=== PATIENT | female | born 1960 | race American Indian/Alaskan Native ===

== ENCOUNTER 2016-10-23 02:02 | Emergency (ER) | payer MEDICARE, OTHER ==
[2016-10-23 02:03] VITALS: PULSE 125
[2016-10-23 02:09] VITALS: BMI 37.1
[2016-10-23 04:36] VITALS: BP 171/91; PULSE 74; RESP 18; TEMP 98.2; O2SAT 96
--- NOTE | 2016-10-23 05:20 | ED PDOC ---
Arrival/HPI - General Chief Complaint: Lower Extremity Problem/Injury Time Seen by Provider: 10/23/16 04:48 Historian: Patient - History of Present Illness Narrative History of Present Illness (Text): 10/23/16 05:17 Carie Duncan is a 56 year old female, with a history of alcohol abuse and chronic leg pain, presents to the emergency department complaining of bilateral leg pain. Denies any recent history of trauma. She states that she is homeless and has nowhere else to go. Patient is well known to [facility] for numerous emergency department visits for similar complaints. Denies fever, chills, headache, dizziness, chest pain, shortness of breath, nausea, vomiting, diarrhea, or any other complaints at this time. Time/Duration: 4-6 hours Symptom Onset: Gradual Symptom Course: Unchanged Severity Level: Mild Activities at Onset: Light Past Medical History - Provider Review Nursing Documentation Reviewed: Yes - Infectious Disease Hx of Infectious Diseases: None - Tetanus Immunization Tetanus Immunization: Unknown - Cardiac Hx Congestive Heart Failure: Yes Hx Hypertension: Yes Hx Peripheral Edema: Yes - Pulmonary Hx Chronic Obstructive Pulmonary Disease (COPD): Yes - Neurological Hx Neurological Disorder: No HX Cerebrovascular Accident: No - HEENT Hx HEENT Disorder: No - Renal Hx Renal Disorder: Yes - Endocrine/Metabolic Hx Hypothyroidism: Yes - Hematological/Oncological Hx Anemia: Yes - Integumentary Hx Dermatological Disorder: No - Musculoskeletal/Rheumatological Hx Arthritis: Yes - Gastrointestinal Hx Gastrointestinal Disorders: No Hx Pancreatitis: Yes - Genitourinary/Gynecological Hx Genitourinary Disorders: No - Psychiatric Hx Anxiety: Yes Hx Depression: Yes Hx Substance Use: No (stopped) - Surgical History Other/Comment: IVC filter - Anesthesia Hx Anesthesia: Yes Hx Anesthesia Reactions: No Hx Malignant Hyperthermia: No - Suicidal Assessment Feels Threatened In Home Enviroment: No Family/Social History - Physician Review Nursing Documentation Reviewed: Yes Family/Social History: No Known Family HX Smoking Status: Heavy Smoker > 10 Cigarettes Daily Hx Alcohol Use: Yes (vodka) Frequency of alcohol use: Daily Hx Substance Use: No (stopped) Substance used: ''Heroin Hx Substance Use Treatment: No Allergies/Home Meds Allergies/Adverse Reactions: Allergies No Known Allergies Allergy (Verified 10/23/16 02:07) Review of Systems - Physician Review All systems were reviewed & negative as marked: Yes - Review of Systems Constitutional: Normal. absent: Fatigue, Fevers Respiratory: Normal. absent: SOB, Cough Cardiovascular: Normal. absent: Chest Pain Gastrointestinal: Normal. absent: Abdominal Pain, Diarrhea, Nausea, Vomiting Musculoskeletal: Other (b/l leg pain ) Neurological: Normal. absent: Headache, Dizziness Psychiatric: Normal Physical Exam Vital Signs Reviewed: Yes Vital Signs Temp Pulse Resp BP Pulse Ox 10/23/16 04:34 98.2 F 74 18 171/91 H 96 Temperature: Afebrile Blood Pressure: Hypertensive Pulse: Regular Respiratory Rate: Normal Appearance: Positive for: Well-Appearing, Non-Toxic, Comfortable Pain Distress: None Mental Status: Positive for: Alert and Oriented X 3 - Systems Exam Head: Present: Atraumatic, Normocephalic Pupils: Present: PERRL Extroacular Muscles: Present: EOMI Conjunctiva: Present: Normal Respiratory/Chest: Present: Clear to Auscultation, Good Air Exchange. No: Respiratory Distress, Accessory Muscle Use Cardiovascular: Present: Regular Rate and Rhythm, Normal S1, S2. No: Murmurs Abdomen: Present: Normal Bowel Sounds. No: Tenderness, Distention, Peritoneal Signs Lower Extremity: Present: Normal Inspection, NORMAL PULSES, Normal ROM, Neurovascularly Intact, Capillary Refill < 2 s. No: Edema, CALF TENDERNESS, Venkat's Sign, Tenderness, Swelling, Erythema, Deformity Neurological: Present: GCS=15, CN II-XII Intact, Speech Normal Skin: Present: Warm, Dry, Normal Color. No: Rashes Psychiatric: Present: Alert, Oriented x 3, Normal Insight, Normal Concentration Medical Decision Making ED Course and Treatment: 10/23/16 05:23 Impression: A 56 year old female presents to emergency department for bilateral leg pain. Progress Notes: - Scribe Statement The provider has reviewed the documentation as recorded by the Bradley Salguero Provider Attestation: All medical record entries made by the Bradley were at my direction and personally dictated by me. I have reviewed the chart and agree that the record accurately reflects my personal performance of the history, physical exam, medical decision making, and the department course for this patient. I have also personally directed, reviewed, and agree with the discharge instructions and disposition. Disposition/Present on Arrival - Present on Arrival Any Indicators Present on Arrival: No History of DVT/PE: No History of Uncontrolled Diabetes: No Urinary Catheter: No History of Decub. Ulcer: No History Surgical Site Infection Following: None - Disposition Have Diagnosis and Disposition been Completed?: Yes Diagnosis: Chronic leg pain Disposition: HOME/ ROUTINE Disposition Time: 05:40 Patient Plan: Discharge Condition: GOOD Discharge Instructions (ExitCare): Muscle Strain (ED) Additional Instructions: rest/advil as directed/follow up [facility] this week
--- NOTE | 2016-10-23 22:51 | ED PDOC ---
Arrival/HPI - General Chief Complaint: Lower Extremity Problem/Injury Time Seen by Provider: 10/23/16 04:48 Historian: Patient, EMS EM Caveat: Intoxicated, Uncooperative - History of Present Illness Narrative History of Present Illness (Text): 10/23/16 22:51 This is a 56 year old female, with a history of alcohol abuse and chronic leg pain, presenting to the emergency department complaining of right sided leg pain. The patient reports a fall. EMS found the patient sitting on the side of the road. The patient is unable to describe the fall or provide any more details other than the fact that she fell. The patient is currently intoxicated after an admitted ingestion of 3 pints of vodka. The patient is homeless. She was discharged from the [facility] ED this morning after observation for intoxication. Denies fever, chills, headache, dizziness, chest pain, shortness of breath, nausea, vomiting, diarrhea, or any other complaints at this time. Time/Duration: Prior to Arrival Severity Level: 8 Past Medical History - Provider Review Nursing Documentation Reviewed: Yes - Travel History Have you recently traveled outside [place] w/in the past 3 mons?: No - Past History Past History: No Previous - Infectious Disease Hx of Infectious Diseases: None - Tetanus Immunization Tetanus Immunization: Unknown - Cardiac Hx Congestive Heart Failure: Yes Hx Hypertension: Yes Hx Peripheral Edema: Yes - Pulmonary Hx Chronic Obstructive Pulmonary Disease (COPD): Yes - Neurological Hx Neurological Disorder: No HX Cerebrovascular Accident: No - HEENT Hx HEENT Disorder: No - Renal Hx Renal Disorder: Yes - Endocrine/Metabolic Hx Hypothyroidism: Yes - Hematological/Oncological Hx Anemia: Yes - Integumentary Hx Dermatological Disorder: No - Musculoskeletal/Rheumatological Hx Arthritis: Yes - Gastrointestinal Hx Gastrointestinal Disorders: No Hx Pancreatitis: Yes - Genitourinary/Gynecological Hx Genitourinary Disorders: No - Psychiatric Hx Anxiety: Yes Hx Depression: Yes Hx Substance Use: No (stopped) - Surgical History Other/Comment: IVC filter - Anesthesia Hx Anesthesia: Yes Hx Anesthesia Reactions: No Hx Malignant Hyperthermia: No - Suicidal Assessment Feels Threatened In Home Enviroment: No Family/Social History - Physician Review Nursing Documentation Reviewed: Yes Family/Social History: No Known Family HX Smoking Status: Heavy Smoker > 10 Cigarettes Daily Hx Alcohol Use: Yes (vodka 2-3 pints) Frequency of alcohol use: Daily Hx Substance Use: No (stopped) Substance used: Heroin Hx Substance Use Treatment: No Allergies/Home Meds Allergies/Adverse Reactions: Allergies No Known Allergies Allergy (Verified 10/23/16 22:38) Review of Systems - Physician Review All systems were reviewed & negative as marked: Yes - Review of Systems Systems not reviewed;Unavailable: Uncooperative Respiratory: absent: SOB, Cough Cardiovascular: absent: Chest Pain, Palpitations Musculoskeletal: Arthralgias, Myalgias Physical Exam - Physical Exam Physical Exam Limitations: Intoxication, Uncooperative Vital Signs Reviewed: Yes Vital Signs Temp Pulse Resp BP Pulse Ox 10/23/16 04:34 98.2 F 74 18 171/91 H 96 Temperature: Afebrile Blood Pressure: Hypertensive Pulse: Regular Respiratory Rate: Normal Appearance: Positive for: Well-Appearing, Non-Toxic Pain Distress: None Mental Status: Positive for: Alert and Oriented X 3 - Systems Exam Head: Present: Atraumatic, Normocephalic Respiratory/Chest: Present: Clear to Auscultation, Good Air Exchange. No: Respiratory Distress, Accessory Muscle Use Cardiovascular: Present: Regular Rate and Rhythm, Normal S1, S2. No: Murmurs Abdomen: Present: Normal Bowel Sounds. No: Tenderness, Distention, Peritoneal Signs Upper Extremity: Present: Normal Inspection. No: Cyanosis, Edema Lower Extremity: Present: Normal Inspection, CALF TENDERNESS (Right side), NORMAL PULSES, Tenderness, Neurovascularly Intact. No: Edema, Normal ROM ( decreased ROM 2/2 to pain R Knee), Swelling Neurological: Present: CN II-XII Intact Skin: Present: Warm, Dry, Normal Color. No: Rashes Psychiatric: Present: Alert Medical Decision Making ED Course and Treatment: 10/23/16 23:03 Impression: This is a 56 year old female, with a history of alcohol abuse and chronic leg pain, presenting to the emergency department complaining of right sided leg pain. The patient is well known to the [facility] ED staff. The patient is a chronic alcoholic who is homeless. The patient has a history of chronic leg pain as well. Differential: Social Situation EtOH Intoxication Arthritis Plan: Banana Bag 100mL/hr Weight bearing XR R knee Seizure Prophylaxis Tele Monitor Ativan 1mg IV Q6 PRN Seizure Prior Visits: 10/23/16 AM- EtOH intoxication Patient has multiple admission for leg pain and alcohol intoxication Progress Note: Patient seen and examined at the bedside. Patient reprots pain in her right knee. Patient says that the pain is consistent with her baseline. She is worried about the knee because she fell. The patient was left alone to change. When I returned to speak with the patient she was sleeping comfortably. Disposition/Present on Arrival - Present on Arrival Any Indicators Present on Arrival: Yes History of DVT/PE: Yes History of Uncontrolled Diabetes: No Urinary Catheter: No History of Decub. Ulcer: No History Surgical Site Infection Following: None - Disposition Have Diagnosis and Disposition been Completed?: Yes Diagnosis: Chronic leg pain Condition: GOOD Discharge Instructions (ExitCare): Muscle Strain (ED) Additional Instructions: rest/advil as directed/follow up [facility] this week
== END 2016-10-23 06:05 | disposition home or self-care (01) ==
LOC: ED 02:02
DX: M79.605 Pain in left leg (principal); M79.604 Pain in right leg; G89.29 Other chronic pain
CPT/HCPCS: 73560; 96374; 99283; G0480; J2060; J3411; J7040

== ENCOUNTER 2016-10-23 21:48 | Emergency (ER) | payer MEDICARE, OTHER ==
[2016-10-23 21:48] VITALS: PULSE 125; BMI 37.1
[2016-10-23] MEDS ORDERED: Multivitamin (MVI) 10 ML, Thiamine 100 MG, Folic Acid 1 MG in Sodium Chloride 0.9% 1,00... IV ONE ×2 (22:21→22:22)
[2016-10-23] MEDS ORDERED: Sodium Chloride 0.9% 1,000 ML IV STA (22:22)
--- NOTE | 2016-10-23 23:14 | ED PDOC ---
Arrival/HPI <Ken King - Last Filed: 10/24/16 00:25> - General Historian: Patient, EMS EM Caveat: Intoxicated, Uncooperative - History of Present Illness Time/Duration: Prior to Arrival Symptom Course: Unchanged Severity Level: 8 <Sylvia,Juice - Last Filed: 10/24/16 05:47> - General Chief Complaint: Lower Extremity Problem/Injury Time Seen by Provider: 10/23/16 21:56 - History of Present Illness Narrative History of Present Illness (Text): 10/23/16 23:11 This is a 56 year old female, with a history of alcohol abuse and chronic leg pain, presenting to the emergency department complaining of right sided leg pain. The patient reports a fall. EMS found the patient sitting on the side of the road. The patient is unable to describe the fall or provide any more details other than the fact that she fell. The patient is currently intoxicated after an admitted ingestion of 3 pints of vodka. The patient is homeless. She was discharged from the [facility] ED this morning after observation for intoxication. Denies fever, chills, headache, dizziness, chest pain, shortness of breath, nausea, vomiting, diarrhea, or any other complaints at this time. (Juice Ward) Past Medical History - Provider Review Nursing Documentation Reviewed: Yes - Travel History Have you recently traveled outside [place] w/in the past 3 mons?: No - Past History Past History: Non-Contributing - Infectious Disease Hx of Infectious Diseases: None - Tetanus Immunization Tetanus Immunization: Unknown - Reproductive Menopause: Yes - Past Medical History Past Medical History: Non-Contributing - Cardiac Hx Congestive Heart Failure: Yes Hx Hypertension: Yes Hx Peripheral Edema: Yes - Pulmonary Hx Chronic Obstructive Pulmonary Disease (COPD): Yes - Neurological Hx Neurological Disorder: No HX Cerebrovascular Accident: No - HEENT Hx HEENT Disorder: No - Renal Hx Renal Disorder: Yes - Endocrine/Metabolic Hx Hypothyroidism: Yes - Hematological/Oncological Hx Anemia: Yes - Integumentary Hx Dermatological Disorder: No - Musculoskeletal/Rheumatological Hx Arthritis: Yes - Gastrointestinal Hx Gastrointestinal Disorders: No Hx Pancreatitis: Yes - Genitourinary/Gynecological Hx Genitourinary Disorders: No - Psychiatric Hx Anxiety: Yes Hx Depression: Yes Hx Substance Use: No (stopped) - Surgical History Other/Comment: IVC filter - Anesthesia Hx Anesthesia: Yes Hx Anesthesia Reactions: No Hx Malignant Hyperthermia: No - Suicidal Assessment Feels Threatened In Home Enviroment: No <Juice Ward - Last Filed: 10/24/16 05:47> Family/Social History - Physician Review Nursing Documentation Reviewed: Yes Family/Social History: No Known Family HX Smoking Status: Heavy Smoker > 10 Cigarettes Daily Hx Alcohol Use: Yes (vodka) Hx Substance Use: No (stopped) Substance used: Heroin Hx Substance Use Treatment: No <Juice Ward - Last Filed: 10/24/16 05:47> Allergies/Home Meds <Ken King - Last Filed: 10/24/16 00:25> <Juice Ward - Last Filed: 10/24/16 05:47> Allergies/Adverse Reactions: Allergies No Known Allergies Allergy (Verified 10/23/16 22:38) Review of Systems - Review of Systems Systems not reviewed;Unavailable: Intoxicated Respiratory: absent: SOB, Cough Cardiovascular: absent: Chest Pain, Palpitations Musculoskeletal: Arthralgias, Myalgias <Juice Ward - Last Filed: 10/24/16 05:47> Physical Exam - Physical Exam Physical Exam Limitations: Intoxication, Uncooperative Temperature: Afebrile Blood Pressure: Hypertensive Pulse: Regular Respiratory Rate: Normal Appearance: Positive for: Well-Appearing, Non-Toxic Pain Distress: Mild Mental Status: Positive for: Alert and Oriented X 3 - Systems Exam Head: Present: Atraumatic, Normocephalic Conjunctiva: Present: Normal. No: Injected Mouth: Present: Moist Mucous Membranes Respiratory/Chest: Present: Clear to Auscultation, Good Air Exchange. No: Respiratory Distress, Accessory Muscle Use Cardiovascular: Present: Regular Rate and Rhythm, Normal S1, S2. No: Murmurs Abdomen: Present: Normal Bowel Sounds. No: Tenderness, Distention, Peritoneal Signs Upper Extremity: Present: Normal Inspection. No: Cyanosis, Edema Lower Extremity: Present: Normal Inspection, CALF TENDERNESS (right), NORMAL PULSES, Normal ROM (decreased ROM on right 2/2 to pain), Tenderness (right knee) . No: Edema Neurological: Present: CN II-XII Intact. No: Speech Normal Skin: Present: Warm, Dry, Normal Color. No: Rashes Psychiatric: Present: Alert <Juice Ward - Last Filed: 10/24/16 05:47> Vital Signs Temp Pulse Resp BP Pulse Ox 10/24/16 04:36 68 19 151/74 H 99 10/24/16 02:09 97.9 F 79 16 172/79 H 100 10/23/16 22:31 98 F 85 20 176/101 H 100 Medical Decision Making - Lab Interpretations I have reviewed the lab results: Yes <Ken King - Last Filed: 10/24/16 00:25> Re-evaluation Time: 00:40 Reassessment Condition: Re-examined (Sleeping) - Lab Interpretations Interpretation: Abnormal lab values (Alcohol Level Elevated at 64) <Juice Ward - Last Filed: 10/24/16 05:47> ED Course and Treatment: Impression: Pt seen and evaluated with medical biller coder. Pt, whose past medical history inclydes alcohol abuse and chronic lower extremity pain, presented for right left pain s/p mechanical fall and alcohol intoxication. Pt admits to drinking 3 pints of vodka tonight. Pt denies any head trauma, LOC, or any other complaints. Pt was seen earlier today for similar complaint. Aware and agree with HPI, clinical findings, plan, and management. Plan: -- Labs, alcohol level -- Urine drug screen -- Banana bag -- XR Right Knee -- US Duplex Lower Extremities -- Reassess and disposition Prior Visits: Notes and results from previous visits were reviewed. Pt is well known to Emergency room staff and has been seen on multiple occasions for similar complaint. Progress Notes: (Ken King) 10/23/16 23:14 Impression: This is a 56 year old female, with a history of alcohol abuse and chronic leg pain, presenting to the emergency department complaining of right sided leg pain. The patient is well known to the [facility] ED staff. The patient is a chronic alcoholic who is homeless. The patient has a history of chronic leg pain as well. Differential: Social Situation EtOH Intoxication Arthritis Plan: Banana Bag 100mL/hr Weight bearing XR R knee Seizure Prophylaxis Tele Monitor Ativan 1mg IV Q6 PRN Seizure Prior Visits: 10/23/16 AM- EtOH intoxication Patient has multiple admission for leg pain and alcohol intoxication Progress Note: Patient seen and examined at the bedside. Patient reprots pain in her right knee. Patient says that the pain is consistent with her baseline. She is worried about the knee because she fell. The patient was left alone to change. When I returned to speak with the patient she was sleeping comfortably. 10/24/16 00:43 Patient re-examined. Patient sleeping comfortably. No complaint of pain. IV Banana bag running. patient's alcohol level 64 on laboratory evaluation. 10/24/16 05:45 Patient slept comfortably through the night. XR of the right knee negative for fracture/dislocation. Patient agreeable for discharge. (Juice Ward) - Lab Interpretations Lab Results: Lab Results 10/23/16 23:14: Alcohol, Quantitative 64 H - RAD Interpretation Radiology Orders: 10/23/16 22:34 KNEE RIGHT 2 VIEWS (AP & LAT) [RAD] Stat - Medication Orders Current Medication Orders: Multivitamins/Vitamin C 10 ml/Thiamine HCl 100 mg/ Folic Acid 1 mg/ Sodium Chloride 1,011.2 mls @ 100 mls/hr IV .Q10H7M ONE Stop: 10/24/16 08:28 Last Admin: 10/23/16 23:24 Dose: 100 MLS/HR eMAR Start Stop Document 10/23/16 23:24 OCS (Rec: 10/23/16 23:24 OCS [facility]-[id number]) Intravenous Solution Start Date 10/23/16 Start Time 23:24 Lorazepam (Ativan) 1 mg IVP Q6H PRN; Protocol PRN Reason: Seizure activity Last Admin: 10/23/16 23:17 Dose: 1 MG Behavioural Document 10/23/16 23:17 OCS (Rec: 10/23/16 23:18 OCS [facility]-[id number]) Maintenance Maintenance Dose Yes Nonmedicinal Nonmedicinal Interventions Redirect Behavior Behavior for Medication: Anxiety IVP Administration Document 10/23/16 23:17 OCS (Rec: 10/23/16 23:18 OCS [id number]) Charges for Administration # of IVP Administrations 1 - PA / MAINTENANCE MECHANIC TECHNICIAN / Resident Statement ELVER has reviewed & agrees with the documentation as recorded. ELVER has examined the patient and agrees with the treatment plan. <Ken King - Last Filed: 10/24/16 00:25> Disposition/Present on Arrival <Ken King - Last Filed: 10/24/16 00:25> - Present on Arrival Any Indicators Present on Arrival: Yes History of DVT/PE: Yes History of Uncontrolled Diabetes: No Urinary Catheter: No History of Decub. Ulcer: No History Surgical Site Infection Following: None - Disposition Have Diagnosis and Disposition been Completed?: Yes Disposition Time: 00:15 Patient Plan: Discharge <Juice Ward - Last Filed: 10/24/16 05:47> - Disposition Diagnosis: Alcohol intoxication, Knee pain Disposition: HOME/ ROUTINE Patient Problems: Current Active Problems Problem Status Diagnosed Alcohol intoxication Acute Knee pain Acute Condition: FAIR Discharge Instructions (ExitCare): Osteoarthritis (ED), Abuse of Alcohol (ED), Alcohol Use Disorder (ED) Print Language: YORUBA Additional Instructions: 1.) Avoid Alcohol 2.) Weight bearing as tolerated 3.) Avoid use of tobacco/cigarettes 4.) Continue using cane for ambulation 5.) Follow up with PMD after discharge 6.) If symptoms return, please return to the ED for evaluation Referrals: Kendall Kenny MD [Primary Care Provider] - Follow up with primary
[2016-10-24 02:09] VITALS: TEMP 97.9
[2016-10-24 04:37] VITALS: BP 151/74; PULSE 68; RESP 19; O2SAT 99
--- NOTE | 2016-10-24 07:31 | RAD ---
PROCEDURE: Right knee dated 10/24/2016 HISTORY: knee pain COMPARISON: None. FINDINGS: BONES: No evidence of displaced fracture nor dislocation. . JOINTS: For tricompartmental degenerative joint changes most notably affecting the lateral compartment. There is marked lateral joint space narrowing with subchondral sclerosis and small ateral marginal osteophyte formation. The tiny posterior patellar osteophytes are also present JOINT EFFUSION: Evaluation for joint effusion is somewhat limited due to large body habitus. OTHER FINDINGS: Vascular calcifications are present IMPRESSION: No acute fractures. 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
== END 2016-10-24 06:52 | disposition home or self-care (01) ==
LOC: ED 21:48
DX: F10.129 Alcohol abuse with intoxication, unspecified (principal); M25.561 Pain in right knee
CPT/HCPCS: 73560; 96374; 99283; G0480; J2060; J3411; J7040

== ENCOUNTER 2016-10-25 23:56 | Emergency (ER) | payer MEDICARE, OTHER ==
[2016-10-25 23:56] VITALS: PULSE 125
[2016-10-26 00:12] VITALS: BMI 36.5
--- NOTE | 2016-10-26 00:32 | ED PDOC ---
Arrival/HPI - General Chief Complaint: Lower Extremity Problem/Injury Time Seen by Provider: 10/25/16 23:58 - History of Present Illness Narrative History of Present Illness (Text): 10/26/16 00:23 56-year-old female presents emergency Department with chronic bilateral lower extremity pain. Patient denies any, or injury. States that her pain has been present for over 6 months. Patient denies any chest pain, shortness of breath, dyspnea on exertion. Patient denies any lower extremity swelling. No other complaints. Patient states that her lower extremities are painful upon walking, and much better with rest. Past Medical History - Provider Review Nursing Documentation Reviewed: Yes - Past History Past History: Non-Contributing - Infectious Disease Hx of Infectious Diseases: None - Tetanus Immunization Tetanus Immunization: Unknown - Past Medical History Past Medical History: Non-Contributing - Cardiac Hx Congestive Heart Failure: Yes Hx Hypertension: Yes Hx Peripheral Edema: Yes - Pulmonary Hx Chronic Obstructive Pulmonary Disease (COPD): Yes - Neurological Hx Neurological Disorder: No HX Cerebrovascular Accident: No - HEENT Hx HEENT Disorder: No - Renal Hx Renal Disorder: Yes - Endocrine/Metabolic Hx Hypothyroidism: Yes - Hematological/Oncological Hx Anemia: Yes - Integumentary Hx Dermatological Disorder: No - Musculoskeletal/Rheumatological Hx Arthritis: Yes - Gastrointestinal Hx Pancreatitis: Yes - Genitourinary/Gynecological Hx Genitourinary Disorders: No - Psychiatric Hx Anxiety: Yes Hx Depression: Yes Hx Substance Use: No (stopped) Other/Comment: alcohol abuse - Surgical History Other/Comment: IVC filter - Anesthesia Hx Anesthesia: Yes Hx Anesthesia Reactions: No Hx Malignant Hyperthermia: No - Suicidal Assessment Feels Threatened In Home Enviroment: No Family/Social History Family/Social History: Unknown Family HX Smoking Status: Heavy Smoker > 10 Cigarettes Daily Hx Alcohol Use: Yes (vodka) Frequency of alcohol use: Daily Hx Substance Use: No (stopped) Substance used: Heroin Hx Substance Use Treatment: No Allergies/Home Meds Allergies/Adverse Reactions: Allergies No Known Allergies Allergy (Verified 10/26/16 00:01) Physical Exam - Physical Exam Narrative Physical Exam (Text): - Review of Systems Constitutional: Normal. absent: Fatigue, Weight Change, Fevers Eyes: Normal ENT: denies sore throat, denies tristhmus Respiratory: Normal. absent: SOB, Cough, Sputum Cardiovascular: absent: Chest Pain, Palpitations, Syncope Gastrointestinal: Normal. absent: Abdominal Pain, Diarrhea, Nausea, Vomiting Genitourinary: Normal. absent: Dysuria, Frequency, Hematuria, vaginal bleeding Musculoskeletal: LE pain. absent: Back Pain, Neck Pain Skin: no rashes, no erythema Neurological: absent: Focal Weakness Endocrine: Normal Hemo/Lymphatic: Normal Psychiatric: No suicidal or homicidal ideations Physical exam Patient appears age appropriate in no distress, speaking full sentences without difficulty - Systems Exam Head: Present: Atraumatic, Normocephalic Pupils: Present: PERRL Extroacular Muscles: Present: EOMI Conjunctiva: Present: Normal Mouth: Present: Moist Mucous Membranes Neck: Present: Normal Range of Motion. No: MIDLINE TENDERNESS, Paraspinal Tenderness Respiratory/Chest: Present: Clear to Auscultation, Good Air Exchange. No: Respiratory Distress, Accessory Muscle Use, Tachypneic Cardiovascular: Present: Regular Rate and Rhythm, Normal S1, S2, Peripheal Pulses Present. No: Murmurs Abdomen: Present: Normal Bowel Sounds. No: Tenderness, Distention, Peritoneal Signs, Rebound, Guarding Back: Present: Normal Inspection. No: Midline Tenderness, Paraspinal Tenderness Upper Extremity: Present: Normal Inspection. No: Cyanosis, Edema Lower Extremity: Present: Normal Inspection. Distal neurovasc. intact. Steady gait No: Edema, asymmetry Neurological: Present: GCS=15, Speech Normal, cranial nerves II through XII fully intact with no cerebellar abnormality, neurosensory fully intact. No focal neurological deficits. Skin: Present: Warm, Dry, Normal Color. No: Rashes Lymphatic: Present: OX3, NI, NC Psychiatric: Present: Alert, Oriented x 3, Normal Insight, Normal Concentration Vital Signs Reviewed: No (Patient refused vital signs) Medical Decision Making ED Course and Treatment: 10/26/16 00:32 56-year-old female with chronic bilateral lower extremity pain. No acute findings on physical examination. Patient had recent x-rays done with no acute findings. Diagnoses of acute CHF exacerbation considered, patient has no lower extremity swelling, no JVD, lungs clear to auscultation bilaterally, denies shortness of breath or dyspnea on exertion. Ultrasound ordered Motrin ordered for pain Patient admits to consuming alcohol in the past, however evening she has no signs or symptoms of alcohol withdrawal, and is clinically sober with steady gait. 10/26/16 02:06 Discussed with technical assistance consultant, states negative for DVT bilaterally Patient ambulance emergency department without difficulty. No complaints at this time. Patient is clinically sober with no signs or symptoms of alcohol withdrawal. Patient states that she has no suicidal ideations. Patient states that she feels comfortable being discharged at this time. Pt states she understands to return to the ER right away for new or worsening symptoms or for inability to f/u with PMD or specialist as instructed. Patient states that she fully agrees with and understands discharge instructions. States that she agrees with the plan and disposition. Verbalized and repeated discharge instructions and plan. I have given the patient opportunity to ask any additional questions. - RAD Interpretation Radiology Orders: 10/26/16 00:16 DUPLEX LOWER EXTRM VEIN BILAT [US] Stat - Medication Orders Current Medication Orders: Discontinued Medications Ibuprofen (Motrin Tab) 600 mg PO STAT STA Stop: 10/26/16 00:17 Last Admin: 10/26/16 00:26 Dose: 600 MG MAR Pain/Vitals Document 10/26/16 00:26 RON (Rec: 10/26/16 00:26 RON [id number]) Sleep Is patient sleeping during reassessment? No Presence of Pain Presence of Pain Yes Location Left, Right or Bilateral Bilateral Upper or Lower Lower Pain Location Body Site legs Disposition/Present on Arrival - Present on Arrival Any Indicators Present on Arrival: No History of DVT/PE: Yes History of Uncontrolled Diabetes: No Urinary Catheter: No History of Decub. Ulcer: No History Surgical Site Infection Following: None - Disposition Have Diagnosis and Disposition been Completed?: Yes Diagnosis: Chronic leg pain Disposition: HOME/ ROUTINE Disposition Time: 02:08 Patient Plan: Discharge Condition: GOOD Discharge Instructions (ExitCare): Arthralgia (ED) Additional Instructions: Please take [id number] Motrin or Tylenol for pain PLEASE RETURN TO THE EMERGENCY DEPARTMENT FOR NEW OR WORSENING SYMPTOMS. RETURN RIGHT AWAY IF YOU CANNOT FOLLOW UP WITH YOUR PRIMARY CARE DOCTOR, CLINIC, OR SPECIALIST IN 1-2 DAYS. Referrals: Baldemar Farmer MD [Staff Provider] - Follow up with primary [facility] [Outside] - Follow up with primary [facility] [Outside] - Follow up with primary
--- NOTE | 2016-10-26 09:04 | US ---
HISTORY: Leg pain and swelling. Evaluate for DVT PHYSICIAN(S): Jack Dillard MD. TECHNIQUE: Duplex sonography and color-flow Doppler with graded compression were used to evaluate the deep venous systems of both lower extremities. FINDINGS: The visualized deep venous systems of both lower extremities are sonographically normal and compressible. Normal wave forms and augmentation are seen. There is no sonographic evidence for deep venous thrombosis in the visualized segments of both lower extremities. IMPRESSION: No sonographic evidence for deep venous thrombosis in the visualized segments of both lower extremities.
== END 2016-10-26 05:14 | disposition home or self-care (01) ==
LOC: ED 23:56
DX: M79.605 Pain in left leg (principal); M79.604 Pain in right leg; I10 Essential (primary) hypertension; R60.9 Edema, unspecified; M19.90 Unspecified osteoarthritis, unspecified site; F17.210 Nicotine dependence, cigarettes, uncomplicated

== ENCOUNTER 2016-10-29 12:09 | Emergency (ER) | payer MEDICARE, OTHER ==
[2016-10-29 12:09] VITALS: PULSE 125; BMI 36.5
--- NOTE | 2016-10-29 12:52 | ED PDOC ---
Arrival/HPI <Alexander Kevin - Last Filed: 10/29/16 16:10> - General Historian: Patient <Terri Garzon - Last Filed: 10/29/16 16:30> - General Chief Complaint: Lower Extremity Problem/Injury Time Seen by Provider: 10/29/16 12:10 - History of Present Illness Narrative History of Present Illness (Text): 10/29/16 12:52 56 AA homeless F presented to [facility] via EMS after being found intoxicated in [facility] with complaints of b/l lower extremity pain. Pt reports that she was at a long term last night, took a shuttle to [facility] in [place] and began drinking vodka, approximately a pint, became intoxicated and fell onto her lower extremities. Pt admits b/l leg pain that is described as a muscle ache and b/l le swelling. Pt denied tremors, headaches, loc, fever, chills, chest pains, palpitations, SOB, abdominal pains, n/v/d/c or urinary symptoms. PMHx: DVT, HIV, Afib, CHF (EF 59%), HTN, COPD, Hypothyroidism, DM, HLD PSHx: IVC Filter SHx: Homeless, goes to [facility], ambulates with cane (+)tobacco 2ppd x 2yr , (+)3 pints vodka dailyx 30yrs, hx of sniffing heroin - currently denies FamHx: HTN, DM Meds: MAR reviewed Allergies: NKDA (Terri Garzon) Past Medical History - Past History Past History: Non-Contributing - Infectious Disease Hx of Infectious Diseases: None - Tetanus Immunization Tetanus Immunization: Unknown - Past Medical History Past Medical History: Non-Contributing - Cardiac Hx Congestive Heart Failure: Yes Hx Hypertension: Yes Hx Peripheral Edema: Yes - Pulmonary Hx Chronic Obstructive Pulmonary Disease (COPD): Yes - Neurological Hx Neurological Disorder: No HX Cerebrovascular Accident: No - HEENT Hx HEENT Disorder: No - Renal Hx Renal Disorder: Yes - Endocrine/Metabolic Hx Hypothyroidism: Yes - Hematological/Oncological Hx Anemia: Yes - Integumentary Hx Dermatological Disorder: No - Musculoskeletal/Rheumatological Hx Arthritis: Yes - Gastrointestinal Hx Pancreatitis: Yes - Genitourinary/Gynecological Hx Genitourinary Disorders: No - Psychiatric Hx Anxiety: Yes Hx Depression: Yes Hx Substance Use: No (stopped) Other/Comment: alcohol abuse - Surgical History Other/Comment: IVC filter - Anesthesia Hx Anesthesia: Yes Hx Anesthesia Reactions: No Hx Malignant Hyperthermia: No - Suicidal Assessment Feels Threatened In Home Enviroment: No <Terri Garzon - Last Filed: 10/29/16 16:30> Family/Social History Family/Social History: No Known Family HX Smoking Status: Heavy Smoker > 10 Cigarettes Daily Hx Alcohol Use: Yes (vodka) Hx Substance Use: No (stopped) Substance used: Heroin Hx Substance Use Treatment: No <Terri Garzon - Last Filed: 10/29/16 16:30> Allergies/Home Meds <Alexander Kevin - Last Filed: 10/29/16 16:10> <DuranTerri - Last Filed: 10/29/16 16:30> Allergies/Adverse Reactions: Allergies No Known Allergies Allergy (Verified 10/29/16 12:41) Review of Systems - Review of Systems Constitutional: Normal Eyes: Normal ENT: Normal Respiratory: Normal Cardiovascular: Edema (b/l le) Gastrointestinal: Normal Genitourinary Female: Normal Musculoskeletal: Arthralgias Skin: Normal Neurological: Normal Endocrine: Normal Hemo/Lymphatic: Normal Psychiatric: Normal <Terri Garzon - Last Filed: 10/29/16 16:30> Physical Exam Vital Signs Reviewed: Yes Temperature: Afebrile Blood Pressure: Normal Pulse: Regular Respiratory Rate: Normal Appearance: Positive for: Well-Appearing, Non-Toxic, Comfortable Pain Distress: None Mental Status: Positive for: Alert and Oriented X 3 - Systems Exam Head: Present: Atraumatic, Normocephalic Pupils: Present: PERRL Extroacular Muscles: Present: EOMI Conjunctiva: Present: Normal Mouth: Present: Moist Mucous Membranes Neck: Present: Normal Range of Motion Respiratory/Chest: Present: Clear to Auscultation Cardiovascular: Present: Regular Rate and Rhythm, Normal S1, S2. No: Murmurs Abdomen: Present: Normal Bowel Sounds. No: Tenderness, Distention, Peritoneal Signs Back: Present: Normal Inspection Upper Extremity: Present: Normal Inspection. No: Cyanosis, Edema Lower Extremity: Present: Edema, Tenderness, Swelling (b/l, no palpable cords). No: CALF TENDERNESS, Venkat's Sign Neurological: Present: GCS=15, CN II-XII Intact, Speech Normal Skin: Present: Warm, Dry, Normal Color. No: Rashes Psychiatric: Present: Alert, Oriented x 3, Normal Insight, Normal Concentration. No: Suicidal Ideation, Homicidal Ideation <Terri Garzon - Last Filed: 10/29/16 16:30> Vital Signs Temp Pulse Resp BP Pulse Ox 10/29/16 14:20 192/98 H 10/29/16 13:03 98.0 F 81 18 128/67 98 Medical Decision Making <Alexander Kevin - Last Filed: 10/29/16 16:10> Re-evaluation Time: 15:30 Reassessment Condition: Improved - Lab Interpretations I have reviewed the lab results: Yes - EKG Interpretation Comparison: Similar to previous EKG <Terri Garzon - Last Filed: 10/29/16 16:30> ED Course and Treatment: Patient Seen With Resident: In agreement with resident note. Patient was seen and evaluated with resident, came up with plan and treatment together.. 10/29/16 15:10 56-year-old female with a history of CHF, presents to the ER with bilateral lower extremity swelling. Patient does not appear to be in respiratory distress , no difficulty speaking and breathing, speaking full sentences without difficulty. Patient admits to consuming alcohol before coming to the emergency department, she is however clinically sober, appears to have good insight and judgment, ambulates with steady gait. Patient has no signs or symptoms of alcohol withdrawal. Patient's labs reviewed. Patient has elevated creatinine, which is not above her baseline. Patient's BNP is at baseline as well. Patient's chest x-ray has no infiltrates, no signs of vascular congestion. Patient does not appear to be in acute CHF exacerbation. (Alexander Kevin) 10/29/16 13:06 56 F with PMHx of HTN, CHF, COPD presents with b/l lower extremity pain and swelling. No asymmetrical swelling, palpable cords, calf tenderness noted on exam. Pt examined for etoh intoxication. - CBC - CMP - BNP - CXR - EKG - Lasix - Reassess and dispo 10/29/16 15:34 Pt was reassessed and pt is clinically improved, and has no acute complaints at this time. Pt is clinically sober with steady gait and no signs or symptoms of alcohol withdrawal. Pt expressed that she feels comfortable being discharged at this time. Pt understands to return to ED for any acute developments of symptoms. (Terri Garzon) - Lab Interpretations Lab Results: 10/29/16 14:15 10/29/16 14:15 Lab Results 10/29/16 14:15: WBC 5.8, RBC 3.34 L, Hgb 9.2 L, Hct 29.4 L, MCV 88.0, MCH 27.5, MCHC 31.3, RDW 17.9 H, Plt Count 191, MPV 10.5, Gran % 76.3 H, Lymph % (Auto) 13.3 L, Wilcox % (Auto) 8.5 H, Eos % (Auto) 1.4 L, Baso % (Auto) 0.5, Gran # 4.42 , Lymph # 0.8 L, Wilcox # 0.5, Eos # 0.1, Baso # 0.03, Sodium 142, Potassium 4.9, Chloride 111 H, Carbon Dioxide 21, Anion Gap 15, BUN 56 H, Creatinine 3.9 H, Est GFR ( Amer) 14, Est GFR (Non-Af Amer) 12, Random Glucose 84, Calcium 8.9, Total Bilirubin 0.3, AST 26, ALT 19, Alkaline Phosphatase 111, NT-Pro-B Natriuret Pep 4290 H, Total Protein 6.8, Albumin 3.2, Globulin 3.6, Albumin/ Globulin Ratio 0.9 L - RAD Interpretation Radiology Orders: 10/29/16 12:51 CHEST PORTABLE [RAD] Stat - Medication Orders Current Medication Orders: Discontinued Medications Furosemide (Lasix) 40 mg IVP STAT STA Stop: 10/29/16 12:52 Last Admin: 10/29/16 14:20 Dose: 40 MG MAR Blood Pressure Document 10/29/16 14:20 MI (Rec: 10/29/16 14[facility]25 [id number] Blood Pressure Blood Pressure (100/60-150/90) 192/98 IVP Administration Document 10/29/16 14:20 MI (Rec: 10/29/16 14:25 [id number] Charges for Administration # of IVP Administrations 1 Disposition/Present on Arrival - Present on Arrival Any Indicators Present on Arrival: No - Disposition Have Diagnosis and Disposition been Completed?: Yes Patient Plan: Discharge <Alexander Kevin - Last Filed: 10/29/16 16:10> - Present on Arrival Any Indicators Present on Arrival: Yes History of DVT/PE: Yes History of Uncontrolled Diabetes: No Urinary Catheter: No History of Decub. Ulcer: No History Surgical Site Infection Following: None - Disposition Have Diagnosis and Disposition been Completed?: Yes Disposition Time: 16:00 <Terri Garzon - Last Filed: 10/29/16 16:30> - Disposition Diagnosis: Alcohol intoxication, Pedal edema Disposition: HOME/ ROUTINE Patient Problems: Current Active Problems Problem Status Diagnosed Alcohol intoxication Acute Pedal edema Acute Condition: GOOD Discharge Instructions (ExitCare): Edema (ED) Additional Instructions: PLEASE RETURN TO THE EMERGENCY DEPARTMENT FOR NEW OR WORSENING SYMPTOMS. RETURN RIGHT AWAY IF YOU CANNOT FOLLOW UP WITH YOUR PRIMARY CARE DOCTOR, CLINIC, OR SPECIALIST IN 1-2 DAYS. Referrals: Kendall Kenny MD [Primary Care Provider] - Follow up with primary
[2016-10-29 13:04] VITALS: TEMP 98
--- NOTE | 2016-10-29 13:44 | RAD ---
HISTORY: sob COMPARISON: No prior. FINDINGS: LUNGS: Limited examination due to oblique positioning. No infiltrate. PLEURA: Elevated left hemidiaphragm. No pleural effusion. CARDIOVASCULAR: Normal. OSSEOUS STRUCTURES: No significant abnormalities. VISUALIZED UPPER ABDOMEN: Normal. OTHER FINDINGS: None. IMPRESSION: No active disease.
[2016-10-29 14:21] LABS: ADD MANUAL DIFF? NO
[2016-10-29 14:25] LABS: BASO # 0.03 K/mm3 (0.0-2.0); BASO % 0.5 % (0.0-3.0); EOS # 0.1 (0.0-0.7); EOS % 1.4 % (1.5-5.0); GRAN # 4.42 (1.4-6.5); GRAN % 76.3 % (50.0-68.0); HEMATOCRIT 29.4 % (36.0-48.0); LYMPH # 0.8 (1.2-3.4); LYMPH % 13.3 % (22.0-35.0); MEAN CORPUSCULAR HEMOGLOBIN 27.5 pg (25.0-35.0); MEAN CORPUSCULAR HGB CONC 31.3 g/dl (31.0-37.0); MEAN PLATELET VOLUME 10.5 fl (7.0-11.0); MONO # 0.5 (0.1-0.6); MONO % 8.5 % (1.0-6.0); PLATELET COUNT 191 10^3/uL (120.0-450.0); RED CELL DISTRIBUTION WIDTH 17.9 % (11.5-14.5); WHITE BLOOD COUNT 5.8 10^3/ul (4.5-11.0)
[2016-10-29 14:40] LABS: ALB/GLOB RATIO 0.9 (1.1-1.8); BILIRUBIN,TOTAL 0.3 mg/dL (0.2-1.3); CALCIUM 8.9 mg/dL (8.4-10.5); POTASSIUM 4.9 mmol/L (3.6-5.0); TOTAL PROTEIN 6.8 g/dL (5.8-8.3)
--- NOTE | 2016-10-29 15:05 | CARD ---
APPROVED REPORT EKG Measurement Heart [id number] <Conclusion> Sinus rhythm with marked sinus arrhythmia Otherwise normal ECG
[2016-10-29 16:31] VITALS: RESP 16; O2SAT 100
[2016-10-29 23:24] VITALS: BP 142/90; PULSE 80
== END 2016-10-29 17:00 | disposition home or self-care (01) ==
LOC: ED 12:09
DX: F10.129 Alcohol abuse with intoxication, unspecified (principal); Y90.9 Presence of alcohol in blood, level not specified; R60.9 Edema, unspecified; I10 Essential (primary) hypertension; F17.210 Nicotine dependence, cigarettes, uncomplicated
CPT/HCPCS: 71010; 80053; 83880; 85025; 93005; 96374; 99283; J1940

== ENCOUNTER 2016-11-04 04:39 | Emergency (ER) | payer MEDICARE, OTHER ==
[2016-11-04 04:40] VITALS: PULSE 125; BMI 36.5
[2016-11-04 04:46] VITALS: RESP 16; TEMP 97.6
--- NOTE | 2016-11-04 05:35 | ED PDOC ---
Arrival/HPI - General Chief Complaint: Medical Clearance Time Seen by Provider: 11/04/16 04:46 Historian: Patient - History of Present Illness Narrative History of Present Illness (Text): 11/04/16 05:24 Carie Duncan is a 56 year old female, with a history of alcohol abuse and chronic leg pain, presents to the emergency department complaining of chronic bilateral leg pain. Patient denies any recent history of trauma. She states that she is homeless and is requesting a place to stay. Patient denies any fever , chills, chest pain, shortness of breath, nausea, vomiting, diarrhea, urinary symptoms, back pain, neck pain, headache, dizziness, or any other complaints. Symptom Onset: Gradual Symptom Course: Unchanged Activities at Onset: Rest, Light Context: Street Past Medical History - Provider Review Nursing Documentation Reviewed: Yes - Past History Past History: Non-Contributing - Infectious Disease Hx of Infectious Diseases: None - Tetanus Immunization Tetanus Immunization: Unknown - Past Medical History Past Medical History: Non-Contributing - Cardiac Hx Congestive Heart Failure: Yes Hx Hypertension: Yes Hx Peripheral Edema: Yes - Pulmonary Hx Chronic Obstructive Pulmonary Disease (COPD): Yes - Neurological Hx Neurological Disorder: No HX Cerebrovascular Accident: No - HEENT Hx HEENT Disorder: No - Renal Hx Renal Disorder: Yes - Endocrine/Metabolic Hx Hypothyroidism: Yes - Hematological/Oncological Hx Anemia: Yes - Integumentary Hx Dermatological Disorder: No - Musculoskeletal/Rheumatological Hx Arthritis: Yes - Gastrointestinal Hx Pancreatitis: Yes - Genitourinary/Gynecological Hx Genitourinary Disorders: No - Psychiatric Hx Anxiety: Yes Hx Depression: Yes Hx Substance Use: No (stopped) Other/Comment: alcohol abuse - Surgical History Other/Comment: IVC filter - Anesthesia Hx Anesthesia: Yes Hx Anesthesia Reactions: No Hx Malignant Hyperthermia: No - Suicidal Assessment Feels Threatened In Home Enviroment: No Family/Social History - Physician Review Nursing Documentation Reviewed: Yes Family/Social History: No Known Family HX Smoking Status: Heavy Smoker > 10 Cigarettes Daily Hx Alcohol Use: Yes (vodka) Hx Substance Use: No (stopped) Substance used: Heroin Hx Substance Use Treatment: No Allergies/Home Meds Allergies/Adverse Reactions: Allergies No Known Allergies Allergy (Verified 11/04/16 04:42) Home Medications: Home Meds Medication Instructions Recorded Confirmed No Known Home Med 11/04/16 11/04/16 Review of Systems - Physician Review All systems were reviewed & negative as marked: Yes - Review of Systems Constitutional: Normal. absent: Fevers Eyes: Normal ENT: Normal Respiratory: Normal. absent: SOB, Cough Cardiovascular: Normal. absent: Chest Pain Gastrointestinal: Normal. absent: Abdominal Pain, Diarrhea, Nausea, Vomiting Genitourinary Female: Normal. absent: Dysuria, Frequency, Hematuria, Urine Output Changes Musculoskeletal: Normal. absent: Back Pain, Neck Pain Skin: Normal. absent: Rash Neurological: Normal. absent: Headache, Dizziness Endocrine: Normal Hemo/Lymphatic: Normal Psychiatric: Normal Physical Exam Vital Signs Reviewed: Yes Vital Signs Temp Pulse Resp BP Pulse Ox 11/04/16 06:23 82 16 135/70 98 11/04/16 04:43 97.6 F 88 16 146/72 96 Temperature: Afebrile Blood Pressure: Normal Pulse: Regular Respiratory Rate: Normal Appearance: Positive for: Well-Appearing, Non-Toxic, Comfortable Pain Distress: None Mental Status: Positive for: Alert and Oriented X 3 - Systems Exam Head: Present: Atraumatic, Normocephalic Pupils: Present: PERRL Extroacular Muscles: Present: EOMI Conjunctiva: Present: Normal Mouth: Present: Moist Mucous Membranes Neck: Present: Normal Range of Motion Respiratory/Chest: Present: Clear to Auscultation, Good Air Exchange. No: Respiratory Distress, Accessory Muscle Use Cardiovascular: Present: Regular Rate and Rhythm, Normal S1, S2. No: Murmurs Abdomen: Present: Normal Bowel Sounds. No: Tenderness, Distention, Peritoneal Signs Back: Present: Normal Inspection Upper Extremity: Present: Normal Inspection. No: Cyanosis, Edema Lower Extremity: Present: Edema, Swelling (Bilateral lower extremity swelling), Neurovascularly Intact. No: CALF TENDERNESS Neurological: Present: GCS=15, CN II-XII Intact, Speech Normal Skin: Present: Warm, Dry, Normal Color. No: Rashes Psychiatric: Present: Alert, Oriented x 3, Normal Insight, Normal Concentration Medical Decision Making ED Course and Treatment: 11/04/16 05:24 Impression: 56 year old female complaining of chronic bilateral leg pain. Differential Diagnosis include but are not limited to: chronic pain Plan: -- Tylenol -- Reassess and disposition Progress Notes: 11/04/16 06:15 On re-evaluation, the patient feels better and is in no acute distress. I have discussed the results and plan with the patient, who expresses understanding. Patient in agreement with plan to discharged home. Patient is stable for discharge. Patient was instructed to follow up with physician/clinic in 1-2 days or return if symptoms worsen or new concerning symptoms arise. Re-evaluation Time: 06:15 Reassessment Condition: Re-examined, Improved - Medication Orders Current Medication Orders: Discontinued Medications Acetaminophen (Tylenol 325mg Tab) 650 mg PO STAT STA Stop: 11/04/16 05:23 Last Admin: 11/04/16 05:49 Dose: 650 MG MAR Pain/Vitals Document 11/04/16 05:49 RJR (Rec: 11/04/16 05:50 RJR [id number]) Pain Reassessment Is This A Pain ReAssessment? Yes Sleep Is patient sleeping during reassessment? No Presence of Pain Presence of Pain Yes Pain Scale Used Pain Scale Used Numeric Location Pain Location Body Site Foot Intensity 2 Scale Used Numeric - Scribe Statement The provider has reviewed the documentation as recorded by the Bradley Valenzuela Provider Attestation: All medical record entries made by the Bradley were at my direction and personally dictated by me. I have reviewed the chart and agree that the record accurately reflects my personal performance of the history, physical exam, medical decision making, and the department course for this patient. I have also personally directed, reviewed, and agree with the discharge instructions and disposition. Disposition/Present on Arrival - Present on Arrival Any Indicators Present on Arrival: No History of DVT/PE: Yes History of Uncontrolled Diabetes: No Urinary Catheter: No History of Decub. Ulcer: No History Surgical Site Infection Following: None - Disposition Have Diagnosis and Disposition been Completed?: Yes Diagnosis: Chronic leg pain Disposition: HOME/ ROUTINE Disposition Time: 06:15 Condition: GOOD Discharge Instructions (ExitCare): Chronic Pain (ED) Referrals: Kendall Kenny MD [Primary Care Provider] - Follow up with primary
[2016-11-04 06:24] VITALS: BP 135/70; PULSE 82; O2SAT 98
== END 2016-11-04 06:24 | disposition home or self-care (01) ==
LOC: ED 04:39
DX: M79.605 Pain in left leg (principal); M79.604 Pain in right leg; G89.29 Other chronic pain; Z59.0 Homelessness; F17.210 Nicotine dependence, cigarettes, uncomplicated; I10 Essential (primary) hypertension

== ENCOUNTER 2016-11-05 03:34 | Emergency (ER) | payer MEDICARE, OTHER ==
[2016-11-05 03:35] VITALS: PULSE 125
[2016-11-05 04:47] VITALS: BMI 41.8
== END 2016-11-05 06:57 | disposition left against medical advice (07) ==
LOC: ED 03:34
DX: Z02.89 Encounter for other administrative examinations (principal); M79.606 Pain in leg, unspecified

== ENCOUNTER 2017-01-02 20:18 | Emergency (ER) | payer MEDICARE, OTHER ==
[2017-01-02 20:19] VITALS: PULSE 125
[2017-01-02 20:21] VITALS: BMI 41.1
[2017-01-02 20:29] VITALS: RESP 18; TEMP 98.2
--- NOTE | 2017-01-02 21:22 | ED PDOC ---
Arrival/HPI - General Chief Complaint: Lower Extremity Problem/Injury Time Seen by Provider: 01/02/17 20:27 Historian: Patient - History of Present Illness Narrative History of Present Illness (Text): 01/02/17 20:50 Carie Duncan is a 56 year old female, whose past medical history include hypertension, HIV, chronic leg pain, homeless, and alcohol abuse, presents to the emergency department complaining of chronic bilateral leg pain. Patient denies any recent history of trauma. Patient is able to ambulate without difficulty. Patient denies any fever, chills, chest pain, shortness of breath, nausea, vomiting, diarrhea, urinary symptoms, back pain, neck pain, headache, dizziness, or any other complaints. Time/Duration: Other (Chronic) Symptom Onset: Gradual Symptom Course: Unchanged Activities at Onset: Rest, Light Past Medical History - Provider Review Nursing Documentation Reviewed: Yes - Past History Past History: Non-Contributing - Infectious Disease Hx of Infectious Diseases: None - Tetanus Immunization Tetanus Immunization: Unknown - Past Medical History Past Medical History: Non-Contributing - Cardiac Hx Congestive Heart Failure: Yes Hx Hypertension: Yes Hx Peripheral Edema: Yes - Pulmonary Hx Chronic Obstructive Pulmonary Disease (COPD): Yes - Neurological Hx Neurological Disorder: No HX Cerebrovascular Accident: No - HEENT Hx HEENT Disorder: No - Renal Hx Renal Disorder: Yes - Endocrine/Metabolic Hx Hypothyroidism: Yes - Hematological/Oncological Hx Anemia: Yes - Integumentary Hx Dermatological Disorder: No - Musculoskeletal/Rheumatological Hx Arthritis: Yes - Gastrointestinal Hx Pancreatitis: Yes - Genitourinary/Gynecological Hx Genitourinary Disorders: No - Psychiatric Hx Anxiety: Yes Hx Depression: Yes Hx Substance Use: No (stopped) - Surgical History Other/Comment: IVC filter - Anesthesia Hx Anesthesia: Yes Hx Anesthesia Reactions: No Hx Malignant Hyperthermia: No - Suicidal Assessment Feels Threatened In Home Enviroment: No Family/Social History - Physician Review Nursing Documentation Reviewed: Yes Family/Social History: No Known Family HX Smoking Status: Heavy Smoker > 10 Cigarettes Daily Hx Alcohol Use: Yes (vodka) Hx Substance Use: No (stopped) Substance used: Heroin Hx Substance Use Treatment: No Allergies/Home Meds Allergies/Adverse Reactions: Allergies No Known Allergies Allergy (Verified 11/08/16 06:40) Home Medications: Home Meds Medication Instructions Recorded Confirmed Apixaban [Eliquis] 5 mg PO Q12 11/08/16 11/08/16 Isosorbide Mononitrate [Imdur] 30 mg PO QPM 11/08/16 11/08/16 Isosorbide Mononitrate [Imdur] 60 mg PO DAILY 11/08/16 11/08/16 Review of Systems - Physician Review All systems were reviewed & negative as marked: Yes - Review of Systems Constitutional: Normal. absent: Fevers Eyes: Normal ENT: Normal Respiratory: Normal. absent: SOB, Cough Cardiovascular: Normal. absent: Chest Pain Gastrointestinal: Normal. absent: Abdominal Pain, Diarrhea, Nausea, Vomiting Genitourinary Female: Normal. absent: Dysuria, Frequency, Hematuria, Urine Output Changes Musculoskeletal: Other (+chronic leg pain). absent: Back Pain, Neck Pain Skin: Normal. absent: Rash Neurological: Normal. absent: Headache, Dizziness Endocrine: Normal Hemo/Lymphatic: Normal Psychiatric: Normal Physical Exam Vital Signs Reviewed: Yes Vital Signs Temp Pulse Resp BP Pulse Ox 01/02/17 22:46 75 18 172/87 H 97 01/02/17 21:46 81 18 174/89 H 100 01/02/17 20:21 98.2 F 74 18 152/74 H 99 Temperature: Afebrile Blood Pressure: Normal Pulse: Regular Respiratory Rate: Normal Appearance: Positive for: Well-Appearing, Non-Toxic, Comfortable Pain Distress: None Mental Status: Positive for: Alert and Oriented X 3 - Systems Exam Head: Present: Atraumatic, Normocephalic Pupils: Present: PERRL Extroacular Muscles: Present: EOMI Conjunctiva: Present: Normal Mouth: Present: Moist Mucous Membranes Neck: Present: Normal Range of Motion Respiratory/Chest: Present: Clear to Auscultation, Good Air Exchange. No: Respiratory Distress, Accessory Muscle Use Cardiovascular: Present: Regular Rate and Rhythm, Normal S1, S2. No: Murmurs Abdomen: Present: Normal Bowel Sounds. No: Tenderness, Distention, Peritoneal Signs Back: Present: Normal Inspection Upper Extremity: Present: Normal Inspection. No: Cyanosis, Edema Lower Extremity: Present: NORMAL PULSES, Normal ROM, Neurovascularly Intact. No : Edema, CALF TENDERNESS, Cyanosis, Venkat's Sign, Tenderness, Swelling, Erythema , Deformity, Temperature Abnormalties Neurological: Present: GCS=15, CN II-XII Intact, Speech Normal, Motor Func Grossly Intact, Normal Sensory Function Skin: Present: Warm, Dry, Normal Color. No: Rashes Psychiatric: Present: Alert, Oriented x 3, Normal Insight, Normal Concentration Medical Decision Making ED Course and Treatment: 01/02/17 20:50 Impression: 56 year old female complaining of chronic leg pain. Differential Diagnosis include but are not limited to: chronic leg pain vs. DVT Plan: -- US Duplex Lower Extremities -- Reassess and disposition Progress Notes: 01/02/17 21:50 Reviewed sono, US Duplex Lower Extremities shows no evidence of DVT. On re-evaluation, the patient feels better and is in no acute distress. I have discussed the results and plan with the patient, who expresses understanding. Patient in agreement with plan to discharged home. Patient is stable for discharge. Patient was instructed to follow up with physician/clinic in 1-2 days or return if symptoms worsen or new concerning symptoms arise. - RAD Interpretation Radiology Orders: 01/02/17 20:50 DUPLEX LOWER EXTRM VEIN BILAT [US] Stat - Scribe Statement The provider has reviewed the documentation as recorded by the Scribreyes Valenzuela All medical record entries made by the Scribe were at my direction and personally dictated by me. I have reviewed the chart and agree that the record accurately reflects my personal performance of the history, physical exam, medical decision making, and the department course for this patient. I have also personally directed, reviewed, and agree with the discharge instructions and disposition. Disposition/Present on Arrival - Present on Arrival Any Indicators Present on Arrival: No History of DVT/PE: Yes History of Uncontrolled Diabetes: No Urinary Catheter: No History of Decub. Ulcer: No History Surgical Site Infection Following: None - Disposition Have Diagnosis and Disposition been Completed?: Yes Diagnosis: Chronic leg pain Disposition: HOME/ ROUTINE Disposition Time: 21:55 Patient Plan: Discharge Condition: GOOD Additional Instructions: Tylenol as directed/rest/no strenuous physical activity/follow up with your doctor this week
[2017-01-02 22:47] VITALS: BP 172/87; PULSE 75; O2SAT 97
--- NOTE | 2017-01-03 08:49 | US ---
HISTORY: Leg pain and swelling. Evaluate for DVT PHYSICIAN(S): Jack Dillard MD. TECHNIQUE: Duplex sonography and color-flow Doppler with graded compression were used to evaluate the deep venous systems of both lower extremities. The exam is limited by body habitus and edema. FINDINGS: The visualized deep venous systems of both lower extremities are sonographically normal and compressible. Normal wave forms and augmentation are seen. There is no sonographic evidence for deep venous thrombosis in the visualized segments of both lower extremities. IMPRESSION: No sonographic evidence for deep venous thrombosis in the visualized segments of both lower extremities.
== END 2017-01-02 22:51 | disposition home or self-care (01) ==
LOC: ED 20:18
DX: M79.605 Pain in left leg (principal); M79.604 Pain in right leg; G89.29 Other chronic pain; I10 Essential (primary) hypertension; Z59.0 Homelessness

== ENCOUNTER 2017-01-05 01:23 | Observation (INO) | payer MEDICARE, OTHER ==
[2017-01-05 01:23] VITALS: PULSE 125
[2017-01-05 01:41] VITALS: BMI 40.3
--- NOTE | 2017-01-05 02:22 | ED PDOC ---
Arrival/HPI - General Chief Complaint: Lower Extremity Problem/Injury Time Seen by Provider: 01/05/17 01:24 Historian: Patient - History of Present Illness Narrative History of Present Illness (Text): 01/05/17 02:37 A 56 year old female, whose past medical history includes hypertension and HIV, brought to the emergency department by EMS complaining of bilateral lower extremity swelling. Patient presents with alcohol on breath. Admits to drinking throughout the day. Patient's last 3 visits within month for bilateral lower extremity pain. Patient denies suicidal ideation, homicidal ideation, trauma or injury. Patient denies any other complaints at this time. Symptom Onset: Sudden Symptom Course: Unchanged Activities at Onset: Rest Context: Home Past Medical History - Provider Review Nursing Documentation Reviewed: Yes - Past History Past History: Non-Contributing - Infectious Disease Hx of Infectious Diseases: None - Tetanus Immunization Tetanus Immunization: Unknown - Past Medical History Past Medical History: Non-Contributing - Cardiac Hx Congestive Heart Failure: Yes Hx Hypertension: Yes Hx Peripheral Edema: Yes - Pulmonary Hx Chronic Obstructive Pulmonary Disease (COPD): Yes - Neurological Hx Neurological Disorder: No HX Cerebrovascular Accident: No - HEENT Hx HEENT Disorder: No - Renal Hx Renal Disorder: Yes - Endocrine/Metabolic Hx Hypothyroidism: Yes - Hematological/Oncological Hx Anemia: Yes Other/Comment: HIV + - Integumentary Hx Dermatological Disorder: No - Musculoskeletal/Rheumatological Hx Arthritis: Yes - Gastrointestinal Hx Pancreatitis: Yes - Genitourinary/Gynecological Hx Genitourinary Disorders: No - Psychiatric Hx Anxiety: Yes Hx Depression: Yes Hx Substance Use: No (stopped) - Surgical History Other/Comment: IVC filter - Anesthesia Hx Anesthesia: Yes Hx Anesthesia Reactions: No Hx Malignant Hyperthermia: No - Suicidal Assessment Feels Threatened In Home Enviroment: No Family/Social History - Physician Review Nursing Documentation Reviewed: Yes Family/Social History: No Known Family HX Smoking Status: Heavy Smoker > 10 Cigarettes Daily Hx Alcohol Use: Yes (vodka) Hx Substance Use: No (stopped) Substance used: Heroin Hx Substance Use Treatment: No Allergies/Home Meds Allergies/Adverse Reactions: Allergies No Known Allergies Allergy (Verified 01/05/17 01:41) Home Medications: Home Meds Medication Instructions Recorded Confirmed Apixaban [Eliquis] 5 mg PO Q12 11/08/16 11/08/16 Isosorbide Mononitrate [Imdur] 30 mg PO QPM 11/08/16 11/08/16 Isosorbide Mononitrate [Imdur] 60 mg PO DAILY 11/08/16 11/08/16 Review of Systems - Physician Review All systems were reviewed & negative as marked: Yes - Review of Systems Constitutional: absent: Fevers Musculoskeletal: Other (bilateral lower extremity swelling) Psychiatric: absent: Suicidal Ideation, Other (trauma; homicidal ideation) Physical Exam - Physical Exam Narrative Physical Exam (Text): 01/05/17 02:32 Patient with alcohol on breath. Constitutional: No acute distress. Head: Normocephalic. Atraumatic. Eyes: PERRL. ENT: Moist mucous membranes. Neck: Supple. Cardiovascular: Regular rate. Chest: No tenderness. Respiratory: Clear to auscultation bilaterally. GI: Soft. Nontender. Nondistended. Back: No CVA tenderness. Skin: No rash. Neurologic: Alert, no focal deficit. Vital Signs Reviewed: Yes Vital Signs Temp Pulse Resp BP Pulse Ox 01/05/17 05:13 97.4 F L 79 18 155/90 H 98 01/05/17 01:41 97.9 F 78 16 126/59 L 97 01/05/17 01:40 97.9 F 78 18 126/59 L 97 Temperature: Afebrile Blood Pressure: Hypotensive Pulse: Regular Respiratory Rate: Normal Appearance: Positive for: Well-Appearing, Non-Toxic, Comfortable Pain Distress: None Mental Status: Positive for: Alert and Oriented X 3 Medical Decision Making ED Course and Treatment: 01/05/17 02:29 Impression: A 56 year old female with bilateral lower extremity swelling. Plan: -- Reassess and disposition Prior Visits: Notes and results from previous visits were reviewed. Patient reported for bilateral lower extremity pain, last three visits within the month. Patient last reported to the emergency department on 01/02/17 for evaluation of chronic bilateral leg pain. Patient US duplex lower extremities showed no evidence of DVT. Patient was discharged. Progress Notes: - Medication Orders Current Medication Orders: Discontinued Medications Ibuprofen (Motrin Tab) 400 mg PO STAT STA Stop: 01/05/17 04:39 Last Admin: 01/05/17 04:52 Dose: 400 mg ED OBSERVATION Discharge: Yes Date of observation admission: 01/05/17 Time of observation admission: 01:49 - Observation admission statement Patient is being placed in observation because:: bilateral lower extremity swelling and intoxication - Goals of Observation Goals of observation are:: monitor patient symptoms - Progress Note Progress Note: 01/05/17 03:49 Patient is in no acute distress. 01/05/17 05:49 Patient is resting, no acute distress. 01/05/17 06:35 Patient awake, alert, steady gait. Will discharge. - Scribe Statement The provider has reviewed the documentation as recorded by the Bradley Su Provider Scribe Attestation: All medical record entries made by the Donnaibreyes were at my direction and personally dictated by me. I have reviewed the chart and agree that the record accurately reflects my personal performance of the history, physical exam, medical decision making, and the department course for this patient. I have also personally directed, reviewed, and agree with the discharge instructions and disposition. Disposition/Present on Arrival - Present on Arrival Any Indicators Present on Arrival: Yes History of DVT/PE: Yes History of Uncontrolled Diabetes: No Urinary Catheter: No History of Decub. Ulcer: No History Surgical Site Infection Following: None - Disposition Have Diagnosis and Disposition been Completed?: Yes Diagnosis: Chronic leg pain, Alcohol intoxication Disposition: HOME/ ROUTINE Disposition Time: 06:36 Patient Plan: Discharge Condition: STABLE
[2017-01-05 05:14] VITALS: BP 155/90; PULSE 79; RESP 18; TEMP 97.4; O2SAT 98
== END 2017-01-05 06:45 | disposition home or self-care (01) ==
LOC: ED 01:23 → EROBSV 01:49
PROVIDERS: ADMIT Student in an Organized Health Care Education/Training Program; ATTEND Student in an Organized Health Care Education/Training Program
DX: M79.606 Pain in leg, unspecified (principal); G89.29 Other chronic pain; F10.129 Alcohol abuse with intoxication, unspecified; F17.210 Nicotine dependence, cigarettes, uncomplicated; M19.90 Unspecified osteoarthritis, unspecified site; E03.9 Hypothyroidism, unspecified; I10 Essential (primary) hypertension
CPT/HCPCS: 99284; G0378

== ENCOUNTER 2017-01-12 17:00 | Emergency (ER) | payer MEDICARE, OTHER ==
[2017-01-12 17:00] VITALS: PULSE 125
[2017-01-12 17:07] VITALS: BMI 43.2
[2017-01-12 17:19] VITALS: BP 132/75; PULSE 86; RESP 18; TEMP 98.2; O2SAT 100
--- NOTE | 2017-01-12 17:34 | ED PDOC ---
Arrival/HPI - General Chief Complaint: Alcohol Ingestion Time Seen by Provider: 01/12/17 17:09 Historian: Patient - History of Present Illness Narrative History of Present Illness (Text): 01/12/17 17:31 57yo female biba for [facility]. Patient states she is homeless and drank earlier today, so she came to ED to rest. States she don't want to go to the m[facility], but prefers the ED. she denies any somatic complaint. Asking for food. Past Medical History - Provider Review Nursing Documentation Reviewed: Yes - Past History Past History: Non-Contributing - Infectious Disease Hx of Infectious Diseases: None - Tetanus Immunization Tetanus Immunization: Unknown - Past Medical History Past Medical History: Non-Contributing - Cardiac Hx Congestive Heart Failure: Yes Hx Hypertension: Yes Hx Peripheral Edema: Yes - Pulmonary Hx Chronic Obstructive Pulmonary Disease (COPD): Yes - Neurological Hx Neurological Disorder: No HX Cerebrovascular Accident: No - HEENT Hx HEENT Disorder: No - Renal Hx Renal Disorder: Yes - Endocrine/Metabolic Hx Hypothyroidism: Yes - Hematological/Oncological Hx Anemia: Yes Other/Comment: HIV + - Integumentary Hx Dermatological Disorder: No - Musculoskeletal/Rheumatological Hx Arthritis: Yes - Gastrointestinal Hx Pancreatitis: Yes - Genitourinary/Gynecological Hx Genitourinary Disorders: No - Psychiatric Hx Anxiety: Yes Hx Depression: Yes Hx Substance Use: No (stopped) - Surgical History Other/Comment: IVC filter - Anesthesia Hx Anesthesia: Yes Hx Anesthesia Reactions: No Hx Malignant Hyperthermia: No - Suicidal Assessment Feels Threatened In Home Enviroment: No Family/Social History - Physician Review Nursing Documentation Reviewed: Yes Family/Social History: Unknown Family HX Smoking Status: Heavy Smoker > 10 Cigarettes Daily Hx Alcohol Use: Yes (vodka) Hx Substance Use: No (stopped) Substance used: Heroin Hx Substance Use Treatment: No Allergies/Home Meds Allergies/Adverse Reactions: Allergies No Known Allergies Allergy (Verified 01/12/17 17:07) Home Medications: Home Meds Medication Instructions Recorded Confirmed Apixaban [Eliquis] 5 mg PO Q12 11/08/16 11/08/16 Isosorbide Mononitrate [Imdur] 30 mg PO QPM 11/08/16 11/08/16 Isosorbide Mononitrate [Imdur] 60 mg PO DAILY 11/08/16 11/08/16 Review of Systems - Physician Review All systems were reviewed & negative as marked: Yes - Review of Systems Constitutional: Normal, Other ([facility]) Eyes: Normal ENT: Normal Respiratory: Normal Cardiovascular: Normal Gastrointestinal: Normal Genitourinary Female: Normal Musculoskeletal: Normal Skin: Normal Neurological: Normal Endocrine: Normal Hemo/Lymphatic: Normal Psychiatric: Normal Physical Exam Vital Signs Temp Pulse Resp BP Pulse Ox 01/12/17 17:19 98.2 F 86 18 132/75 100 Temperature: Afebrile Blood Pressure: Normal Pulse: Regular Respiratory Rate: Normal Appearance: Positive for: Well-Appearing, Non-Toxic, Comfortable Pain Distress: None Mental Status: Positive for: Alert and Oriented X 3 - Systems Exam Head: Present: Atraumatic, Normocephalic Pupils: Present: PERRL Extroacular Muscles: Present: EOMI Conjunctiva: Present: Normal Mouth: Present: Moist Mucous Membranes Neck: Present: Normal Range of Motion Respiratory/Chest: Present: Clear to Auscultation, Good Air Exchange. No: Respiratory Distress, Accessory Muscle Use Cardiovascular: Present: Regular Rate and Rhythm, Normal S1, S2. No: Murmurs Abdomen: Present: Normal Bowel Sounds. No: Tenderness, Distention, Peritoneal Signs Back: Present: Normal Inspection Upper Extremity: Present: Normal Inspection. No: Cyanosis, Edema Lower Extremity: Present: Normal Inspection. No: Edema Neurological: Present: GCS=15, CN II-XII Intact, Speech Normal Skin: Present: Warm, Dry, Normal Color. No: Rashes Psychiatric: Present: Alert, Oriented x 3, Normal Insight, Normal Concentration Medical Decision Making ED Course and Treatment: 01/12/17 17:33 PT present to ED for [facility]. she was stable. AAO x3 in ED. Ambulatory with steady gait. Ask for food and was fed in ED. she will be DC and refererd to a [facility]. [facility] list was given to the pt. Advised to f/u with her PMD. TRT ED for any new medical symptom Disposition/Present on Arrival - Present on Arrival Any Indicators Present on Arrival: No History of DVT/PE: Yes History of Uncontrolled Diabetes: No Urinary Catheter: No History of Decub. Ulcer: No History Surgical Site Infection Following: None - Disposition Have Diagnosis and Disposition been Completed?: Yes Diagnosis: Homelessness Disposition: HOME/ ROUTINE Disposition Time: 17:35 Patient Plan: Discharge Condition: STABLE Additional Instructions: Go to a [facility] Follow up with your private doctor Referrals: Pk Rosario, [Primary Care Provider] - Follow up with primary
== END 2017-01-12 17:44 | disposition home or self-care (01) ==
LOC: ED 17:00
DX: Z59.0 Homelessness (principal); I10 Essential (primary) hypertension; F17.210 Nicotine dependence, cigarettes, uncomplicated

== ENCOUNTER 2017-01-17 21:57 | Emergency (ER) | payer MEDICARE, OTHER ==
[2017-01-17 21:57] VITALS: PULSE 125; BMI 43.2
[2017-01-17 22:50] VITALS: O2SAT 100
--- NOTE | 2017-01-18 02:05 | ED PDOC ---
Arrival/HPI - General Chief Complaint: Lower Extremity Problem/Injury Time Seen by Provider: 01/17/17 23:48 Historian: Patient - History of Present Illness Narrative History of Present Illness (Text): 01/18/17 02:02 57 y.o. female whose PMHx includes hypertension, DVT, HIV, homelessness, and etoh abuse who comes to the ED with chronic lower extremity swelling b/L and says it hurts as well for months. No cp or sob or fever. Patient reports etoh use earlier today. She says she is not taking her eliquis. Past Medical History - Past History Past History: Non-Contributing - Infectious Disease Hx of Infectious Diseases: None - Tetanus Immunization Tetanus Immunization: Unknown - Past Medical History Past Medical History: Non-Contributing - Cardiac Hx Congestive Heart Failure: Yes Hx Hypertension: Yes Hx Peripheral Edema: Yes - Pulmonary Hx Chronic Obstructive Pulmonary Disease (COPD): Yes - Neurological Hx Neurological Disorder: No HX Cerebrovascular Accident: No - HEENT Hx HEENT Disorder: No - Renal Hx Renal Disorder: Yes - Endocrine/Metabolic Hx Hypothyroidism: Yes - Hematological/Oncological Hx Anemia: Yes Other/Comment: HIV + - Integumentary Hx Dermatological Disorder: No - Musculoskeletal/Rheumatological Hx Arthritis: Yes - Gastrointestinal Hx Pancreatitis: Yes - Genitourinary/Gynecological Hx Genitourinary Disorders: No - Psychiatric Hx Anxiety: Yes Hx Depression: Yes Hx Substance Use: No (stopped) - Surgical History Other/Comment: IVC filter - Anesthesia Hx Anesthesia: Yes Hx Anesthesia Reactions: No Hx Malignant Hyperthermia: No - Suicidal Assessment Feels Threatened In Home Enviroment: No Family/Social History Family/Social History: No Known Family HX Smoking Status: Heavy Smoker > 10 Cigarettes Daily Hx Alcohol Use: Yes (vodka) Hx Substance Use: No (stopped) Substance used: Heroin Hx Substance Use Treatment: No Allergies/Home Meds Allergies/Adverse Reactions: Allergies No Known Allergies Allergy (Verified 01/12/17 17:07) Home Medications: Home Meds Medication Instructions Recorded Confirmed Apixaban [Eliquis] 5 mg PO Q12 11/08/16 11/08/16 Isosorbide Mononitrate [Imdur] 30 mg PO QPM 11/08/16 11/08/16 Isosorbide Mononitrate [Imdur] 60 mg PO DAILY 11/08/16 11/08/16 Review of Systems - Review of Systems Constitutional: absent: Fevers Respiratory: absent: SOB Cardiovascular: absent: Chest Pain Musculoskeletal: Other (chronic LE pain and swelling) Physical Exam Vital Signs Temp Pulse Resp BP Pulse Ox 01/17/17 22:49 98.2 F 86 17 171/95 H 100 Temperature: Afebrile Blood Pressure: Normal Pulse: Regular Respiratory Rate: Normal Appearance: Positive for: Well-Appearing, Non-Toxic, Comfortable, Other ( disheveled) Pain Distress: None Mental Status: Positive for: Alert and Oriented X 3 - Systems Exam Head: Present: Atraumatic, Normocephalic Respiratory/Chest: Present: Clear to Auscultation, Good Air Exchange. No: Respiratory Distress, Accessory Muscle Use Cardiovascular: Present: Regular Rate and Rhythm, Normal S1, S2. No: Murmurs Upper Extremity: Present: Normal Inspection. No: Cyanosis, Edema Lower Extremity: Present: Edema (trace edema b/L) Neurological: Present: GCS=15, CN II-XII Intact, Speech Normal Psychiatric: Present: Alert Medical Decision Making ED Course and Treatment: 01/18/17 02:05 Patient is homeless and admits to drinking earlier prior to coming to the ED with a chronic complaint with noncompliance on eliquis. No cardiopulmonary complaints. Given eliquis noncompliance, LE dopplers were ordered and were negative for DVT. No other acute findings. Patient is sober and will be discharged and instructed to f/u pmd. - RAD Interpretation Radiology Orders: 01/17/17 23:55 DUPLEX LOWER EXTRM VEIN BILAT [US] Stat Disposition/Present on Arrival - Present on Arrival Any Indicators Present on Arrival: Yes History of DVT/PE: Yes History of Uncontrolled Diabetes: No Urinary Catheter: No History of Decub. Ulcer: No History Surgical Site Infection Following: None - Disposition Have Diagnosis and Disposition been Completed?: Yes Diagnosis: Edema leg Disposition: HOME/ ROUTINE Disposition Time: 02:00 Patient Plan: Discharge Patient Problems: Current Active Problems Problem Status Onset Edema leg Acute Condition: GOOD Additional Instructions: Stop alcohol use. Recommend compression stockings and leg elevation. Take your medications as prescribed. Tylenol for pain. Follow up with your primary care doctor. Return to the emergency department if any new concerning symptoms. Referrals: Zach Oconnell MD [Staff Provider] - Follow up with primary
[2017-01-18 03:35] VITALS: BP 149/84; PULSE 80; RESP 18; TEMP 97.9
== END 2017-01-18 02:30 | disposition home or self-care (01) ==
LOC: ED 21:57
DX: R60.0 Localized edema (principal); I10 Essential (primary) hypertension; F17.210 Nicotine dependence, cigarettes, uncomplicated

== ENCOUNTER 2017-01-20 21:02 | Emergency (ER) | payer MEDICARE ==
[2017-01-20 21:03] VITALS: PULSE 125
[2017-01-20 21:47] VITALS: BMI 37.1
--- NOTE | 2017-01-20 22:07 | ED PDOC ---
Arrival/HPI - General Time Seen by Provider: 01/20/17 21:38 - History of Present Illness Narrative History of Present Illness (Text): 57F presents saying "I'm on the street and I want a place to stay." She reports bilateral leg pain/swelling which is a chronic issue. Past Medical History - Past History Past History: Non-Contributing - Infectious Disease Hx of Infectious Diseases: None - Tetanus Immunization Tetanus Immunization: Unknown - Past Medical History Past Medical History: Non-Contributing - Cardiac Hx Congestive Heart Failure: Yes Hx Hypertension: Yes Hx Peripheral Edema: Yes - Pulmonary Hx Chronic Obstructive Pulmonary Disease (COPD): Yes - Neurological Hx Neurological Disorder: No HX Cerebrovascular Accident: No - HEENT Hx HEENT Disorder: No - Renal Hx Renal Disorder: Yes - Endocrine/Metabolic Hx Hypothyroidism: Yes - Hematological/Oncological Hx Anemia: Yes Other/Comment: HIV + - Integumentary Hx Dermatological Disorder: No - Musculoskeletal/Rheumatological Hx Arthritis: Yes - Gastrointestinal Hx Pancreatitis: Yes - Genitourinary/Gynecological Hx Genitourinary Disorders: No - Psychiatric Hx Anxiety: Yes Hx Depression: Yes Hx Substance Use: No (stopped) - Surgical History Other/Comment: IVC filter - Anesthesia Hx Anesthesia: Yes Hx Anesthesia Reactions: No Hx Malignant Hyperthermia: No - Suicidal Assessment Feels Threatened In Home Enviroment: No Family/Social History Smoking Status: Heavy Smoker > 10 Cigarettes Daily Hx Alcohol Use: Yes (vodka) Hx Substance Use: No (stopped) Substance used: Heroin Hx Substance Use Treatment: No Allergies/Home Meds Allergies/Adverse Reactions: Allergies No Known Allergies Allergy (Verified 01/12/17 17:07) Home Medications: Home Meds Medication Instructions Recorded Confirmed Apixaban [Eliquis] 5 mg PO Q12 11/08/16 11/08/16 Isosorbide Mononitrate [Imdur] 30 mg PO QPM 11/08/16 11/08/16 Isosorbide Mononitrate [Imdur] 60 mg PO DAILY 11/08/16 11/08/16 Review of Systems - Review of Systems Constitutional: absent: Fevers Respiratory: absent: SOB, Cough Cardiovascular: absent: Chest Pain, Syncope Neurological: absent: Headache, Dizziness Physical Exam Appearance: Positive for: Well-Appearing, Non-Toxic, Comfortable Pain Distress: None Mental Status: Positive for: Alert and Oriented X 3 - Systems Exam Head: Present: Atraumatic Mouth: Present: Moist Mucous Membranes Neck: Present: Normal Range of Motion Respiratory/Chest: Present: Clear to Auscultation. No: Respiratory Distress, Accessory Muscle Use Cardiovascular: Present: Regular Rate and Rhythm Abdomen: No: Tenderness, Distention Upper Extremity: Present: NORMAL PULSES Lower Extremity: Present: Edema (1+ pitting edema ble up to ankles) Neurological: Present: GCS=15, Motor Func Grossly Intact, Normal Sensory Function Skin: Present: Warm, Dry Psychiatric: Present: Alert, Oriented x 3 Medical Decision Making ED Course and Treatment: usp information provided pt in no distress, vss, just had lower ext duplexes a couple days ago Disposition/Present on Arrival - Present on Arrival Any Indicators Present on Arrival: Yes History of DVT/PE: Yes History of Uncontrolled Diabetes: No Urinary Catheter: No History Surgical Site Infection Following: None - Disposition Have Diagnosis and Disposition been Completed?: Yes Diagnosis: Homelessness Disposition: HOME/ ROUTINE Disposition Time: 22:11 Condition: STABLE
[2017-01-20 22:11] VITALS: TEMP 98.7
[2017-01-20 23:31] VITALS: BP 130/72; PULSE 92; RESP 16; O2SAT 99
== END 2017-01-20 23:33 | disposition home or self-care (01) ==
LOC: ED 21:02
DX: Z59.0 Homelessness (principal)

== ENCOUNTER 2017-01-25 14:29 | Emergency (ER) | payer MEDICARE, OTHER ==
[2017-01-25 14:30] VITALS: PULSE 125
--- NOTE | 2017-01-25 15:03 | ED PDOC ---
Arrival/HPI - General Chief Complaint: Lower Extremity Problem/Injury Time Seen by Provider: 01/25/17 14:37 Historian: Patient - History of Present Illness Narrative History of Present Illness (Text): 01/25/17 14:58 57yo female with past medical history of hypertension, DVT, HIV, homelessness, biba for b/l LE edema. Patient admits that legs are chronically swollen. States she have no place to stay and usually comes to the ED. Denies chest pain, SOB, diaphoresis, recent travel, fever, chills, any other complaint. Past Medical History - Provider Review Nursing Documentation Reviewed: Yes - Past History Past History: Non-Contributing - Infectious Disease Hx of Infectious Diseases: None - Tetanus Immunization Tetanus Immunization: Unknown - Past Medical History Past Medical History: Non-Contributing - Cardiac Hx Congestive Heart Failure: Yes Hx Hypertension: Yes Hx Peripheral Edema: Yes - Pulmonary Hx Chronic Obstructive Pulmonary Disease (COPD): Yes - Neurological Hx Neurological Disorder: No HX Cerebrovascular Accident: No - HEENT Hx HEENT Disorder: No - Renal Hx Renal Disorder: Yes - Endocrine/Metabolic Hx Hypothyroidism: Yes - Hematological/Oncological Hx Anemia: Yes Other/Comment: HIV + - Integumentary Hx Dermatological Disorder: No - Musculoskeletal/Rheumatological Hx Arthritis: Yes - Gastrointestinal Hx Pancreatitis: Yes - Genitourinary/Gynecological Hx Genitourinary Disorders: No - Psychiatric Hx Anxiety: Yes Hx Depression: Yes Hx Substance Use: No (stopped) - Surgical History Other/Comment: IVC filter - Anesthesia Hx Anesthesia: Yes Hx Anesthesia Reactions: No Hx Malignant Hyperthermia: No - Suicidal Assessment Feels Threatened In Home Enviroment: No Family/Social History - Physician Review Nursing Documentation Reviewed: Yes Family/Social History: Unknown Family HX Smoking Status: Heavy Smoker > 10 Cigarettes Daily Hx Alcohol Use: Yes (vodka) Hx Substance Use: No (stopped) Substance used: Heroin Hx Substance Use Treatment: No Allergies/Home Meds Allergies/Adverse Reactions: Allergies No Known Allergies Allergy (Verified 01/12/17 17:07) Home Medications: Home Meds Medication Instructions Recorded Confirmed Unobtainable 01/25/17 01/25/17 Review of Systems - Physician Review All systems were reviewed & negative as marked: Yes - Review of Systems Constitutional: Normal Eyes: Normal ENT: Normal Respiratory: Normal Cardiovascular: Edema Gastrointestinal: Normal Genitourinary Female: Normal Musculoskeletal: Normal Skin: Normal Neurological: Normal Endocrine: Normal Hemo/Lymphatic: Normal Psychiatric: Normal Physical Exam Vital Signs Reviewed: Yes Vital Signs Temp Pulse Resp BP Pulse Ox 01/25/17 14:49 98.1 F 78 16 151/78 H 98 Temperature: Afebrile Blood Pressure: Normal Pulse: Regular Respiratory Rate: Normal Appearance: Positive for: Well-Appearing, Non-Toxic, Comfortable Pain Distress: None Mental Status: Positive for: Alert and Oriented X 3 - Systems Exam Head: Present: Atraumatic, Normocephalic Pupils: Present: PERRL Extroacular Muscles: Present: EOMI Conjunctiva: Present: Normal Mouth: Present: Moist Mucous Membranes Neck: Present: Normal Range of Motion Respiratory/Chest: Present: Clear to Auscultation, Good Air Exchange. No: Respiratory Distress, Accessory Muscle Use Cardiovascular: Present: Regular Rate and Rhythm, Normal S1, S2. No: Murmurs Abdomen: Present: Normal Bowel Sounds. No: Tenderness, Distention, Peritoneal Signs Back: Present: Normal Inspection Upper Extremity: Present: Normal Inspection. No: Cyanosis, Edema Lower Extremity: Present: Edema (3+ bipedal edema), NORMAL PULSES, Normal ROM, Neurovascularly Intact. No: CALF TENDERNESS, Cyanosis, Tenderness, Erythema, Temperature Abnormalties Neurological: Present: GCS=15, CN II-XII Intact, Speech Normal Skin: Present: Warm, Dry, Normal Color. No: Rashes Psychiatric: Present: Alert, Oriented x 3, Normal Insight, Normal Concentration Medical Decision Making ED Course and Treatment: 01/25/17 15:01 Patient was seen ronel on 01/17/17 and 01/20/17 for same complaint. She have history of DVT and on Elquis. She have no calf tenderness on exam. Patient also had [facility] of LE on the which was negative. She will be DC home and skilled nursing list will be provided. Disposition/Present on Arrival - Present on Arrival Any Indicators Present on Arrival: No History of DVT/PE: Yes History of Uncontrolled Diabetes: No Urinary Catheter: No History of Decub. Ulcer: No History Surgical Site Infection Following: None - Disposition Have Diagnosis and Disposition been Completed?: Yes Diagnosis: Homeless single person, Foot swelling Disposition: HOME/ ROUTINE Disposition Time: 15:05 Patient Plan: Discharge Condition: STABLE Discharge Instructions (ExitCare): Edema (ED) Additional Instructions: Wear compression stockings and keep legs elevated Follow up with your Doctor/clinic Return to ED for any new or worsening symptoms Referrals: [facility] at [facility] [place] [Outside] - Follow up with primary
[2017-01-25 15:10] VITALS: TEMP 98.1; BMI 35.4
[2017-01-25 15:35] VITALS: PULSE 73; RESP 18
[2017-01-25 15:36] VITALS: BP 149/76; O2SAT 97
== END 2017-01-25 15:33 | disposition home or self-care (01) ==
LOC: ED 14:29
DX: M79.89 Other specified soft tissue disorders (principal); Z59.0 Homelessness

== ENCOUNTER 2017-02-13 21:15 | Emergency (ER) | payer MEDICARE, OTHER ==
[2017-02-13 21:16] VITALS: PULSE 125
[2017-02-13 21:30] VITALS: RESP 18; O2SAT 99; BMI 40.3
[2017-02-13 21:42] VITALS: TEMP 98.8
--- NOTE | 2017-02-13 22:31 | ED PDOC ---
Arrival/HPI - General Chief Complaint: Lower Extremity Problem/Injury Time Seen by Provider: 02/13/17 22:04 Historian: Patient - History of Present Illness Narrative History of Present Illness (Text): 02/13/17 22:23 Carie Duncan is a 56 year old female, whose past medical history include hypertension, HIV, chronic leg pain, homeless, and alcohol abuse, presents to the emergency department complaining of chronic bilateral leg pain tonight. Patient denies any recent history of trauma. Patient denies any fever, chills, chest pain, shortness of breath, or any other complaints. Patient is homeless. Symptom Onset: Gradual Symptom Course: Unchanged Activities at Onset: Rest, Light Context: Home Past Medical History - Provider Review Nursing Documentation Reviewed: Yes - Past History Past History: Non-Contributing - Infectious Disease Hx of Infectious Diseases: None - Tetanus Immunization Tetanus Immunization: Unknown - Reproductive Menopause: No - Past Medical History Past Medical History: Non-Contributing - Cardiac Hx Congestive Heart Failure: Yes Hx Hypertension: Yes Hx Peripheral Edema: Yes - Pulmonary Hx Chronic Obstructive Pulmonary Disease (COPD): Yes - Neurological Hx Neurological Disorder: No HX Cerebrovascular Accident: No - HEENT Hx HEENT Disorder: No - Renal Hx Renal Disorder: Yes - Endocrine/Metabolic Hx Hypothyroidism: Yes - Hematological/Oncological Hx AIDS: Yes Hx Anemia: Yes - Integumentary Hx Dermatological Disorder: No - Musculoskeletal/Rheumatological Hx Arthritis: Yes - Gastrointestinal Hx Pancreatitis: Yes - Genitourinary/Gynecological Hx Genitourinary Disorders: No - Psychiatric Hx Anxiety: Yes Hx Depression: Yes Hx Substance Use: No (stopped) - Surgical History Other/Comment: IVC filter - Anesthesia Hx Anesthesia: Yes Hx Anesthesia Reactions: No Hx Malignant Hyperthermia: No - Suicidal Assessment Feels Threatened In Home Enviroment: No Family/Social History - Physician Review Nursing Documentation Reviewed: Yes Family/Social History: Unknown Family HX Smoking Status: Heavy Smoker > 10 Cigarettes Daily Hx Alcohol Use: Yes (vodka) Hx Substance Use: No (stopped) Substance used: Heroin Hx Substance Use Treatment: No Allergies/Home Meds Allergies/Adverse Reactions: Allergies No Known Allergies Allergy (Verified 01/30/17 05:20) Home Medications: Home Meds Medication Instructions Recorded Confirmed Unobtainable 01/25/17 01/30/17 Review of Systems - Physician Review All systems were reviewed & negative as marked: Yes - Review of Systems Constitutional: Normal. absent: Fevers Eyes: Normal ENT: Normal Respiratory: Normal. absent: SOB, Cough Cardiovascular: Normal. absent: Chest Pain Gastrointestinal: Normal. absent: Abdominal Pain, Diarrhea, Nausea, Vomiting Genitourinary Female: Normal. absent: Dysuria, Frequency, Hematuria, Urine Output Changes Musculoskeletal: Other (+bilateral lower extremity pain). absent: Back Pain, Neck Pain Skin: Normal. absent: Rash Neurological: Normal. absent: Headache, Dizziness Endocrine: Normal Hemo/Lymphatic: Normal Psychiatric: Normal Physical Exam Vital Signs Reviewed: Yes Vital Signs Temp Pulse Resp BP Pulse Ox 02/13/17 21:32 98.8 F 80 18 158/98 H 99 02/13/17 21:18 98.6 F 88 18 130/80 99 Temperature: Afebrile Blood Pressure: Normal Pulse: Regular Respiratory Rate: Normal Appearance: Positive for: Well-Appearing, Non-Toxic, Comfortable Pain Distress: None Mental Status: Positive for: Alert and Oriented X 3 - Systems Exam Head: Present: Atraumatic, Normocephalic Pupils: Present: PERRL Extroacular Muscles: Present: EOMI Conjunctiva: Present: Normal Mouth: Present: Moist Mucous Membranes Neck: Present: Normal Range of Motion Respiratory/Chest: Present: Clear to Auscultation, Good Air Exchange. No: Respiratory Distress, Accessory Muscle Use Cardiovascular: Present: Regular Rate and Rhythm, Normal S1, S2. No: Murmurs Abdomen: Present: Normal Bowel Sounds. No: Tenderness, Distention, Peritoneal Signs Upper Extremity: Present: Normal Inspection. No: Cyanosis, Edema Lower Extremity: Present: Normal Inspection, NORMAL PULSES, Normal ROM, Neurovascularly Intact, Capillary Refill < 2 s. No: Edema, CALF TENDERNESS, Cyanosis, Venkat's Sign, Tenderness, Swelling, Erythema, Deformity, Temperature Abnormalties Neurological: Present: GCS=15, CN II-XII Intact, Speech Normal Skin: Present: Warm, Dry, Normal Color. No: Rashes Psychiatric: Present: Alert, Oriented x 3, Normal Insight, Normal Concentration Medical Decision Making ED Course and Treatment: 02/13/17 22:23 Impression: 57 year old female complaining of bilateral lower extremity pain. Differential Diagnosis included but are not limited to: chronic leg pain vs. DVT Plan: -- US Duplex Lower Extremities -- Reassess and disposition Prior Visits: Notes and results from previous visits were reviewed. Progress Notes: 02/13/17 23:07 Reviewed sono, US Duplex Lower Extremities show no DVT. 02/14/17 00:20 Reevaluation: On reevaluation the patient feels better and is in no acute distress. I have discussed the results and plan with the patient, who expresses understanding. Patient given the opportunity to ask question, all questions were answered and there is agreement with the plan to discharge the patient. Patient is stable for discharge. - RAD Interpretation Radiology Orders: 02/13/17 22:24 DUPLEX LOWER EXTRM VEIN BILAT [US] Stat - Scribe Statement The provider has reviewed the documentation as recorded by the Scribe Bridgett Valenzuela Provider Scribe Attestation: All medical record entries made by the Scribe were at my direction and personally dictated by me. I have reviewed the chart and agree that the record accurately reflects my personal performance of the history, physical exam, medical decision making, and the department course for this patient. I have also personally directed, reviewed, and agree with the discharge instructions and disposition. Disposition/Present on Arrival - Present on Arrival Any Indicators Present on Arrival: No History of DVT/PE: Yes History of Uncontrolled Diabetes: No Urinary Catheter: No History of Decub. Ulcer: No History Surgical Site Infection Following: None - Disposition Have Diagnosis and Disposition been Completed?: Yes Diagnosis: Chronic leg pain Disposition: HOME/ ROUTINE Disposition Time: 00:21 Patient Plan: Discharge Patient Problems: Current Active Problems Problem Status Onset Chronic leg pain Acute Condition: GOOD Discharge Instructions (ExitCare): Leg Pain (ED) Additional Instructions: Rest/advil as directed/follow up with your doctor Referrals: PCP,NO [Primary Care Provider] - Follow up with primary
[2017-02-14 01:52] VITALS: BP 149/92; PULSE 85
== END 2017-02-14 01:40 | disposition home or self-care (01) ==
LOC: ED 21:15
DX: G89.29 Other chronic pain (principal); M79.605 Pain in left leg; M79.604 Pain in right leg; Z59.0 Homelessness

== ENCOUNTER 2017-03-09 03:08 | Emergency (ER) | payer MEDICARE, OTHER ==
[2017-03-09 03:09] VITALS: PULSE 125
[2017-03-09 03:26] VITALS: BMI 29.7
[2017-03-09 03:31] VITALS: RESP 16; TEMP 98
--- NOTE | 2017-03-09 04:51 | ED PDOC ---
Arrival/HPI - General Chief Complaint: Alcohol Ingestion Time Seen by Provider: 03/09/17 04:46 Historian: Patient, EMS - History of Present Illness Narrative History of Present Illness (Text): 03/09/17 04:52 A 57 year old female brought in by EMS to emergency department for alcohol intoxication. Patient is homeless, requesting a place to stay. Patient reports of alcohol use. Denies any other complaints at this time. Symptom Onset: Sudden Symptom Course: Unchanged Activities at Onset: Rest Context: Home Past Medical History - Provider Review Nursing Documentation Reviewed: Yes - Past History Past History: Non-Contributing - Infectious Disease Hx of Infectious Diseases: None - Tetanus Immunization Tetanus Immunization: Unknown - Past Medical History Past Medical History: Non-Contributing - Cardiac Hx Congestive Heart Failure: Yes Hx Hypertension: Yes Hx Peripheral Edema: Yes - Pulmonary Hx Chronic Obstructive Pulmonary Disease (COPD): Yes - Neurological Hx Neurological Disorder: No HX Cerebrovascular Accident: No - HEENT Hx HEENT Disorder: No - Renal Hx Renal Disorder: Yes - Endocrine/Metabolic Hx Hypothyroidism: Yes - Hematological/Oncological Hx Anemia: Yes - Integumentary Hx Dermatological Disorder: No - Musculoskeletal/Rheumatological Hx Arthritis: Yes - Gastrointestinal Hx Pancreatitis: Yes - Genitourinary/Gynecological Hx Genitourinary Disorders: No - Psychiatric Hx Anxiety: Yes Hx Depression: Yes Hx Substance Use: No (stopped) - Surgical History Other/Comment: IVC filter - Anesthesia Hx Anesthesia: Yes Hx Anesthesia Reactions: No Hx Malignant Hyperthermia: No - Suicidal Assessment Feels Threatened In Home Enviroment: No Family/Social History - Physician Review Nursing Documentation Reviewed: Yes Family/Social History: No Known Family HX Smoking Status: Heavy Smoker > 10 Cigarettes Daily Hx Alcohol Use: Yes (vodka) Hx Substance Use: No (stopped) Substance used: Heroin Hx Substance Use Treatment: No Allergies/Home Meds Allergies/Adverse Reactions: Allergies No Known Allergies Allergy (Verified 03/09/17 03:26) Home Medications: Home Meds Medication Instructions Recorded Confirmed Apixaban [Eliquis] 2.5 mg PO BID 02/26/17 03/09/17 Aspirin [Ecotrin] 81 mg PO DAILY 02/26/17 03/09/17 Atorvastatin [Lipitor] 40 mg PO DAILY 02/26/17 03/09/17 Carvedilol [Coreg] 6.25 mg PO Q12 02/26/17 03/09/17 Hydralazine HCl 100 mg PO BID 02/26/17 03/09/17 Isosorbide Mononitrate [Imdur] 90 mg PO DAILY 02/26/17 03/09/17 Review of Systems - Physician Review All systems were reviewed & negative as marked: Yes - Review of Systems Systems not reviewed;Unavailable: Intoxicated Physical Exam - Physical Exam Physical Exam Limitations: Intoxication Vital Signs Reviewed: Yes Vital Signs Temp Pulse Resp BP Pulse Ox 03/09/17 06:20 70 16 125/75 98 03/09/17 05:09 75 16 130/75 98 03/09/17 03:31 98 F 78 16 131/75 99 Temperature: Afebrile Blood Pressure: Normal Pulse: Regular Respiratory Rate: Normal Appearance: Positive for: Well-Appearing, Non-Toxic, Comfortable Pain Distress: None Mental Status: Positive for: Alert and Oriented X 3 - Systems Exam Head: Present: Atraumatic Mouth: Present: Moist Mucous Membranes Neck: Present: Normal Range of Motion Respiratory/Chest: No: Respiratory Distress, Accessory Muscle Use Cardiovascular: Present: Regular Rate and Rhythm Abdomen: No: Tenderness, Distention Neurological: Present: GCS=15, Motor Func Grossly Intact, Normal Sensory Function Skin: Present: Warm, Dry Psychiatric: Present: Alert, Oriented x 3 Medical Decision Making ED Course and Treatment: the pt is a&o x3 and ambulatory w steady gait prior to dc - Scribe Statement The provider has reviewed the documentation as recorded by the Donnaibreyes Su Provider Scribe Attestation: All medical record entries made by the Scribe were at my direction and personally dictated by me. I have reviewed the chart and agree that the record accurately reflects my personal performance of the history, physical exam, medical decision making, and the department course for this patient. I have also personally directed, reviewed, and agree with the discharge instructions and disposition. Disposition/Present on Arrival - Present on Arrival Any Indicators Present on Arrival: Yes History of DVT/PE: Yes History of Uncontrolled Diabetes: No Urinary Catheter: No History of Decub. Ulcer: No History Surgical Site Infection Following: None - Disposition Have Diagnosis and Disposition been Completed?: Yes Diagnosis: Homelessness Disposition: HOME/ ROUTINE Disposition Time: 06:56 Condition: STABLE Referrals: [facility] [Outside] - [place] up with primary [facility] [place] [facility] [place] - Follow up with primary Forms: [email or web address] (Indonesian)
[2017-03-09 06:21] VITALS: BP 125/75; PULSE 70; O2SAT 98
== END 2017-03-09 06:56 | disposition home or self-care (01) ==
LOC: ED 03:08
DX: Z59.0 Homelessness (principal)

== ENCOUNTER 2017-03-16 05:16 | Emergency (ER) | payer MEDICARE, OTHER ==
[2017-03-16 05:17] VITALS: PULSE 125; BMI 29.7
[2017-03-16 05:29] VITALS: BP 150/84; RESP 18; TEMP 98.1
--- NOTE | 2017-03-16 05:34 | ED PDOC ---
Arrival/HPI - General Chief Complaint: Lower Extremity Problem/Injury Time Seen by Provider: 03/16/17 05:17 Historian: Patient - History of Present Illness Narrative History of Present Illness (Text): 03/16/17 05:29 A 57 year old female, whose past medical history includes homelessness, alcohol abuse, and foot pain, presents to the emergency department complaining of chronic foot pain. Patient has been evaluated numerous times for similar Patient had recent blood work which was unchanged. and ultrasound recently neg for dvt, Patient denies any trauma or any other complaints. pt sleeping upon initial exam in nad. easily arousable answering questions appropriately Time/Duration: Prior to Arrival Symptom Onset: Sudden Symptom Course: Unchanged Activities at Onset: Rest, Light Context: Street Past Medical History - Provider Review Nursing Documentation Reviewed: Yes - Past History Past History: Non-Contributing - Infectious Disease Hx of Infectious Diseases: None - Tetanus Immunization Tetanus Immunization: Unknown - Past Medical History Past Medical History: Non-Contributing - Cardiac Hx Congestive Heart Failure: Yes Hx Hypertension: Yes Hx Peripheral Edema: Yes - Pulmonary Hx Chronic Obstructive Pulmonary Disease (COPD): Yes - Neurological Hx Neurological Disorder: No HX Cerebrovascular Accident: No - HEENT Hx HEENT Disorder: No - Renal Hx Renal Disorder: Yes - Endocrine/Metabolic Hx Hypothyroidism: Yes - Hematological/Oncological Hx Anemia: Yes - Integumentary Hx Dermatological Disorder: No - Musculoskeletal/Rheumatological Hx Arthritis: Yes - Gastrointestinal Hx Pancreatitis: Yes - Genitourinary/Gynecological Hx Genitourinary Disorders: No - Psychiatric Hx Anxiety: Yes Hx Depression: Yes Hx Substance Use: No (stopped) - Surgical History Other/Comment: IVC filter - Anesthesia Hx Anesthesia: Yes Hx Anesthesia Reactions: No Hx Malignant Hyperthermia: No - Suicidal Assessment Feels Threatened In Home Enviroment: No Family/Social History - Physician Review Nursing Documentation Reviewed: Yes Family/Social History: No Known Family HX Smoking Status: Heavy Smoker > 10 Cigarettes Daily Hx Alcohol Use: Yes (vodka) Hx Substance Use: No (stopped) Substance used: Heroin Hx Substance Use Treatment: No Allergies/Home Meds Allergies/Adverse Reactions: Allergies No Known Allergies Allergy (Verified 03/09/17 03:26) Home Medications: Home Meds Medication Instructions Recorded Confirmed Apixaban [Eliquis] 2.5 mg PO BID 02/26/17 03/16/17 Aspirin [Ecotrin] 81 mg PO DAILY 02/26/17 03/16/17 Atorvastatin [Lipitor] 40 mg PO DAILY 02/26/17 03/16/17 Carvedilol [Coreg] 6.25 mg PO Q12 02/26/17 03/16/17 Hydralazine HCl 100 mg PO BID 02/26/17 03/16/17 Isosorbide Mononitrate [Imdur] 90 mg PO DAILY 02/26/17 03/16/17 Review of Systems - Physician Review All systems were reviewed & negative as marked: Yes - Review of Systems Constitutional: absent: Fevers, Night Sweats, Other (recent trauma) Musculoskeletal: Other (chronic foot pain) Physical Exam Vital Signs Reviewed: Yes Vital Signs Temp Pulse Resp BP Pulse Ox 03/16/17 06:25 69 18 98 03/16/17 05:28 98.1 F 68 18 150/84 96 Temperature: Afebrile Blood Pressure: Normal Pulse: Regular Respiratory Rate: Normal Appearance: Positive for: Unkept (hygiene) Pain Distress: None Mental Status: Positive for: Alert and Oriented X 3, other (sleeping comfortably ) - Systems Exam Head: Present: Atraumatic, Normocephalic Pupils: Present: PERRL Extroacular Muscles: Present: EOMI Conjunctiva: Present: Normal Mouth: Present: Moist Mucous Membranes Neck: Present: Normal Range of Motion Respiratory/Chest: Present: Clear to Auscultation, Good Air Exchange. No: Respiratory Distress, Accessory Muscle Use Cardiovascular: Present: Regular Rate and Rhythm, Normal S1, S2. No: Murmurs Abdomen: Present: Normal Bowel Sounds. No: Tenderness, Distention, Peritoneal Signs Back: Present: Normal Inspection Upper Extremity: Present: Normal Inspection. No: Cyanosis, Edema Lower Extremity: Present: Normal Inspection. No: Edema Neurological: Present: GCS=15, CN II-XII Intact, Speech Normal Skin: Present: Warm, Dry, Normal Color. No: Rashes Psychiatric: Present: Alert, Oriented x 3, Normal Insight, Normal Concentration Medical Decision Making ED Course and Treatment: 03/16/17 05:35 Impression: 57 year old female with chronic foot pain. Physical exam showed patient has unkept hygiene. Plan: -- Reassess and disposition Prior Visits: Notes and results from previous visits were reviewed. Patient was last seen in the emergency department on 03/09/2017 for alcohol intoxication. Patient was discharged home. Progress Notes: - Scribe Statement The provider has reviewed the documentation as recorded by the Bradley Sandoval Provider Scribe Attestation: All medical record entries made by the Donnaibe were at my direction and personally dictated by me. I have reviewed the chart and agree that the record accurately reflects my personal performance of the history, physical exam, medical decision making, and the department course for this patient. I have also personally directed, reviewed, and agree with the discharge instructions and disposition. Disposition/Present on Arrival - Present on Arrival Any Indicators Present on Arrival: No History of DVT/PE: Yes History of Uncontrolled Diabetes: No Urinary Catheter: No History of Decub. Ulcer: No History Surgical Site Infection Following: None - Disposition Have Diagnosis and Disposition been Completed?: Yes Diagnosis: Foot pain Disposition: HOME/ ROUTINE Disposition Time: 07:00 Condition: STABLE Discharge Instructions (ExitCare): Leg Pain (ED) Additional Instructions: please follow up in clinic Referrals: [facility] [Outside] - [place] up with primary [facility] [place] [facility] [place] - Follow up with primary Forms: [employer] (Nauruan)
[2017-03-16 06:26] VITALS: PULSE 69; O2SAT 98
== END 2017-03-16 06:26 | disposition home or self-care (01) ==
LOC: ED 05:16
DX: M79.671 Pain in right foot (principal); M79.672 Pain in left foot

== ENCOUNTER 2017-04-08 08:10 | Emergency (ER) | payer MEDICARE, OTHER ==
[2017-04-08 08:10] VITALS: PULSE 125; BMI 29.7
[2017-04-08 08:30] VITALS: TEMP 97.4
--- NOTE | 2017-04-08 08:44 | ED PDOC ---
Arrival/HPI - General Chief Complaint: Lower Extremity Problem/Injury Time Seen by Provider: 04/08/17 08:15 Historian: Patient - History of Present Illness Narrative History of Present Illness (Text): 04/08/17 08:38 A 57 year old female, with a history of homelessness and HIV, BIBEMS to the emergency department complaining of chronic leg pain. Patient discharged from [facility] ED 2 hours prior to arrival here. Patient states she decided to come here because "it's the best hospital". Patient notes last drink taken prior from going to [facility]. Denies of any other complaints. States, "Give me some pain medication and send me on my way." No PMD, goes to clinic. Symptom Onset: Gradual Symptom Course: Unchanged Past Medical History - Provider Review Nursing Documentation Reviewed: Yes - Past History Past History: Non-Contributing - Infectious Disease Hx of Infectious Diseases: None - Tetanus Immunization Tetanus Immunization: Unknown - Reproductive Menopause: Yes - Past Medical History Past Medical History: Non-Contributing - Cardiac Hx Congestive Heart Failure: Yes Hx Hypertension: Yes Hx Peripheral Edema: Yes - Pulmonary Hx Chronic Obstructive Pulmonary Disease (COPD): Yes - Neurological Hx Neurological Disorder: No HX Cerebrovascular Accident: No - HEENT Hx HEENT Disorder: No - Renal Hx Renal Disorder: Yes - Endocrine/Metabolic Hx Hypothyroidism: Yes - Hematological/Oncological Hx Anemia: Yes - Integumentary Hx Dermatological Disorder: No - Musculoskeletal/Rheumatological Hx Arthritis: Yes - Gastrointestinal Hx Pancreatitis: Yes - Genitourinary/Gynecological Hx Genitourinary Disorders: No - Psychiatric Hx Anxiety: Yes Hx Depression: Yes Hx Substance Use: No (stopped) - Surgical History Other/Comment: IVC filter - Anesthesia Hx Anesthesia: Yes Hx Anesthesia Reactions: No Hx Malignant Hyperthermia: No - Suicidal Assessment Feels Threatened In Home Enviroment: No Family/Social History - Physician Review Nursing Documentation Reviewed: Yes Family/Social History: No Known Family HX Smoking Status: Heavy Smoker > 10 Cigarettes Daily Hx Alcohol Use: Yes (vodka) Hx Substance Use: No (stopped) Substance used: Heroin Hx Substance Use Treatment: No Allergies/Home Meds Allergies/Adverse Reactions: Allergies No Known Allergies Allergy (Verified 04/08/17 08:27) Home Medications: Home Meds Medication Instructions Recorded Confirmed Apixaban [Eliquis] 2.5 mg PO BID 02/26/17 03/16/17 Aspirin [Ecotrin] 81 mg PO DAILY 02/26/17 03/16/17 Atorvastatin [Lipitor] 40 mg PO DAILY 02/26/17 03/16/17 Carvedilol [Coreg] 6.25 mg PO Q12 02/26/17 03/16/17 Hydralazine HCl 100 mg PO BID 02/26/17 03/16/17 Isosorbide Mononitrate [Imdur] 90 mg PO DAILY 02/26/17 03/16/17 Review of Systems - Physician Review All systems were reviewed & negative as marked: Yes - Review of Systems Constitutional: absent: Fevers Respiratory: absent: SOB Physical Exam - Physical Exam Narrative Physical Exam (Text): 04/08/17 08:40 Constitutional: No acute distress. No slurring of speech. Head: Normocephalic. Atraumatic. Eyes: PERRL. ENT: Moist mucous membranes. Neck: Supple. Cardiovascular: Regular rate. Chest: No tenderness. Respiratory: Clear to auscultation bilaterally. GI: Soft. Nontender. Nondistended. Back: No CVA tenderness. Musculoskeletal: No tenderness of extremities, no deformities. Equal leg swelling bilaterally. Skin: No rash, dry skin. Neurologic: Alert, no focal deficit. Vital Signs Reviewed: Yes Vital Signs Temp Pulse Resp BP Pulse Ox 04/08/17 08:11 97.4 F L 77 18 182/116 H 100 Temperature: Afebrile Blood Pressure: Normal Pulse: Regular Respiratory Rate: Normal Appearance: Positive for: Well-Appearing Pain Distress: None Medical Decision Making ED Course and Treatment: 04/08/17 08:42 Impression: 57 year old female with chronic leg pain. Normal physical exam. Evaluated at [place] 2 hours prior, was observed. Last doppler February of this year negative. Plan: -- Prescribed ibuprofen with famotidine. Steady gait. Discharged, f/u clinic. Prior Visits: Notes and results from previous visits were reviewed. On 04/08/2017 for chronic foot pain. Patient was discharged. - Scribe Statement The provider has reviewed the documentation as recorded by the Bradley Sandoval Provider Scribe Attestation: All medical record entries made by the Donnaibreyes were at my direction and personally dictated by me. I have reviewed the chart and agree that the record accurately reflects my personal performance of the history, physical exam, medical decision making, and the department course for this patient. I have also personally directed, reviewed, and agree with the discharge instructions and disposition. Disposition/Present on Arrival - Present on Arrival Any Indicators Present on Arrival: Yes History of DVT/PE: Yes History of Uncontrolled Diabetes: No Urinary Catheter: No History of Decub. Ulcer: No History Surgical Site Infection Following: None - Disposition Have Diagnosis and Disposition been Completed?: Yes Diagnosis: Chronic leg pain Disposition: HOME/ ROUTINE Disposition Time: 08:39 Patient Plan: Discharge Condition: STABLE Discharge Instructions (ExitCare): Chronic Pain (ED) Prescriptions: Famotidine [Pepcid] 1 tab PO BID #14 tab Ibuprofen [Motrin] 1 tab PO Q6 #30 tab Referrals: [facility] [Outside] - Follow up with primary Forms: [employer] (Czech)
[2017-04-08 10:31] VITALS: BP 170/84; PULSE 74; RESP 16; O2SAT 96
== END 2017-04-08 08:55 | disposition home or self-care (01) ==
LOC: ED 08:10
DX: G89.29 Other chronic pain (principal); M79.606 Pain in leg, unspecified; Z59.0 Homelessness

== ENCOUNTER 2017-04-15 20:51 | Observation (INO) | payer MEDICARE, OTHER ==
[2017-04-15 20:53] VITALS: PULSE 125
[2017-04-15 21:03] VITALS: BMI 40.3
--- NOTE | 2017-04-15 21:44 | ED PDOC ---
Arrival/HPI - General Chief Complaint: Alcohol Ingestion Time Seen by Provider: 04/15/17 21:11 Historian: Patient - History of Present Illness Narrative History of Present Illness (Text): 04/15/17 21:42 Carie Duncan is a 57 year old female who presents to the emergency department via ambulance for public intoxication. Patient admits to drinking alcohol throughout the day. Denies any somatic complaints other than chronic leg pain from walking. Symptom Onset: Gradual Severity Level: Mild Activities at Onset: Light Past Medical History - Provider Review Nursing Documentation Reviewed: Yes - Past History Past History: Non-Contributing - Infectious Disease Hx of Infectious Diseases: None - Tetanus Immunization Tetanus Immunization: Unknown - Past Medical History Past Medical History: Non-Contributing - Cardiac Hx Congestive Heart Failure: Yes Hx Hypertension: Yes Hx Peripheral Edema: Yes - Pulmonary Hx Chronic Obstructive Pulmonary Disease (COPD): Yes - Neurological Hx Neurological Disorder: No HX Cerebrovascular Accident: No - HEENT Hx HEENT Disorder: No - Renal Hx Renal Disorder: Yes - Endocrine/Metabolic Hx Hypothyroidism: Yes - Hematological/Oncological Hx Anemia: Yes - Integumentary Hx Dermatological Disorder: No - Musculoskeletal/Rheumatological Hx Arthritis: Yes - Gastrointestinal Hx Pancreatitis: Yes - Genitourinary/Gynecological Hx Genitourinary Disorders: No - Psychiatric Hx Anxiety: Yes Hx Depression: Yes Hx Substance Use: No (stopped) - Surgical History Other/Comment: IVC filter - Anesthesia Hx Anesthesia: Yes Hx Anesthesia Reactions: No Hx Malignant Hyperthermia: No - Suicidal Assessment Feels Threatened In Home Enviroment: No Family/Social History - Physician Review Nursing Documentation Reviewed: Yes Family/Social History: No Known Family HX Smoking Status: Heavy Smoker > 10 Cigarettes Daily Hx Alcohol Use: Yes (vodka) Hx Substance Use: No (stopped) Substance used: Heroin Hx Substance Use Treatment: No Allergies/Home Meds Allergies/Adverse Reactions: Allergies No Known Allergies Allergy (Verified 04/08/17 08:27) Home Medications: Home Meds Medication Instructions Recorded Confirmed Apixaban [Eliquis] 2.5 mg PO BID 02/26/17 03/16/17 Aspirin [Ecotrin] 81 mg PO DAILY 02/26/17 03/16/17 Atorvastatin [Lipitor] 40 mg PO DAILY 02/26/17 03/16/17 Carvedilol [Coreg] 6.25 mg PO Q12 02/26/17 03/16/17 Hydralazine HCl 100 mg PO BID 02/26/17 03/16/17 Isosorbide Mononitrate ER [Imdur 90 mg PO DAILY 02/26/17 03/16/17 ER] Review of Systems - Physician Review All systems were reviewed & negative as marked: Yes - Review of Systems Constitutional: Normal. absent: Fatigue, Fevers Respiratory: Normal. absent: SOB, Cough, Sputum Cardiovascular: Normal. absent: Chest Pain, Palpitations Genitourinary Female: Normal. absent: Dysuria Neurological: Normal. absent: Headache, Dizziness Psychiatric: Other (intoxication ) Physical Exam Vital Signs Reviewed: Yes Vital Signs Temp Pulse Resp BP Pulse Ox 04/16/17 04:00 72 16 127/76 97 04/16/17 00:00 80 16 148/76 97 04/15/17 22:25 98.3 F 73 18 134/74 100 Temperature: Afebrile Blood Pressure: Normal Pulse: Regular Respiratory Rate: Normal Appearance: Positive for: Well-Appearing, Comfortable Pain Distress: None Mental Status: Positive for: Alert and Oriented X 3 - Systems Exam Head: Present: Atraumatic, Normocephalic Pupils: Present: PERRL Conjunctiva: Present: Normal Mouth: Present: Moist Mucous Membranes Pharnyx: Present: Normal Respiratory/Chest: Present: Clear to Auscultation, Good Air Exchange. No: Respiratory Distress, Accessory Muscle Use Cardiovascular: Present: Regular Rate and Rhythm, Normal S1, S2. No: Murmurs Abdomen: Present: Normal Bowel Sounds. No: Tenderness, Distention, Peritoneal Signs Upper Extremity: Present: Normal Inspection. No: Cyanosis, Edema Lower Extremity: Present: Normal Inspection, NORMAL PULSES, Normal ROM, Neurovascularly Intact. No: Edema, CALF TENDERNESS, Venkat's Sign, Tenderness, Swelling Neurological: Present: GCS=15, CN II-XII Intact, Speech Normal, Motor Func Grossly Intact, Normal Sensory Function Skin: Present: Warm, Dry, Normal Color. No: Rashes Psychiatric: Present: Alert, Oriented x 3, Intoxicated Medical Decision Making ED Course and Treatment: Impression: A 57 year old female who presents to the emergency department for public intoxication. Plan: -- Reassess and disposition Progress Notes: 04/15/17 21:[address] patient on EDObs for alcohol intoxication, pending sobriety. ED OBSERVATION Discharge: Yes Date of observation admission: 04/15/17 Time of observation admission: 21:45 - Observation admission statement Patient is being placed in observation because:: alcohol intoxication - Goals of Observation Goals of observation are:: Pending sobriety, reevaluation and disposition - Progress Note Progress Note: 04/15/17 23:45 Patient is resting comfortably with stable vitals. No new complaints. 04/16/17 01:45 Patient sleeping in the er with stable vitals. 04/16/17 03:45 Patient sleeping in the er with stable vitals. No acute distress 04/16/17 05:33 Patient is awake alert oriented X3. Patient ambulatory in the emergency department with a steady gait and is stable for discharge. - Scribe Statement The provider has reviewed the documentation as recorded by the Bradley Salguero Provider Attestation: Provider Scribe Attestation: All medical record entries made by the Donnaibreyes were at my direction and personally dictated by me. I have reviewed the chart and agree that the record accurately reflects my personal performance of the history, physical exam, medical decision making, and the department course for this patient. I have also personally directed, reviewed, and agree with the discharge instructions and disposition. Disposition/Present on Arrival - Present on Arrival Any Indicators Present on Arrival: No History of DVT/PE: Yes History of Uncontrolled Diabetes: No Urinary Catheter: No History of Decub. Ulcer: No History Surgical Site Infection Following: None - Disposition Have Diagnosis and Disposition been Completed?: Yes Diagnosis: Alcohol abuse Disposition: HOME/ ROUTINE Disposition Time: 05:33 Patient Plan: Discharge Patient Problems: Current Active Problems Problem Status Onset Alcohol abuse Acute Condition: GOOD
[2017-04-16 01:27] VITALS: O2SAT 97
[2017-04-16 06:13] VITALS: BP 136/79; PULSE 79; RESP 18; TEMP 97.6
== END 2017-04-16 05:32 | disposition home or self-care (01) ==
LOC: ED 20:51 → EROBSV 21:45
PROVIDERS: ADMIT Emergency Medicine; ATTEND Emergency Medicine
DX: F10.10 Alcohol abuse, uncomplicated (principal)
CPT/HCPCS: 99283; G0378

== ENCOUNTER 2017-04-18 18:13 | Emergency (ER) | payer MEDICARE, OTHER ==
[2017-04-18 18:14] VITALS: PULSE 125; BMI 40.3
[2017-04-18] MEDS ORDERED: Alum-Mag Hydrox-Simethicone Susp (30 mL) PO STA (18:28)
[2017-04-18 18:33] VITALS: BP 151/83; PULSE 73; RESP 16; TEMP 98.5; O2SAT 100
--- NOTE | 2017-04-18 18:33 | ED PDOC ---
Arrival/HPI - General Chief Complaint: Lower Extremity Problem/Injury Time Seen by Provider: 04/18/17 18:17 Historian: Patient - History of Present Illness Narrative History of Present Illness (Text): 04/18/17 18:28 A 57 year old female, well known to the emergency room with a past medical history of chronic bilateral lower extremity swelling, presents to the emergency department complaining of right lower extremity swelling. Patient denies any recent trauma or injury. She admits to drinking alcohol today, however on evaluation patient is clinically sober. Patient denies any fever, chills, nausea, vomiting, abdominal pain, back pain, chest pain, shortness of breath or any other complaints. Time/Duration: Prior to Arrival Symptom Course: Unchanged Quality: Other Context: Other Past Medical History - Provider Review Nursing Documentation Reviewed: Yes - Past History Past History: Non-Contributing - Infectious Disease Hx of Infectious Diseases: None - Tetanus Immunization Tetanus Immunization: Unknown - Past Medical History Past Medical History: Non-Contributing - Cardiac Hx Congestive Heart Failure: Yes Hx Hypertension: Yes Hx Peripheral Edema: Yes - Pulmonary Hx Chronic Obstructive Pulmonary Disease (COPD): Yes - Neurological Hx Neurological Disorder: No HX Cerebrovascular Accident: No - HEENT Hx HEENT Disorder: No - Renal Hx Renal Disorder: Yes - Endocrine/Metabolic Hx Hypothyroidism: Yes - Hematological/Oncological Hx Anemia: Yes - Integumentary Hx Dermatological Disorder: No - Musculoskeletal/Rheumatological Hx Arthritis: Yes - Gastrointestinal Hx Pancreatitis: Yes - Genitourinary/Gynecological Hx Genitourinary Disorders: No - Psychiatric Hx Anxiety: Yes Hx Depression: Yes Hx Substance Use: No (stopped) - Surgical History Other/Comment: IVC filter - Anesthesia Hx Anesthesia: Yes Hx Anesthesia Reactions: No Hx Malignant Hyperthermia: No - Suicidal Assessment Feels Threatened In Home Enviroment: No Family/Social History - Physician Review Nursing Documentation Reviewed: Yes Family/Social History: No Known Family HX Smoking Status: Heavy Smoker > 10 Cigarettes Daily Hx Alcohol Use: Yes (vodka) Hx Substance Use: No (stopped) Substance used: Heroin Hx Substance Use Treatment: No Allergies/Home Meds Allergies/Adverse Reactions: Allergies No Known Allergies Allergy (Verified 04/08/17 08:27) Home Medications: Home Meds Medication Instructions Recorded Confirmed Apixaban [Eliquis] 2.5 mg PO BID 02/26/17 04/18/17 Aspirin [Ecotrin] 81 mg PO DAILY 02/26/17 04/18/17 Atorvastatin [Lipitor] 40 mg PO DAILY 02/26/17 04/18/17 Carvedilol [Coreg] 6.25 mg PO Q12 02/26/17 04/18/17 Hydralazine HCl 100 mg PO BID 02/26/17 04/18/17 Isosorbide Mononitrate ER [Imdur 90 mg PO DAILY 02/26/17 04/18/17 ER] Review of Systems - Physician Review All systems were reviewed & negative as marked: Yes - Review of Systems Constitutional: absent: Fevers, Night Sweats Respiratory: absent: SOB Cardiovascular: absent: Chest Pain Gastrointestinal: absent: Abdominal Pain, Nausea, Vomiting Musculoskeletal: absent: Back Pain, Other (Right lower extremity swelling) Physical Exam Vital Signs Temp Pulse Resp BP Pulse Ox 04/18/17 18:32 98.5 F 73 16 151/83 H 100 Appearance: Positive for: Well-Appearing, Non-Toxic, Comfortable Pain Distress: None Mental Status: Positive for: Alert and Oriented X 3 - Systems Exam Head: Present: Atraumatic, Normocephalic Pupils: Present: PERRL Extroacular Muscles: Present: EOMI Conjunctiva: Present: Normal Mouth: Present: Moist Mucous Membranes Neck: Present: Normal Range of Motion Respiratory/Chest: Present: Clear to Auscultation, Good Air Exchange. No: Respiratory Distress, Accessory Muscle Use Cardiovascular: Present: Regular Rate and Rhythm, Normal S1, S2. No: Murmurs Abdomen: Present: Normal Bowel Sounds. No: Tenderness, Distention, Peritoneal Signs Back: Present: Normal Inspection Upper Extremity: Present: Normal Inspection. No: Cyanosis, Edema Lower Extremity: Present: Edema (Bilateral trace edema), NORMAL PULSES, Normal ROM, Neurovascularly Intact, Other (full motor function and strength intact). No: CALF TENDERNESS, Tenderness, Erythema, Deformity, Temperature Abnormalties Neurological: Present: GCS=15, CN II-XII Intact, Speech Normal Skin: Present: Warm, Dry, Normal Color. No: Rashes Psychiatric: Present: Alert, Oriented x 3, Normal Insight, Normal Concentration Medical Decision Making ED Course and Treatment: 04/18/17 18:28 Impression: A 57 year old female with chronic leg swelling and pain c/o right lower leg pain. Plan: -- Maalox and Motrin -- Reassess and disposition Prior Visits: Notes and results from previous visits were reviewed. Patient had ultrasounds done on 01/02/17, 01/17/17 and 02/13/17, all results were negative for DVT. Progress Notes: Patient known to the hospital for multiple visits of alcohol use and chronic leg and back pain. Multiple xrays/us completed and negative as noted above. She is able to ambulate with a steady gait out of the ED. She is clinically sober with no slurred speech or ataxia. No tremors. She is requesting food before she gets discharged. - Medication Orders Current Medication Orders: Discontinued Medications Al Hydrox/Mg Hydrox/Simethicone (Maalox Plus 30 Ml) 30 ml PO STAT STA Stop: 04/18/17 18:29 Last Admin: 04/18/17 18:41 Dose: 30 ml Ibuprofen (Motrin Tab) 600 mg PO STAT STA Stop: 04/18/17 18:34 Last Admin: 04/18/17 18:42 Dose: 600 mg - Scribe Statement The provider has reviewed the documentation as recorded by the Bradley Peralta Provider Scribe Attestation: All medical record entries made by the Donnaibreyes were at my direction and personally dictated by me. I have reviewed the chart and agree that the record accurately reflects my personal performance of the history, physical exam, medical decision making, and the department course for this patient. I have also personally directed, reviewed, and agree with the discharge instructions and disposition. Disposition/Present on Arrival - Present on Arrival Any Indicators Present on Arrival: Yes History of DVT/PE: Yes History of Uncontrolled Diabetes: No Urinary Catheter: No History of Decub. Ulcer: No History Surgical Site Infection Following: None - Disposition Have Diagnosis and Disposition been Completed?: Yes Diagnosis: Leg pain Disposition: HOME/ ROUTINE Disposition Time: 18:48 Patient Plan: Discharge Patient Problems: Current Active Problems Problem Status Onset Leg pain Acute Condition: GOOD Discharge Instructions (ExitCare): Leg Pain (ED) Additional Instructions: Ms Duncan, thank you for letting us take care of you today. Your provider was [ Provider Name Here]. You were treated for Leg Pain. The emergency medical care you received today was directed at your acute symptoms. If you were prescribed any medication, please fill it and take as directed. It may take several days for your symptoms to resolve. Return to the Emergency Department if your symptoms worsen, do not improve, or if you have any other problems. Please contact your doctor or call one of the physicians/clinics you have been referred to that are listed on the Patient Visit Information form that is included in your discharge packet. Bring any paperwork you were given at discharge with you along with any medications you are taking to your follow up visit. Our treatment cannot replace ongoing medical care by a primary care provider (PCP) outside of the emergency department. Thank you for allowing the [email or web address] team to be part of your care today. If you had an X-Ray or CT scan: A Radiologist will review the ED reading if any change in treatment is needed we will contact you. If you had a blood, urine, or wound culture: It will take several days for the results, if any change in treatment is needed we will contact you. If you had an STI test: It will take 48 hours for the results. Please call after 1 week if you have not heard back. Referrals: [facility] [place] [facility] [place] - Follow up with primary Forms: [employer] ([place])
== END 2017-04-18 18:48 | disposition home or self-care (01) ==
LOC: ED 18:13
DX: M79.661 Pain in right lower leg (principal)

== ENCOUNTER 2017-04-24 10:05 | Inpatient (IN) | payer MEDICARE, OTHER ==
[2017-04-24 10:06] VITALS: PULSE 125; BMI 40.3
--- NOTE | 2017-04-24 10:48 | ED PDOC ---
Arrival/HPI - General Chief Complaint: High Blood Pressure Time Seen by Provider: 04/24/17 10:21 Historian: Patient - History of Present Illness Narrative History of Present Illness (Text): 04/24/17 10:47 A 57 year old female, whose past medical history includes renal disease and poorly controlled hypertension, was brought in by EMS complaining of worsening bilateral lower extremity swelling and elevated blood pressure. Upon EMS exam patient was found to be hypertensive. Patient has multiple ER visits for similar complaints and alcohol intoxication. Patient denies any other complaints at this time. PMD: Dr. Kenny Symptom Onset: Sudden Symptom Course: Unchanged Activities at Onset: Rest Modifying Factors (Text): none Past Medical History - Provider Review Nursing Documentation Reviewed: Yes - Past History Past History: Non-Contributing - Infectious Disease Hx of Infectious Diseases: None - Tetanus Immunization Tetanus Immunization: Unknown - Past Medical History Past Medical History: Non-Contributing - Cardiac Hx Congestive Heart Failure: Yes Hx Hypertension: Yes Hx Peripheral Edema: Yes - Pulmonary Hx Chronic Obstructive Pulmonary Disease (COPD): Yes - Neurological Hx Neurological Disorder: No HX Cerebrovascular Accident: No - HEENT Hx HEENT Disorder: No - Renal Hx Renal Disorder: Yes - Endocrine/Metabolic Hx Hypothyroidism: Yes - Hematological/Oncological Hx Anemia: Yes - Integumentary Hx Dermatological Disorder: No - Musculoskeletal/Rheumatological Hx Arthritis: Yes - Gastrointestinal Hx Pancreatitis: Yes - Genitourinary/Gynecological Hx Genitourinary Disorders: No - Psychiatric Hx Anxiety: Yes Hx Depression: Yes Hx Substance Use: No (stopped) - Surgical History Other/Comment: IVC filter - Anesthesia Hx Anesthesia: Yes Hx Anesthesia Reactions: No Hx Malignant Hyperthermia: No - Suicidal Assessment Feels Threatened In Home Enviroment: No Family/Social History - Physician Review Nursing Documentation Reviewed: Yes Family/Social History: No Known Family HX Smoking Status: Heavy Smoker > 10 Cigarettes Daily Hx Alcohol Use: Yes (vodka) Hx Substance Use: No (stopped) Substance used: Heroin Hx Substance Use Treatment: No Allergies/Home Meds Allergies/Adverse Reactions: Allergies No Known Allergies Allergy (Verified 04/24/17 10:14) Home Medications: Home Meds Medication Instructions Recorded Confirmed No Known Home Med 04/24/17 04/24/17 Review of Systems - Physician Review All systems were reviewed & negative as marked: Yes Physical Exam - Physical Exam Narrative Physical Exam (Text): 04/24/17 10:45 - Review of Systems Constitutional: Normal. absent: Fatigue, Weight Change, Fevers Eyes: Normal ENT: denies sore throat, denies tristhmus Respiratory: Normal. absent: SOB, Cough, Sputum Cardiovascular: absent: Chest Pain, Palpitations, Syncope Gastrointestinal: Normal. absent: Abdominal Pain, Diarrhea, Nausea, Vomiting Genitourinary: Normal. absent: Dysuria, Frequency, Hematuria, vaginal bleeding Musculoskeletal: bilateral lower extremity swelling absent: Arthralgias, Back Pain, Neck Pain Skin: no rashes, no erythema Neurological: absent: Focal Weakness Endocrine: Normal Hemo/Lymphatic: Normal Psychiatric: No suicidal or homicidal ideations Physical exam Patient appears age appropriate in no distress, speaking full sentences without difficulty - Systems Exam Head: Present: Atraumatic, Normocephalic Pupils: Present: PERRL Extroacular Muscles: Present: EOMI Conjunctiva: Present: Normal Mouth: Present: Moist Mucous Membranes Neck: Present: Normal Range of Motion. No: MIDLINE TENDERNESS, Paraspinal Tenderness Respiratory/Chest: Present: Clear to Auscultation, Good Air Exchange. No: Respiratory Distress, Accessory Muscle Use, Tachypneic Cardiovascular: Present: Regular Rate and Rhythm, Normal S1, S2, Peripheal Pulses Present. No: Murmurs Abdomen: Present: Normal Bowel Sounds. No: Tenderness, Distention, Peritoneal Signs, Rebound, Guarding Back: Present: Normal Inspection. No: Midline Tenderness, Paraspinal Tenderness Upper Extremity: Present: Normal Inspection. No: Cyanosis, Edema Lower Extremity: Present: bilateral +3 pitting edema Neurological: Present: GCS=15, Speech Normal, cranial nerves II through XII fully intact with no cerebellar abnormality, neurosensory fully intact. No focal neurological deficits. Skin: Present: Warm, Dry, Normal Color. No: Rashes Lymphatic: Present: OX3, NI, NC Psychiatric: Present: Alert, Oriented x 3, Normal Insight, Normal Concentration Vital Signs Reviewed: Yes Vital Signs Temp Pulse Pulse Resp BP BP Pulse Ox 04/24/17 10:32 97.4 F L 79 69 18 212/88 H 212/88 H 100 Appearance: Positive for: Well-Appearing, Non-Toxic, Comfortable Pain Distress: None Mental Status: Positive for: Alert and Oriented X 3 Medical Decision Making ED Course and Treatment: 04/24/17 10:45 Impression: A 57 year old female with worsening bilateral lower extremity swelling and elevated blood pressure. On physical exam, patient has lower extremity bilateral +3 pitting edema. Plan: -- EKG -- chest xray -- labs -- Reassess and disposition Prior Visits: Notes and results from previous visits were reviewed. Patient last reported to the emergency department on 04/24/17 for evaluation of chronic bilateral leg pain and burning abdominal pain. Patient seen in the ER by Dr. Manning, accepted to her service for uncontrolled HTN and renal insufficiency pt in no distress aware of and agrees with plan Progress Notes: EKG: EKG shows NSR at [address] depressions, interpreted by me. 04/24/17 11:17 chest xray: Creator : Lydia Conley V. FINDINGS: LUNGS: The asymmetrically elevated left hemidiaphragm up to the mid hemithorax with subjacent presumed splenic flexure colon loops is similar-appearing. Compressive mild atelectatic changes on the left lung base. PLEURA: No significant pleural effusion identified, no pneumothorax apparent. CARDIOVASCULAR: Cardiomegaly -similar no. Pulmonary venous congestion appreciated OSSEOUS STRUCTURES: Thoracic spondylosis VISUALIZED UPPER ABDOMEN: Normal. IMPRESSION: No active disease. No interval change - Lab Interpretations Lab Results: 04/24/17 12:28 04/24/17 12:28 Lab Results 04/24/17 12:28: Sodium 146, Potassium 4.5, Chloride 114 H, Carbon Dioxide 21, Anion Gap 16, BUN 74 H, Creatinine 3.7 H, Est GFR ( Amer) 15, Est GFR ( Non-Af Amer) 13, Random Glucose 91, Calcium 8.4, Total Bilirubin 0.2, AST 34, ALT 33, Alkaline Phosphatase 125, NT-Pro-B Natriuret Pep 3760 H, Total Protein 6.9, Albumin 3.4, Globulin 3.5, Albumin/Globulin Ratio 1.0 L 04/24/17 12:28: WBC 6.0, RBC 3.08 L, Hgb 8.4 L, Hct 27.6 L, MCV 89.6, MCH 27.3, MCHC 30.4 L, RDW 17.5 H, Plt Count 162, MPV 10.8, Gran % 76.6 H, Lymph % (Auto) 10.9 L, Crockett % (Auto) 10.6 H, Eos % (Auto) 1.7, Baso % (Auto) 0.2, Gran # 4.57, Lymph # 0.7 L, Crockett # 0.6, Eos # 0.1, Baso # 0.01 I have reviewed the lab results: Yes - RAD Interpretation Radiology Orders: 04/24/17 10:32 CHEST PORTABLE [RAD] Stat - EKG Interpretation Interpreted by ED Physician: Yes Type: 12 lead EKG - Medication Orders Current Medication Orders: Sodium Chloride (Sodium Chloride 0.9%) 500 mls @ 1,000 mls/hr IV .Q30M STA Stop: 04/24/17 13:25 Discontinued Medications Hydralazine HCl (Apresoline) 10 mg IVP STAT STA Stop: 04/24/17 11:48 Last Admin: 04/24/17 12:32 Dose: - Scribe Statement The provider has reviewed the documentation as recorded by the Scribe Sanjana Su Provider Scribe Attestation: All medical record entries made by the Scribe were at my direction and personally dictated by me. I have reviewed the chart and agree that the record accurately reflects my personal performance of the history, physical exam, medical decision making, and the department course for this patient. I have also personally directed, reviewed, and agree with the discharge instructions and disposition. Disposition/Present on Arrival - Present on Arrival Any Indicators Present on Arrival: No History of DVT/PE: Yes History of Uncontrolled Diabetes: No Urinary Catheter: No History of Decub. Ulcer: No History Surgical Site Infection Following: None - Disposition Have Diagnosis and Disposition been Completed?: Yes Diagnosis: Acute renal failure (ARF) Disposition: HOSPITALIZED Disposition Time: 11:22 Patient Plan: Admission Condition: FAIR Referrals: Kendall Kenny MD [Primary Care Provider] - Follow up with primary Forms: [employer] ([place])
--- NOTE | 2017-04-24 11:16 | RAD ---
HISTORY: cough COMPARISON: 10/29/2016 FINDINGS: LUNGS: The asymmetrically elevated left hemidiaphragm up to the mid hemithorax with subjacent presumed splenic flexure colon loops is similar-appearing. Compressive mild atelectatic changes on the left lung base. PLEURA: No significant pleural effusion identified, no pneumothorax apparent. CARDIOVASCULAR: Cardiomegaly -similar no. Pulmonary venous congestion appreciated OSSEOUS STRUCTURES: Thoracic spondylosis VISUALIZED UPPER ABDOMEN: Normal. OTHER FINDINGS: None. IMPRESSION: No active disease. No interval change
[2017-04-24 12:41] LABS: BASO # 0.01 K/mm3 (0.0-2.0); BASO % 0.2 % (0.0-3.0); EOS # 0.1 (0.0-0.7); EOS % 1.7 % (1.5-5.0); GRAN # 4.57 (1.4-6.5); GRAN % 76.6 % (50.0-68.0); HEMATOCRIT 27.6 % (36.0-48.0); LYMPH # 0.7 (1.2-3.4); LYMPH % 10.9 % (22.0-35.0); MEAN CELL VOLUME 89.6 fl (80.0-105.0); MEAN CORPUSCULAR HEMOGLOBIN 27.3 pg (25.0-35.0); MEAN CORPUSCULAR HGB CONC 30.4 g/dl (31.0-37.0); MEAN PLATELET VOLUME 10.8 fl (7.0-11.0); MONO # 0.6 (0.1-0.6); MONO % 10.6 % (1.0-6.0); RED CELL DISTRIBUTION WIDTH 17.5 % (11.5-14.5)
[2017-04-24 12:48] LABS: BILIRUBIN,TOTAL 0.2 mg/dL (0.2-1.3); CALCIUM 8.4 mg/dL (8.4-10.5); POTASSIUM 4.5 mmol/L (3.6-5.0); TOTAL PROTEIN 6.9 g/dL (5.8-8.3)
[2017-04-24] MEDS ORDERED: Sodium Chloride 0.9% 500 ML IV STA (12:56)
--- NOTE | 2017-04-24 23:05 | CARD ---
APPROVED REPORT EKG Measurement Heart [id number] <Conclusion> Normal sinus rhythm Possible Left atrial enlargement Left ventricular hypertrophy Nonspecific T wave abnormality Abnormal ECG
--- NOTE | 2017-04-25 03:49 | CP.PCM.PCO ---
Physician Communication Note - Physician Communication Note Physician Communication Note: chart reviewed. hold on antibiotics.
[2017-04-25 06:55] LABS: CALCIUM 8.4 mg/dL (8.4-10.5); POTASSIUM 4.5 mmol/L (3.6-5.0)
[2017-04-25 06:56] LABS: HEMATOCRIT 26.5 % (36.0-48.0); MEAN CELL VOLUME 88.6 fl (80.0-105.0); MEAN CORPUSCULAR HEMOGLOBIN 28.1 pg (25.0-35.0); MEAN CORPUSCULAR HGB CONC 31.7 g/dl (31.0-37.0); MEAN PLATELET VOLUME 10.3 fl (7.0-11.0); RED CELL DISTRIBUTION WIDTH 17.3 % (11.5-14.5); WHITE BLOOD COUNT 5.6 10^3/ul (4.5-11.0)
[2017-04-25 07:03] LABS: IRON 23 ug/dL (45-180)
--- NOTE | 2017-04-25 13:22 | HP ---
CHIEF COMPLAINT: High blood pressure. HISTORY OF PRESENT ILLNESS: Ms. Carie Duncan is a 57-year-old female with past medical history of renal insufficiency, poorly controlled blood pressure, brought by EMS, complaining of worsening bilateral lower extremity swelling and elevated blood pressure. The patient was found to be hypertensive by EMS. The patient has multiple ER visits for similar complaints and alcohol intoxication. The patient denies any other complaints at this time. The patient was seen in the ER. PAST MEDICAL HISTORY: Congestive heart failure, hypertension, peripheral edema, COPD, renal insufficiency, hypothyroidism, anemia, arthritis, history of pancreatitis, anxiety, depression, substance abuse; stopped now. FAMILY HISTORY: Father and mother noncontributory. HABITS: Heavy smoker, alcohol yes Vodka, substance abuse stopped. Used to use heroin. ALLERGIES: THE PATIENT IS NOT ALLERGIC WITH ANY MEDICATIONS. HOME MEDICATIONS: The patient does not remember. REVIEW OF SYSTEMS: The patient seen and examined on the bedside in the ER, looking comfortable, still having swelling of the leg. No nausea, vomiting, or diarrhea. No headache or dizziness. No shortness of breath. No fever. No fatigue. No weight changes. No chills. Denies sore throat. No coughing. No sputum. No chest pain. No palpitation or syncope. No abdominal pain. No diarrhea, nausea, or vomiting. No dysuria, frequency, hematuria, or vaginal bleeding. Bilateral lower extremity is swollen, red, and warm. Skin, no rashes. No suicidal or homicidal ideation. PHYSICAL EXAMINATION: VITAL SIGNS: Temperature 97.4, pulse is 79, respiratory rate is 18, blood pressure 212/88, pulse oximetry 100%. HEENT: Head is normocephalic and atraumatic. Eyes PERRLA. Extraocular muscles are intact. Conjunctivae clear. Nose patent. NECK: Supple. No carotid bruits, JVD, or thyromegaly. CHEST: Bilaterally symmetrical. HEART: S1 and S2 positive. LUNGS: Clear to auscultation. ABDOMEN: Soft. Bowel sounds present. No organomegaly. EXTREMITIES: Positive edema and redness. NEUROLOGIC: The patient is awake and alert. Moving all 4 extremities. No focal deficits. LABORATORY DATA: White blood cells 6.0, hemoglobin 8.4, hematocrit 27.6, and platelets 152. Sodium 146, potassium 4.5, BUN 74, creatinine 3.6, glucose 91. ASSESSMENT AND PLAN: Ms. Carie Duncan is a 57-year-old female with anemia, renal insufficiency, hyperchloremia. Planned for chest x-ray, reviewed by me. She came with accelerated hypertension, urgency, congestive heart failure, cellulitis of the leg, obesity, noncompliant, chronic obstructive pulmonary disease, renal insufficiency, hypothyroidism, anxiety, depression, substance abuse, [id number] renal failure. We admitted the patient, started medications, cellulitis of the leg, is bad as chronic obstructive pulmonary disease, looks like congestive heart failure. Repeat labs. We will follow. Zahra Manning MD MTDD
[2017-04-25 13:25] LABS: FOLATE 4.8 ng/mL
--- NOTE | 2017-04-25 18:43 | CP.PCM.CON ---
History of Present Illness - History of Present Illness History of Present Illness: Infectious Disease Consultation: April 25, 2017 57 yo female with extensive medical history that includes hypertension, renal insufficiency, CHF, COPD, and hypothyroidism. The patient was brought to [facility] [place] for worsening bilateral lower extremity edema. EMS also found the patient to have an elevated blood pressure as well. The patient has many visits to the ER of [facility] in the past year. She has gone to the ER for either leg swelling or EtOH intoxication. There is no leukocytosis or fevers on admission or so far during this hospitalization. Apparently the patient is also homeless. The patient does NOT know her PMD or what her medications are. Strong suspicion of noncompliance. PMHx: CHF, Hypertension, renal insufficiency, COPD, hypothyroidism, history of pancreatitis, anxiety, depression, anemia, peripheral edema, and history of substance abuse. PSHx: none specifically given Allergies: NKDA Social Hx: Substance Abuse and EtOH abuse history. Heaby tobacco use. Was a heavy Heroin user. Active Medications Clonidine HCl (Catapres-Tts3 0.3 Mg/24 Hr) 1 patch TD Q7D@1000 [facility] Famotidine (Pepcid) 40 mg PO HS [facility] Last Admin: 04/24/17 22:57 Dose: 40 mg Furosemide (Lasix) 40 mg IV DAILY [facility] Last Admin: 04/25/17 17:36 Dose: 40 mg Potassium Chloride (K-Dur 20 Meq Er Tab) 20 meq PO BRK [facility] Family Hx: none specifically given ROS: bilateral lower extremity edema. No fevers, chills, nausea, vomiting, diarrhea , headaches, dizziness, chest pain, abdominal pain, melena, hematuria, hematemesis, hematochezia, depression, anxiety. Past Patient History - Infectious Disease Hx of Infectious Diseases: None - Tetanus Immunizations Tetanus Immunization: Unknown - Past Medical History & Family History Past Medical History?: Yes - Past Social History Smoking Status: Current Some Days Smoker - CARDIAC Hx Congestive Heart Failure: Yes Hx Hypertension: Yes Hx Peripheral Edema: Yes - PULMONARY Hx Chronic Obstructive Pulmonary Disease (COPD): Yes - NEUROLOGICAL Hx Neurological Disorder: No HX Cerebrovascular Accident: No - HEENT Hx HEENT Problems: No - RENAL Hx Chronic Kidney Disease: Yes - ENDOCRINE/METABOLIC Hx Hypothyroidism: Yes - HEMATOLOGICAL/ONCOLOGICAL Hx Anemia: Yes - INTEGUMENTARY Hx Dermatological Problems: No - MUSCULOSKELETAL/RHEUMATOLOGICAL Hx Arthritis: Yes Hx Falls: No - GASTROINTESTINAL Hx Pancreatitis: Yes - GENITOURINARY/GYNECOLOGICAL Hx Genitourinary Disorders: No - PSYCHIATRIC Hx Anxiety: Yes Hx Depression: Yes - SURGICAL HISTORY Other/Comment: IVC filter - ANESTHESIA Hx Anesthesia: Yes Hx Anesthesia Reactions: No Hx Malignant Hyperthermia: No Meds Allergies/Adverse Reactions: Allergies Allergy/AdvReac Type Severity Reaction Status Date / Time No Known Allergies Allergy Verified 04/24/17 10:14 - Medications Medications: Current Medications Clonidine HCl (Catapres-Tts3 0.3 Mg/24 Hr) 1 patch TD Q7D@1000 [facility] Famotidine (Pepcid) 40 mg PO HS [facility] Last Admin: 04/24/17 22:57 Dose: 40 mg Furosemide (Lasix) 40 mg IV DAILY [facility] Last Admin: 04/25/17 17:36 Dose: 40 mg Potassium Chloride (K-Dur 20 Meq Er Tab) 20 meq PO BRK [facility] Physical Exam - Constitutional Appears: Non-toxic, No Acute Distress, Chronically Ill - Head Exam Head Exam: ATRAUMATIC, NORMOCEPHALIC - Eye Exam Eye Exam: EOMI, PERRL Pupil Exam: NORMAL ACCOMODATION, PERRL - ENT Exam ENT Exam: Mucous Membranes Moist, Normal External Ear Exam, TM's Normal Bilaterally - Neck Exam Neck exam: Positive for: Full Rom, Normal Inspection - Respiratory Exam Respiratory Exam: Clear to Auscultation Bilateral, NORMAL BREATHING PATTERN. absent: Rales, Rhonchi, Wheezes - Cardiovascular Exam Cardiovascular Exam: REGULAR RHYTHM, RRR, +S1, +S2 - GI/Abdominal Exam GI & Abdominal Exam: Normal Bowel Sounds, Soft. absent: Distended, Tenderness - Extremities Exam Extremities exam: Positive for: pedal edema Additional comments: +2 edema of the lower extremities but no evidence of chronic venous stasis changes. - Neurological Exam Neurological exam: Alert, CN II-XII Intact, Oriented x3 - Psychiatric Exam Psychiatric exam: Normal Affect, Normal Mood - Skin Additional comments: As above. Results - Vital Signs Recent Vital Signs: Last Vital Signs Temp 98.7 F 04/25/17 16:00 Pulse 66 04/25/17 17:37 Resp 20 04/25/17 16:00 BP 148/80 04/25/17 17:37 Pulse Ox 98 04/25/17 16:00 - Labs Result Diagrams: 04/25/17 06:30 04/25/17 06:30 Labs: Laboratory Results - last 24 hr 04/25/17 04/25/17 04/25/17 06:30 06:30 06:30 WBC RBC Hgb Hct MCV MCH MCHC RDW Plt Count MPV Sodium Potassium Chloride Carbon Dioxide Anion Gap BUN Creatinine Est GFR ( Amer) Est GFR (Non-Af Amer) Random Glucose Hemoglobin A1c 6.4 Calcium Iron 23 L TIBC 278 % Saturation 8 L Vitamin B12 356 Folate 4.8 TSH 3rd Generation 04/25/17 04/25/17 04/25/17 06:30 06:30 06:30 WBC 5.6 RBC 2.99 L Hgb 8.4 L Hct 26.5 L MCV 88.6 MCH 28.1 MCHC 31.7 RDW 17.3 H Plt Count 158 MPV 10.3 Sodium 142 Potassium 4.5 Chloride 113 H Carbon Dioxide 19 L Anion Gap 15 BUN 67 H Creatinine 3.6 H Est GFR ( Amer) 16 Est GFR (Non-Af Amer) 13 Random Glucose 76 Hemoglobin A1c Calcium 8.4 Iron TIBC % Saturation Vitamin B12 Folate TSH 3rd Generation 4.49 Assessment & Plan - Assessment and Plan (Free Text) Assessment: 57 yo female with multiple visits to various ER with increasing swelling of the bilateral lower extremities. The patient has findings consistent with poorly controlled CHF. The patient with +2 edema of both lower extremities. There is a strong question of noncompliance and whether the patient is also homeless. There are no signs of cellulitits. There is no leukocytosis or fevers at this time. However, the patient should be considered for subacute or possibly nursing home care given the poor control of her various medical conditions especially the CHF, HTN, COPD, Hypothyroidism, and renal insufficiency. I would NOT start antibiotics at this point in time and continue to monitor from the Infectious Disease viewpoint. Administration of antibiotics would only add unnecessary fluids and even increase sodium loads on the patient for extremely limited benefit. Thank you for allowing me to participate in the care of the patient, we will follow with you.
--- NOTE | 2017-04-25 19:37 | CON ---
DATE: 04/25/2017 LOCATION: The patient is in room 378, bed 2. REASON FOR CONSULTATION: Uncontrolled hypertension, swelling on the legs, renal dysfunction. HISTORY OF PRESENT ILLNESS: The patient is a 57-year-old female who is very poor compliant patient, does not take medication and she is admitted with swelling of legs she says of 2 days' duration. Denies chest pain, shortness of breath or PND. She says she sleeps on 2 pillows. The patient continued to smoke 2 packs a day and she also drinks heavy and she has continued to do that as well. PAST MEDICAL HISTORY: The patient's past history is positive for COPD, renal dysfunction, and hypertension. She was admitted once with CHF and volume overload, which was suggestive of LV diastolic dysfunction because the patient's echo on 01/11/2016 showed LV ejection fraction of 59% and RVSP 53 mmHg suggestive of moderate pulmonary hypertension, mild aortic regurgitation, moderate tricuspid regurgitation. The patient had a stress test on 02/10/2015, which was normal with an ejection fraction of 78%. The patient's past history is positive for renal dysfunction, hypertension, COPD, CHF as mentioned with her diastolic dysfunction with fluid overload, hypothyroidism, pancreatitis, anxiety, depression. The patient had IVC filter insertion in the past. ALLERGIES: NO KNOWN ALLERGIES. MEDICATIONS AT HOME: The patient does not remember any medication what she was taking at home. FAMILY HISTORY: Not significant. REVIEW OF SYSTEMS: All the systems reviewed, positive mentioned in history, others were negative. PHYSICAL EXAMINATION: VITAL SIGNS: Blood pressure 143/69. On admission, blood pressure was 193/98, respirations 20, pulse 67, temperature 97.8. HEENT: Head is normocephalic. Eyes, pupils normal. Conjunctivae slightly pale. NECK: JVP low. Carotids are equal. THORAX: AP diameter is normal. CARDIOVASCULAR: S1 and S2. LUNGS: Clear. ABDOMEN: Soft. No tenderness. No organomegaly. EXTREMITIES: The patient has edema below knee about 3+ bilateral. LABORATORY DATA: The patient's EKG showed normal sinus rhythm, possible left atrial enlargement, left ventricular hypertrophy, nonspecific ST-T changes. Chest x-ray, no evidence of congestion. The patient had a left hemidiaphragm elevation. Compressive mild atelectatic changes on the left lung base. WBC 5.6, hemoglobin 8.4, hematocrit 26.5, platelet 158. Sodium 142, potassium 4.5, BUN 67, creatinine 3.6. GFR 16. Calcium 8.4. AST and ALT normal. 760. TSH 4.49. DIAGNOSES: Swelling of legs, fluid overload. No clinical evidence of congestive heart failure at this moment, uncontrolled hypertension, poor compliant patient, continues to smoke 2 packs a day and drink heavy, chronic obstructive pulmonary disease, history of congestive heart failure in the past due to diastolic dysfunction and chronic obstructive pulmonary disease, history of hypothyroidism in the past, anemia, history of arthritis, history of pancreatitis in the past, history of inferior vena cava filter insertion in the past. PLAN: We will put the patient on Lasix 40 IV daily and we will also put metoprolol 25 b.i.d. We will continue to monitor intake and output and blood pressure and follow electrolytes, BUN. Again, instruct the patient to not to smoke or drink. The patient also has moderate pulmonary hypertension as per echo on 01/11/2016 with an ejection fraction of 59%, mild aortic regurgitation, moderate tricuspid regurgitation. Stress test 02/10/2015 was normal with an LV ejection fraction of 78%. The patient is on Pepcid 40 mg at bedtime. The patient is on clonidine 0.3 mg 24-hour TTS patch every week. We will monitor with you and follow with you. Juan M Jane MD
--- NOTE | 2017-04-25 23:47 | PN ---
DATE: SUBJECTIVE: The patient is seen and examined at the bedside. Sitting on the chair, looking comfortable. No nausea, vomiting, or diarrhea. No hematochezia. No swelling of the leg. No chest pain or palpitations. No headache. No dizziness. No fever. No chills. PHYSICAL EXAMINATION: VITAL SIGNS: Temperature 98.7, pulse 66, blood pressure 148/88, and respiratory rate 20. HEENT: Head, normocephalic and atraumatic. Eyes, PERRLA. Extraocular muscles intact. Conjunctivae clear. Nose patent. Mucous membranes moist. NECK: Supple. No carotid bruits. No JVD or thyromegaly. CHEST: Bilaterally symmetrical. HEART: S1 and S2 positive. LUNGS: Clear to auscultation. ABDOMEN: Soft. Bowel sounds positive. No organomegaly. EXTREMITIES: No edema. No cyanosis. NEUROLOGICAL: The patient is awake and alert. Moving all 4 extremities. No focal deficits. MEDICATIONS: Catapres, K-Dur, Lasix, and Pepcid. LABORATORY DATA: White blood cell 5.6, hemoglobin 8.4, hematocrit 26.5, and platelets 158. Sodium 142, potassium 5.1, BUN 67, and creatinine 3.6. On admission, BUN was 74, creatinine was 3.7, and BNP 3760. ASSESSMENT AND PLAN: Mrs. Carie Duncan is a 57 years old female with hyperchloremia, renal insufficiency, improving very slowly, iron deficiency, congestive heart failure, anemia, came with accelerated hypertension, chronic obstructive pulmonary disease, hypothyroidism, history of pancreatitis, anxiety, depression, peripheral edema, and history of substance abuse. This 57 years old lady had multiple visits to various emergency rooms with increased swelling of the bilateral lower extremities. The patient had +2 edema of both lower extremities. It looks like the patient is noncompliant and is also homeless. According to infectious disease, there is no cellulitis, no leukocytosis or fever. The patient needs some rehab. The patient has history of hypothyroidism. Appreciated Dr. Guerra's input. According to him, the patient do not need antibiotics. We will observe off the antibiotics. Lower extremity ultrasound was done according to Dr. Jack Dillard. Ultrasound is negative for deep venous thrombosis. Seen by Dr. Jane. Gastrointestinal and deep venous thrombosis prophylaxis. Repeat labs. Zahra Manning MD
--- NOTE | 2017-04-25 23:54 | CP.PCM.CON ---
History of Present Illness - History of Present Illness History of Present Illness: 57 yo F w/ pmh of htn, dm, CHF w/ preserved EF, COPD, pulmonary htn, HIV (on HAART?), hep C and CKD stage IV, admitted with increased lower ext edema, nephrology being consulted due to acute kidney injury; Patient reports having run out of her meds about 2 weeks ago; doesn't know the names of her meds but was on diuretics; patient also with severely uncontrolled htn on presentation; reports feeling better with somewhat improved shortness of breath since being admitted; Patient does report urinating well but also admits to feeling of incomplete evacuation of bladder; denies taking any regular pain meds (gets pain in her legs but otherwise denies any arthralgias); Regarding her hep C, she acknowledges it but reports never being treated; Review of Systems - Constitutional Constitutional: absent: Anorexia - EENT Nose/Mouth/Throat: absent: Nasal Discharge, Sore Throat - Cardiovascular Cardiovascular: Dyspnea. absent: Chest Pain, Palpitations - Respiratory Respiratory: Cough - Gastrointestinal Gastrointestinal: absent: Nausea, Vomiting - Genitourinary Genitourinary: As Per HPI - Musculoskeletal Musculoskeletal: As Per HPI - Neurological Neurological: absent: Sensory Deficit Past Patient History - Infectious Disease Hx of Infectious Diseases: None - Tetanus Immunizations Tetanus Immunization: Unknown - Past Medical History & Family History Past Medical History?: Yes Pertinent Family History: Mother and father - DM - Past Social History Smoking Status: Heavy Smoker > 10 Cigarettes Daily - CARDIAC Hx Congestive Heart Failure: Yes Hx Hypertension: Yes Hx Peripheral Edema: Yes - PULMONARY Hx Chronic Obstructive Pulmonary Disease (COPD): Yes - NEUROLOGICAL Hx Neurological Disorder: No HX Cerebrovascular Accident: No - HEENT Hx HEENT Problems: No - RENAL Hx Chronic Kidney Disease: Yes - ENDOCRINE/METABOLIC Hx Hypothyroidism: Yes - HEMATOLOGICAL/ONCOLOGICAL Hx Anemia: Yes - INTEGUMENTARY Hx Dermatological Problems: No - MUSCULOSKELETAL/RHEUMATOLOGICAL Hx Arthritis: Yes Hx Falls: No - GASTROINTESTINAL Hx Pancreatitis: Yes - GENITOURINARY/GYNECOLOGICAL Hx Genitourinary Disorders: No - PSYCHIATRIC Hx Anxiety: Yes Hx Depression: Yes - SURGICAL HISTORY Other/Comment: IVC filter - ANESTHESIA Hx Anesthesia: Yes Hx Anesthesia Reactions: No Hx Malignant Hyperthermia: No Meds Allergies/Adverse Reactions: Allergies Allergy/AdvReac Type Severity Reaction Status Date / Time No Known Allergies Allergy Verified 04/24/17 10:14 - Medications Medications: Current Medications Clonidine HCl (Catapres-Tts3 0.3 Mg/24 Hr) 1 patch TD Q7D@1000 [facility] Doxycycline Hyclate (Doryx) 100 mg PO Q12 [facility] PRN Reason: Protocol Famotidine (Pepcid) 40 mg PO HS [facility] Last Admin: 04/25/17 21:39 Dose: 40 mg Furosemide (Lasix) 40 mg IV DAILY [facility] Last Admin: 04/25/17 17:36 Dose: 40 mg Methylprednisolone (Solu-Medrol) 30 mg IVP Q12 [facility] Potassium Chloride (K-Dur 20 Meq Er Tab) 20 meq PO BRK [facility] Physical Exam - Constitutional Appears: Non-toxic, No Acute Distress - Eye Exam Eye Exam: Normal appearance. absent: Scleral icterus - ENT Exam ENT Exam: Mucous Membranes Moist - Neck Exam Neck exam: Negative for: Lymphadenopathy - Respiratory Exam Respiratory Exam: Clear to Auscultation Bilateral, NORMAL BREATHING PATTERN. absent: Rales, Rhonchi, Wheezes, Respiratory Distress - Cardiovascular Exam Cardiovascular Exam: RRR, +S1, +S2 - GI/Abdominal Exam GI & Abdominal Exam: Hyperactive Bowel Sounds, Soft. absent: Distended, Tenderness - Exam Exam: absent: Bladder Distension - Extremities Exam Extremities exam: Positive for: normal capillary refill, pedal pulses present Additional comments: moderate bilateral lower leg edema; - Neurological Exam Neurological exam: Alert Additional comments: normal sensation of feet; - Psychiatric Exam Psychiatric exam: Normal Affect, Normal Mood - Skin Skin Exam: Normal Color, Warm Results - Vital Signs Recent Vital Signs: Last Vital Signs Temp 98.7 F 04/25/17 16:00 Pulse 66 04/25/17 17:37 Resp 20 04/25/17 16:00 BP 148/80 04/25/17 17:37 Pulse Ox 98 04/25/17 16:00 - Labs Result Diagrams: 04/25/17 06:30 04/25/17 06:30 Labs: Laboratory Results - last 24 hr 04/25/17 04/25/17 04/25/17 06:30 06:30 06:30 WBC RBC Hgb Hct MCV MCH MCHC RDW Plt Count MPV Sodium Potassium Chloride Carbon Dioxide Anion Gap BUN Creatinine Est GFR ( Amer) Est GFR (Non-Af Amer) Random Glucose Hemoglobin A1c 6.4 Calcium Iron 23 L TIBC 278 % Saturation 8 L Vitamin B12 356 Folate 4.8 TSH 3rd Generation 04/25/17 04/25/17 04/25/17 06:30 06:30 06:30 WBC 5.6 RBC 2.99 L Hgb 8.4 L Hct 26.5 L MCV 88.6 MCH 28.1 MCHC 31.7 RDW 17.3 H Plt Count 158 MPV 10.3 Sodium 142 Potassium 4.5 Chloride 113 H Carbon Dioxide 19 L Anion Gap 15 BUN 67 H Creatinine 3.6 H Est GFR ( Amer) 16 Est GFR (Non-Af Amer) 13 Random Glucose 76 Hemoglobin A1c Calcium 8.4 Iron TIBC % Saturation Vitamin B12 Folate TSH 3rd Generation 4.49 Assessment & Plan (1) Acute renal failure (ARF) Assessment and Plan: Modest increase in serum creatinine from baseline (creat 2.6 in 08/2016, now 3.6) , however, renal function has been fluctuating significantly over the last 3 years and likely reflects cardiorenal etiology of underlying CKD; mild improvement in renal function since being started on IV lasix reflects the need to decrease venous congestion particularly in the setting of pulmonary htn; -continue IV lasix 40 mg daily, can add another 20 mg in evening until symptoms improve further Status: Acute (2) CKD (chronic kidney disease), stage IV Assessment and Plan: Proteinuric kidney disease per previous UA results; etiology may be multifactorial due to HIV and DM, however, also has significant cardiorenal component; in the setting of uncontrolled htn, may have renovascular disease; overall renal function has declined over past 3 years although not as much as would be expected in a patient with this many co-morbidities (eGFR high 20's -> high teens/low 20's); will obtain further workup to assess proteinuria and possibility of renal artery stenosis; -renal artery duplex -bladder US w/ post-void residual volume measurement -random urine for protein, microalbumin and creatinine -C3 and C4 -rheumatoid factor Status: Acute (3) Pulmonary HTN Assessment and Plan: In the setting of COPD, causing increased venous congestion and subsequent worsening renal insufficiency; -continue diuretics as above Status: Chronic (4) Chronic kidney disease-mineral and bone disorder Assessment and Plan: Corrected Ca at lower end of normal; also with metabolic acidosis likey from CKD ; -checking phos, PTH and 25-OH vit D level -start sodium bicarb 650 mg tid Status: Chronic (5) Anemia Assessment and Plan: Secondary to CKD/chronic disease as well as iron deficiency; -giving dose of aranesp 40 mcg -IV iron 125 mg daily, can switch to PO on d/c; Status: Chronic
[2017-04-26] MEDS: MethylPREDNISolone 40 mg Vial IVP SCH ×2 (00:33→11:40)
--- NOTE | 2017-04-26 03:11 | CON ---
PULMONARY CONSULTATION DATE: 04/25/2017 REASON FOR CONSULTATION: Cough and shortness of breath. HISTORY OF PRESENT ILLNESS: This is a 57 years old female with past medical history significant for heart failure, hypertension, chronic lung disease, renal insufficiency, hypothyroid, anemia, history of pancreatitis, anxiety disorder, and history of substance abuse in the past, brought into emergency room because of complaining of worsening bilateral lower extremity swelling, uncontrolled diabetes, also history of alcohol intoxication in the past, and has some cough and shortness of breath. No hemoptysis. No hematemesis. No hematuria. Does have a leg swelling. PAST MEDICAL HISTORY: As per history of present illness. ALLERGIES: NONE KNOWN. SOCIAL HISTORY: She is a smoker and also drink excessive alcohol. FAMILY HISTORY: No significant cardiopulmonary disease reported. MEDICATIONS: She is on clonidine 0.3 mg patch, potassium 20 mEq daily, Lasix 40 mg daily, and Pepcid 40 mg daily. REVIEW OF SYSTEMS: No headache. No rhinitis. Does have a cough. Admitted with snoring, daytime sleepy, and tired. No nausea. No vomiting. No diarrhea. No leg pain. Does have a leg swelling. PHYSICAL EXAMINATION: GENERAL: Sitting at the side of the bed, mild cough and shortness of breath. VITAL SIGNS: Temperature is 98, heart rate is 66, respiratory rate is 20, blood pressure is 148/80, and pulse ox is 98% on room air. HEENT: Moist mucous membranes. Crowded airway. Mallampati score is IV. NECK: Supple. No JVD. LUNGS: Scattered rhonchi on the left side *------*. HEART: S1 and S2. ABDOMEN: Soft and nontender. No organomegaly. EXTREMITIES: No edema. NEUROLOGIC: Awake, alert, and follows simple commands. LABORATORY DATA: Shows hemoglobin 8.4, hematocrit 26.5, WBC 5.6, and platelets 158. Sodium 142, potassium 4.5, chloride 113, bicarbonate 19, BUN 67, creatinine 3.6, calcium 8.4, glucose 76, vitamin B12 is 356, folate is 4.8, and TSH 4.49. ProBNP 3760. She has a venous Doppler lower extremity done, which shows no DVT. Chest x-ray done on admission, no active pulmonary disease has elevated left hemidiaphragm, which has been chronic. IMPRESSION AND PLAN: Acute on chronic renal failure, anemia component of heart failure may have an obstructive sleep apnea syndrome, chronic obstructive lung disease, hypothyroid, anxiety disorder, depression, and history of substance abuse. I agree with Dr. Manning of the present management. Continue antibiotics as per infectious disease. Add IV and inhaled bronchodilators, gastric prophylaxis, deep venous thrombosis prophylaxis, fall precaution, add thiamine 100 mg daily, may give dose of vitamin B12, need sleep study as an outpatient, and PFT as outpatient. The patient was advised to stop smoking and also smoke against alcohol use. Thank you and we will follow with you. Juan M Uribe MD
[2017-04-26 07:22] LABS: HEMATOCRIT 27.2 % (36.0-48.0); MEAN CORPUSCULAR HEMOGLOBIN 28.2 pg (25.0-35.0); MEAN PLATELET VOLUME 10.8 fl (7.0-11.0); RED CELL DISTRIBUTION WIDTH 16.9 % (11.5-14.5); WHITE BLOOD COUNT 6.1 10^3/ul (4.5-11.0)
[2017-04-26 07:51] LABS: ALB/GLOB RATIO 0.9 (1.1-1.8); BILIRUBIN,TOTAL 0.2 mg/dL (0.2-1.3); CALCIUM 8.4 mg/dL (8.4-10.5); PHOSPHOROUS 4.6 mg/dL (2.5-4.5); POTASSIUM 5.3 mmol/L (3.6-5.0); TOTAL PROTEIN 6.5 g/dL (5.8-8.3)
[2017-04-26] MEDS ORDERED: Potassium Chloride 20 mEq ER Tab PO SCH (08:00)
--- NOTE | 2017-04-26 11:20 | US ---
PROCEDURE: Ultrasound of the Bladder HISTORY: please check post-void residual volume COMPARISON: None available. TECHNIQUE: Grayscale imaging was performed. FINDINGS: The urinary bladder is well distended and normal in appearance. No calculus or gross mass lesion. No free fluid in pelvis. Bilateral ureteral jets are visualized on color flow imaging. Prevoid Volume: 243.6 cc. Post void residual: No significant postvoid residual. IMPRESSION: No postvoid residual.
--- NOTE | 2017-04-26 15:53 | CP.PCM.PN ---
Subjective - Date & Time of Evaluation Date of Evaluation: 04/26/17 Time of Evaluation: 13:30 - Subjective Subjective: Infectious Disease Follow Up: April 26, 2017 57 yo female with extensive medical history that includes hypertension, renal insufficiency, CHF, COPD, and hypothyroidism. The patient was brought to [facility] for worsening bilateral lower extremity edema. EMS also found the patient to have an elevated blood pressure as well. The patient has many visits to the ER of [facility] in the past year. She has gone to the ER for either leg swelling or EtOH intoxication. There is no leukocytosis or fevers on admission or so far during this hospitalization. Apparently the patient is also homeless. The patient does NOT know her PMD or what her medications are. Strong suspicion of noncompliance. Noted that Doxycycline started this morning. Objective - Vital Signs/Intake and Output Vital Signs (last 24 hours): Temp Pulse Resp BP Pulse Ox 99.2 F 65 18 162/79 H 96 04/26/17 06:00 04/26/17 06:00 04/26/17 06:00 04/26/17 06:00 04/26/17 06:00 - Medications Medications: Current Medications Clonidine HCl (Catapres-Tts3 0.3 Mg/24 Hr) 1 patch TD Q7D@1000 [facility] Doxycycline Hyclate (Doryx) 100 mg PO Q12 [facility] PRN Reason: Protocol Last Admin: 04/26/17 11:39 Dose: 100 mg Famotidine (Pepcid) 40 mg PO HS [facility] Last Admin: 04/25/17 21:39 Dose: 40 mg Furosemide (Lasix) 20 mg IVP DAILY@1800 [facility] Sucrose 100 mg/ Sodium (Chloride) 105 mls @ 210 mls/hr IVPB DAILY [facility] Stop: 05/05/17 10:29 Last Admin: 04/26/17 11:41 Dose: 210 mls/hr Methylprednisolone (Solu-Medrol) 30 mg IVP Q12 [facility] Last Admin: 04/26/17 11:40 Dose: 30 mg Potassium Chloride (K-Dur 20 Meq Er Tab) 20 meq PO BRK [facility] Last Admin: 04/26/17 11:39 Dose: 20 meq Sodium Bicarbonate (Sodium Bicarbonate Tab) 650 mg PO TID [facility] Last Admin: 04/26/17 14:18 Dose: 650 mg - Labs Labs: 04/26/17 07:15 04/26/17 05:00 - Constitutional Appears: Non-toxic, No Acute Distress, Chronically Ill - Head Exam Head Exam: ATRAUMATIC, NORMOCEPHALIC - Eye Exam Eye Exam: EOMI, PERRL Pupil Exam: NORMAL ACCOMODATION, PERRL - ENT Exam ENT Exam: Mucous Membranes Moist, Normal External Ear Exam, TM's Normal Bilaterally - Neck Exam Neck Exam: Full ROM, Normal Inspection - Respiratory Exam Respiratory Exam: Clear to Ausculation Bilateral, NORMAL BREATHING PATTERN. absent: Rales, Rhonchi, Wheezes - Cardiovascular Exam Cardiovascular Exam: REGULAR RHYTHM, RRR, +S1, +S2 - GI/Abdominal Exam GI & Abdominal Exam: Soft, Normal Bowel Sounds. absent: Distended, Tenderness - Extremities Exam Extremities Exam: Pedal Edema Additional comments: +2 edema of the lower extremities but no evidence of chronic venous stasis changes. - Neurological Exam Neurological Exam: Alert, Awake, CN II-XII Intact, Oriented x3 - Psychiatric Exam Psychiatric exam: Flat Affect, Normal Mood - Skin Additional comments: as above Assessment and Plan - Assessment and Plan (Free Text) Assessment: 57 yo female with multiple visits to various ER with increasing swelling of the bilateral lower extremities. The patient has findings consistent with poorly controlled CHF. The patient with +2 edema of both lower extremities. There is a strong question of noncompliance and whether the patient is also homeless. There are no signs of cellulitits. There is no leukocytosis or fevers at this time. However, the patient should be considered for subacute or possibly terminologist care given the poor control of her various medical conditions especially the CHF, HTN, COPD, Hypothyroidism, and renal insufficiency. I would NOT start antibiotics at this point in time and continue to monitor from the Infectious Disease viewpoint. Administration of antibiotics would only add unnecessary fluids and even increase sodium loads on the patient for extremely limited benefit. Noted that Doxycycline started this morning. Questions on patient compliance and living situation. Hepatitis C history - patient states untreated. Hepatitis C treatment should be initiated in the outpatient setting given the possible non-compliance and living issues. Thank you for allowing me to participate in the care of the patient, we will follow with you.
[2017-04-26 16:47] VITALS: BP 150/88; PULSE 61; RESP 20; TEMP 97.7; O2SAT 98
--- NOTE | 2017-04-26 17:50 | US ---
PROCEDURE: Bilateral renal artery duplex ultrasound. CLINICAL HISTORY: Renal artery stenosis. Uncontrolled hypertension. Evaluate for renovascular hypertension. PHYSICIAN(S): Jack Dillard M.D. TECHNIQUE: Duplex sonography with color-flow Doppler was used to evaluate the visualized segments of the main renal arteries. The patient was evaluated in a fasting state. Imaging in a supine and decubitus position was performed. Limited evaluation of the arcuate waveforms and resistive indices were performed. FINDINGS: The exam is limited by body habitus and tortuous vessels. The main renal arteries are not well visualized. The kidneys are small with echogenic parenchyma. The right kidney measures 8.5 cm in length and the left kidney measures 9.3 cm in length. No solid renal masses, abnormal calcifications, or hydronephrosis is seen. The main right renal artery is only visualized in segments from the aorta to the hilum.. The peak systolic velocity in the right main renal artery is 107 cm/sec. This is consistent with a 0 to 49% stenosis in the main right renal artery. The main left renal artery is also only visualized in segments.. The peak systolic velocity in the main left renal artery is 121cm/sec. This corresponds to a 0 to 49% stenosis in the main left renal artery. IMPRESSION: 1. Limited study. The main renal arteries are only visualized in segments. 2. The kidneys are small with echogenic parenchyma. This is suggestive of small vessel disease. 3. No suspicious solid renal masses or hydronephrosis
[2017-04-26] MEDS ORDERED: Ergocalciferol 50,000 Intl Units Cap PO SCH (18:15)
--- NOTE | 2017-04-26 18:17 | PN ---
DATE: 04/26/2017 LOCATION: The patient is in room #378, bed #2. REASON FOR CONSULTATION: Followup of uncontrolled hypertension; renal failure; swelling of the legs; poor compliance, the patient not taking medication. SUBJECTIVE: The patient denies any chest pain, shortness of breath, palpitation, still has swelling on the legs. PHYSICAL EXAMINATION: VITAL SIGNS: Blood pressure 162/79, yesterday blood pressure was 148/80, respiration 18, pulse 65, temperature 99.2. HEENT: Head is normocephalic. Eyes: Pupils normal, conjunctivae slightly pale. NECK: JVP low. Carotids are equal. Thorax, AP diameter normal. LUNGS: Clear. CARDIOVASCULAR: S1 and S2. ABDOMEN: Soft. Bowel sounds normal. EXTREMITIES: The patient has edema on the lower leg. No clubbing. No cyanosis. LABORATORY DATA: WBC 6.1, hemoglobin 8.7, hematocrit 27.2, platelets 161. Sodium 139, potassium 5.3, BUN 63, creatinine 3.6. AST and ALT normal. Total protein and albumin normal. TSH is 4.49 which is normal. DIAGNOSES: Swelling of the legs, fluid overload, no clinical evidence of congestive heart failure at this moment. The patient stopped medication at home, diuretics at home. Uncontrolled hypertension; tobacco abuse, smokes about 2 packs a day; alcohol abuse, drinks heavy; chronic obstructive pulmonary disease; history of congestive heart failure in the past due to diastolic dysfunction; hypothyroidism in the past; anemia; arthritis; history of pancreatitis in the past; history of inferior vena cava filter insertion; history of drug abuse, heroin in the past. The patient also had moderate pulmonary hypertension as per echo, 01/11/2016, which showed ejection fraction of 59%, mild aortic regurgitation, moderation tricuspid regurgitation. Echo showed RVSP 53 mmHg. Stress test on 02/10/2015 was normal with LV ejection fraction of 78%. PLAN: The patient's Lasix has been cut down to 20 IV daily from 40, which I ordered yesterday as per Dr. Mccormack, coin teller. We will continue Lasix 20 IV daily. We will continue metoprolol 25 mg b.i.d. The patient on potassium 20 mEq p.o. daily, but today, the potassium is high, so we will discontinue the potassium and repeat labs in the morning. The patient also on Solu-Medrol 30 mg IV q. 12 hours; sodium bicarbonate 650 p.o. t.i.d.; Pepcid 40 mg at bedtime; Venofer 100 mg IV daily for anemia; Doryx 100 mg q. 12 hours; clonidine TTS patch 3, apply every week. We will follow with you. Juan M Jane MD
--- NOTE | 2017-04-26 20:54 | CP.PCM.PN ---
Subjective - Date & Time of Evaluation Date of Evaluation: 04/26/17 Time of Evaluation: 20:50 - Subjective Subjective: PGY-[address] Mccormack's Nephrology Service: Pt seen and examined at bedside. Nursing reports no acute events overnight. Pt found lying in bed comfortably. Pt reports mild improvement in leg swelling and shortness of breath. She states she is able to walk short distances to the bathroom, without getting winded. Objective - Vital Signs/Intake and Output Vital Signs (last 24 hours): Temp Pulse Resp BP Pulse Ox 97.7 F 61 20 150/88 98 04/26/17 16:00 04/26/17 16:00 04/26/17 16:00 04/26/17 17:36 04/26/17 16:00 - Labs Labs: 04/26/17 07:15 04/26/17 05:00 - Additional Findings Additional findings: - Constitutional Appears: Non-toxic, No Acute Distress - Eye Exam Eye Exam: Normal appearance. absent: Scleral icterus - ENT Exam ENT Exam: Mucous Membranes Moist - Neck Exam Neck exam: Negative for: Lymphadenopathy - Respiratory Exam Respiratory Exam: Clear to Auscultation Bilateral, NORMAL BREATHING PATTERN. absent: Rales, Rhonchi, Wheezes, Respiratory Distress - Cardiovascular Exam Cardiovascular Exam: Regular rhythm, +S1, +S2 - GI/Abdominal Exam GI & Abdominal Exam: Hyperactive Bowel Sounds, Soft. absent: Distended, Tenderness - Exam Exam: absent: Bladder Distension - Extremities Exam Extremities exam: Positive for: normal capillary refill, pedal pulses present Additional comments: mild bilateral LE edema; - Neurological Exam Neurological exam: Alert Additional comments: proprioception, light touch intact bilaterally in LE - Psychiatric Exam Psychiatric exam: Normal Affect, Normal Mood - Skin Skin Exam: Normal Color, Warm Assessment and Plan - Assessment and Plan (Free Text) Plan: (1) Acute renal failure (ARF) Assessment and Plan: Modest increase in serum creatinine from baseline (creat 2.6 in 08/2016, now 3.6) , however, renal function has been fluctuating significantly over the last 3 years and likely reflects cardiorenal etiology of underlying CKD; mild improvement in renal function since being started on IV lasix reflects the need to decrease venous congestion particularly in the setting of pulmonary htn; -continue IV lasix 40 mg in AM, 20 mg in evening - Pt should continue Lasix 40mg PO as outpatient Status: Acute (2) CKD (chronic kidney disease), stage IV Assessment and Plan: Proteinuric kidney disease per previous UA results; etiology may be multifactorial due to HIV and DM, however, also has significant cardiorenal component; in the setting of uncontrolled htn, may have renovascular disease; overall renal function has declined over past 3 years although not as much as would be expected in a patient with this many co-morbidities (eGFR high 20's -> high teens/low 20's); will obtain further workup to assess proteinuria and possibility of renal artery stenosis; -renal artery duplex (04/25/17): Limited study. Main renal arteries only visulaized in segments. Kidneys with echogenic parenchyma. Suggestive of small vessel disease. No suspicious masses or hydronephrosis (see full report) -bladder US (04/25/17): No post-void residual volume -f/u random urine for protein, microalbumin and creatinine -C3 WNL, and C4 59.4 (mild elevation) -f/u rheumatoid factor Status: Acute (3) Pulmonary HTN Assessment and Plan: In the setting of COPD, causing increased venous congestion and subsequent worsening renal insufficiency; -continue diuretics as above Status: Chronic (4) Chronic kidney disease-mineral and bone disorder Assessment and Plan: Corrected Ca at lower end of normal; also with metabolic acidosis likey from CKD ; -cf/u phos, PTH and 25-OH vit D level -start sodium bicarb 650 mg tid Status: Chronic (5) Anemia Assessment and Plan: Secondary to CKD/chronic disease as well as iron deficiency; -giving dose of aranesp 40 mcg -IV iron 125 mg daily, can switch to PO on d/c; Status: Chronic Discussed with Dr. Easton Stack PGY-1
--- NOTE | 2017-04-26 21:49 | PN ---
DATE: 04/26/2017 REFERRING PHYSICIAN: Zahra Manning MD SUBJECTIVE: She is out of bed to chair, feels better. No headache, no night sweats. Cough is better. No nausea, no vomiting, no diarrhea. Has a trace leg swelling. OBJECTIVE: GENERAL: In no acute distress. VITAL SIGNS: Temperature is 98, heart rate 61, respiratory rate is 20, blood pressure 150/88, pulse ox 98% on room air. HEENT: Moist mucous membranes. Crowded airway. NECK: Supple. No JVD. HEART: S1, S2. LUNGS: Fair air flow with few rhonchi. ABDOMEN: Soft, nontender. No organomegaly. EXTREMITIES: Has trace edema. NEUROLOGIC: Awake and follows simple command. LABORATORY DATA: Shows hemoglobin 8.7, hematocrit 27.2, WBC 6.1, platelets 161. Sodium 139, potassium 5.3, chloride 112, bicarbonate 18, BUN 63, creatinine 3.6, calcium is 8.4, phosphorus is 4.6. AST 25, ALT 29, alkaline phosphatase is 108. Vitamin D is less than 12.8. TSH 4.49. Has echocardiogram done, report is still pending. MEDICATIONS: She is on Catapres 0.3 mg weekly, also doxycycline 100 mg twice a day, IV iron 100 mg daily, Lasix 20 mg daily, Pepcid 40 mg daily, also sodium bicarbonate 650 mg three times a day, Solu-Medrol 30 mg q.12 hours. IMPRESSION AND PLAN: Acute on chronic renal failure, anemia, component of heart failure, may have obstructive sleep apnea syndrome, chronic obstructive lung disease, hypothyroidism, anxiety disorder, depression, history of substance abuse, homeless, spoke to licensed master social worker. The patient medically feeling better, if discharged, could change steroids to Medrol Dosepak. Need to add vitamin D. We will give 50,[address] [employer] one dose now in 2000 mg daily as outpatient. High risk for fall and high risk for going into heart failure because of noncompliant and homeless situation, so I spoke to psychotherapist social worker, looking for her placement. Thank you and we will follow with you. Juan M Uribe MD
--- NOTE | 2017-04-27 00:25 | CARD ---
APPROVED REPORT EXAM: Two-dimensional and M-mode echocardiogram with Doppler and color Doppler. INDICATION CHF 2D DIMENSIONS Left Atrium (2D)5.9 (1.6-4.0cm)IVSd1.4 (0.7-1.1cm) LVDd5.1 (3.9-5.9cm)PWd1.8 (0.7-1.1cm) LVEF (%)45.0 (>50%) M-Mode DIMENSIONS Aortic Root2.90 (2.2-3.7cm)Aortic Cusp Exc.1.80 (1.5-2.0cm) Aortic Valve AoV Peak Znwghoqg400.0cm/sAoV VTI60.2cmAO Peak GR.24mmHg LVOT Peak Cgczvrsk834.0cm/sLVOT VTI25.80cmAO Mean GR.13mmHg AI P 1/2 [id number] Mitral Valve MV E Gnhenyde10.3cm/sMV A Vkyaypqf111.0cm/sE/A ratio0.7 TDI Lateral E' Peak V5.56cm/sMedial E' Peak V5.65cm/sE/Lateral E'15.2 E/Medial E'14.9 Pulmonary Valve PV Peak Muwqyrqd86.8cm/sPV Peak Grad.3mmHg Tricuspid Valve TR Peak Anqnxosg143fm/sRAP IBSRSTNI24pfNsTJ Peak Gr.39mmHg [id number] LEFT VENTRICLE The left ventricle is normal size. There is mild to moderate concentric left ventricular hypertrophy. The systolic function is mildly impaired. Septal hypokinesis Transmitral Doppler flow pattern is Grade I-abnormal relaxation pattern. RIGHT VENTRICLE The right ventricle is normal size. There is normal right ventricular wall thickness. The right ventricular systolic function is normal. ATRIA The left atrium is moderately dilated. The right atrium is mildly dilated. AORTIC VALVE The aortic valve is mildly sclerotic. There is moderate aortic regurgitation. There is mild valvular aortic stenosis. MITRAL VALVE Mitral regurgitation is mild to moderate. TRICUSPID VALVE There is mild to moderate tricuspid regurgitation. There is mild to moderate pulmonary hypertension. GREAT VESSELS The aortic root is normal in size. The IVC collapses <50% with inspiration. PERICARDIAL EFFUSION There is a trace circumferential pericardial effusion. <Conclusion> There is mild to moderate concentric left ventricular hypertrophy. The systolic function is mildly impaired. Septal hypokinesis Transmitral Doppler flow pattern is Grade I-abnormal relaxation pattern. There is moderate aortic regurgitation. There is mild valvular aortic stenosis. Mitral regurgitation is mild to moderate. There is mild to moderate tricuspid regurgitation. There is mild to moderate pulmonary hypertension.
--- NOTE | 2017-04-29 09:27 | DS ---
CHIEF COMPLAINT: High blood pressure. HISTORY OF PRESENT ILLNESS: Ms. Dakota Darnell is a 57 years old female with past medical history of renal insufficiency, poorly-controlled blood pressure, brought to ER complaining of worsening bilateral lower extremity swelling. and elevated blood pressure. The patient was found to be hypertensive by EMS. The patient had multiple ER visits and similar complaints, alcohol abuse, and sometimes she came intoxicated. The patient denies any other complaints. The patient is homeless and noncompliant with the medication. We admitted the patient, did chest x-ray, EKG, bladder ultrasound, renal artery duplex, seen by Dr. Uribe, delivery consultant; Dr. Guerra, ID; Dr. Jane, jewelry jobber; Dr. Mccormack, lift truck mechanic; feels better; and discharged on 04/24/2017. PAST MEDICAL HISTORY: Congestive heart failure, hypertension, peripheral edema, COPD, renal insufficiency, hypothyroidism, anemia, arthritis, history of pericarditis, anxiety, depression, and substance abuse. FAMILY HISTORY: Father and mother noncontributory. HABITS: Heavy smoker. Alcohol, yes, vodka. Substance abuse, quit, used to use heroin. ALLERGIES: THE PATIENT IS NOT ALLERGIC TO ANY MEDICATIONS. HOME MEDICATIONS: The patient does not remember. REVIEW OF SYSTEMS: The patient was seen and examined on the bedside on 04/24/2017, looking comfortable, excited to go home, and swelling of the leg is better. No nausea, vomiting, or diarrhea. No hematuria or hematochezia. No shortness of breath. Cough is better. PHYSICAL EXAMINATION: VITAL SIGNS: Temperature 97.7, blood pressure 150/88, respiratory rate 20, and pulse oximetry 98%. HEENT: Head is normocephalic and atraumatic. Eyes; PERRLA. Extraocular muscles are intact. Conjunctivae are clear. Nose is patent. Mucous membranes are moist. NECK: Supple. No carotid bruits, JVD, or thyromegaly. CHEST: Bilaterally symmetrical. HEART: S1 and S2 positive. LUNGS: Clear to auscultation. ABDOMEN: Soft. Bowel sounds present. No organomegaly. EXTREMITIES: No edema. No cyanosis. NEUROLOGIC: The patient is awake and alert. Moving all four extremities. No focal deficits. LABORATORY DATA: White blood cells 6.1, hemoglobin 8.7, hematocrit 27.2, and platelets 161. Sodium 139, potassium 5.3, BUN 63, and creatinine 3.6. ASSESSMENT AND PLAN: Ms. Dakota Darnell is a 57 years old with hyperkalemia, treated; renal insufficiency, lift truck mechanic is on the case, and different testing is done. Needs further workup as an outpatient. Hyperphosphatemia, renal insufficiency. TSH within normal limits. Anemia stable, now trending down. She was admitted with accelerated hypertension, improved and noncompliant, congestive heart failure, acute on chronic renal failure, obstructive sleep apnea syndrome, chronic lung disease, hypothyroidism, anxiety, depression, history of substance abuse, and homeless. Discussion done with social service manager. The patient medically feels better. Discharge home. Medication prescriptions given. Hopefully, she will be compliant. GI and DVT prophylaxis. We will follow up with jewelry jobber and delivery consultant. Zahra Manning MD MTDD
[2017-04-29 19:11] LABS: CALCIUM 8.3 mg/dL (8.6-10.4)
== END 2017-04-26 18:23 | disposition home or self-care (01) | DRG 683 ==
LOC: ED 10:05 → ERH 13:04 → 3RSO 15:22
PROVIDERS: ADMIT Internal Medicine; ATTEND Internal Medicine
DX: N17.9 Acute kidney failure, unspecified (principal); E87.2 Acidosis; I50.32 Chronic diastolic (congestive) heart failure; I13.0 Hypertensive heart and chronic kidney disease with heart failure and stage 1 through stage 4 chronic kidney disease, or unspecified chronic kidney disease; E11.22 Type 2 diabetes mellitus with diabetic chronic kidney disease; D50.9 Iron deficiency anemia, unspecified; F17.210 Nicotine dependence, cigarettes, uncomplicated; L03.119 Cellulitis of unspecified part of limb; N18.4 Chronic kidney disease, stage 4 (severe); I27.2 Other secondary pulmonary hypertension; B19.20 Unspecified viral hepatitis C without hepatic coma; Z21 Asymptomatic human immunodeficiency virus [HIV] infection status; J44.9 Chronic obstructive pulmonary disease, unspecified; E03.9 Hypothyroidism, unspecified; D63.1 Anemia in chronic kidney disease; I08.2 Rheumatic disorders of both aortic and tricuspid valves; M19.90 Unspecified osteoarthritis, unspecified site; M89.9 Disorder of bone, unspecified; G47.33 Obstructive sleep apnea (adult) (pediatric); F41.9 Anxiety disorder, unspecified; F32.9 Major depressive disorder, single episode, unspecified; E66.9 Obesity, unspecified; Z91.14 Patient's other noncompliance with medication regimen; Z91.19 Patient's noncompliance with other medical treatment and regimen; Z59.0 Homelessness

== ENCOUNTER 2017-05-02 22:24 | Emergency (ER) | payer MEDICARE, OTHER ==
[2017-05-02 22:24] VITALS: PULSE 125; BMI 40.3
--- NOTE | 2017-05-02 22:46 | ED PDOC ---
Arrival/HPI - General Time Seen by Provider: 05/02/17 22:39 - History of Present Illness Narrative History of Present Illness (Text): 05/02/17 22:53 57yo female with b/l foot/heel pain after walking. Pt states she had no SOB/cp/ [place]. Denies worsening LE swelling. Denies recent drug or alcohol use. No other complaints. Past Medical History - Provider Review Nursing Documentation Reviewed: Yes - Past History Past History: Non-Contributing - Infectious Disease Hx of Infectious Diseases: None - Tetanus Immunization Tetanus Immunization: Unknown - Past Medical History Past Medical History: Non-Contributing - Cardiac Hx Coronary Artery Disease: Yes Hx Congestive Heart Failure: Yes Hx Hypertension: Yes Hx Peripheral Edema: Yes - Pulmonary Hx Chronic Obstructive Pulmonary Disease (COPD): Yes - Neurological Hx Neurological Disorder: No HX Cerebrovascular Accident: No - HEENT Hx HEENT Disorder: No - Renal Hx Renal Disorder: Yes - Endocrine/Metabolic Hx Hypothyroidism: Yes - Hematological/Oncological Hx Anemia: Yes - Integumentary Hx Dermatological Disorder: No - Musculoskeletal/Rheumatological Hx Arthritis: Yes - Gastrointestinal Hx Pancreatitis: Yes - Genitourinary/Gynecological Hx Genitourinary Disorders: No - Psychiatric Hx Anxiety: Yes Hx Depression: Yes Hx Substance Use: No (stopped) - Surgical History Other/Comment: IVC filter - Anesthesia Hx Anesthesia: Yes Hx Anesthesia Reactions: No Hx Malignant Hyperthermia: No - Suicidal Assessment Feels Threatened In Home Enviroment: No Family/Social History Family/Social History: Unknown Family HX Smoking Status: Heavy Smoker > 10 Cigarettes Daily Hx Alcohol Use: Yes (vodka) Hx Substance Use: No (stopped) Substance used: Heroin Hx Substance Use Treatment: No Allergies/Home Meds Allergies/Adverse Reactions: Allergies No Known Allergies Allergy (Verified 04/24/17 10:14) Physical Exam - Physical Exam Narrative Physical Exam (Text): 05/02/17 23:02 - Review of Systems Constitutional: Normal. absent: Fatigue, Weight Change, Fevers Eyes: Normal ENT: denies sore throat, denies tristhmus Respiratory: Normal. absent: SOB, Cough, Sputum Cardiovascular: absent: Chest Pain, Palpitations, Syncope Gastrointestinal: Normal. absent: Abdominal Pain, Diarrhea, Nausea, Vomiting Genitourinary: Normal. absent: Dysuria, Frequency, Hematuria, vaginal bleeding Musculoskeletal: b/l foot pains. absent: Back Pain, Neck Pain Skin: no rashes, no erythema Neurological: absent: Focal Weakness Endocrine: Normal Hemo/Lymphatic: Normal Psychiatric: No suicidal or homicidal ideations Physical exam Patient appears age appropriate in no distress, speaking full sentences without difficulty - Systems Exam Head: Present: Atraumatic, Normocephalic Pupils: Present: PERRL Extroacular Muscles: Present: EOMI Conjunctiva: Present: Normal Mouth: Present: Moist Mucous Membranes Neck: Present: Normal Range of Motion. No: MIDLINE TENDERNESS, Paraspinal Tenderness Respiratory/Chest: Present: Clear to Auscultation, Good Air Exchange. No: Respiratory Distress, Accessory Muscle Use, Tachypneic Cardiovascular: Present: Regular Rate and Rhythm, Normal S1, S2, Peripheal Pulses Present. No: Murmurs Abdomen: Present: Normal Bowel Sounds. No: Tenderness, Distention, Peritoneal Signs, Rebound, Guarding Back: Present: Normal Inspection. No: Midline Tenderness, Paraspinal Tenderness Upper Extremity: Present: Normal Inspection. No: Cyanosis, Edema Lower Extremity: Present: trace pitting edema, improving since her last visit. No tenderness in the calfs or ankles, no asymmetry. Tenderness to palpation along b/l heels. Neurological: Present: GCS=15, Speech Normal, cranial nerves II through XII fully intact with no cerebellar abnormality, neurosensory fully intact. No focal neurological deficits. Skin: Present: Warm, Dry, Normal Color. No: Rashes Lymphatic: Present: OX3, NI, NC Psychiatric: Present: Alert, Oriented x 3, Normal Insight, Normal Concentration Vital Signs Reviewed: Yes Vital Signs Temp Pulse Resp BP Pulse Ox 05/02/17 22:55 98.7 F 70 18 153/99 H 99 Temperature: Afebrile Blood Pressure: Hypertensive Pulse: Regular Respiratory Rate: Normal Appearance: Positive for: Well-Appearing Pain Distress: None Mental Status: Positive for: Alert and Oriented X 3 Medical Decision Making ED Course and Treatment: Pt's previous records reviewed. Patient was discharged on 04/27/17 after a workup for uncontrolled hypertension, chronic anemia, lower extremity swelling. Patient's echo showed LVH, impaired systolic function. Aortic regurgitation, aortic stenosis patient instructed to f/u with Dr. Manning outpatient for further w/u Pt states she understands to return to the ER right away for new or worsening symptoms or for inability to f/u with PMD or specialist as instructed. Patient states that she fully agrees with and understands discharge instructions. States that she agrees with the plan and disposition. Verbalized and repeated discharge instructions and plan. I have given the patient opportunity to ask any additional questions. Disposition/Present on Arrival - Present on Arrival Any Indicators Present on Arrival: No History of DVT/PE: Yes History of Uncontrolled Diabetes: No Urinary Catheter: No History Surgical Site Infection Following: None - Disposition Have Diagnosis and Disposition been Completed?: Yes Diagnosis: Leg pain Disposition: HOME/ ROUTINE Disposition Time: 22:52 Patient Plan: Discharge Patient Problems: Current Active Problems Problem Status Onset Leg pain Acute Condition: GOOD Discharge Instructions (ExitCare): Arthralgia (ED) Additional Instructions: PLEASE RETURN TO THE EMERGENCY DEPARTMENT FOR NEW OR WORSENING SYMPTOMS. RETURN RIGHT AWAY IF YOU CANNOT FOLLOW UP WITH YOUR PRIMARY CARE DOCTOR, CLINIC, OR SPECIALIST IN 1-2 DAYS. PLEASE TAKE [id number] TYLENOL PER PHARMACY INSTRUCTIONS Referrals: Kendall Kenny MD [Primary Care Provider] - Follow up with primary Zahra Manning MD [Staff Provider] - Follow up with primary
[2017-05-02 22:56] VITALS: BP 153/99; PULSE 70; RESP 18; TEMP 98.7; O2SAT 99
== END 2017-05-02 23:50 | disposition home or self-care (01) ==
LOC: ED 22:24
DX: M79.605 Pain in left leg (principal); M79.604 Pain in right leg

== ENCOUNTER 2017-05-05 22:03 | Inpatient (IN) | payer MEDICARE, OTHER ==
[2017-05-05 22:03] VITALS: PULSE 125
[2017-05-05 22:15] VITALS: BMI 30.4
--- NOTE | 2017-05-05 22:16 | ED PDOC ---
Arrival/HPI - General Time Seen by Provider: 05/05/17 22:05 Historian: Patient, EMS - History of Present Illness Narrative History of Present Illness (Text): 05/05/17 22:13 57 y/o female, pmh including hep c./hiv/dm/arf/anemia/dvt/chf/ckd/a.fibb, nkda, biba for etoh intoxication. Pt. 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 Pt. has no fever or chills, no coughing, no night sweat, no dizziness, no numbness or tingling, no slurred speech, no abdominal pain, no other medical or psychological complaints. Past Medical History - Provider Review Nursing Documentation Reviewed: Yes - Past History Past History: Non-Contributing - Infectious Disease Hx of Infectious Diseases: None - Tetanus Immunization Tetanus Immunization: Unknown - Past Medical History Past Medical History: Non-Contributing - Cardiac Hx Coronary Artery Disease: Yes Hx Congestive Heart Failure: Yes Hx Hypertension: Yes Hx Peripheral Edema: Yes - Pulmonary Hx Chronic Obstructive Pulmonary Disease (COPD): Yes - Neurological Hx Neurological Disorder: No HX Cerebrovascular Accident: No - HEENT Hx HEENT Disorder: No - Renal Hx Renal Disorder: Yes - Endocrine/Metabolic Hx Hypothyroidism: Yes - Hematological/Oncological Hx Anemia: Yes - Integumentary Hx Dermatological Disorder: No - Musculoskeletal/Rheumatological Hx Arthritis: Yes - Gastrointestinal Hx Pancreatitis: Yes - Genitourinary/Gynecological Hx Genitourinary Disorders: No - Psychiatric Hx Anxiety: Yes Hx Depression: Yes Hx Substance Use: No (stopped) - Surgical History Other/Comment: IVC filter - Anesthesia Hx Anesthesia: Yes Hx Anesthesia Reactions: No Hx Malignant Hyperthermia: No - Suicidal Assessment Feels Threatened In Home Enviroment: No Family/Social History - Physician Review Nursing Documentation Reviewed: Yes Family/Social History: Unknown Family HX Smoking Status: Heavy Smoker > 10 Cigarettes Daily Hx Alcohol Use: Yes (vodka) Hx Substance Use: No (stopped) Substance used: Heroin Hx Substance Use Treatment: No Allergies/Home Meds Allergies/Adverse Reactions: Allergies No Known Allergies Allergy (Verified 05/05/17 22:15) Review of Systems - Review of Systems Constitutional: absent: Fatigue, Fevers Eyes: absent: Vision Changes ENT: absent: Hearing Changes Respiratory: absent: SOB, Cough Cardiovascular: absent: Chest Pain Gastrointestinal: absent: Abdominal Pain, Diarrhea, Nausea, Vomiting Musculoskeletal: absent: Arthralgias, Myalgias Skin: absent: Rash, Pruritis, Skin Lesions Neurological: absent: Headache, Dizziness Physical Exam Vital Signs Reviewed: Yes Vital Signs Temp Pulse Resp BP Pulse Ox 05/06/17 02:26 148/75 05/06/17 01:59 92 H 20 148/65 98 05/06/17 01:14 67 17 169/90 H 100 05/06/17 00:45 98.3 F 73 16 158/106 H 100 Temperature: Afebrile Blood Pressure: Normal Pulse: Regular Respiratory Rate: Normal Appearance: Positive for: Well-Appearing, Non-Toxic, Comfortable Pain Distress: None Mental Status: Positive for: Alert and Oriented X 3 - Systems Exam Head: Present: Atraumatic, Normocephalic Pupils: Present: PERRL Extroacular Muscles: Present: EOMI Conjunctiva: Present: Normal Mouth: Present: Moist Mucous Membranes Neck: Present: Normal Range of Motion Respiratory/Chest: Present: Clear to Auscultation, Good Air Exchange. No: Respiratory Distress, Accessory Muscle Use, Wheezes, Decreased Breath Sounds, Rales, Retracting, Rhonchi, Tachypneic Cardiovascular: Present: Regular Rate and Rhythm, Normal S1, S2. No: Murmurs Abdomen: Present: Normal Bowel Sounds. No: Tenderness, Distention, Peritoneal Signs Back: Present: Normal Inspection Upper Extremity: Present: Normal Inspection, Normal ROM, NORMAL PULSES. No: Cyanosis, Edema, Tenderness, Swelling, Deformity Lower Extremity: Present: Normal Inspection, NORMAL PULSES, Deformity. No: Edema, Tenderness, Swelling Neurological: Present: GCS=15, CN II-XII Intact, Speech Normal Skin: Present: Warm, Dry, Normal Color. No: Rashes Psychiatric: Present: Alert, Oriented x 3, Normal Insight, Normal Concentration Medical Decision Making ED Course and Treatment: 05/05/17 22:17 -labs/ua -ekg/cxr -Database Reporting Consultant and Oxygen 2L ordered. -observe and reassess 05/06/17 01:19 -SR @ 80 BPM with PVC, no ST elevation or depression, T wave inversion on the lead V2 compared with previous ekg. -Chest x-ray show cardiomegally with no bvious active disease -Labs are non-significant except BNP 5710 from 3700 with IV lasix 20 IVP ordered. BUN 68 and Creatinine 4.9. Troponin 0.07 which is indeterminate, Aspirin 325mg po ordered. BUN 68 (baseline) and Creatinine 4.9 from 3.6 -Dr. Nigel willson. 05/06/17 01:27 -DR. Moses called back, discussed about the case/labs/radiology studies, agreed to admit to her service with practice billing associate Dr. Db Jane on the routine consult. -I discussed with Dr. Estrada, discussed about the case/labs/radiology studies, he will put in the admission to the telemetry. - Lab Interpretations Lab Results: 05/07/17 06:00 05/07/17 06:00 Lab Results 05/07/17 06:23: Ur Random Creatinine 36, Ur Random Sodium 92, Ur Random Urea Nitrogn 416 05/07/17 06:23: Urine Color Yellow, Urine Appearance Sl cloudy, Urine pH 6.5, Ur Specific [place] 1.020, Urine Protein 100 H, Urine Glucose (UA) Negative, Urine Ketones Negative, Urine Blood Moderate H, Urine Nitrate Negative, Urine Bilirubin Negative, Urine Urobilinogen 0.2, Ur Leukocyte Esterase Negative, Urine RBC 15 - 20, Urine WBC 0 - 2, Ur Epithelial Cells 0 - 2, Urine Bacteria Few 05/07/17 06:00: NT-Pro-B Natriuret Pep 6460 H 05/07/17 06:00: TSH 3rd Generation 3.30 05/07/17 06:00: Sodium 139, Potassium 4.5, Chloride 107, Carbon Dioxide 23, Anion Gap 14, BUN 65 H, Creatinine 4.4 H, Est GFR ( Amer) 12, Est GFR ( Non-Af Amer) 10, Random Glucose 85, Calcium 8.5, Phosphorus 4.9 H, Magnesium 1.6 L 05/07/17 06:00: WBC 4.3 L D, RBC 3.01 L, Hgb 8.4 L, Hct 26.7 L, MCV 88.7, MCH 27.9, MCHC 31.5, RDW 17.2 H, Plt Count 146, MPV 11.4 H, Gran % 71.0 H, Lymph % ( Auto) 15.2 L, [place] % (Auto) 10.7 H, Eos % (Auto) 2.6, Baso % (Auto) 0.5, Gran # 3.05, Lymph # 0.7 L, [place] # 0.5, Eos # 0.1, Baso # 0.02 05/06/17 11:34: Sodium 139, Potassium 5.1 H, Chloride 107, Carbon Dioxide 19 L, Anion Gap 18, BUN 68 H, Creatinine 4.5 H, Est GFR ( Amer) 12, Est GFR ( Non-Af Amer) 10, Random Glucose 114 H, Calcium 8.7 05/06/17 11:20: Iron 45, TIBC 280, % Saturation 16 L 05/06/17 00:24: Alcohol, Quantitative < 10 05/06/17 00:24: Sodium 143, Potassium 4.5, Chloride 111 H, Carbon Dioxide 21, Anion Gap 16, BUN 68 H, Creatinine 4.9 H, Est GFR ( Amer) 11, Est GFR ( Non-Af Amer) 9, Random Glucose 103, Calcium 8.4, Total Bilirubin 0.3, AST 31, ALT 31, Alkaline Phosphatase 112, Lactate Dehydrogenase 627, Total Creatine Kinase 330 H, CK-MB (CK-2) 4.1 H, CK-MB (CK-2) % Cancelled, Troponin I 0.07 D, NT-Pro-B Natriuret Pep 5710 H, Total Protein 7.3, Albumin 3.8, Globulin 3.5, Albumin/Globulin Ratio 1.1 05/06/17 00:24: PT 11.3, INR 1.05, APTT 27.1 05/06/17 00:24: WBC 5.4, RBC 2.98 L, Hgb 8.6 L, Hct 26.6 L, MCV 89.3, MCH 28.9, MCHC 32.3, RDW 17.4 H, Plt Count 159, MPV 11.4 H, Gran % 74.9 H, Lymph % (Auto) 15.4 L, [place] % (Auto) 7.4 H, Eos % (Auto) 1.7, Baso % (Auto) 0.6, Gran # 4.03, Lymph # 0.8 L, [place] # 0.4, Eos # 0.1, Baso # 0.03 Interpretation: Abnormal lab values (Troponin 0.07, BNP 5710, BUN 68, creatinine 4.9 from 3.6) - RAD Interpretation Radiology Orders: 05/05/17 22:26 CHEST PORTABLE [RAD] Stat 05/07/17 08:00 CXR (PA/LAT) [CHEST TWO VIEWS (PA/LAT)] [RAD] Routine Chest x-ray: no active pulmonary disease, persistant cardiomegaly Clammer: Radiologist - EKG Interpretation EKG Interpretation (Text): 05/05/17 22:31 SR @ 80 BPM with PVC, no ST elevation or depression, T wave inversion on the lead V2 compared with previous ekg. Interpreted by ED Physician: Yes Type: 12 lead EKG Comparison: Com.w/previous EKG - Medication Orders Current Medication Orders: Clonidine HCl (Catapres-Tts3 0.3 Mg/24 Hr) 1 patch TD Q7D@1000 [facility] Last Admin: 05/06/17 11:13 Dose: 1 patch Famotidine (Pepcid) 40 mg PO HS [facility] Last Admin: 05/06/17 21:26 Dose: 40 mg Furosemide (Lasix) 40 mg IVP DAILY [facility] Last Admin: 05/07/17 10:38 Dose: 40 mg MAR Blood Pressure Document 05/07/17 10:38 KMS (Rec: 05/07/17 10:38 KMS [id number]) Blood Pressure Blood Pressure (100/60-150/90) 132/65 IVP Administration Document 05/07/17 10:38 KMS (Rec: 05/07/17 10:38 KMS [id number]) Charges for Administration # of IVP Administrations 1 Furosemide (Lasix) 20 mg IVP DAILY@1800 [facility] Last Admin: 05/07/17 17:13 Dose: 20 mg MAR Blood Pressure Document 05/07/17 17:13 KMS (Rec: 05/07/17 17:13 KMS [id number]) Blood Pressure Blood Pressure (100/60-150/90) 174/94 IVP Administration Document 05/07/17 17:13 KMS (Rec: 05/07/17 17:13 KMS [id number]) Charges for Administration # of IVP Administrations 1 Hydralazine HCl (Apresoline) 10 mg PO QID PRN PRN Reason: for Sbp>170 Magnesium Oxide (Mag-Ox) 400 mg PO DAILY [facility] Last Admin: 05/07/17 10:37 Dose: 400 mg Metoprolol Tartrate (Lopressor) 50 mg PO BID [facility] Last Admin: 05/07/17 17:13 Dose: 50 mg MAR Pulse and Blood Pressure Document 05/07/17 17:13 KMS (Rec: 05/07/17 17:13 KMS [id number]) Pulse Pulse Rate (60-90) 57 Blood Pressure Blood Pressure (100/60-150/90) 174/94 Discontinued Medications Acetaminophen (Tylenol 325mg Tab) 650 mg PO ONCE ONE Stop: 05/06/17 07:11 Last Admin: 05/06/17 07:37 Dose: 650 mg MAR Pain/Vitals Document 05/06/17 07:37 DEL (Rec: 05/06/17 07:38 DEL [id number]) Pain Reassessment Is This A Pain ReAssessment? No Sleep Is patient sleeping during reassessment? No Presence of Pain Presence of Pain Yes Pain Scale Used Pain Scale Used Numeric Location Left, Right or Bilateral Bilateral Upper or Lower Lower Pain Location Body Site Calf Description Constant Intensity 6 Scale Used Numeric Pain Behavior Grasping Site Facial Grimacing Aggravating Factors ADL's Changing Position Exercise/Activity Alleviating Factors Medication Re-Assess: [facility] Pain/Vitals Document 05/06/17 08:37 DEL (Rec: 05/06/17 10:56 DEL [id number]) Pain Reassessment Is This A Pain ReAssessment? Yes Sleep Is patient sleeping during reassessment? No Presence of Pain Presence of Pain No Aspirin (Aspirin) 325 mg PO STAT STA Stop: 05/06/17 01:17 Last Admin: 05/06/17 02:26 Dose: 325 mg Furosemide (Lasix) 20 mg IVP STAT STA Stop: 05/06/17 01:17 Last Admin: 05/06/17 02:26 Dose: 20 mg MAR Blood Pressure Document 05/06/17 02:26 [email or web address] (Rec: 05/06/17 02:26 [id number]) Blood Pressure Blood Pressure (100/60-150/90) 148/75 IVP Administration Document 05/06/17 02:26 [email or web address] (Rec: 05/06/17 02:26 [id number]) Charges for Administration # of IVP Administrations 1 Furosemide (Lasix) 20 mg IVP ONCE ONE Stop: 05/06/17 20:24 Last Admin: 05/06/17 21:25 Dose: 20 mg MAR Blood Pressure Document 05/06/17 21:25 CO (Rec: 05/06/17 21:25 CO [id number]) Blood Pressure Blood Pressure (100/60-150/90) 161/90 IVP Administration Document 05/06/17 21:25 CO (Rec: 05/06/17 21:25 CO [id number]) Charges for Administration # of IVP Administrations 1 Sodium Chloride (Sodium Chloride 0.45%) 1,000 mls @ 60 mls/hr IV .[id number] [facility] Last Admin: 05/06/17 11:13 Dose: 60 mls/hr eMAR Start Stop Document 05/06/17 11:13 DEL (Rec: 05/06/17 11:13 DEL [id number]) Intravenous Solution Start Date 05/06/17 Start Time 11:13 Iron Sucrose 200 mg/ Sodium (Chloride) 110 mls @ 110 mls/hr IVPB ONCE ONE Stop: 05/07/17 09:17 Last Admin: 05/07/17 10:36 Dose: 110 mls/hr eMAR Start Stop Document 05/07/17 10:36 KMS (Rec: 05/07/17 10:37 KMS [id number]) Intravenous Solution Start Date 05/07/17 Start Time 10:37 End Date 05/07/17 End time 11:37 Total Infusion Time 60 - PA / [employer] DEVELOPER / Resident Statement / has reviewed & agrees with the documentation as recorded. Disposition/Present on Arrival - Present on Arrival Any Indicators Present on Arrival: No History of DVT/PE: Yes History of Uncontrolled Diabetes: No Urinary Catheter: No History of Decub. Ulcer: No History Surgical Site Infection Following: None - Disposition Have Diagnosis and Disposition been Completed?: Yes Diagnosis: Congestive heart failure (CHF), Acute on chronic renal failure, Dyspnea on exertion, Chest pain Disposition: HOSPITALIZED Disposition Time: :26 Patient Plan: Admission Patient Problems: Current Active Problems Problem Status Onset Dyspnea on exertion Acute Congestive heart failure (CHF) Acute Chest pain Acute Acute on chronic renal failure Acute Condition: GOOD
[2017-05-06 00:54] LABS: BASO # 0.03 K/mm3 (0.0-2.0); BASO % 0.6 % (0.0-3.0); EOS # 0.1 (0.0-0.7); EOS % 1.7 % (1.5-5.0); GRAN # 4.03 (1.4-6.5); GRAN % 74.9 % (50.0-68.0); HEMATOCRIT 26.6 % (36.0-48.0); LYMPH # 0.8 (1.2-3.4); LYMPH % 15.4 % (22.0-35.0); MEAN CELL VOLUME 89.3 fl (80.0-105.0); MEAN CORPUSCULAR HEMOGLOBIN 28.9 pg (25.0-35.0); MEAN CORPUSCULAR HGB CONC 32.3 g/dl (31.0-37.0); MEAN PLATELET VOLUME 11.4 fl (7.0-11.0); MONO # 0.4 (0.1-0.6); MONO % 7.4 % (1.0-6.0); RED CELL DISTRIBUTION WIDTH 17.4 % (11.5-14.5); WHITE BLOOD COUNT 5.4 10^3/ul (4.5-11.0)
[2017-05-06 00:58] LABS: ALB/GLOB RATIO 1.1 (1.1-1.8); BILIRUBIN,TOTAL 0.3 mg/dL (0.2-1.3); CALCIUM 8.4 mg/dL (8.4-10.5); POTASSIUM 4.5 mmol/L (3.6-5.0); TOTAL PROTEIN 7.3 g/dL (5.8-8.3)
[2017-05-06 00:59] LABS: INR 1.05 (0.93-1.08); PARTIAL THROMBOPLASTIN TIME 27.1 Seconds (23.7-30.8)
[2017-05-06 01:10] LABS: TROPONIN I 0.07 ng/mL
--- NOTE | 2017-05-06 09:21 | RAD ---
HISTORY: medical clearance COMPARISON: Portable chest 04/24/2017. FINDINGS: LUNGS: No active pulmonary disease. PLEURA: A skin fold is suspected at the mid left lung zone laterally though a pneumothorax difficult to completely exclude here. Follow-up PA and lateral chest radiography is advised or possible chest CT. No right-sided pneumothorax or pleural effusion bilaterally. CARDIOVASCULAR: Cardiomegaly is stable. No pulmonary vascular derangement is identified. OSSEOUS STRUCTURES: No significant abnormalities. VISUALIZED UPPER ABDOMEN: Marked left hemidiaphragm elevation again evident. OTHER FINDINGS: None. IMPRESSION: Skin fold is favored over pneumothorax at the left base laterally with left hemidiaphragm diaphragm remaining grossly elevated. Still, is able to completely exclude a pneumothorax at the left base and follow-up chest radiography is advised. The measure has been notified of this discrepancy through PACS.
[2017-05-06] MEDS ORDERED: Sodium Chloride 0.45% 1,000 ML IV SCH (10:30)
[2017-05-06 11:47] LABS: IRON 45 ug/dL (45-180)
--- NOTE | 2017-05-06 12:38 | CARD ---
APPROVED REPORT EKG Measurement Heart [id number] [id number] <Conclusion> Sinus rhythm with premature supraventricular complexes LVH STTW changes c/w ischemia
[2017-05-06 12:49] LABS: CALCIUM 8.7 mg/dL (8.4-10.5); POTASSIUM 5.1 mmol/L (3.6-5.0)
--- NOTE | 2017-05-06 20:59 | CON ---
DATE: 05/06/2017 LOCATION: The patient is in 275, bed 1. REASON FOR CONSULTATION: Hypertension, renal failure, shortness of breath, leg sprains, substance abuse, and poor compliance. HISTORY OF PRESENT ILLNESS: The patient is a 57-year-old female. As per the emergency room record, the patient was brought by police. The patient was wandering around intoxicated with alcohol. The patient now complains pain in the both legs. She says off and on she gets shortness of breath, denies palpitation. She continues to smoke and continues to use heavy alcohol intake and does not follow the medication. The patient now sitting in chair comfortably without any respiratory distress. The patient known to have renal dysfunction, hypertension, COPD, hypothyroidism, depression, substance abuse, alcohol abuse, heavy smoking. The patient was treated once for CHF with diastolic dysfunction and fluid overload. History of COPD. PAST MEDICAL HISTORY: Positive for renal dysfunction, COPD, hypertension, hypothyroidism, depression, substance abuse, heavy smoking, heavy alcohol intake. Once was treated for CHF due to diastolic dysfunction and fluid overload. Also in the past was treated for pancreatitis. The patient also according to old charts had IVC filter insertion in the past. ALLERGIES: NO KNOWN ALLERGIES. MEDICATIONS AT HOME: The patient has poor compliance, does not take medications at home, but she was supposed to take several medications. REVIEW OF SYSTEMS: All other systems reviewed. Positive mentioned in the history, otherwise negative. The patient's previous cardiac workup stress test was done on 02/10/2015 which was normal with LV ejection fraction of 78%. The patient had an echocardiogram on last admission on 04/26/2017, which showed [id number]-[id number] concentric left ventricle hypertrophy, systolic function LV mildly impaired with LV ejection fraction of 45%, moderate aortic regurgitation, mild valvular aortic stenosis, qvbc-wg-hxrdmutq mitral regurgitation, moderate aortic regurgitation, [id number]-oq-lfnryfqz tricuspid regurgitation, RVSP was 49 mmHg suggestive of yfyw-ui-jzzhvgly pulmonary hypertension. Doppler flow showed grade I abnormal relaxation flow pattern suggestive of diastolic dysfunction. PHYSICAL EXAMINATION: VITAL SIGNS: Blood pressure 180/96, respirations 20, pulse 64 and temperature 98.8. HEENT: Head is normocephalic. Eyes: Pupils normal. Conjunctivae pale. NECK: JVP low. Carotids are equal. THORAX: AP diameter normal. LUNGS: Clear. CARDIOVASCULAR: S1 and S2. Systolic murmur. No rub. ABDOMEN: Soft. No tenderness. No organomegaly. Bowel sounds normal. EXTREMITIES: No clubbing. No cyanosis. LABORATORY DATA: WBC 5.4, hemoglobin 8.6, hematocrit 26.6, and platelet 159. Sodium 143, potassium 4.5, BUN 68, creatinine 4.9. BUN on 09/03/2016 was 45 and creatinine on 09/03/2016 was 2.6, compared to now of 68 and 4.9. [id number] natriuretic peptide 5710, glucose 103, and calcium 8.4. Troponin 0.07. Total protein and albumin are normal. Alcohol level less than 10. Chest x-ray showed skin fold suspected at the mid lung zone laterally. A followup PA and lateral chest study were also advised, cardiomegaly, no evidence of CHF seen. Marked left hemidiaphragm elevation again noted. Also mentioned that skin fold is suspected at mid lung zone and difficult to exclude completely pneumothorax at her left base. EKG shows sinus rhythm PACs, T-inversion in 1 and aVL. DIAGNOSES: Tbrxu-ay-bloirht renal failure on 09/03/2016, BUN 45 and creatinine 2.6, and on this admission BUN 68 and creatinine 4.9, mildly reduced left ventricular ejection fraction with diastolic dysfunction, hypertension, chronic obstructive pulmonary disease, hyperthyroidism, depression, substance abuse, still smokes 2 packs a day, drinks heavy, poor compliance, and anemia. PLAN: The patient is getting sodium chloride 0.45% at 60 mL an hour, clonidine 0.3 mg 24 hours patch once a week, Pepcid 40 mg at bedtime, acetaminophen or Tylenol p.r.n. Chest x-ray PA and lateral 2 views have been already requested. We will add Lopressor 50 b.i.d. to therapy and we will monitor blood pressure and follow up labs. No evidence of CHF at present. We will follow with you. Juan M Jane MD
--- NOTE | 2017-05-06 22:43 | PN ---
DATE: CHIEF COMPLAINT: Shortness of breath. HISTORY OF PRESENT ILLNESS: Ms. Dakota Darnell is a 57-year-old female with past medical history of multiple problems, was recently discharged. She is homeless. According to the patient, she was walking on the street while intoxicated, started shortness of breath and then ambulance picked her up because she was not doing very well. No fever. No chills. No nausea, vomiting, or diarrhea. No headache. No dizziness. No numbness or tingling. No abdominal pain. No chest pain. PAST MEDICAL HISTORY: Hepatitis C, HIV positive, diabetes mellitus, acute renal failure, anemia, DVT, congestive heart failure, CKD, atrial fibrillation, peripheral edema, COPD, seizure disorder, degenerative joint disease, history of pancreatitis, anxiety, depression, history of substance abuse, and has IVC filter. FAMILY HISTORY: Father and mother noncontributory. HABITS: Heavy smoker, alcohol yes Vodka, substance abuse,according to the patient, she has stopped. Used to use heroin. ALLERGIES: THE PATIENT IS NOT ALLERGIC WITH ANY MEDICATIONS. REVIEW OF SYSTEMS: The patient seen and examined on the bedside in telemetry. Dr. Alfaro also saw the patient. Madelyn fatigue. No fever. No vision changes. No hearing loss. Having shortness of breath. No chest pain. No abdominal pain. No diarrhea, nausea or vomiting. No arthralgia. No myalgia. No rashes, pruritus or skin lesions. No headache or dizziness. PHYSICAL EXAMINATION: VITAL SIGNS: Temperature 96.3, pulse is 73, respiratory rate is 15, blood pressure 158/106, repeat was 161/90, pulse oximetry 100. HEENT: Head is normocephalic and atraumatic. Eyes PERRLA. Extraocular muscles are intact. Conjunctivae clear. Nose patent. Mucous membrane is moist. NECK: Supple. No carotid bruits, JVD, or thyromegaly. CHEST: Bilaterally symmetrical. HEART: S1 and S2 positive. LUNGS: Clear to auscultation. ABDOMEN: Soft. Bowel sounds present. No organomegaly. EXTREMITIES: Trace edema and stasis dermatitis. NEUROLOGIC: The patient is awake and alert. Moving all 4 extremities. No focal deficits. LABORATORY DATA: White blood cells 5.4, hemoglobin 8.6, hematocrit 26.6, and platelets 159. Sodium 143, potassium 4.5, BUN 68, creatinine 4.9, and glucose 103. ASSESSMENT AND PLAN: Ms. Dakota Darnell is a 57-year-old lady with anemia, renal insufficiency, came with shortness of breath, congestive heart failure, acute on chronic renal failure, dyspnea on exertion, has multiple medical problems, seen by Dr. Jane, history of hypothyroidism, depression, history of substance abuse, heavy smoking, heavy alcohol abuse, history of pancreatitis, has inferior vena cava filter, chronic obstructive pulmonary disease, still smokes 2 packs per day, noncompliant. The patient is getting NS. Group Controller is on the case. Pepcid for GI prophylaxis. Repeat labs. We will follow. Zahra Manning MD
--- NOTE | 2017-05-07 01:33 | CON ---
DATE: NEPHROLOGY CONSULTATION HISTORY OF PRESENT ILLNESS: The patient is a 57-year-old female with past medical history of hypertension, diabetes, CHF with preserved ejection fraction, COPD, pulmonary hypertension, HIV on HAART, hepatitis C and CKD stage IV, picked up by ambulance after feeling short of breath, while also being intoxicated and found to have acute kidney injury on CKD, and Nephrology being consulted for the same. The patient just discharged from [facility], at that time she was admitted for a CHF exacerbation with uncontrolled hypertension in the setting of not having taken her medications. The patient reports taking all her medications upon discharge, however, when asked about water pill Lasix, she is unclear about this and does not seem to know which medication it is; the patient does report feeling short of breath on presentation but symptoms have since improved. The patient does report mild nonproductive cough. Otherwise denies any fevers or chills; does admit to leg swelling. Denies any decrease in urination. PAST MEDICAL HISTORY: As above. SOCIAL HISTORY: Current smoker, smoking more than 10 cigarettes per day. FAMILY HISTORY: Father and mother both with diabetes. REVIEW OF SYSTEMS CONSTITUTIONAL: Denies weight loss. Denies fevers or night sweats. HEENT: Denies sore throat or runny nose. Denies any change in her vision. RESPIRATORY: As per HPI. CARDIOVASCULAR: Denies any chest pains or palpitations. GASTROINTESTINAL: Denies nausea, vomiting or diarrhea, although does report some soft stool. GENITOURINARY: Denies any dysuria. SKIN: Denies any itching or rashes. PSYCHIATRIC: Denies any depression. NEUROLOGIC: Denies getting tremulous on ceasing alcohol intake. PHYSICAL EXAMINATION: VITAL SIGNS: This evening blood pressure is 174/98, heart rate is 82, respirations are 19, temperature is 97.5, and O2 saturation is 98% on room air. GENERAL: No distress. Conversing coherently in full sentences. HEENT: Moist mucous membranes. Nonicteric. No cervical lymphadenopathy. RESPIRATORY: Lungs clear to auscultation bilaterally. No rales and no rhonchi. No wheezes. Heart: S1 and S2 normal. No murmurs, no gallops and no rubs. GASTROINTESTINAL: Abdomen is soft, nontender, and nondistended. GENITOURINARY: No bladder distention. PSYCHIATRIC: Normal mood and somewhat depressed affect. NEUROLOGIC: Mild tremor, outstretched hands, more so on left SKIN: Warm. No cyanosis. EXTREMITIES: 1+ bilateral lower leg edema. LABORATORY DATA: On presentation, CBC: WBC of 5.4, hemoglobin of 8.6, hematocrit of 26.6, and platelets of 159. Chemistry panel: Sodium of 143, potassium of 4.5, chloride of 111, bicarbonate of 21, BUN of 68, and creatinine of 4.9, increased from 3.6 on discharge. Glucose of 103, calcium of 8.4, albumin of 3.8, and ProBNP of 5710. Iron studies: Iron of 45, TIBC of 280 and iron saturation 16%. DIAGNOSTIC DATA: Chest x-ray: Lungs relatively clear and cardiomegaly appreciated. ASSESSMENT/PLAN 1. Acute kidney injury on chronic kidney disease in the setting of pulmonary hypertension with excess edema and elevated blood pressure, this is likely cardiorenal etiology. The patient with mild improvement on being given intravenous Lasix, similar to presentation last time where the patient's renal function improved with intravenous Lasix, therefore should will continue diuresis in order to decrease venous congestion. We will place on intravenous Lasix 40 mg in a.m. and 20 mg in p.m. until symptoms improve further should then be switched over to p.o. 2. Chronic kidney disease stage IV. Proteinuric kidney disease likely secondary to diabetes and/or human immunodeficiency virus; likely with some cardiorenal component as well in the setting of pulmonary hypertension. Complements were not low on recent admission; we will order random urine for protein, microalbumin and creatinine. Will benefit from angiotensin-converting enzyme inhibitor or angiotensin-receptor jose if she has significant proteinuria. 3. Pulmonary hypertension in the setting of chronic obstructive pulmonary disease causing increased venous congestion and subsequent worsening of renal function. Continue diuretics as above. 4. Chronic kidney disease, mineral bone disorder. PTH elevated at above 500 and low vitamin D 25 hydroxy level; we will start ergocalciferol 50,000 units weekly. Start calcitriol 0.25 mcg every Saturday, Saturday and Saturday. 5. Anemia secondary to chronic kidney disease as well as iron deficiency. Should start on intravenous iron 100 mg daily and will give dose of Aranesp 40 mcg weekly. Thank you for this consult. We will be following up closely. Alfonso Mccormack MD
[2017-05-07 06:20] LABS: BASO # 0.02 K/mm3 (0.0-2.0); BASO % 0.5 % (0.0-3.0); EOS # 0.1 (0.0-0.7); EOS % 2.6 % (1.5-5.0); GRAN # 3.05 (1.4-6.5); HEMATOCRIT 26.7 % (36.0-48.0); LYMPH # 0.7 (1.2-3.4); LYMPH % 15.2 % (22.0-35.0); MEAN CELL VOLUME 88.7 fl (80.0-105.0); MEAN CORPUSCULAR HEMOGLOBIN 27.9 pg (25.0-35.0); MEAN CORPUSCULAR HGB CONC 31.5 g/dl (31.0-37.0); MEAN PLATELET VOLUME 11.4 fl (7.0-11.0); MONO # 0.5 (0.1-0.6); MONO % 10.7 % (1.0-6.0); RED CELL DISTRIBUTION WIDTH 17.2 % (11.5-14.5); WHITE BLOOD COUNT 4.3 10^3/ul (4.5-11.0)
[2017-05-07 06:35] LABS: PH,URINE 6.5 (4.7-8.0); URINE BILIRUBIN NEGATIVE (NEGATIVE); URINE BLOOD MODERATE (NEGATIVE); URINE GLUCOSE (UA) NEGATIVE (NEGATIVE); URINE KETONE NEGATIVE (NEGATIVE); URINE LEUKOCYTE ESTERASE NEGATIVE Leu/uL (NEGATIVE); URINE PROTEIN 100 mg/dL (<30 mg/dL); URINE UROBILINOGEN 0.2 E.U./dL (<1 E.U./dL)
[2017-05-07 06:45] LABS: URINE APPEARANCE SL CLOUDY (CLEAR); URINE COLOR YELLOW (YELLOW)
[2017-05-07 06:50] LABS: URINE EPITHELIAL CELLS 0 - 2 /hpf (0-5); URINE RBC 15 - 20 /hpf (0-2); URINE WBC 0 - 2 /hpf (0-6)
[2017-05-07 06:51] LABS: URINE BACTERIA FEW (NEG)
[2017-05-07 07:32] LABS: CALCIUM 8.5 mg/dL (8.4-10.5); MAGNESIUM 1.6 mg/dL (1.7-2.2); PHOSPHOROUS 4.9 mg/dL (2.5-4.5); POTASSIUM 4.5 mmol/L (3.6-5.0)
--- NOTE | 2017-05-07 09:44 | RAD ---
HISTORY: followup COMPARISON: 05/05/2017 TECHNIQUE: Chest PA and lateral FINDINGS: LUNGS: The lungs are clear. PLEURA: No significant pleural effusion identified. No pneumothorax apparent. CARDIOVASCULAR: There is persistent severe cardiomegaly P OSSEOUS STRUCTURES: No significant abnormalities. VISUALIZED UPPER ABDOMEN: Normal. OTHER FINDINGS: There is chronic elevation of the left hemidiaphragm. IMPRESSION: No active pulmonary disease. Persistent severe cardiomegaly.
[2017-05-07] MEDS: Magnesium Oxide 400 mg Tab UD PO SCH (10:37)
--- NOTE | 2017-05-07 12:50 | CARD ---
APPROVED REPORT EXAM: Two-dimensional and M-mode echocardiogram with Doppler and color Doppler. INDICATION Pericardial Effusion <Conclusion> Limited study only 2D Echo done to assess Pericardial effusion as In CxR enlarged cariac [place] LVH, EF- 40-45% Approx, LAE Thickened Aortic and mitral Valve leaflets but adequate excursion Trace pericardial effusion, Dilated IVC
--- NOTE | 2017-05-07 15:36 | PN ---
REASON FOR CONSULTATION: Followup hypertension, acute kidney injury, chronic renal insufficiency, cardiac evaluation to rule CHF. SUBJECTIVE: The patient denies any chest pain, shortness of breath or any palpitation. Not very much cooperative. OBJECTIVE: GENERAL: Lying flat on the bed, not in apparent distress. VITAL SIGNS: Temperature afebrile, heart rate 65, and blood pressure 132/65. HEENT: PERRLA. Extraocular muscles intact. NECK: Supple. No carotid bruits or thyromegaly. CHEST: Clear to auscultation. HEART: S1 and S2 regular. ABDOMEN: Soft. EXTREMITIES: Clubbing and cyanosis negative. LABORATORY DATA: Blood workup as follows: WBC is 4.2, hemoglobin 8.4, hematocrit 26.2, and platelet count 146. Chemistry shows sodium 139, potassium 4.5, chloride 107, carbon dioxide 23, anion gap of 14, BUN 65, creatinine 4.4. BNP 6460. Troponin 0.07. IMPRESSION: A 57-year-old female with diabetes, hypertension, hyperlipidemia, chronic renal insufficiency with baseline creatinine at 2.6 in August 2016, admitted with shortness of breath; acute kidney injury, chronic renal insufficiency, admitting BUN of 68 and creatinine 4.8 with the creatinine clearance 9 mL, complaining of shortness of breath. Clinically, the patient is not in congestive heart failure; clinically, not in failure though BNP is elevated. The patient's previous cardiac workup done including a stress test on 02/10/2015 with normal LV ejection fraction of 78%. The patient had echocardiography on last admission on 04/26/2017 that showed [id number], concentric left ventricle hypertrophy systolic function 45%; moderate aortic regurgitation; mild valvular aortic stenosis; [id number] mitral regurgitation; moderate aortic regurgitation; [id number]-[id number] tricuspid regurgitation; right ventricular systolic pressure 49. History of tobacco abuse and drinks heavy and poor compliance with medication. History of anemia. RECOMMENDATION: The patient is getting IV fluid, renal function is improving, admitting 4.9 and today is 4.4, being followed by surveyor geophysical prospecting. Avoid nephrotoxic medication. Aggressive control of blood pressure. The patient is on Catapres patch. We will put hydralazine p.r.n. for control of blood pressure. We will discontinue telemetry. Continue beta jose and monitor the heart rate. Today, the patient underwent chest x-ray, PA and lateral, no active pulmonary disease reported. Chest x-ray I reviewed myself; cardiomegaly, under printed films, possible mild congestion, but enlarged cardiac silhouette. We will repeat echo to rule out pericardial effusion. Thank you Dr. Manning for providing us the opportunity in taking care of the patient. We will follow with you. Juan M Alfaro MD
--- NOTE | 2017-05-07 18:32 | CP.PCM.PN ---
Subjective - Date & Time of Evaluation Date of Evaluation: 05/07/17 Time of Evaluation: 11:00 - Subjective Subjective: Reports shortness of breath improved; still with leg swelling; Objective - Vital Signs/Intake and Output Vital Signs (last 24 hours): Temp Pulse Resp BP Pulse Ox 98 F 56 L 20 174/94 H 96 05/07/17 18:00 05/07/17 18:00 05/07/17 18:00 05/07/17 18:00 05/07/17 06:00 Intake and Output: 05/07/17 05/07/17 06:59 18:59 Intake Total 540 Output Total 1800 Balance -1260 - Medications Medications: Current Medications Clonidine HCl (Catapres-Tts3 0.3 Mg/24 Hr) 1 patch TD Q7D@1000 [facility] Last Admin: 05/06/17 11:13 Dose: 1 patch Famotidine (Pepcid) 40 mg PO HS [facility] Last Admin: 05/06/17 21:26 Dose: 40 mg Furosemide (Lasix) 40 mg IVP DAILY [facility] Last Admin: 05/07/17 10:38 Dose: 40 mg Furosemide (Lasix) 20 mg IVP DAILY@1800 [facility] Last Admin: 05/07/17 17:13 Dose: 20 mg Hydralazine HCl (Apresoline) 10 mg PO QID PRN PRN Reason: for Sbp>170 Magnesium Oxide (Mag-Ox) 400 mg PO DAILY [facility] Last Admin: 05/07/17 10:37 Dose: 400 mg Metoprolol Tartrate (Lopressor) 50 mg PO BID [facility] Last Admin: 05/07/17 17:13 Dose: 50 mg - Labs Labs: PT 11.3 Seconds (9.9-11.8) 05/06/17 00:24 INR 1.05 (0.93-1.08) 05/06/17 00:24 APTT 27.1 Seconds (23.7-30.8) 05/06/17 00:24 - Constitutional Appears: Non-toxic, No Acute Distress - Head Exam Head Exam: NORMAL INSPECTION - Eye Exam Eye Exam: Normal appearance - ENT Exam ENT Exam: Mucous Membranes Moist - Respiratory Exam Respiratory Exam: Clear to Ausculation Bilateral, Rhonchi. absent: Rales - Cardiovascular Exam Cardiovascular Exam: RRR, +S1, +S2 - GI/Abdominal Exam GI & Abdominal Exam: Soft. absent: Distended, Tenderness - Extremities Exam Additional comments: 1+ bilateral lower leg edema; - Neurological Exam Neurological Exam: Alert, Awake - Psychiatric Exam Psychiatric exam: Normal Affect, Normal Mood - Skin Skin Exam: Normal Color, Warm. absent: Cyanosis Assessment and Plan (1) Acute on chronic renal failure Assessment & Plan: Acute component likely cardiorenal etiology, mild improvement with diuretics; continue with IV lasix 40 in am and 20 in pm; will need to be on standing PO diuretics bid on d/c (unclear if she was taking); Status: Acute (2) Hypertensive CKD (chronic kidney disease) Assessment & Plan: Uncontrolled on clonidine patch 0.3 mg, metoprolol 50 bid and lasix; consider changing metoprolol to coreg, will discuss with cardio; patient compliance as outpatient will be an issue regardless; Status: Acute (3) Congestive heart failure (CHF) Status: Acute (4) CKD (chronic kidney disease), stage IV Assessment & Plan: Baseline serum creatinine in mid-3's; mildly proteinuric kidney disease that has been slowly progressive; doubt any significant benefit from JULES inhibitor/ ARB; will re-check proteinuria level; Status: Chronic (5) Anemia Assessment & Plan: Due to iron deficiency and CKD; giving IV iron daily; once BP stabilizes, will give dose of aranesp; Status: Chronic
--- NOTE | 2017-05-08 01:12 | PN ---
DATE: SUBJECTIVE: The patient is a 57 years old female. The patient was seen and examined on the bedside. Looking comfortable. No nausea, vomiting, or diarrhea. No hematuria or hematochezia. No swelling of the legs. No chest pain or palpitation. No headache or dizziness. PHYSICAL EXAMINATION: VITAL SIGNS: Temperature 98, pulse 56, respiration 20, blood pressure 174/94 and pulse oximetry 96. HEENT: Head is normocephalic and atraumatic. Eyes; PERRLA. Extraocular muscles are intact. Conjunctivae are clear. Nose is patent. Mucous membranes are moist. NECK: Supple. No carotid bruits. No JVD or thyromegaly. CHEST: Bilaterally symmetrical. HEART: S1 and S2 positive. LUNGS: Clear to auscultation. ABDOMEN: Soft. Bowel sounds present. No organomegaly. EXTREMITIES: No edema. No cyanosis. NEUROLOGIC: The patient is awake and alert. Moving all four extremities. No focal deficits. MEDICATIONS: Catapres, Pepcid, Lasix, hydralazine, magnesium oxide and Lopressor. LABORATORY DATA: White blood cell 4.3, hemoglobin 8.4, hematocrit 26.7 and platelet 146. Sodium 139, potassium 4.5, BUN 65, creatinine 4.4, phosphorous 4.9 and magnesium 1.6. ASSESSMENT AND PLAN: Ms. Dakota Darnell is 57 years old female with leukopenia, anemia, renal insufficiency, hyperphosphatemia, hypomagnesemia, proteuria, and hematuria. Seen by Shift Mgr Dr. Juan M Alfaro, has history of diabetes mellitus, hypertension, hyperlipidemia, chronic renal insufficiency with baseline creatinine 2.6, congestive heart failure, noncompliant, chronic obstructive pulmonary disease, dyspnea, multiple medical problems, who has multiple admission with hypothyroidism, depression, history of substance abuse, heavy smoking, heavy alcohol abuse, history of pancreatitis, inferior vena cava filter. On admission, the patient's chest x-ray done showed a little bit pneumothorax at the left side , with left hemidiaphragm remaining grossly elevated, still is able to completely exclude pneumothorax at the left base and followup chest x-ray was advised. We did followup chest x-ray. Now, I ordered CAT scan of the chest. Discussion done with the physician assistant professor of german, Elza. Gastric prophylaxis and deep venous thrombosis prophylaxis. Repeat labs. We will followup. Zahra Manning MD [facility] # [id number] [place]
[2017-05-08] MEDS: Albuterol-Ipratrop 3 mg / 0.5 (3 ml) UD IH SCH ×3 (01:30→15:57)
--- NOTE | 2017-05-08 01:59 | CON ---
REFERRING PHYSICIAN: Dr. Manning. REASON FOR CONSULT: Chronic obstructive lung disease, may have sleep apnea syndrome, HISTORY OF PRESENT ILLNESS: This is a 57-year-old female with HIV positive status, hypertension, diabetes, cardiomyopathy, pulmonary hypertension, history of hepatitis C, renal failure, brought into emergency room via the ambulance. The patient was intoxicated. She is "homeless," has a chronic renal failure. She was discharged from the hospital few days ago. According to patient, she lives with her friend, active smoker and heavily drinks. She usually drinks vodka, presently lying in the bed. No hemoptysis or hematemesis. No hematuria. No diarrhea reported. Daytime sleepy and tired. PAST MEDICAL HISTORY: As per history of present illness. SOCIAL HISTORY: Active smoker, also actively drinks alcohol. FAMILY HISTORY: No significant cardiopulmonary disease reported. ALLERGIES: NONE KNOWN. MEDICATIONS: She is on hydralazine 10 mg q.i.d. p.r.n., Catapres patch q.17, Lasix 40 mg IV daily, metoprolol tartrate 50 mg twice a day, magnesium oxide 400 mg daily, and Pepcid 40 mg daily. REVIEW OF SYSTEMS: No headache. No rhinitis. Has some cough, shortness of breath. No chest pain. No nausea. No vomiting. No diarrhea. No dysuria. No leg pain or leg swelling. PHYSICAL EXAMINATION GENERAL: Lying in the bed, in no acute distress. VITAL SIGNS: Temp is 98, heart rate is 57, respiratory rate is 20, blood pressure 173/85, pulse ox 97% on room air. HEENT: Moist mucous membranes. Crowded airway. Mallampati score is IV. NECK: Supple. No JVD. LUNGS: There is a prolonged expiratory phase with some wheezing. HEART: S1 and S2. ABDOMEN: Soft and nontender. No organomegaly. EXTREMITIES: Some edema. NEUROLOGIC: Awake and alert. Follows simple commands. LABORATORY DATA: Shows hemoglobin 8.4, hematocrit 26.7, WBC 4.3, platelet count is 146. Sodium 139, potassium 4.5, chloride 107, bicarbonate 23, BUN 65, creatinine 4.4, glucose 85, calcium 8.5, magnesium is 1.6. ProBNP is 6460, TSH 3.30. Chest x-ray done in the ER shows no pulmonary infiltrate, severe cardiomyopathy. IMPRESSION AND PLAN: Chronic obstructive lung disease, pulmonary hypertension, cardiomyopathy, diabetes, hypertension, hyperlipidemia, chronic renal failure with acute failure, history of human immunodeficiency virus positive, active smoker, alcohol abuse. We will place the patient on thiamine 100 mg daily, add inhaled bronchodilators, keep head 45 degrees, diuretics, gastric prophylaxis, deep venous thrombosis prophylaxis, fall precaution. She is urged to stop smoking. We will recommend PFT and sleep study as an outpatient. Thank you and we will follow with you. Juan M Uribe MD
[2017-05-08 07:28] LABS: BASO # 0.02 K/mm3 (0.0-2.0); BASO % 0.5 % (0.0-3.0); EOS # 0.1 (0.0-0.7); EOS % 2.9 % (1.5-5.0); GRAN # 2.75 (1.4-6.5); GRAN % 67.2 % (50.0-68.0); HEMATOCRIT 26.6 % (36.0-48.0); LYMPH # 0.7 (1.2-3.4); LYMPH % 16.9 % (22.0-35.0); MEAN CELL VOLUME 88.7 fl (80.0-105.0); MEAN CORPUSCULAR HEMOGLOBIN 28.3 pg (25.0-35.0); MEAN PLATELET VOLUME 10.6 fl (7.0-11.0); MONO # 0.5 (0.1-0.6); MONO % 12.5 % (1.0-6.0); RED CELL DISTRIBUTION WIDTH 17.1 % (11.5-14.5); WHITE BLOOD COUNT 4.1 10^3/ul (4.5-11.0)
[2017-05-08 07:54] LABS: BILIRUBIN,TOTAL 0.2 mg/dL (0.2-1.3); CALCIUM 8.2 mg/dL (8.4-10.5); MAGNESIUM 1.6 mg/dL (1.7-2.2); PHOSPHOROUS 4.9 mg/dL (2.5-4.5); POTASSIUM 4.5 mmol/L (3.6-5.0); TOTAL PROTEIN 6.3 g/dL (5.8-8.3)
[2017-05-08] MEDS: Magnesium Oxide 400 mg Tab UD PO SCH (09:14)
[2017-05-08 09:18] VITALS: BP 127/88
[2017-05-08 10:08] VITALS: PULSE 62; RESP 18; TEMP 98.4; O2SAT 98
[2017-05-08] MEDS ORDERED: Ergocalciferol 50,000 Intl Units Cap PO SCH (10:45)
--- NOTE | 2017-05-08 15:36 | PN ---
DATE: 05/08/2017 LOCATION: The patient is in room #564, bed #2. REASON FOR CONSULTATION: Followup hypertension, acute kidney injury, chronic renal insufficiency, cardiac evaluation to rule out CHF. SUBJECTIVE: The patient is sitting in bed without chest pain, shortness of breath or palpitation. PHYSICAL EXAMINATION: VITAL SIGNS: Blood pressure 127/88, respirations 18, pulse 62 and temperature 98.4. HEENT: Head is normocephalic. Eyes: Pupils are normal. Conjunctivae pale. NECK: JVP low. Carotids equal. THORAX: AP diameter normal. LUNGS: Clear. CARDIOVASCULAR: S1 and S2. ABDOMEN: Soft. Bowel sounds normal. EXTREMITIES: No clubbing, no cyanosis, no edema. LABORATORY DATA: WBC 4.1, hemoglobin 8.5, hematocrit 26.6, and platelet 133. Sodium 138, potassium 4.5, BUN 66, creatinine 4.5; admission creatinine was 4.9 and admission BUN was 68. Calcium 8.2, phosphorus 4.9, magnesium 1.6. AST and ALT normal. Total protein 6.3, albumin 3.0. BNP on May 07 of 6460. TSH 3.30. DIAGNOSES: Taaua-sk-wpifmdy renal insufficiency. In August 2016, the patient's creatinine was 2.6, so probably that is her baseline when compared to that creatinine went up, so it is an [id number] renal insufficiency, admitting creatinine was 4.8. Hypertension, diabetes, hyperlipidemia, anemia, poor compliant patient, history of tobacco abuse and alcohol abuse. The patient continues to drink. The patient's echo on 04/26/2017 showed left ventricular systolic function 45% with right ventricular systolic pressure of 49 mmHg. Stress test on 02/10/2015 was normal with ejection fraction of 78% at that time. The patient had repeat echo on 05/07/2017 to rule pericardial effusion, it only showed trace pericardial effusion and showed ejection fraction of 40% to 45% approximately, left atrial enlargement, thickened aortic and mitral valve leaflets with adequate excursion whereas the echo on 04/26/2017 showed ejection fraction of 45% with left ventricular hypertrophy, moderate aortic regurg, mild valvular aortic stenosis, [id number] mitral regurgitation, moderate aortic regurgitation, yvll-kz-rjenojaw tricuspid regurgitation, right ventricular systolic pressure of 49 mmHg. Chest x-ray on 05/07/2017 showed clear lungs and persistency of cardiomegaly. PLAN: The patient is on clonidine patch 0.3 mg q. 24 hours, once a week patch. Venofer IV has been already ordered by Dr. Mccormack, sand technologist. Dr. Mccormack also ordered Lasix 40 IV daily in the morning and 20 IV daily in the evening, magnesium oxide 400 mg p.o. daily. We will continue present therapy. We will follow with you. Juan M Jane MD
--- NOTE | 2017-05-08 20:00 | PN ---
DATE: 05/08/2017 PULMONARY PROGRESS NOTE REFERRING PHYSICIAN: Dr. Manning. SUBJECTIVE: The patient is sitting at side of the bed, having lunch. Night was unremarkable. No headache. No rhinitis. Cough is better. No nausea. No vomiting. No diarrhea. No leg pain or leg swelling. OBJECTIVE: GENERAL: In no acute distress. VITAL SIGNS: Temperature 98, heart rate is 62, respiratory rate is 18, blood pressure 127/88, pulse ox 98% on room air. HEENT: Moist mucous membranes. Crowded airway. Mallampati score is IV. NECK: Supple. No JVD. LUNGS: Diminished airflow with occasional rhonchi. CARDIOPULMONARY: S1 and S2. ABDOMEN: Soft and nontender. No organomegaly. EXTREMITIES: No edema. NEUROLOGIC: Awake and alert. Follows simple commands. MEDICATIONS: She is on hydralazine 10 mg q.i.d. p.r.n., Catapres patch 0.3 mg weekly, vitamin D 50,000 units weekly, DuoNeb q. 6 hours, heparin 5000 units subcu q. 12 hours, IV iron 200 mg daily, Lasix 20 mg daily, metoprolol tartarate 50 mg twice a day, magnesium oxide 400 mg daily, Nicoderm patch daily, Pepcid 40 mg at bedtime, calcitriol 0.25 mg on Saturday, Saturday, and Saturday, vitamin B 100 mg daily. LABORATORY DATA: Shows hemoglobin 8.5, hematocrit 26.6, WBC is 4.1, platelet is 133. Sodium 138, potassium 4.5, chloride 106, bicarbonate 24, BUN 66, creatinine 4.5, glucose is 83, calcium is 8.2, phosphorus is 4.9, magnesium 1.6. AST 22, ALT 30, alk phos 108. ProBNP 6460, albumin is 3.1. Microbiology: Urine culture, there is no growth. IMPRESSION AND PLAN: Chronic obstructive lung disease, pulmonary hypertension, cardiomyopathy, diabetes, hypertension, hyperlipidemia, chronic renal failure with acute deterioration, human immunodeficiency virus positive, active smoker, history of alcohol abuse. Pulmonary point of view doing okay. Keep present care. Continue bronchodilator. Keep head at 45 degree, gastric prophylaxis, DVT prophylaxis, urged her to stop smoking, Nicoderm patch, thiamine, fall precaution. on site services specialist consult. Thank you and we will follow with you. Juan M Uribe MD [facility] # [id number]
--- NOTE | 2017-05-09 06:03 | CP.PCM.PN ---
Subjective - Date & Time of Evaluation Date of Evaluation: 05/08/17 Time of Evaluation: 11:00 - Subjective Subjective: Patient reports shortness of breath improved; Objective - Vital Signs/Intake and Output Vital Signs (last 24 hours): Temp Pulse Resp BP Pulse Ox 98.4 F 62 18 127/88 98 05/08/17 07:00 05/08/17 07:00 05/08/17 07:00 05/08/17 09:13 05/08/17 07:00 - Labs Labs: 05/08/17 07:23 05/08/17 07:23 PT 11.3 Seconds (9.9-11.8) 05/06/17 00:24 INR 1.05 (0.93-1.08) 05/06/17 00:24 APTT 27.1 Seconds (23.7-30.8) 05/06/17 00:24 - Constitutional Appears: Non-toxic, No Acute Distress - Eye Exam Eye Exam: Normal appearance - ENT Exam ENT Exam: Mucous Membranes Moist - Respiratory Exam Respiratory Exam: Clear to Ausculation Bilateral. absent: Respiratory Distress - Cardiovascular Exam Cardiovascular Exam: RRR, +S1, +S2 - GI/Abdominal Exam GI & Abdominal Exam: Soft. absent: Distended, Tenderness - Extremities Exam Additional comments: 1+ bilateral lower leg edema; - Neurological Exam Neurological Exam: Alert, Awake - Psychiatric Exam Psychiatric exam: Normal Mood - Skin Skin Exam: Warm. absent: Cyanosis Assessment and Plan (1) Acute on chronic renal failure Assessment & Plan: Worsening of renal function seen on presentation; no significant improvement with IV lasix unlike previous admission; this is still likely cardiorenal etiology in the setting of pulm htn and mild systolic dysfunction and therefore should continue diuresis as outpatient with PO lasix 40 mg in am and 20 mg in pm ; patient needs close f/u but unfortunately has poor track record of doing so; Renal function relatively stable for d/c; will try to f/u with patient as outpatient; Status: Acute (2) Hypertensive CKD (chronic kidney disease) Assessment & Plan: BP fluctuating, improved today; continue clonidine patch 0.3 mg weekly and lasix as above; Status: Acute (3) Congestive heart failure (CHF) Assessment & Plan: Acute exacerbation, symptomatically improved; see above, continue diuretics; Status: Acute (4) CKD (chronic kidney disease), stage IV Assessment & Plan: 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
== END 2017-05-08 18:05 | disposition home or self-care (01) | DRG 683 ==
LOC: ED 22:03 → ERH 05-06 01:31 → 2RSO 05-06 02:36 → OBSVTOIN 05-07 09:14 → 5RNO 05-07 23:03
PROVIDERS: ADMIT Internal Medicine; ATTEND Internal Medicine
DX: N17.9 Acute kidney failure, unspecified (principal); I13.0 Hypertensive heart and chronic kidney disease with heart failure and stage 1 through stage 4 chronic kidney disease, or unspecified chronic kidney disease; I42.9 Cardiomyopathy, unspecified; E11.22 Type 2 diabetes mellitus with diabetic chronic kidney disease; E83.42 Hypomagnesemia; I50.30 Unspecified diastolic (congestive) heart failure; I48.91 Unspecified atrial fibrillation; G40.909 Epilepsy, unspecified, not intractable, without status epilepticus; E83.39 Other disorders of phosphorus metabolism; I27.20 Pulmonary hypertension, unspecified; I08.3 Combined rheumatic disorders of mitral, aortic and tricuspid valves; I25.10 Atherosclerotic heart disease of native coronary artery without angina pectoris; J44.9 Chronic obstructive pulmonary disease, unspecified; Z21 Asymptomatic human immunodeficiency virus [HIV] infection status; D63.1 Anemia in chronic kidney disease; D50.9 Iron deficiency anemia, unspecified; D72.819 Decreased white blood cell count, unspecified; E03.9 Hypothyroidism, unspecified; E05.90 Thyrotoxicosis, unspecified without thyrotoxic crisis or storm; E78.5 Hyperlipidemia, unspecified; F10.129 Alcohol abuse with intoxication, unspecified; F17.210 Nicotine dependence, cigarettes, uncomplicated; F32.89 Other specified depressive episodes; M89.9 Disorder of bone, unspecified; N18.4 Chronic kidney disease, stage 4 (severe); Z59.0 Homelessness; Z79.899 Other long term (current) drug therapy; Z83.3 Family history of diabetes mellitus; Z91.14 Patient's other noncompliance with medication regimen; F41.9 Anxiety disorder, unspecified; R40.2412 Glasgow coma scale score 13-15, at arrival to emergency department; Z87.19 Personal history of other diseases of the digestive system; F19.10 Other psychoactive substance abuse, uncomplicated

== ENCOUNTER 2017-05-11 19:29 | Observation (INO) | payer MEDICARE, OTHER ==
[2017-05-11 19:30] VITALS: PULSE 125
[2017-05-11 19:38] VITALS: BMI 27.4
--- NOTE | 2017-05-11 19:46 | ED PDOC ---
Arrival/HPI - General Chief Complaint: Chest Pain Time Seen by Provider: 05/11/17 19:31 Historian: Patient - History of Present Illness Narrative History of Present Illness (Text): 05/11/17 19:43 A 57 year old female, well known to the hospital, whose past medical history includes, hepatitis C, HIV, diabetes, anemia, ARF, DVT, CHF, and Atrial fibrillation, presents to the emergency department via EMS after asking someone to call because she was having chest pain. The patient describes the pain as pressure. The patient denies fevers, chills, headache, dizziness, sore throat , cough, sore throat, shortness of breath, dyspnea on exertion, abdominal pain, nausea, vomiting, diarrhea, neck pain, back pain, urinary/bowel changes, trauma/ injury, or any other complaints. Time/Duration: Prior to Arrival Symptom Onset: Sudden Symptom Course: Unchanged Activities at Onset: Rest, Light Context: Street Past Medical History - Provider Review Nursing Documentation Reviewed: Yes - Past History Past History: Non-Contributing - Infectious Disease Hx of Infectious Diseases: None - Tetanus Immunization Tetanus Immunization: Unknown - Reproductive Menopause: Yes - Past Medical History Past Medical History: Non-Contributing - Cardiac Hx Congestive Heart Failure: Yes Hx Hypertension: Yes Hx Peripheral Edema: Yes - Pulmonary Hx Chronic Obstructive Pulmonary Disease (COPD): Yes - Neurological Hx Neurological Disorder: No HX Cerebrovascular Accident: No - HEENT Hx HEENT Disorder: No - Renal Hx Renal Disorder: Yes - Endocrine/Metabolic Hx Hypothyroidism: Yes - Hematological/Oncological Hx Anemia: Yes - Integumentary Hx Dermatological Disorder: No - Musculoskeletal/Rheumatological Hx Arthritis: Yes - Gastrointestinal Hx Pancreatitis: Yes - Genitourinary/Gynecological Hx Genitourinary Disorders: No - Psychiatric Hx Anxiety: Yes Hx Depression: Yes Hx Substance Use: No (stopped) - Surgical History Other/Comment: IVC filter - Anesthesia Hx Anesthesia: Yes Hx Anesthesia Reactions: No Hx Malignant Hyperthermia: No - Suicidal Assessment Feels Threatened In Home Enviroment: No Family/Social History - Physician Review Nursing Documentation Reviewed: Yes Family/Social History: No Known Family HX Smoking Status: Heavy Smoker > 10 Cigarettes Daily Hx Alcohol Use: Yes (vodka) Hx Substance Use: No (stopped) Substance used: Heroin Hx Substance Use Treatment: No Allergies/Home Meds Allergies/Adverse Reactions: Allergies No Known Allergies Allergy (Verified 05/11/17 19:39) Home Medications: Home Meds Medication Instructions Recorded Confirmed Albuterol/Ipratropium [Combivent 2 INH DAILY 05/08/17 Respimat] Apixaban [Eliquis] 1 tab PO BID 05/08/17 05/08/17 Atorvastatin [Lipitor] 1 tab PO DAILY 05/08/17 05/08/17 Calcitriol 1 cap PO QOTHERDAY 05/08/17 05/08/17 Efavirenz/Emtricitabine/Teno 1 tab PO DAILY 05/08/17 05/08/17 [Atripla 600 MG-200 MG-300 MG] Hydroxyzine HCl 1 tab PO BID 05/08/17 05/08/17 Solifenacin Succinate [Vesicare] 1 tab PO DAILY 05/08/17 05/08/17 hydrALAZINE [Apresoline] 1 tab PO TID 05/08/17 05/08/17 Review of Systems - Physician Review All systems were reviewed & negative as marked: Yes - Review of Systems Constitutional: absent: Fevers, Night Sweats ENT: absent: Sore Throat Respiratory: absent: SOB, Cough Cardiovascular: Chest Pain. absent: [place] Gastrointestinal: absent: Abdominal Pain, Stool Changes, Diarrhea, Nausea, Vomiting Genitourinary Female: absent: Urine Output Changes Musculoskeletal: absent: Back Pain, Neck Pain Neurological: absent: Headache, Dizziness Physical Exam Vital Signs Reviewed: Yes Vital Signs Temp Pulse Resp BP Pulse Ox 05/11/17 19:41 98.0 F 73 18 135/90 98 Temperature: Afebrile Blood Pressure: Normal Pulse: Regular Respiratory Rate: Normal Appearance: Positive for: Well-Appearing, Non-Toxic, Comfortable Pain Distress: None Mental Status: Positive for: Alert and Oriented X 3 - Systems Exam Head: Present: Atraumatic, Normocephalic Pupils: Present: PERRL Extroacular Muscles: Present: EOMI Conjunctiva: Present: Normal Mouth: Present: Moist Mucous Membranes Neck: Present: Normal Range of Motion Respiratory/Chest: Present: Clear to Auscultation, Good Air Exchange. No: Respiratory Distress, Accessory Muscle Use Cardiovascular: Present: Regular Rate and Rhythm, Normal S1, S2. No: Murmurs Abdomen: Present: Normal Bowel Sounds. No: Tenderness, Distention, Peritoneal Signs Back: Present: Normal Inspection Upper Extremity: Present: Normal Inspection. No: Cyanosis, Edema Lower Extremity: Present: Normal Inspection. No: Edema Neurological: Present: GCS=15, CN II-XII Intact, Speech Normal Skin: Present: Warm, Dry, Normal Color. No: Rashes Psychiatric: Present: Alert, Oriented x 3, Normal Insight, Normal Concentration Medical Decision Making ED Course and Treatment: 05/11/17 19:52 Impression: A 57 year old female presents to the emergency department with chest pain. Plan: -- EKG -- CXR -- Labs -- Reassess and disposition Prior Visits: Notes and results from previous visits were reviewed. On 05/05/17, the patient presented to the emergency department with a complaint of shortness of breath. The patient was hospitalized. Progress Notes: EKG: Ordered, reviewed, and independently interpreted the EKG. Rate : 74BPM Rhythm : NSR Interpretation : Non specific T- wave changes. Chest X-ray read and interpreted by me, which shows marking left elevated marti- diaphragm elevation. Unchanged from previous Chest X-ray. 05/11/17 21:[address] Manning, who requests pt go to hospitalist service. 05/11/17 21:[address] Valles, medical technologist generalist brick mason, who is aware and agrees with plan. 05/11/17 21:[address] Lewis, who is aware and agrees with plan. Accepts pt in to hospitalist service. Pt will go to Telemetry observation for chest pain. - Lab Interpretations Lab Results: 05/11/17 20:05 05/11/17 20:05 Lab Results 05/11/17 20:05: Alcohol, Quantitative 32 H 05/11/17 20:05: WBC 5.5 D, RBC 3.10 L, Hgb 8.9 L, Hct 27.9 L, MCV 90.0, MCH 28.7, MCHC 31.9, RDW 17.2 H, Plt Count 169, MPV 11.0 05/11/17 20:05: PT 11.2, INR 1.04, APTT 26.2 05/11/17 20:05: Sodium 145, Potassium 4.2, Chloride 111 H, Carbon Dioxide 19 L, Anion Gap 19, BUN 83 H, Creatinine 5.5 H, Est GFR ( Amer) 10, Est GFR ( Non-Af Amer) 8, Random Glucose 91, Calcium 8.5, Total Bilirubin 0.2, AST 32, ALT 34, Alkaline Phosphatase 115, Lactate Dehydrogenase 484, Total Creatine Kinase 293 H, CK-MB (CK-2) 2.6, CK-MB (CK-2) % Cancelled, Troponin I 0.05 D, Total Protein 6.9, Albumin 3.5, Globulin 3.3, Albumin/Globulin Ratio 1.1 I have reviewed the lab results: Yes - RAD Interpretation Radiology Orders: 05/11/17 19:46 CHEST PORTABLE [RAD] Stat Lot Porter: ED Physician - EKG Interpretation Interpreted by ED Physician: Yes Type: 12 lead EKG - Medication Orders Current Medication Orders: Aspirin (Aspirin) 325 mg PO ONCE STA Stop: 05/11/17 22:00 Discontinued Medications Nitroglycerin (Nitro-Bid 2% Oint) 1 ea TOP ONCE STA Stop: 05/11/17 20:28 Last Admin: 05/11/17 21:29 Dose: 1 ea - Scribe Statement The provider has reviewed the documentation as recorded by the Bradley Valero Provider Scribe Attestation: All medical record entries made by the Scribe were at my direction and personally dictated by me. I have reviewed the chart and agree that the record accurately reflects my personal performance of the history, physical exam, medical decision making, and the department course for this patient. I have also personally directed, reviewed, and agree with the discharge instructions and disposition. Disposition/Present on Arrival - Present on Arrival Any Indicators Present on Arrival: No History of DVT/PE: Yes History of Uncontrolled Diabetes: No Urinary Catheter: No History of Decub. Ulcer: Yes History Surgical Site Infection Following: None - Disposition Have Diagnosis and Disposition been Completed?: Yes Diagnosis: Chest pain Disposition: HOSPITALIZED Disposition Time: 22:03 Patient Plan: Observation Condition: STABLE Discharge Instructions (ExitCare): Chest Pain (ED) Forms: [employer] ([place])
[2017-05-11 20:26] LABS: ALB/GLOB RATIO 1.1 (1.1-1.8); BILIRUBIN,TOTAL 0.2 mg/dL (0.2-1.3); CALCIUM 8.5 mg/dL (8.4-10.5); POTASSIUM 4.2 mmol/L (3.6-5.0); TOTAL PROTEIN 6.9 g/dL (5.8-8.3)
[2017-05-11] MEDS ORDERED: Nitroglycerin 2% Ointment Foilpak UD TOP STA (20:27)
[2017-05-11 20:31] LABS: HEMATOCRIT 27.9 % (36.0-48.0); MEAN CORPUSCULAR HEMOGLOBIN 28.7 pg (25.0-35.0); MEAN CORPUSCULAR HGB CONC 31.9 g/dl (31.0-37.0); RED CELL DISTRIBUTION WIDTH 17.2 % (11.5-14.5); WHITE BLOOD COUNT 5.5 10^3/ul (4.5-11.0)
[2017-05-11 20:36] LABS: INR 1.04 (0.93-1.08); PARTIAL THROMBOPLASTIN TIME 26.2 Seconds (23.7-30.8)
[2017-05-11 20:38] LABS: TROPONIN I 0.05 ng/mL
--- NOTE | 2017-05-11 23:41 | CP.PCM.HP ---
<Alfonzo Valles - Last Filed: 05/12/17 07:24> History of Present Illness - History of Present Illness History of Present Illness: Chief Complaint Chest pain HPI Patient is a 57 year old female with a past medical history of HIV (on regimen) and HTN who presents to [facility] ED 05/11/17 with complaints of chest pain. Patient states she drank a bottle of vodka this morning then went for a walk during the day. She states while walking she began to experience chest pain. At the time she saw someone on the street and asked them to call the ambulance. She states she has never experienced this pain before. She rated the pain a 10/10 and localized it to the sternal area. She describes the pain as dull and denies any exacerbating or relieving factors. Patient denies heartburn, brash taste in mouth, headache, shortness of breath, dizziness, n/v/d, fevers, chills. She states the chest pain is no longer present. Buck any history of CHF, DM. Social History: 3 ppd cigarettes, 1 bottle of vodka daily, denies illicit drug use Present on Admission - Present on Admission Any Indicators Present on Admission: No Review of Systems - Constitutional Constitutional: absent: Chills, Daytime Sleepiness, Headache - EENT Eyes: absent: Blurred Vision, Change in Vision Ears: absent: Decreased Hearing, Ear Discharge Nose/Mouth/Throat: absent: Nasal Congestion, Nasal Discharge - Cardiovascular Cardiovascular: Chest Pain. absent: Diaphoresis, Dyspnea - Respiratory Respiratory: absent: Cough, Dyspnea - Gastrointestinal Gastrointestinal: absent: Abdominal Pain, Diarrhea, Nausea - Genitourinary Genitourinary: absent: Difficulty Urinating, Dysuria - Musculoskeletal Musculoskeletal: absent: Arthralgias, Back Pain - Integumentary Integumentary: absent: Bleeding Lesions, Change in Hair - Neurological Neurological: absent: Abnormal Hearing, Abnormal Movements - Psychiatric Psychiatric: Anhedonia, Behavioral Changes. absent: Anxiety, Change in Appetite Past Patient History - Infectious Disease Hx of Infectious Diseases: None - Tetanus Immunizations Tetanus Immunization: Unknown - Past Medical History & Family History Past Medical History?: Yes - Past Social History Smoking Status: Heavy Smoker > 10 Cigarettes Daily - CARDIAC Hx Congestive Heart Failure: Yes Hx Hypertension: Yes Hx Peripheral Edema: Yes - PULMONARY Hx Chronic Obstructive Pulmonary Disease (COPD): Yes - NEUROLOGICAL Hx Neurological Disorder: No HX Cerebrovascular Accident: No - HEENT Hx HEENT Problems: No - RENAL Hx Chronic Kidney Disease: Yes - ENDOCRINE/METABOLIC Hx Hypothyroidism: Yes - HEMATOLOGICAL/ONCOLOGICAL Hx Anemia: Yes - INTEGUMENTARY Hx Dermatological Problems: No - MUSCULOSKELETAL/RHEUMATOLOGICAL Hx Arthritis: Yes - GASTROINTESTINAL Hx Pancreatitis: Yes - GENITOURINARY/GYNECOLOGICAL Hx Genitourinary Disorders: No - PSYCHIATRIC Hx Anxiety: Yes Hx Depression: Yes Hx Substance Use: No (stopped) - SURGICAL HISTORY Other/Comment: IVC filter - ANESTHESIA Hx Anesthesia: Yes Hx Anesthesia Reactions: No Hx Malignant Hyperthermia: No Meds Allergies/Adverse Reactions: Allergies Allergy/AdvReac Type Severity Reaction Status Date / Time No Known Allergies Allergy Verified 05/11/17 19:39 Physical Exam - Constitutional Appears: Toxic - Head Exam Head Exam: ATRAUMATIC, NORMAL INSPECTION, NORMOCEPHALIC - Eye Exam Eye Exam: EOMI, Normal appearance Pupil Exam: NORMAL ACCOMODATION - ENT Exam ENT Exam: Mucous Membranes Moist, Normal Exam - Neck Exam Neck exam: Positive for: Normal Inspection - Respiratory Exam Respiratory Exam: Chest Wall Tenderness (upon palpation), Clear to Auscultation Bilateral, NORMAL BREATHING PATTERN. absent: Rhonchi, Wheezes - Cardiovascular Exam Cardiovascular Exam: REGULAR RHYTHM, +S1, +S2 - GI/Abdominal Exam GI & Abdominal Exam: Normal Bowel Sounds, Soft - Extremities Exam Extremities exam: Positive for: pedal edema (b/l pitting). Negative for: calf tenderness, normal inspection - Back Exam Back exam: NORMAL INSPECTION - Neurological Exam Neurological exam: Alert, CN II-XII Intact, Motor Sensory Deficit Results - Vital Signs Recent Vital Signs: Last Vital Signs Temp 98.0 F 05/11/17 19:41 Pulse 73 05/11/17 22:52 Resp 18 05/11/17 22:52 BP 152/61 H 05/11/17 22:52 Pulse Ox 99 05/11/17 22:52 - Labs Result Diagrams: 05/12/17 04:15 05/12/17 04:15 Assessment & Plan - Assessment and Plan (Free Text) Plan: Assessment 57 year old female presenting with chest pain Plan 1. ACS rule out - Cardio consulted - Trops trending - Serial EKGs - Aspirin - Day team will obtain an updated med list and add to current medication list if necessary 2.Dyslipidemia - Lipitor 3. HTN - Clonidine - Metoprolol 4. HIV - Efavirenz/Emtricitabine 5. CHF - Lasix 6. Alcohol withdrawal - Alcohol level 32 - [facility] protocol DVT/GI prophylaxis - Heparin/Protonix <Maninder Lewis MD - Last Filed: 05/13/17 11:32> Results - Vital Signs Recent Vital Signs: Last Vital Signs Temp 98.4 F 05/13/17 06:00 Pulse 52 L 05/13/17 09:38 Resp 19 05/13/17 06:00 BP 169/52 H 05/13/17 09:33 Pulse Ox 97 05/13/17 06:00 - Labs Result Diagrams: 05/13/17 06:00 05/13/17 06:00 Labs: Laboratory Results - last 24 hr 05/12/17 05/12/17 05/12/17 12:10 12:10 12:10 WBC RBC Hgb Hct MCV MCH MCHC RDW Plt Count MPV Sodium Potassium Chloride Carbon Dioxide Anion Gap BUN Creatinine Est GFR ( Amer) Est GFR (Non-Af Amer) Random Glucose Calcium Iron 56 TIBC 282 % Saturation 20 Transferrin 240.43 Ferritin Total Bilirubin AST ALT Alkaline Phosphatase Troponin I 0.06 NT-Pro-B Natriuret Pep 3590 H Total Protein Albumin Globulin Albumin/Globulin Ratio Vitamin B12 Folate Free T4 Thyroxine (T4) TSH 3rd Generation Urine Color Urine Appearance Urine pH Ur Specific Walsh Urine Protein Urine Glucose (UA) Urine Ketones Urine Blood Urine Nitrate Urine Bilirubin Urine Urobilinogen Ur Leukocyte Esterase Urine RBC Urine WBC Ur Epithelial Cells Urine Bacteria Hyaline Casts Ur Random Creatinine Ur Random Sodium Ur Random Urea Nitrogn Urine Microalbumin Urine Opiates Screen Urine Methadone Screen Ur Barbiturates Screen Ur Phencyclidine Scrn Ur Amphetamines Screen U Benzodiazepines Scrn U Oth Cocaine Metabols U Cannabinoids Screen 05/12/17 05/12/17 05/12/17 12:10 14:00 14:25 WBC RBC Hgb Hct MCV MCH MCHC RDW Plt Count MPV Sodium Potassium Chloride Carbon Dioxide Anion Gap BUN Creatinine Est GFR ( Amer) Est GFR (Non-Af Amer) Random Glucose Calcium Iron TIBC % Saturation Transferrin Ferritin 187.0 Total Bilirubin AST ALT Alkaline Phosphatase Troponin I NT-Pro-B Natriuret Pep Total Protein Albumin Globulin Albumin/Globulin Ratio Vitamin B12 396 Folate 6.6 Free T4 0.78 Thyroxine (T4) 5.6 TSH 3rd Generation 4.85 H Urine Color Urine Appearance Urine pH Ur Specific Walsh Urine Protein Urine Glucose (UA) Urine Ketones Urine Blood Urine Nitrate Urine Bilirubin Urine Urobilinogen Ur Leukocyte Esterase Urine RBC Urine WBC Ur Epithelial Cells Urine Bacteria Hyaline Casts Ur Random Creatinine Ur Random Sodium Ur Random Urea Nitrogn Urine Microalbumin 613.9 H Urine Opiates Screen Urine Methadone Screen Ur Barbiturates Screen Ur Phencyclidine Scrn Ur Amphetamines Screen U Benzodiazepines Scrn U Oth Cocaine Metabols U Cannabinoids Screen 05/12/17 05/12/17 05/12/17 14:25 14:30 14:30 WBC RBC Hgb Hct MCV MCH MCHC RDW Plt Count MPV Sodium Potassium Chloride Carbon Dioxide Anion Gap BUN Creatinine Est GFR ( Amer) Est GFR (Non-Af Amer) Random Glucose Calcium Iron TIBC % Saturation Transferrin Ferritin Total Bilirubin AST ALT Alkaline Phosphatase Troponin I NT-Pro-B Natriuret Pep Total Protein Albumin Globulin Albumin/Globulin Ratio Vitamin B12 Folate Free T4 Thyroxine (T4) TSH 3rd Generation Urine Color Light yellow Urine Appearance Clear Urine pH 5.5 Ur Specific Walsh 1.015 Urine Protein 100 H Urine Glucose (UA) Negative Urine Ketones Negative Urine Blood Small H Urine Nitrate Negative Urine Bilirubin Negative Urine Urobilinogen 0.2 Ur Leukocyte Esterase Negative Urine RBC 1 - 3 Urine WBC 0 - 2 Ur Epithelial Cells 3 - 4 Urine Bacteria Mod Hyaline Casts 0 - 2 Ur Random Creatinine 50 Ur Random Sodium Cancelled Ur Random Urea Nitrogn 417 Urine Microalbumin Urine Opiates Screen Negative Urine Methadone Screen Negative Ur Barbiturates Screen Negative Ur Phencyclidine Scrn Negative Ur Amphetamines Screen Negative U Benzodiazepines Scrn Negative U Oth Cocaine Metabols Negative U Cannabinoids Screen Negative 05/12/17 05/13/17 05/13/17 15:00 06:00 06:00 WBC 5.2 RBC 3.04 L Hgb 8.5 L Hct 27.5 L MCV 90.5 MCH 28.0 MCHC 30.9 L RDW 17.3 H Plt Count 180 MPV 11.3 H Sodium 141 Potassium 4.8 Chloride 110 H Carbon Dioxide 21 Anion Gap 15 BUN 77 H Creatinine 4.6 H Est GFR ( Amer) 12 Est GFR (Non-Af Amer) 10 Random Glucose 101 Calcium 8.2 L Iron TIBC % Saturation Transferrin Ferritin Total Bilirubin 0.2 AST 35 ALT 35 Alkaline Phosphatase 109 Troponin I NT-Pro-B Natriuret Pep Total Protein 6.6 Albumin 3.3 Globulin 3.2 Albumin/Globulin Ratio 1.0 L Vitamin B12 Folate Free T4 Thyroxine (T4) TSH 3rd Generation Urine Color Urine Appearance Urine pH Ur Specific Walsh Urine Protein Urine Glucose (UA) Urine Ketones Urine Blood Urine Nitrate Urine Bilirubin Urine Urobilinogen Ur Leukocyte Esterase Urine RBC Urine WBC Ur Epithelial Cells Urine Bacteria Hyaline Casts Ur Random Creatinine Ur Random Sodium 96 Ur Random Urea Nitrogn Urine Microalbumin Urine Opiates Screen Urine Methadone Screen Ur Barbiturates Screen Ur Phencyclidine Scrn Ur Amphetamines Screen U Benzodiazepines Scrn U Oth Cocaine Metabols U Cannabinoids Screen Attending/Attestation - Attestation I have personally seen and examined this patient.: Yes I have fully participated in the care of the patient.: Yes I have reviewed all pertinent clinical information: Yes Notes (Text): -I agree with the above H&P completed by the resident physician with the following additions and/or changes: -The patient is a 57 year old woman with a history of hepatitis C, HIV, diabetes mellitus, chronic anemia, CKD, DVT, CHF, chronic ETOH abuse and paroxysmal atrial fibrillation who is being admitted for chest pain (r/o ACS). Of note, the patient was very uncooperative during interview and wouldn't allow me to examine her. We will check serial trop's and EKG's. She will receive daily ASA and also be evaluate by cardiology consult.
[2017-05-12 04:19] LABS: BASO # 0.04 K/mm3 (0.0-2.0); BASO % 0.9 % (0.0-3.0); EOS # 0.1 (0.0-0.7); EOS % 1.9 % (1.5-5.0); GRAN # 3.12 (1.4-6.5); GRAN % 66.3 % (50.0-68.0); HEMATOCRIT 25.2 % (36.0-48.0); LYMPH # 0.8 (1.2-3.4); LYMPH % 17.9 % (22.0-35.0); MEAN CELL VOLUME 90.6 fl (80.0-105.0); MEAN CORPUSCULAR HEMOGLOBIN 28.4 pg (25.0-35.0); MEAN CORPUSCULAR HGB CONC 31.3 g/dl (31.0-37.0); MONO # 0.6 (0.1-0.6); RED CELL DISTRIBUTION WIDTH 17.1 % (11.5-14.5); WHITE BLOOD COUNT 4.7 10^3/ul (4.5-11.0)
[2017-05-12 04:32] LABS: BILIRUBIN,TOTAL 0.2 mg/dL (0.2-1.3); CALCIUM 8.3 mg/dL (8.4-10.5); MAGNESIUM 1.9 mg/dL (1.7-2.2); POTASSIUM 4.4 mmol/L (3.6-5.0); TOTAL PROTEIN 6.4 g/dL (5.8-8.3)
[2017-05-12 04:42] LABS: TROPONIN I 0.05 ng/mL
[2017-05-12] MEDS: Sodium Chloride 0.9% 1,000 ML IV SCH ×3 (06:40→20:23)
[2017-05-12 07:01] VITALS: O2SAT 97
[2017-05-12] MEDS: Efavirenz/Emtricitabine/Teno 1 TAB PO SCH (09:10)
[2017-05-12] MEDS: Magnesium Oxide 400 mg Tab UD PO SCH (09:10)
--- NOTE | 2017-05-12 10:47 | RAD ---
HISTORY: Chest pain.Technique: Single view portable semi erect @ 20:15 COMPARISON: No prior. FINDINGS: LUNGS: No active pulmonary disease. PLEURA: No significant pleural effusion identified, no pneumothorax apparent. CARDIOVASCULAR: Cardiomegaly. No evidence of acute, significant cardiovascular disease. OSSEOUS STRUCTURES: No significant abnormalities. VISUALIZED UPPER ABDOMEN: Stable elevated left hemidiaphragm. OTHER FINDINGS: None. IMPRESSION: No active disease. No significant interval change compared to the prior examination(s). Please note: No preliminary report/ innterpretation of this examination provided by emergency department personnel.
[2017-05-12 12:43] LABS: IRON 56 ug/dL (45-180)
[2017-05-12 12:48] LABS: TROPONIN I 0.06 ng/mL
[2017-05-12 15:04] LABS: FREE T4 0.78 ng/dL (0.78-2.19); T4 5.6 ug/dL (5.5-11.0)
[2017-05-12 15:17] LABS: THYROID STIMULATING HORMONE 4.85 mIU/mL (0.46-4.68)
--- NOTE | 2017-05-12 16:40 | CON ---
REASON FOR CONSULTATION: Chest pain. HISTORY OF PRESENT ILLNESS: The patient is a 57-year-old, markedly obese, -Malagasy female, has history of hypertension, hepatitis C, HIV positive, diabetes mellitus, chronic renal insufficiency, history of DVT and history of atrial fibrillation, presented because of chest pain that she describes as pressure like. At this time, the patient refused to give any history to me and I relied on the emergency room evaluation as well as the history and physical that was written by Dr. Valles. The patient did report drinking a bottle of vodka yesterday morning; following that, she started to experience chest pain and to call the ambulance. SOCIAL HISTORY: The patient is a smoker and drinker. MEDICATIONS: Clonidine 0.1 mg twice a day, aspirin 81 mg once a day, subcutaneous heparin 5000 units twice daily, Lasix 40 mg intravenously daily, Lipitor 40 mg once a day, Lopressor 50 mg once a day, magnesium oxide 400 mg daily, Protonix 200 mg intravenously daily, normal saline at 10 mL an hour. REVIEW OF SYSTEMS: No reported hypotension. No reported fever or chills. No reported ventricular arrhythmia. PHYSICAL EXAMINATION: GENERAL: The patient is a middle-aged female who does not appear to be in any distress; however, she was very uncooperative with my examination. VITAL SIGNS: Blood pressure 141/64, heart rate 66, temperature 97, respirations 18. HEENT: Pale conjunctivae. NECK: Significant diffuse goiter is noted. CHEST: Bibasilar rhonchi. HEART: S1 and S2 regular and distant. ABDOMEN: Soft. EXTREMITIES: 2+ pitting edema. LABORATORY DATA: Hemoglobin and hematocrit 7.9 and 25.2 respectively. White count and platelet count are within normal limit. PT, PTT and INR are within normal limit. SMA-7: Sodium 144, potassium 4.4, chloride 111, CO2 of 23, glucose 95, BUN 81, creatinine 5.2. Three sets of troponins are 0.05, 0.05 and 0.06. ProBNP is 3590. Alcohol level is 32. EKG reveals sinus bradycardia with a rate of 50 with APCs. Echocardiography study done on the 3rd of this month to assess for pericardial effusion. Her ejection fraction was 40% to 45%. Thickened aortic and mitral valve leaflets, but adequate excursion, trace pericardial effusion. ASSESSMENT: 1. Chest pain, rule out myocardial infarction. 2. Congestive heart failure. 3. Hypertension. 4. Moderate obesity. 5. Human immunodeficiency virus positive. 6. Diffuse goiter. RECOMMENDATIONS: Continue current aspirin 81 mg once a day; clonidine 0.1 mg once a day; Lasix 40 mg intravenously daily; Lipitor 40 mg once a day; Lopressor 50 mg twice a day, hold for systolic blood pressure below 110 and the patient is not a suitable candidate for either JULES inhibitors or Aldactone therapy. Obtain thyroid profile as well as thyroid ultrasound. Obtain 24-hour urine collection for creatinine clearance. Obtain urine for drug screen. Juan Antonio Patel MD
[2017-05-12 17:00] LABS: PH,URINE 5.5 (4.7-8.0); URINE BILIRUBIN NEGATIVE (NEGATIVE); URINE BLOOD SMALL (NEGATIVE); URINE GLUCOSE (UA) NEGATIVE (NEGATIVE); URINE KETONE NEGATIVE (NEGATIVE); URINE LEUKOCYTE ESTERASE NEGATIVE Leu/uL (NEGATIVE); URINE PROTEIN 100 mg/dL (<30 mg/dL); URINE UROBILINOGEN 0.2 E.U./dL (<1 E.U./dL)
[2017-05-12 17:01] LABS: URINE APPEARANCE CLEAR (CLEAR); URINE COLOR LIGHT YELLOW (YELLOW)
[2017-05-12 17:17] LABS: URINE BACTERIA MOD (NEG); URINE WBC 0 - 2 /hpf (0-6)
--- NOTE | 2017-05-12 18:40 | CP.PCM.PN ---
Subjective - Date & Time of Evaluation Date of Evaluation: 05/12/17 Time of Evaluation: 12:00 - Subjective Subjective: 57 yo homeless F w/ pmh of htn, HIV on HAART, hep C (not treated?), COPD, CHF w / mild systolic dysfunction and CKD IV, presented with chest pain, found to have acute kidney injury; I tried to interview patient but she did not want to be bothered at the time; patient is well known to me from 2 previous recent admissions; renal function has worsened progressively over past 2 admissions; on first admission, renal function actually improved with diuresis and so we felt that RUTH was of cardiorenal etiology; however, there was again RUTH on 2nd admission that didn't improve with diuresis; Unclear if patient was adherent with her meds as she does not know the names of them and cannot say if she's taking a diuretic (as was prescribed); also, meds are kept at a friend's place and so regular access is an issue; Currently, patient not exhibiting any overt signs of volume overload; therefore , we will continue with IVF and hold diuretics for now; will re-assess tomorrow morning; will dictate full consult at that time. Objective - Vital Signs/Intake and Output Vital Signs (last 24 hours): Temp Pulse Resp BP Pulse Ox 97.7 F 61 18 155/86 H 97 05/12/17 16:47 05/12/17 18:00 05/12/17 16:47 05/12/17 17:26 05/12/17 06:00 Intake and Output: 05/12/17 05/12/17 06:59 18:59 Intake Total 360 1080 Output Total 2 4 Balance 358 1076 - Medications Medications: Current Medications Aspirin (Ecotrin) 81 mg PO DAILY [facility] Atorvastatin Calcium (Lipitor) 40 mg PO DAILY [facility] Last Admin: 05/12/17 09:10 Dose: 40 mg Clonidine HCl (Catapres) 0.1 mg PO BID [facility] Last Admin: 05/12/17 17:26 Dose: 0.1 mg Efavirenz/Emtricitabine/Tenofovir (Atripla 600 Mg-200 Mg-300 Mg) 1 tab PO DAILY [facility] Last Admin: 05/12/17 09:10 Dose: 1 tab Folic Acid (Folic Acid) 1 mg PO DAILY [facility] Furosemide (Lasix) 40 mg IV DAILY [facility] Last Admin: 05/12/17 09:11 Dose: 40 mg Heparin Sodium (Porcine) (Heparin) 5,000 units SC Q12 [facility] PRN Reason: Protocol Last Admin: 05/12/17 09:11 Dose: 5,000 units Sodium Chloride (Sodium Chloride 0.9%) 1,000 mls @ 100 mls/hr IV .Q10H [facility] Last Admin: 05/12/17 17:27 Dose: Not Given Iron Sucrose 100 mg/ Sodium (Chloride) 105 mls @ 210 mls/hr IVPB DAILY [facility] Last Admin: 05/12/17 13:14 Dose: 210 mls/hr Magnesium Oxide (Mag-Ox) 400 mg PO DAILY [facility] Last Admin: 05/12/17 09:10 Dose: 400 mg Metoprolol Tartrate (Lopressor) 50 mg PO BID [facility] Last Admin: 05/12/17 17:26 Dose: Not Given Multivitamins/Minerals (Therapeutic-M Tab) 1 tab PO 0800 [facility] Nicotine (Nicoderm Cq) 1 patch TD DAILY [facility] Pantoprazole Sodium (Protonix Inj) 40 mg IVP DAILY [facility] Last Admin: 05/12/17 09:11 Dose: 40 mg Thiamine HCl (Vitamin B1 Tab) 100 mg PO DAILY [facility] - Labs Labs: 05/12/17 04:15 05/12/17 04:15 PT 11.2 Seconds (9.9-11.8) 05/11/17 20:05 INR 1.04 (0.93-1.08) 05/11/17 20:05 APTT 26.2 Seconds (23.7-30.8) 05/11/17 20:05
--- NOTE | 2017-05-12 19:33 | CARD ---
APPROVED REPORT EKG Measurement Heart [id number] [id number] <Conclusion> Sinus bradycardia with premature atrial complexes Otherwise normal ECG
--- NOTE | 2017-05-12 19:47 | CARD ---
APPROVED REPORT EKG Measurement Heart [id number] [id number] [id number] <Conclusion> Normal sinus rhythm Possible Left atrial enlargement T wave abnormality, consider lateral ischemia Abnormal ECG
[2017-05-13 00:46] LABS: FOLATE 6.6 ng/mL
[2017-05-13] MEDS: Pantoprazole 40 mg EC Tab PO SCH (06:03)
[2017-05-13 06:27] LABS: HEMATOCRIT 27.5 % (36.0-48.0); MEAN CELL VOLUME 90.5 fl (80.0-105.0); MEAN CORPUSCULAR HGB CONC 30.9 g/dl (31.0-37.0); MEAN PLATELET VOLUME 11.3 fl (7.0-11.0); RED CELL DISTRIBUTION WIDTH 17.3 % (11.5-14.5); WHITE BLOOD COUNT 5.2 10^3/ul (4.5-11.0)
[2017-05-13] MEDS: Sodium Chloride 0.9% 1,000 ML IV SCH (07:09)
[2017-05-13 07:11] LABS: BILIRUBIN,TOTAL 0.2 mg/dL (0.2-1.3); CALCIUM 8.2 mg/dL (8.4-10.5); POTASSIUM 4.8 mmol/L (3.6-5.0); TOTAL PROTEIN 6.6 g/dL (5.8-8.3)
[2017-05-13] MEDS: Efavirenz/Emtricitabine/Teno 1 TAB PO SCH (09:33)
[2017-05-13] MEDS: Magnesium Oxide 400 mg Tab UD PO SCH (09:34)
[2017-05-13] MEDS: Multivitamin With Minerals Tab PO SCH (09:38)
[2017-05-13] MEDS ORDERED: Sodium Chloride 0.9% 1,000 ML IV SCH (11:33)
--- NOTE | 2017-05-13 13:56 | CP.PCM.PN ---
<Ashley Munoz - Last Filed: 05/13/17 14:08> Subjective - Date & Time of Evaluation Date of Evaluation: 05/13/17 Time of Evaluation: 13:53 - Subjective Subjective: Hospitalist Service Progress Note: Patient seen and examined at bedside. Per nursing no acute events overnight. Patient is doing well, states that chest pain has resolved. Ambulating and tolerating diet. Denies headaches, dizziness, cp, palpitations, sob, urinary symptoms, changes in bowel habits. Objective - Vital Signs/Intake and Output Vital Signs (last 24 hours): Temp Pulse Resp BP Pulse Ox 98.6 F 80 18 138/80 97 05/13/17 12:30 05/13/17 12:30 05/13/17 12:30 05/13/17 12:30 05/13/17 06:00 Intake and Output: 05/13/17 05/13/17 06:59 18:59 Intake Total 360 Balance 360 - Medications Medications: Current Medications Aspirin (Ecotrin) 81 mg PO DAILY [facility] Last Admin: 05/13/17 09:34 Dose: 81 mg Atorvastatin Calcium (Lipitor) 40 mg PO DAILY [facility] Last Admin: 05/13/17 09:33 Dose: 40 mg Clonidine HCl (Catapres) 0.1 mg PO BID [facility] Last Admin: 05/13/17 09:33 Dose: 0.1 mg Efavirenz/Emtricitabine/Tenofovir (Atripla 600 Mg-200 Mg-300 Mg) 1 tab PO DAILY [facility] Last Admin: 05/13/17 09:33 Dose: 1 tab Folic Acid (Folic Acid) 1 mg PO DAILY [facility] Last Admin: 05/13/17 09:34 Dose: 1 mg Furosemide (Lasix) 40 mg IV DAILY [facility] Last Admin: 05/12/17 09:11 Dose: 40 mg Heparin Sodium (Porcine) (Heparin) 5,000 units SC Q12 [facility] PRN Reason: Protocol Last Admin: 05/13/17 09:38 Dose: 5,000 units Iron Sucrose 100 mg/ Sodium (Chloride) 105 mls @ 210 mls/hr IVPB DAILY [facility] Last Admin: 05/13/17 10:39 Dose: 210 mls/hr Sodium Chloride (Sodium Chloride 0.9%) 1,000 mls @ 50 mls/hr IV .Q20H [facility] Last Admin: 05/13/17 12:30 Dose: 50 mls/hr Magnesium Oxide (Mag-Ox) 400 mg PO DAILY [facility] Last Admin: 05/13/17 09:34 Dose: 400 mg Metoprolol Tartrate (Lopressor) 50 mg PO BID [facility] Last Admin: 05/13/17 09:38 Dose: Not Given Multivitamins/Minerals (Therapeutic-M Tab) 1 tab PO 0800 [facility] Last Admin: 05/13/17 09:38 Dose: 1 tab Nicotine (Nicoderm Cq) 1 patch TD DAILY [facility] Last Admin: 05/13/17 09:34 Dose: 1 patch Pantoprazole Sodium (Protonix Ec Tab) 40 mg PO 0600 [facility] Last Admin: 05/13/17 06:03 Dose: 40 mg Thiamine HCl (Vitamin B1 Tab) 100 mg PO DAILY [facility] Last Admin: 05/13/17 09:34 Dose: 100 mg - Labs Labs: 05/13/17 06:00 05/13/17 06:00 PT 11.2 Seconds (9.9-11.8) 05/11/17 20:05 INR 1.04 (0.93-1.08) 05/11/17 20:05 APTT 26.2 Seconds (23.7-30.8) 05/11/17 20:05 - Constitutional Appears: Non-toxic, No Acute Distress - Head Exam Head Exam: ATRAUMATIC, NORMAL INSPECTION - Eye Exam Eye Exam: EOMI, Normal appearance - ENT Exam ENT Exam: Mucous Membranes Moist - Neck Exam Neck Exam: Full ROM. absent: Tenderness, Thyromegaly - Respiratory Exam Respiratory Exam: Clear to Ausculation Bilateral, NORMAL BREATHING PATTERN. absent: Rales, Rhonchi, Wheezes - Cardiovascular Exam Cardiovascular Exam: REGULAR RHYTHM, +S1, +S2 - GI/Abdominal Exam GI & Abdominal Exam: Soft. absent: Guarding, Rigid, Tenderness, Rebound - Extremities Exam Extremities Exam: Pedal Edema Additional comments: +1 pitting edema bilaterally - Back Exam Back Exam: NORMAL INSPECTION - Neurological Exam Neurological Exam: Alert, Awake, Oriented x3 - Psychiatric Exam Psychiatric exam: Normal Affect, Normal Mood - Skin Skin Exam: Normal Color, Warm Assessment and Plan - Assessment and Plan (Free Text) Assessment: 57 year old female with past medical hx of HTN, DM, CHF with EF 40-45%, COPD, HIV, Hep C, CKD stage IV, hx of DVT with IVC filter placement presenting with chest pain Plan: 1. Chest pain, rule out ACS - Continue to monitor on telemetry - Currently sinus bradycardic - Troponins: 0.05 - 0.05 - 0.06 - Continue Aspirin - Cardiology on consult, f/u recommendation 2.Dyslipidemia - Continue Lipitor 3. HTN - Continue Clonidine BID - Metoprolol held due to bradycardia - Will continue to monitor BPs 4. HIV - Continue Efavirenz/Emtricitabine 5. Anemia of chronic disease - Hgb 8.5 (Baseline 9-10) - Continue IV venofer 5. Chronic Kidney disease (Stage IV) - BUN/Cr: 77/4.6 - Baseline Cr 2.5 - 3.0 - Likely pre-renal etiology - Continue IV fluid hydration - Will hold lasix at this time - Nephrology on consult, f/u recommendations 5. Congestive Heart Failure (systolic) - BNP admission 3590 - Last echo EF 40-45% - Lasix on hold currently - Daily weights - Cardiology on consult, f/u recommendations 6. Alcohol withdrawal - Alcohol level 32 - [facility] protocol - Continue Folic acid, Multivitamins and Thiamine - UTOX negative DVT/GI prophylaxis - Heparin/Protonix <Gato Chen - Last Filed: 05/13/17 16:49> Objective - Vital Signs/Intake and Output Vital Signs (last 24 hours): Temp Pulse Resp BP Pulse Ox 98.6 F 80 18 138/80 97 05/13/17 12:30 05/13/17 12:30 05/13/17 12:30 05/13/17 12:30 05/13/17 06:00 Intake and Output: 05/13/17 05/13/17 06:59 18:59 Intake Total 360 Balance 360 - Medications Medications: Current Medications Aspirin (Ecotrin) 81 mg PO DAILY [facility] Last Admin: 05/13/17 09:34 Dose: 81 mg Atorvastatin Calcium (Lipitor) 40 mg PO DAILY [facility] Last Admin: 05/13/17 09:33 Dose: 40 mg Clonidine HCl (Catapres) 0.1 mg PO BID [facility] Last Admin: 05/13/17 09:33 Dose: 0.1 mg Efavirenz/Emtricitabine/Tenofovir (Atripla 600 Mg-200 Mg-300 Mg) 1 tab PO DAILY [facility] Last Admin: 05/13/17 09:33 Dose: 1 tab Folic Acid (Folic Acid) 1 mg PO DAILY [facility] Last Admin: 05/13/17 09:34 Dose: 1 mg Furosemide (Lasix) 40 mg IV DAILY [facility] Last Admin: 05/12/17 09:11 Dose: 40 mg Heparin Sodium (Porcine) (Heparin) 5,000 units SC Q12 [facility] PRN Reason: Protocol Last Admin: 05/13/17 09:38 Dose: 5,000 units Iron Sucrose 100 mg/ Sodium (Chloride) 105 mls @ 210 mls/hr IVPB DAILY [facility] Last Admin: 05/13/17 10:39 Dose: 210 mls/hr Sodium Chloride (Sodium Chloride 0.9%) 1,000 mls @ 50 mls/hr IV .Q20H [facility] Last Admin: 05/13/17 12:30 Dose: 50 mls/hr Magnesium Oxide (Mag-Ox) 400 mg PO DAILY [facility] Last Admin: 05/13/17 09:34 Dose: 400 mg Metoprolol Tartrate (Lopressor) 50 mg PO BID [facility] Last Admin: 05/13/17 09:38 Dose: Not Given Multivitamins/Minerals (Therapeutic-M Tab) 1 tab PO 0800 [facility] Last Admin: 05/13/17 09:38 Dose: 1 tab Nicotine (Nicoderm Cq) 1 patch TD DAILY [facility] Last Admin: 05/13/17 09:34 Dose: 1 patch Pantoprazole Sodium (Protonix Ec Tab) 40 mg PO 0600 [facility] Last Admin: 05/13/17 06:03 Dose: 40 mg Thiamine HCl (Vitamin B1 Tab) 100 mg PO DAILY [facility] Last Admin: 05/13/17 09:34 Dose: 100 mg - Labs Labs: 05/13/17 06:00 05/13/17 06:00 PT 11.2 Seconds (9.9-11.8) 05/11/17 20:05 INR 1.04 (0.93-1.08) 05/11/17 20:05 APTT 26.2 Seconds (23.7-30.8) 05/11/17 20:05 Attending/Attestation - Attestation I have personally seen and examined this patient.: Yes I have fully participated in the care of the patient.: Yes I have reviewed all pertinent clinical information, including history, physical exam and plan: Yes Notes (Text): I have seen and examined the patient at bedside. Briefly this is 57 year old female with history of HTN, CHF secondary to systolic dysfunction ( EF 40-45%), COPD, HIV, Hep C (known and untreated), CKD stage IV, hx of DVT with IVC filter placement (unclear if she was on eliquis at home), homeless who was recently discharged from the hospital for sob came back this time for evaluation of chest pain. Troponins indeterminate. EKG revealed SB. Desk Sergeant on board. Recent echo was reviewed. Continue aspirin, lipitor, clonidine, atripla. Lasix on hold due to renal insufficiency which has slightly improved. Continue venofer for anemia. UDS negative. BAL 32. Monitor closely for alcohol withdrawal. Counselling provided regarding alcohol cessation. Will consult SW. She has subclinical hypothyroidism. Advised to have a repeat TFT's in 2-4 weeks. Upon discharge patient will follow up with Dr Zoya Argueta and Dr Mccormack. Dr Gato Chen
--- NOTE | 2017-05-13 17:48 | PN ---
CHIEF COMPLAINT: Chest pain, cardiac evaluation. SUBJECTIVE: The patient lying flat in the bed, not in apparent distress. On pressing, tenderness noted in the chest. PHYSICAL EXAMINATION: VITAL SIGNS: Heart rate 80, blood pressure 138/80. HEENT: PERRLA. Extraocular muscles intact. NECK: Supple. No carotid bruits or thyromegaly. CHEST: Clear to auscultation. HEART: S1 and S2 regular. ABDOMEN: Soft. EXTREMITIES: Clubbing and cyanosis negative. LABORATORY DATA: Blood workup as follows: WBC 5.8, hemoglobin 8.5, hematocrit 27.5 and platelet count 180. Chemistry shows sodium of 141, potassium of 4.8, chloride 110, carbon dioxide 21, anion gap of 15, BUN of 77, and creatinine of 4.8. Troponin 0.05. IMPRESSION: A 57-year-old female with acute kidney injury and chronic renal insufficiency, admitted with chest pain. So far, no evidence of myocardial infarction, treadmill suggests atypical chest pain, hypertension, hyperlipidemia, possible human immunodeficiency virus positive, diffuse goiter. Previous cardiac workup as follows: The patient had echocardiography on 05/07/2017, limited study. A 2-D echo to assess pericardial effusion. Chest x-ray . Ejection fraction 45 to 50, thickened aortic valve, trace pericardial effusion noted. So far, no evidence of acute myocardial infarction, tenderness in the chest consistent with atypical chest pain. The patient's previous cardiac workup including stress test on 02/10/2017 normal ejection fraction. We will discontinue telemetry, aggressive control of blood pressure, avoid nephrotoxic medication. No further cardiac workup is planned or warranted. Thank you Dr. Chen for providing me the opportunity in taking care of the patient. Juan M Alfaro MD
--- NOTE | 2017-05-14 00:25 | CON ---
DATE: NEPHROLOGY CONSULTATION HISTORY OF PRESENT ILLNESS: The patient is a 57-year-old female with past medical history of hypertension, diabetes, CHF with preserved ejection fraction, COPD, pulmonary hypertension, HIV on HAART, hepatitis C and CKD stage IV, presented with new-onset chest pain that lasted a few minutes. Nephrology being consulted for acute kidney injury. The patient just discharged from [facility] last week after presenting with shortness of breath. This time, presented with chest pain that began after consuming a bottle of vodka on the day of presentation. The patient reports some mild associated shortness of breath; otherwise, reports that chest pain was transient. The patient otherwise reports that she has been compliant with her medications, although does not know the names of them. The patient was discharged on last admission on Lasix 40 mg in a.m. and 20 mg in p.m., metoprolol 50 mg b.i.d., hydralazine 50 mg t.i.d. Unclear if the patient was using her clonidine patch as she came in with blood pressures that were uncontrolled. The patient, otherwise, denies any change in her leg swelling. Denies any change in urination. Denies any nausea, vomiting or diarrhea. PAST MEDICAL HISTORY: As above. SOCIAL HISTORY: Current smoker, smoking more than 10 cigarettes per day. FAMILY HISTORY: Parents with diabetes. REVIEW OF SYSTEMS: CONSTITUTIONAL: Good appetite. HEENT: Denies any change in vision. RESPIRATORY: Mild shortness of breath. CARDIOVASCULAR: As per HPI. GASTROINTESTINAL: As per HPI. GENITOURINARY: As per HPI. VITALS: This morning, blood pressure 164/75, heart rate 53, respirations 18, temperature 98.4, O2 saturation 97% on room air. PHYSICAL EXAMINATION: GENERAL: No distress. Conversing coherently in full sentences. HEENT: Moist mucous membranes. Nonicteric. RESPIRATORY: Lungs clear to auscultation bilaterally. No rales, no rhonchi, no wheezes. CARDIOVASCULAR: Heart sounds S1 and S2 normal. No murmurs, no gallops, no rubs. GASTROINTESTINAL: Abdomen soft, nontender, nondistended. GENITOURINARY: No bladder distention. EXTREMITIES: 1+ bilateral lower leg edema. SKIN: Warm. No cyanosis. PSYCHIATRIC: Less agitated today. NEUROLOGIC: No tremors noted. LABORATORY DATA: This morning CBC; WBC 5.2, hemoglobin 8.5, hematocrit 27.5, platelets 180. Chemistry panel; sodium 141, potassium 4.8, chloride 110, bicarb 21, BUN 77, creatinine 4.6, glucose 101, calcium 8.2, albumin 3.3. Iron studies; iron 56, TIBC 282, saturation 20%, ferritin 187. Urine studies; urine microalbumin 613.9 mg per liter, urine creatinine 50 mg per liter, microalbumin to creatinine ratio approximately 1.2 g per . Chest x-ray: Directly visualized lungs appear clear. ASSESSMENT AND PLAN: 1. Acute kidney injury, on chronic kidney disease stage IV. Renal function improving with intravenous fluids indicating likely over-diuresis as a cause of her acute kidney injury, otherwise baseline serum creatinine runs in mid 3's up to 5.5 on presentation, but improving to 4.6 this morning; appears relatively euvolemic. Recommend to continue IV fluids. We will decrease normal saline to 50 mL/hour. The patient will need to balance her need for diuresis in the setting of congestive heart failure and pulmonary hypertension with her worsening renal function. 2. 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 Renal failure had been progressing relatively slowly and current recent deterioration may be due to over-diuresis as mentioned above. Nevertheless, the patient counseled that in this setting of proteinuria, renal failure is expected to progress to end-stage renal disease at some point and that the patient needs to be followed closely as an outpatient. The patient counseled to avoid nonsteroidal anti-inflammatory drugs as she does report using Aleve at times for bilateral leg pains. Avoiding over-diuresis as mentioned above. 3. Anemia secondary to advanced chronic kidney disease as well as some degree of iron deficiency. Getting IV iron currently. The patient will need EPO as well, will give a dose once blood pressures are better controlled. 4. Chronic kidney disease mineral bone disease. The patient with secondary hyperparathyroidism with the last PTH of 504 checked within the past few weeks; was started on calcitriol 0.25 mcg every Saturday, Saturday, and Saturday, should continue the same, and also with mild gap metabolic acidosis in the setting of renal failure, will need to monitor and start on sodium bicarbonate if bicarbonate decreases any further. 5. Hypertensive chronic kidney disease. The patient is on clonidine 0.1 mg b.i.d., metoprolol 50 mg p.o. b.i.d. with blood pressures improving this evening. The patient will need to be on diuretics standing, but will also need to tolerate some degree of edema in order to preserve renal function. We will start Lasix 20 mg once daily once serum creatinine has stabilized. 6. Congestive heart failure with preserved ejection fraction with mild systolic dysfunction previously seen as well as pulmonary hypertension. The patient currently on beta blockers; benefit of JULES inhibitor/ARB is likely outweighed by worsening renal function and therefore should not start at this time. Alfonso Mccormack MD
[2017-05-14] MEDS: Pantoprazole 40 mg EC Tab PO SCH (05:33)
[2017-05-14 07:06] LABS: MEAN CORPUSCULAR HEMOGLOBIN 28.4 pg (25.0-35.0); MEAN CORPUSCULAR HGB CONC 31.5 g/dl (31.0-37.0); MEAN PLATELET VOLUME 11.1 fl (7.0-11.0); WHITE BLOOD COUNT 3.7 10^3/ul (4.5-11.0)
[2017-05-14 07:15] LABS: BILIRUBIN,TOTAL 0.2 mg/dL (0.2-1.3); CALCIUM 8.4 mg/dL (8.4-10.5); MAGNESIUM 1.7 mg/dL (1.7-2.2); PHOSPHOROUS 5.2 mg/dL (2.5-4.5); POTASSIUM 4.9 mmol/L (3.6-5.0); TOTAL PROTEIN 6.2 g/dL (5.8-8.3)
[2017-05-14 08:00] VITALS: RESP 20; TEMP 97.8
[2017-05-14] MEDS: Multivitamin With Minerals Tab PO SCH (08:43)
[2017-05-14] MEDS: Magnesium Oxide 400 mg Tab UD PO SCH (10:24)
[2017-05-14] MEDS: Efavirenz/Emtricitabine/Teno 1 TAB PO SCH (10:59)
[2017-05-14 11:02] VITALS: PULSE 54
[2017-05-14 11:42] VITALS: BP 174/94
--- NOTE | 2017-05-14 12:39 | CP.PCM.PN ---
<Ashley Munoz - Last Filed: 05/14/17 14:04> Subjective - Date & Time of Evaluation Date of Evaluation: 05/14/17 Time of Evaluation: 12:38 - Subjective Subjective: Hospitalist Service Progress Note: Patient seen and examined at bedside. Per nursing no acute events overnight. Patient is doing well, offers no complaints at this time. Denies headache, dizziness, cp, palpitations, sob, abdominal pain, urinary symptoms. Objective - Vital Signs/Intake and Output Vital Signs (last 24 hours): Temp Pulse Resp BP Pulse Ox 97.8 F 54 L 20 174/94 H 97 05/14/17 07:30 05/14/17 11:39 05/14/17 07:30 05/14/17 11:39 05/14/17 07:30 Intake and Output: 05/14/17 05/14/17 06:59 18:59 Intake Total 1140 400 Balance 1140 400 - Medications Medications: Current Medications Aspirin (Ecotrin) 81 mg PO DAILY [facility] Last Admin: 05/14/17 10:25 Dose: 81 mg Atorvastatin Calcium (Lipitor) 40 mg PO DAILY [facility] Last Admin: 05/14/17 10:26 Dose: 40 mg Clonidine HCl (Catapres) 0.1 mg PO BID [facility] Last Admin: 05/14/17 10:51 Dose: 0.1 mg Efavirenz/Emtricitabine/Tenofovir (Atripla 600 Mg-200 Mg-300 Mg) 1 tab PO DAILY [facility] Last Admin: 05/14/17 10:59 Dose: 1 tab Folic Acid (Folic Acid) 1 mg PO DAILY [facility] Last Admin: 05/14/17 10:54 Dose: 1 mg Furosemide (Lasix) 40 mg IV DAILY [facility] Last Admin: 05/12/17 09:11 Dose: 40 mg Heparin Sodium (Porcine) (Heparin) 5,000 units SC Q12 [facility] PRN Reason: Protocol Last Admin: 05/14/17 10:28 Dose: 5,000 units Hydralazine HCl (Apresoline) 25 mg PO BID [facility] Last Admin: 05/14/17 11:39 Dose: 25 mg Iron Sucrose 100 mg/ Sodium (Chloride) 105 mls @ 210 mls/hr IVPB DAILY [facility] Last Admin: 05/14/17 10:54 Dose: 210 mls/hr Sodium Chloride (Sodium Chloride 0.9%) 1,000 mls @ 50 mls/hr IV .Q20H [facility] Last Admin: 05/13/17 12:30 Dose: 50 mls/hr Magnesium Oxide (Mag-Ox) 400 mg PO DAILY [facility] Last Admin: 05/14/17 10:24 Dose: 400 mg Metoprolol Tartrate (Lopressor) 50 mg PO BID [facility] Last Admin: 05/14/17 10:54 Dose: 50 mg Multivitamins/Minerals (Therapeutic-M Tab) 1 tab PO 0800 [facility] Last Admin: 05/14/17 08:43 Dose: 1 tab Nicotine (Nicoderm Cq) 1 patch TD DAILY [facility] Last Admin: 05/14/17 10:27 Dose: 1 patch Pantoprazole Sodium (Protonix Ec Tab) 40 mg PO 0600 [facility] Last Admin: 05/14/17 05:33 Dose: 40 mg Thiamine HCl (Vitamin B1 Tab) 100 mg PO DAILY [facility] Last Admin: 05/14/17 10:26 Dose: 100 mg - Labs Labs: 05/14/17 06:44 05/14/17 06:44 PT 11.2 Seconds (9.9-11.8) 05/11/17 20:05 INR 1.04 (0.93-1.08) 05/11/17 20:05 APTT 26.2 Seconds (23.7-30.8) 05/11/17 20:05 - Constitutional Appears: Well, No Acute Distress - Head Exam Head Exam: ATRAUMATIC, NORMAL INSPECTION - Eye Exam Eye Exam: EOMI - ENT Exam ENT Exam: Mucous Membranes Moist - Neck Exam Neck Exam: Full ROM - Respiratory Exam Respiratory Exam: Clear to Ausculation Bilateral, NORMAL BREATHING PATTERN. absent: Rales, Rhonchi, Wheezes - Cardiovascular Exam Cardiovascular Exam: REGULAR RHYTHM, +S1, +S2 - GI/Abdominal Exam GI & Abdominal Exam: Soft. absent: Guarding, Rigid, Tenderness - Rectal Exam Rectal Exam: Deferred - Extremities Exam Additional comments: +1 pitting edema bilaterally - Back Exam Back Exam: NORMAL INSPECTION - Neurological Exam Neurological Exam: Alert, Awake, Oriented x3 - Psychiatric Exam Psychiatric exam: Normal Affect, Normal Mood - Skin Skin Exam: Normal Color, Warm Assessment and Plan - Assessment and Plan (Free Text) Assessment: 57 year old female with past medical hx of HTN, CHF with EF 40-45%, COPD, HIV, Hep C, CKD stage IV, hx of DVT with IVC filter placement presenting with chest pain Plan: 1. Atypical Chest pain, rule out ACS - ACS ruled out - Telemetry discontinued - Stress test 02/2017 was normal - Troponins: 0.05 - 0.05 - 0.06 - Continue Aspirin - Cardiology on consult, f/u recommendations 2. Acute on Chronic Kidney disease (Stage IV) - BUN/Cr improvin/3.9 - Baseline Cr 2.5 - 3.0 - FeUrea suggesting intrinsic etiology; Cr improving with IV hydration - Lasix 20mg daily PO - Per Nephro, no ACEi/ARB at this time - Nephrology on consult, f/u recommendations 3. Anemia of chronic disease - Hgb 8.2 (Baseline 9-10) - Continue IV venofer - Per nephro, would like to give EPO once BP better controlled 4. Subclinical hypothyroidism - Advised to have a repeat TFT's in 2-4 weeks 5. Dyslipidemia - Continue Lipitor 6. Hypertension - Patient with BP readings 170s/90s - Continue Clonidine BID - Continue Metoprolol 50mg BID - Hydralazine 25mg BID started - Will continue to monitor BPs 7. HIV - Continue Efavirenz/Emtricitabine 8. Congestive Heart Failure (systolic) - BNP admission 3590 - Last echo EF 40-45% - Daily weights - Cardiology on consult, f/u recommendations 9. Alcohol withdrawal - Alcohol level 32 - [facility] protocol - Continue Folic acid, Multivitamins and Thiamine - UTOX negative - Alcohol cessation advised 10. Tobacco abuse - Nicotine patch - Tobacco cessation advised DVT/GI prophylaxis - Heparin/Protonix <Gato Chen B - Last Filed: 05/15/17 16:58> Objective - Vital Signs/Intake and Output Vital Signs (last 24 hours): Temp Pulse Resp BP Pulse Ox 97.8 F 54 L 20 174/94 H 97 05/14/17 07:30 05/14/17 11:39 05/14/17 07:30 05/14/17 11:39 05/14/17 07:30 - Labs Labs: 05/14/17 06:44 05/14/17 06:44 PT 11.2 Seconds (9.9-11.8) 05/11/17 20:05 INR 1.04 (0.93-1.08) 10/07/17 20:05 APTT 26.2 Seconds (23.7-30.8) 05/11/17 20:05 Attending/Attestation - Attestation I have personally seen and examined this patient.: Yes I have fully participated in the care of the patient.: Yes I have reviewed all pertinent clinical information, including history, physical exam and plan: Yes
[2017-05-14 15:38] LABS: CREATININE, RANDOM URINE 55 mg/dL (20-320)
--- NOTE | 2017-05-14 15:55 | CP.PCM.DIS ---
<Ashley Munoz - Last Filed: 05/15/17 15:56> Provider - Provider Date of Admission: 05/13/17 16:50 Attending physician: Gato Chen MD Primary care physician: Kendall Kenny MD Consults: Nephro: Bryoni Cardio: Dominic Time Spent in preparation of Discharge (in minutes): 32 Hospital Course - Lab Results Lab Results: Most Recent Lab Values WBC 3.7 10^3/ul (4.5-11.0) L D 05/14/17 06:44 RBC 2.89 10^6/uL (3.5-6.1) L 05/14/17 06:44 Hgb 8.2 g/dL (12.0-16.0) L 05/14/17 06:44 Hct 26.0 % (36.0-48.0) L 05/14/17 06:44 MCV 90.0 fl (80.0-105.0) 05/14/17 06:44 MCH 28.4 pg (25.0-35.0) 05/14/17 06:44 MCHC 31.5 g/dl (31.0-37.0) 05/14/17 06:44 RDW 17.0 % (11.5-14.5) H 05/14/17 06:44 Plt Count 156 10^3/uL (120.0-450.0) 05/14/17 06:44 MPV 11.1 fl (7.0-11.0) H 05/14/17 06:44 Gran % 66.3 % (50.0-68.0) 05/12/17 04:15 Lymph % (Auto) 17.9 % (22.0-35.0) L 05/12/17 04:15 [place] % (Auto) 13.0 % (1.0-6.0) H 05/12/17 04:15 Eos % (Auto) 1.9 % (1.5-5.0) 05/12/17 04:15 Baso % (Auto) 0.9 % (0.0-3.0) 05/12/17 04:15 Gran # 3.12 (1.4-6.5) 05/12/17 04:15 Lymph # 0.8 (1.2-3.4) L 05/12/17 04:15 [place] # 0.6 (0.1-0.6) 05/12/17 04:15 Eos # 0.1 (0.0-0.7) 05/12/17 04:15 Baso # 0.04 K/mm3 (0.0-2.0) 05/12/17 04:15 PT 11.2 Seconds (9.9-11.8) 05/11/17 20:05 INR 1.04 (0.93-1.08) 05/11/17 20:05 APTT 26.2 Seconds (23.7-30.8) 05/11/17 20:05 Sodium 140 mmol/L (132-148) 05/14/17 06:44 Potassium 4.9 mmol/L (3.6-5.0) 05/14/17 06:44 Chloride 111 mmol/L (98-107) H 05/14/17 06:44 Carbon Dioxide 22 mmol/L (21-33) 05/14/17 06:44 Anion Gap 12 (10-20) 05/14/17 06:44 BUN 73 mg/dL (7-21) H 05/14/17 06:44 Creatinine 3.9 mg/dL (0.7-1.2) H 05/14/17 06:44 Est GFR ( Amer) 14 05/14/17 06:44 Est GFR (Non-Af Amer) 12 05/14/17 06:44 Random Glucose 94 mg/dL (70-110) 05/14/17 06:44 Calcium 8.4 mg/dL (8.4-10.5) 05/14/17 06:44 Phosphorus 5.2 mg/dL (2.5-4.5) H 05/14/17 06:44 Magnesium 1.7 mg/dL (1.7-2.2) 05/14/17 06:44 Iron 56 ug/dL (45-180) 05/12/17 12:10 TIBC 282 ug/dL (265-497) 05/12/17 12:10 % Saturation 20 % (20-55) 05/12/17 12:10 Transferrin 240.43 mg/dL (206-381) 05/12/17 12:10 Ferritin 187.0 ng/mL 05/12/17 12:10 Total Bilirubin 0.2 mg/dL (0.2-1.3) 05/14/17 06:44 AST 44 U/L (14-36) H D 05/14/17 06:44 ALT 34 U/L (7-56) 05/14/17 06:44 Alkaline Phosphatase 109 U/L (38-126) 05/14/17 06:44 Lactate Dehydrogenase 484 U/L (333-699) 05/11/17 20:05 Total Creatine Kinase 293 U/L (35-230) H 05/11/17 20:05 CK-MB (CK-2) 2.6 ng/mL (0.0-3.6) 05/11/17 20:05 CK-MB (CK-2) % Cancelled 05/11/17 20:05 Troponin I 0.06 ng/mL 05/12/17 12:10 NT-Pro-B Natriuret Pep 3590 pg/mL (0-450) H 05/12/17 12:10 Total Protein 6.2 g/dL (5.8-8.3) 05/14/17 06:44 Albumin 3.0 g/dL (3.0-4.8) 05/14/17 06:44 Globulin 3.1 gm/dL 05/14/17 06:44 Albumin/Globulin Ratio 1.0 (1.1-1.8) L 05/14/17 06:44 Vitamin B12 396 pg/mL (239-931) 05/12/17 12:10 Folate 6.6 ng/mL 05/12/17 12:10 Free T4 0.78 ng/dL (0.78-2.19) 05/12/17 14:00 Thyroxine (T4) 5.6 ug/dL (5.5-11.0) 05/12/17 14:00 TSH 3rd Generation 5.3 MIU/ml (0.46-4.68) H 05/14/17 06:44 Urine Color Light yellow (YELLOW) 05/12/17 14:25 Urine Appearance Clear (CLEAR) 05/12/17 14:25 Urine pH 5.5 (4.7-8.0) 05/12/17 14:25 Ur Specific [place] 1.015 (1.005-1.035) 05/12/17 14:25 Urine Protein 100 mg/dL (<30 mg/dL) H 05/12/17 14:25 Urine Glucose (UA) Negative mg/dL (NEGATIVE) 05/12/17 14:25 Urine Ketones Negative mg/dL (NEGATIVE) 05/12/17 14:25 Urine Blood Small (NEGATIVE) H 05/12/17 14:25 Urine Nitrate Negative (NEGATIVE) 05/12/17 14:25 Urine Bilirubin Negative (NEGATIVE) 05/12/17 14:25 Urine Urobilinogen 0.2 E.U./dL (<1 E.U./dL) 05/12/17 14:25 Ur Leukocyte Esterase Negative Kiran/uL (NEGATIVE) 05/12/17 14:25 Urine RBC 1 - 3 /hpf (0-2) 05/12/17 14:25 Urine WBC 0 - 2 /hpf (0-6) 05/12/17 14:25 Ur Epithelial Cells 3 - 4 /hpf (0-5) 05/12/17 14:25 Urine Bacteria Mod (NEG) 05/12/17 14:25 Hyaline Casts 0 - 2 /hpf 05/12/17 14:25 Ur Random Creatinine 50 mg/dL 05/12/17 14:30 U Random Total Protein 2053 mg/g creat (21-161) H 05/12/17 14:25 Ur Random Sodium 96 meq/L 05/12/17 15:00 Ur Random Urea Nitrogn 417 mg/dL 05/12/17 14:30 Urine Microalbumin 613.9 mg/L (0.0-16.6) H 05/12/17 14:25 Urine Opiates Screen Negative (NEGATIVE) 05/12/17 14:30 Urine Methadone Screen Negative (NEGATIVE) 05/12/17 14:30 Ur Barbiturates Screen Negative (NEGATIVE) 05/12/17 14:30 Ur Phencyclidine Scrn Negative (NEGATIVE) 05/12/17 14:30 Ur Amphetamines Screen Negative (NEGATIVE) 05/12/17 14:30 U Benzodiazepines Scrn Negative (NEGATIVE) 05/12/17 14:30 U Oth Cocaine Metabols Negative (NEGATIVE) 05/12/17 14:30 U Cannabinoids Screen Negative (NEGATIVE) 05/12/17 14:30 Alcohol, Quantitative 32 mg/dL (0-10) H 05/11/17 20:05 - Hospital Course Hospital Course: Patient is a 57 year old female with a past medical history of HTN, CHF with EF 40-45%, COPD, HIV, Hep C, CKD stage IV, hx of DVT with IVC filter placement who presents to [facility] 05/11/17 with complaints of chest pain. Patient states she drank a bottle of vodka this morning then went for a walk during the day. She states while walking she began to experience chest pain. At the time she saw someone on the street and asked them to call the ambulance. She states she has never experienced this pain before. She rated the pain a 10/10 and localized it to the sternal area. She describes the pain as dull and denies any exacerbating or relieving factors. Patient was admitted and monitored on telemetry for chest pain. Cardiology was consulted. Troponins were indeterminate. EKG revealed sinus bradycardia. Recent echo and stress test were reviewed. ACS was ruled out. Aspirin, lipitor, atripla were continued. Chest pain resolved. For hypertension, patient was on Clonidine, metoprolol, hydralazine. Lasix was held due to renal insufficiency which has slightly improved with IV fluids. PO lasix was subsequently started. For anemia patient was on venofer. Alcohol level on admission was 32. UDS was negative. Patient was monitored closely for alcohol withdrawal. Counseling provided regarding alcohol cessation and tobacco cessation. Patient had subclinical hypothyroidism. Advised to have a repeat TFT's in 2-4 weeks. On , Patient was requesting to be discharged. Advised the patient that she should stay so blood pressure medications could be adequately adjusted. Patient refusing to stay and demanding that she leave. Benefits of continuing treatment explained, risks of leaving the hospital also explained. Patient understands and signed out against medical advice. Discharge Exam - Head Exam Head Exam: ATRAUMATIC, NORMAL INSPECTION - Eye Exam Eye Exam: EOMI, Normal appearance Pupil Exam: NORMAL ACCOMODATION - ENT Exam ENT Exam: Mucous Membranes Moist - Neck Exam Neck exam: Full Rom - Respiratory Exam Respiratory Exam: Clear to PA & Lateral, UNREMARKABLE. absent: Rhonchi, Wheezes , Respiratory Distress - Cardiovascular Exam Cardiovascular Exam: REGULAR RHYTHM, +S1, +S2 - GI/Abdominal Exam GI & Abdominal Exam: Normal Bowel Sounds, Soft. absent: Guarding, Rebound, Rigid, Tenderness - Extremities Exam Extremities exam: full ROM, pedal edema Additional comments: +1 pitting edema bilaterally - Back Exam Back exam: NORMAL INSPECTION - Neurological Exam Neurological exam: Alert, Oriented x3 - Psychiatric Exam Psychiatric exam: Normal Affect, Normal Mood - Skin Skin Exam: Normal Color, Warm Discharge Plan - Follow Up Plan Condition: STABLE Disposition: AGAINST MEDICAL ADVICE Referrals: Kendall Kenny MD [Primary Care Provider] - <Gato Chen - Last Filed: 05/15/17 16:59> Provider - Provider Date of Admission: 05/11/17 21:59 Attending physician: Gato Chen MD Primary care physician: Kendall Kenny MD Time Spent in preparation of Discharge (in minutes): 35 Hospital Course - Lab Results Lab Results: Most Recent Lab Values WBC 3.7 10^3/ul (4.5-11.0) L D 05/14/17 06:44 RBC 2.89 10^6/uL (3.5-6.1) L 05/14/17 06:44 Hgb 8.2 g/dL (12.0-16.0) L 05/14/17 06:44 Hct 26.0 % (36.0-48.0) L 05/14/17 06:44 MCV 90.0 fl (80.0-105.0) 05/14/17 06:44 MCH 28.4 pg (25.0-35.0) 05/14/17 06:44 MCHC 31.5 g/dl (31.0-37.0) 05/14/17 06:44 RDW 17.0 % (11.5-14.5) H 05/14/17 06:44 Plt Count 156 10^3/uL (120.0-450.0) 05/14/17 06:44 MPV 11.1 fl (7.0-11.0) H 05/14/17 06:44 Gran % 66.3 % (50.0-68.0) 05/12/17 04:15 Lymph % (Auto) 17.9 % (22.0-35.0) L 05/12/17 04:15 [place] % (Auto) 13.0 % (1.0-6.0) H 05/12/17 04:15 Eos % (Auto) 1.9 % (1.5-5.0) 05/12/17 04:15 Baso % (Auto) 0.9 % (0.0-3.0) 05/12/17 04:15 Gran # 3.12 (1.4-6.5) 05/12/17 04:15 Lymph # 0.8 (1.2-3.4) L 05/12/17 04:15 [place] # 0.6 (0.1-0.6) 05/12/17 04:15 Eos # 0.1 (0.0-0.7) 05/12/17 04:15 Baso # 0.04 K/mm3 (0.0-2.0) 05/12/17 04:15 PT 11.2 Seconds (9.9-11.8) 05/11/17 20:05 INR 1.04 (0.93-1.08) 05/11/17 20:05 APTT 26.2 Seconds (23.7-30.8) 05/11/17 20:05 Sodium 140 mmol/L (132-148) 05/14/17 06:44 Potassium 4.9 mmol/L (3.6-5.0) 05/14/17 06:44 Chloride 111 mmol/L (98-107) H 05/14/17 06:44 Carbon Dioxide 22 mmol/L (21-33) 05/14/17 06:44 Anion Gap 12 (10-20) 05/14/17 06:44 BUN 73 mg/dL (7-21) H 05/14/17 06:44 Creatinine 3.9 mg/dL (0.7-1.2) H 05/14/17 06:44 Est GFR ( Amer) 14 05/14/17 06:44 Est GFR (Non-Af Amer) 12 05/14/17 06:44 Random Glucose 94 mg/dL (70-110) 05/14/17 06:44 Calcium 8.4 mg/dL (8.4-10.5) 05/14/17 06:44 Phosphorus 5.2 mg/dL (2.5-4.5) H 05/14/17 06:44 Magnesium 1.7 mg/dL (1.7-2.2) 05/14/17 06:44 Iron 56 ug/dL (45-180) 05/12/17 12:10 TIBC 282 ug/dL (265-497) 05/12/17 12:10 % Saturation 20 % (20-55) 05/12/17 12:10 Transferrin 240.43 mg/dL (206-381) 05/12/17 12:10 Ferritin 187.0 ng/mL 05/12/17 12:10 Total Bilirubin 0.2 mg/dL (0.2-1.3) 05/14/17 06:44 AST 44 U/L (14-36) H D 05/14/17 06:44 ALT 34 U/L (7-56) 05/14/17 06:44 Alkaline Phosphatase 109 U/L (38-126) 05/14/17 06:44 Lactate Dehydrogenase 484 U/L (333-699) 05/11/17 20:05 Total Creatine Kinase 293 U/L (35-230) H 05/11/17 20:05 CK-MB (CK-2) 2.6 ng/mL (0.0-3.6) 05/11/17 20:05 CK-MB (CK-2) % Cancelled 05/11/17 20:05 Troponin I 0.06 ng/mL 05/12/17 12:10 NT-Pro-B Natriuret Pep 3590 pg/mL (0-450) H 05/12/17 12:10 Total Protein 6.2 g/dL (5.8-8.3) 05/14/17 06:44 Albumin 3.0 g/dL (3.0-4.8) 05/14/17 06:44 Globulin 3.1 gm/dL 05/14/17 06:44 Albumin/Globulin Ratio 1.0 (1.1-1.8) L 05/14/17 06:44 Vitamin B12 396 pg/mL (239-931) 05/12/17 12:10 Folate 6.6 ng/mL 05/12/17 12:10 Free T4 0.78 ng/dL (0.78-2.19) 05/12/17 14:00 Thyroxine (T4) 5.6 ug/dL (5.5-11.0) 05/12/17 14:00 TSH 3rd Generation 5.3 MIU/ml (0.46-4.68) H 05/14/17 06:44 Urine Color Light yellow (YELLOW) 05/12/17 14:25 Urine Appearance Clear (CLEAR) 05/12/17 14:25 Urine pH 5.5 (4.7-8.0) 05/12/17 14:25 Ur Specific [place] 1.015 (1.005-1.035) 05/12/17 14:25 Urine Protein 100 mg/dL (<30 mg/dL) H 05/12/17 14:25 Urine Glucose (UA) Negative mg/dL (NEGATIVE) 05/12/17 14:25 Urine Ketones Negative mg/dL (NEGATIVE) 05/12/17 14:25 Urine Blood Small (NEGATIVE) H 05/12/17 14:25 Urine Nitrate Negative (NEGATIVE) 05/12/17 14:25 Urine Bilirubin Negative (NEGATIVE) 05/12/17 14:25 Urine Urobilinogen 0.2 E.U./dL (<1 E.U./dL) 05/12/17 14:25 Ur Leukocyte Esterase Negative Kiran/uL (NEGATIVE) 05/12/17 14:25 Urine RBC 1 - 3 /hpf (0-2) 05/12/17 14:25 Urine WBC 0 - 2 /hpf (0-6) 05/12/17 14:25 Ur Epithelial Cells 3 - 4 /hpf (0-5) 05/12/17 14:25 Urine Bacteria Mod (NEG) 05/12/17 14:25 Hyaline Casts 0 - 2 /hpf 05/12/17 14:25 Ur Random Creatinine 50 mg/dL 05/12/17 14:30 U Random Total Protein 2053 mg/g creat (21-161) H 05/12/17 14:25 Ur Random Sodium 96 meq/L 05/12/17 15:00 Ur Random Urea Nitrogn 417 mg/dL 05/12/17 14:30 Urine Microalbumin 613.9 mg/L (0.0-16.6) H 05/12/17 14:25 Urine Opiates Screen Negative (NEGATIVE) 05/12/17 14:30 Urine Methadone Screen Negative (NEGATIVE) 05/12/17 14:30 Ur Barbiturates Screen Negative (NEGATIVE) 05/12/17 14:30 Ur Phencyclidine Scrn Negative (NEGATIVE) 05/12/17 14:30 Ur Amphetamines Screen Negative (NEGATIVE) 05/12/17 14:30 U Benzodiazepines Scrn Negative (NEGATIVE) 05/12/17 14:30 U Oth Cocaine Metabols Negative (NEGATIVE) 05/12/17 14:30 U Cannabinoids Screen Negative (NEGATIVE) 05/12/17 14:30 Alcohol, Quantitative 32 mg/dL (0-10) H 05/11/17 20:05 Attending/Attestation - Attestation I have personally seen and examined this patient.: Yes I have fully participated in the care of the patient.: Yes I have reviewed all pertinent clinical information, including history, physical exam and plan: Yes Notes (Text): Patient left AMA
--- NOTE | 2017-05-14 16:44 | PN ---
DATE: REASON FOR CONSULTATION: Chest pain and cardiac evaluation. SUBJECTIVE: The patient is lying flat on the bed. Denies any further episode of chest pain, shortness of breath, or any palpitation. OBJECTIVE: GENERAL: Not in apparent distress. Lying flat on the bed. VITAL SIGNS: Temperature afebrile, heart rate 54, and blood pressure 173/94. HEENT: PERRLA intact. NECK: Supple. No carotid bruits or thyromegaly. CHEST: Clear to auscultation. HEART: S1 and S2 regular. ABDOMEN: Soft. EXTREMITIES: Clubbing and cyanosis negative. LABORATORY DATA: Blood workup as follows: WBC 3.7, hemoglobin 8.2, hematocrit 26, and platelet count 156. Chemistry shows sodium 140, potassium 4.9, chloride 111, carbon dioxide 22, anion gap of 12, BUN 73, and creatinine 3.9. IMPRESSION: Atypical chest pain, tenderness on chest, musculoskeletal. So far, no evidence of acute coronary syndrome or acute myocardial infarction. Recently, the patient had cardiac workup done, echo 05/07/2013 done was to rule out pericardial effusion because of enlarged cardiac silhouette with ejection fraction of 45% to 50%. No significant effusion noted. Tenderness in chest atypical. The patient had a stress test on 02/10/2017 with normal ejection fraction. RECOMMENDATIONS: We will sign off. Continue aggressive treatment for blood pressure. Continue renal followup. We will glad to follow p.r.n. Continue DVT prophylaxis. Continue b.i.d. and continue atorvastatin, and continue beta-jose.. We will put 25 mg b.i.d. hydralazine for better control of blood pressure with holding parameters and hold for blood pressure less than 130. Thank you Dr. Chen for providing me the opportunity in taking care of the patient, Carie Duncan. Juan M Alfaro MD
--- NOTE | 2017-05-14 18:19 | CP.PCM.PN ---
Subjective - Date & Time of Evaluation Date of Evaluation: 05/14/17 Time of Evaluation: 11:00 - Subjective Subjective: 57 yo F w/ HIV on HAART, htn, CHF and CKD IV, admitted with chest pain and RUTH; Didn't want to be bothered earlier today during our encounter; Objective - Vital Signs/Intake and Output Vital Signs (last 24 hours): Temp Pulse Resp BP Pulse Ox 97.8 F 54 L 20 174/94 H 97 05/14/17 07:30 05/14/17 11:39 05/14/17 07:30 05/14/17 11:39 05/14/17 07:30 Intake and Output: 05/14/17 05/14/17 06:59 18:59 Intake Total 1140 800 Balance 1140 800 - Labs Labs: 05/14/17 06:44 05/14/17 06:44 PT 11.2 Seconds (9.9-11.8) 05/11/17 20:05 INR 1.04 (0.93-1.08) 05/11/17 20:05 APTT 26.2 Seconds (23.7-30.8) 05/11/17 20:05 - Constitutional Appears: No Acute Distress - Eye Exam Eye Exam: Normal appearance - ENT Exam ENT Exam: Mucous Membranes Moist - Respiratory Exam Respiratory Exam: Clear to Ausculation Bilateral. absent: Respiratory Distress Additional comments: Decreased breath sounds on L; - Cardiovascular Exam Cardiovascular Exam: RRR, +S1, +S2 - GI/Abdominal Exam GI & Abdominal Exam: Soft. absent: Distended, Tenderness - Extremities Exam Additional comments: 1+ bilateral lower leg edema; - Neurological Exam Neurological Exam: Alert, Awake - Skin Skin Exam: Warm. absent: Cyanosis Assessment and Plan (1) RUTH (acute kidney injury) Assessment & Plan: Pre-renal etiology, improved with IVF; patient was explained that she will have to deal with some degree of edema as long as resp status stable and that we can' t over-diurese her; -d/c IVF, can restart lasix 20 mg PO daily from tomorrow (was previously on 40 in am/20 in pm); Status: Acute (2) Hypertensive CKD (chronic kidney disease) Assessment & Plan: Erratic BP control; patient was explained that BP control will take time to achieve and needs to be done on outpatient basis; on clonidine 0.1 mg bid and metoprolol 50 bid, primary team starting hydralazine 25 mg bid; lasix as above; Status: Acute (3) Anemia Assessment & Plan: Due to iron deficiency and CKD; being given IV iron; needs EPO but BP has to be better controlled; Status: Chronic (4) CKD (chronic kidney disease), stage IV Assessment & Plan: Proteinuric kidney disease that had been progressing relatively slowly but patient was explained that she would eventually need dialysis within a couple of years; needs outpatient f/u; avoiding over-diuresis; Status: Chronic - Assessment and Plan (Free Text) Assessment: Spoke with primary attending today; patient is stable for d/c from our end but needs outpatient f/u about which patient was repeatedly counseled.
== END 2017-05-14 17:03 | disposition left against medical advice (07) ==
LOC: ED 19:29 → ERH 21:59 → 2RNO 23:39 → 5RNO 05-13 16:03 → INTOOBSV 05-13 16:50 → OBSVTOIN 05-13 16:50
PROVIDERS: ADMIT Internal Medicine; ATTEND Hospitalist
DX: R07.9 Chest pain, unspecified (principal); I50.20 Unspecified systolic (congestive) heart failure; N17.9 Acute kidney failure, unspecified; Z21 Asymptomatic human immunodeficiency virus [HIV] infection status; D50.9 Iron deficiency anemia, unspecified; E03.9 Hypothyroidism, unspecified; E04.9 Nontoxic goiter, unspecified; E11.22 Type 2 diabetes mellitus with diabetic chronic kidney disease; I13.0 Hypertensive heart and chronic kidney disease with heart failure and stage 1 through stage 4 chronic kidney disease, or unspecified chronic kidney disease; N18.4 Chronic kidney disease, stage 4 (severe); J44.9 Chronic obstructive pulmonary disease, unspecified; N25.81 Secondary hyperparathyroidism of renal origin; E87.2 Acidosis; E66.9 Obesity, unspecified; F17.210 Nicotine dependence, cigarettes, uncomplicated; I27.20 Pulmonary hypertension, unspecified; I48.91 Unspecified atrial fibrillation; Z59.0 Homelessness; Z79.899 Other long term (current) drug therapy; Z83.3 Family history of diabetes mellitus; Z86.718 Personal history of other venous thrombosis and embolism; M19.90 Unspecified osteoarthritis, unspecified site; Z87.19 Personal history of other diseases of the digestive system; F41.9 Anxiety disorder, unspecified; F32.89 Other specified depressive episodes; E78.5 Hyperlipidemia, unspecified; F10.239 Alcohol dependence with withdrawal, unspecified; Y90.1 Blood alcohol level of 20-39 mg/100 ml; Z86.19 Personal history of other infectious and parasitic diseases; D53.9 Nutritional anemia, unspecified; I48.0 Paroxysmal atrial fibrillation; D63.8 Anemia in other chronic diseases classified elsewhere; R07.89 Other chest pain; Z72.0 Tobacco use
CPT/HCPCS: 36415; 71010; 80053; 81001; 82043; 82550; 82553; 82570; 82607; 82728; 82746; 83615; 83735; 83880; 84100; 84156; 84300; 84439; 84443; 84466; 84484; 84540; 85025; 85027; 85610; 85730; 93005; 99285; C9113; G0378; G0480; J1644; J1756; J1940; J7040

== ENCOUNTER 2017-05-14 21:02 | Emergency (ER) | payer MEDICARE, OTHER ==
[2017-05-14 21:02] VITALS: PULSE 125
[2017-05-14 21:04] VITALS: BMI 40.3
[2017-05-14 21:45] VITALS: TEMP 98.5
--- NOTE | 2017-05-14 21:58 | ED PDOC ---
Arrival/HPI - General Chief Complaint: Chest Pain Time Seen by Provider: 05/14/17 21:04 Historian: Patient - History of Present Illness Narrative History of Present Illness (Text): 05/14/17 21:30 A 57 year old female well-known to the ER, whose past medical history includes hepatitis C, HIV, diabetes, anemia, ARF, DVT, CHF, and Atrial fibrillation, presents to the emergency department complaining of non-radiating chest pain. Patient was recently discharged today after resolve of chest pain. Tonight, patient began experiencing chest pain again. Patient has no other complaints. PMD: Dr. Salvatore De Jesus Symptom Onset: Gradual Symptom Course: Unchanged Past Medical History - Provider Review Nursing Documentation Reviewed: Yes - Past History Past History: Non-Contributing - Infectious Disease Hx of Infectious Diseases: None - Tetanus Immunization Tetanus Immunization: Unknown - Past Medical History Past Medical History: Non-Contributing - Cardiac Hx Congestive Heart Failure: Yes Hx Hypertension: Yes Hx Peripheral Edema: Yes - Pulmonary Hx Chronic Obstructive Pulmonary Disease (COPD): Yes - Neurological Hx Neurological Disorder: No HX Cerebrovascular Accident: No - HEENT Hx HEENT Disorder: No - Renal Hx Renal Disorder: Yes - Endocrine/Metabolic Hx Hypothyroidism: Yes - Hematological/Oncological Hx Anemia: Yes - Integumentary Hx Dermatological Disorder: No - Musculoskeletal/Rheumatological Hx Arthritis: Yes - Gastrointestinal Hx Pancreatitis: Yes - Genitourinary/Gynecological Hx Genitourinary Disorders: No - Psychiatric Hx Anxiety: Yes Hx Depression: Yes Hx Substance Use: No (stopped) - Surgical History Other/Comment: IVC filter - Anesthesia Hx Anesthesia: Yes Hx Anesthesia Reactions: No Hx Malignant Hyperthermia: No - Suicidal Assessment Feels Threatened In Home Enviroment: No Family/Social History - Physician Review Nursing Documentation Reviewed: Yes Family/Social History: No Known Family HX Smoking Status: Heavy Smoker > 10 Cigarettes Daily Hx Alcohol Use: Yes Hx Substance Use: No (stopped) Substance used: Heroin Hx Substance Use Treatment: No Allergies/Home Meds Allergies/Adverse Reactions: Allergies No Known Allergies Allergy (Verified 05/11/17 19:39) Home Medications: Home Meds Medication Instructions Recorded Confirmed Albuterol/Ipratropium [Combivent 2 inh INH DAILY 05/08/17 05/15/17 Respimat] Apixaban [Eliquis] 1 tab PO BID 05/08/17 05/15/17 Atorvastatin [Lipitor] 1 tab PO DAILY 05/08/17 05/15/17 Calcitriol 1 cap PO QOTHERDAY 05/08/17 05/15/17 Efavirenz/Emtricitabine/Teno 1 tab PO DAILY 05/08/17 05/15/17 [Atripla 600 MG-200 MG-300 MG] Hydroxyzine HCl 1 tab PO BID 05/08/17 05/15/17 Solifenacin Succinate [Vesicare] 1 tab PO DAILY 05/08/17 05/15/17 hydrALAZINE [Apresoline] 1 tab PO TID 05/08/17 05/15/17 Review of Systems - Physician Review All systems were reviewed & negative as marked: Yes - Review of Systems Constitutional: absent: Fevers, Night Sweats Respiratory: absent: SOB, Cough Cardiovascular: Chest Pain (non-radiating chest pain) Physical Exam Vital Signs Reviewed: Yes Vital Signs Temp Pulse Pulse Resp BP Pulse Ox 05/15/17 05:55 58 L 18 168/73 H 98 05/15/17 05:51 57 L 18 98 05/15/17 01:30 77 18 157/81 H 98 05/14/17 23:30 69 18 171/76 H 100 05/14/17 21:45 98.5 F 59 L 19 126/74 98 05/14/17 21:20 59 L Temperature: Afebrile Blood Pressure: Normal Pulse: Regular Respiratory Rate: Normal Appearance: Positive for: Well-Appearing Pain Distress: None Mental Status: Positive for: Alert and Oriented X 3 - Systems Exam Head: Present: Atraumatic, Normocephalic Pupils: Present: PERRL Extroacular Muscles: Present: EOMI Conjunctiva: Present: Normal Mouth: Present: Moist Mucous Membranes Neck: Present: Normal Range of Motion Respiratory/Chest: Present: Clear to Auscultation, Good Air Exchange. No: Respiratory Distress, Accessory Muscle Use Cardiovascular: Present: Regular Rate and Rhythm, Normal S1, S2. No: Murmurs Abdomen: Present: Normal Bowel Sounds. No: Tenderness, Distention, Peritoneal Signs Back: Present: Normal Inspection Upper Extremity: Present: Normal Inspection. No: Cyanosis, Edema Lower Extremity: Present: Normal Inspection. No: Edema Neurological: Present: GCS=15, CN II-XII Intact, Speech Normal Skin: Present: Warm, Dry, Normal Color. No: Rashes Psychiatric: Present: Alert, Oriented x 3, Normal Insight, Normal Concentration Medical Decision Making ED Course and Treatment: 05/14/17 21:35 Impression: 57 year old female with non-radiating chest pain. Plan: -- EKG -- Labs -- Urinalysis -- Reassess and disposition Prior Visits: Notes and results from previous visits were reviewed. Patient was last seen in the emergency department on 05/11/2017 for chest pain. Patient was admitted. Progress Notes: EKG: Ordered, reviewed, and independently interpreted the EKG. Rate : 54 BPM Rhythm : Sinus bradycardia Interpretation : No ST-segment elevations or depressions, no T-wave inversions, normal intervals. Comparison : No previous EKG for comparison. PT RELEASED FROM hospital today, is homeless and malingering, 2 set of neg trop will dc 05/15/17 19:16 - Lab Interpretations Lab Results: 05/14/17 22:00 05/14/17 22:00 Lab Results 05/15/17 05:00: Troponin I 0.05 05/14/17 22:12: Urine Color Yellow, Urine Appearance Clear, Urine pH 6.0, Ur Specific [place] 1.020, Urine Protein 100 H, Urine Glucose (UA) Negative, Urine Ketones Negative, Urine Blood Small H, Urine Nitrate Negative, Urine Bilirubin Negative, Urine Urobilinogen 0.2, Ur Leukocyte Esterase Negative, Urine RBC 5 - 10, Urine WBC 0 - 2, Ur Epithelial Cells 0 - 2, Urine Bacteria Few 05/14/17 22:00: Sodium 138, Potassium 4.5, Chloride 105, Carbon Dioxide 21, Anion Gap 17, BUN 67 H, Creatinine 4.1 H, Est GFR ( Amer) 13, Est GFR ( Non-Af Amer) 11, Random Glucose 130 H, Calcium 8.9, Magnesium 1.7, Total Bilirubin 0.2, AST 35, ALT 36, Alkaline Phosphatase 127 H, Lactate Dehydrogenase 514, Total Creatine Kinase 229, Troponin I 0.05, Total Protein 7.5 , Albumin 3.8, Globulin 3.7, Albumin/Globulin Ratio 1.0 L 05/14/17 22:00: WBC 5.3 D, RBC 3.18 L, Hgb 9.0 L, Hct 28.6 L, MCV 89.9, MCH 28.3, MCHC 31.5, RDW 16.9 H, Plt Count 167, MPV 10.7, Gran % 75.0 H, Lymph % ( Auto) 12.2 L, [place] % (Auto) 10.9 H, Eos % (Auto) 1.3 L, Baso % (Auto) 0.6, Gran # 3.94, Lymph # 0.6 L, [place] # 0.6, Eos # 0.1, Baso # 0.03 I have reviewed the lab results: Yes - Scribe Statement The provider has reviewed the documentation as recorded by the Donnaibreyes Sandoval Provider Scribe Attestation: All medical record entries made by the Scribe were at my direction and personally dictated by me. I have reviewed the chart and agree that the record accurately reflects my personal performance of the history, physical exam, medical decision making, and the department course for this patient. I have also personally directed, reviewed, and agree with the discharge instructions and disposition. Disposition/Present on Arrival - Present on Arrival Any Indicators Present on Arrival: No History of DVT/PE: No History of Uncontrolled Diabetes: No Urinary Catheter: No History of Decub. Ulcer: No History Surgical Site Infection Following: CABG - Mediastinitis, None - Disposition Have Diagnosis and Disposition been Completed?: Yes Diagnosis: Chest pain Disposition: HOME/ ROUTINE Disposition Time: 06:30 Condition: GOOD Discharge Instructions (ExitCare): Chest Pain (ED) Referrals: Salvatore De Jesus MD [Primary Care Provider] - Follow up with primary Forms: [employer] (Khmer)
[2017-05-14 22:13] LABS: BASO # 0.03 K/mm3 (0.0-2.0); BASO % 0.6 % (0.0-3.0); EOS # 0.1 (0.0-0.7); EOS % 1.3 % (1.5-5.0); GRAN # 3.94 (1.4-6.5); HEMATOCRIT 28.6 % (36.0-48.0); LYMPH # 0.6 (1.2-3.4); LYMPH % 12.2 % (22.0-35.0); MEAN CELL VOLUME 89.9 fl (80.0-105.0); MEAN CORPUSCULAR HEMOGLOBIN 28.3 pg (25.0-35.0); MEAN CORPUSCULAR HGB CONC 31.5 g/dl (31.0-37.0); MEAN PLATELET VOLUME 10.7 fl (7.0-11.0); MONO # 0.6 (0.1-0.6); MONO % 10.9 % (1.0-6.0); RED CELL DISTRIBUTION WIDTH 16.9 % (11.5-14.5); WHITE BLOOD COUNT 5.3 10^3/ul (4.5-11.0)
[2017-05-14 22:21] LABS: BILIRUBIN,TOTAL 0.2 mg/dL (0.2-1.3); CALCIUM 8.9 mg/dL (8.4-10.5); MAGNESIUM 1.7 mg/dL (1.7-2.2); POTASSIUM 4.5 mmol/L (3.6-5.0); TOTAL PROTEIN 7.5 g/dL (5.8-8.3)
[2017-05-14 22:26] LABS: URINE BILIRUBIN NEGATIVE (NEGATIVE); URINE BLOOD SMALL (NEGATIVE); URINE GLUCOSE (UA) NEGATIVE (NEGATIVE); URINE KETONE NEGATIVE (NEGATIVE); URINE LEUKOCYTE ESTERASE NEGATIVE Leu/uL (NEGATIVE); URINE PROTEIN 100 mg/dL (<30 mg/dL); URINE UROBILINOGEN 0.2 E.U./dL (<1 E.U./dL)
[2017-05-14 22:29] LABS: URINE APPEARANCE CLEAR (CLEAR); URINE COLOR YELLOW (YELLOW)
[2017-05-14 22:33] LABS: TROPONIN I 0.05 ng/mL
[2017-05-14 22:41] LABS: URINE EPITHELIAL CELLS 0 - 2 /hpf (0-5); URINE WBC 0 - 2 /hpf (0-6)
[2017-05-14 22:42] LABS: URINE BACTERIA FEW (NEG)
[2017-05-15 01:10] VITALS: RESP 18
[2017-05-15 05:11] VITALS: O2SAT 98
[2017-05-15 05:57] VITALS: BP 168/73; PULSE 58
--- NOTE | 2017-05-15 10:17 | CARD ---
APPROVED REPORT EKG Measurement Heart [id number] <Conclusion> Sinus bradycardia Possible Left atrial enlargement Nonspecific ST abnormality High Voltage.
== END 2017-05-15 07:15 | disposition home or self-care (01) ==
LOC: ED 21:02
DX: R07.9 Chest pain, unspecified (principal); I10 Essential (primary) hypertension; F17.210 Nicotine dependence, cigarettes, uncomplicated

== ENCOUNTER 2017-06-07 16:39 | Inpatient (IN) | payer MEDICARE, OTHER ==
[2017-06-07 16:40] VITALS: PULSE 125; BMI 33.4
--- NOTE | 2017-06-07 17:27 | ED PDOC ---
Arrival/HPI - General Chief Complaint: Weakness/Neurological Deficit Time Seen by Provider: 06/07/17 16:49 Historian: Patient - History of Present Illness Narrative History of Present Illness (Text): 06/07/17 18:14 Patient is a 57 yo female, past medical hx of renal disease, dvt, hiv, diabetes , presents to ED stating that she felt generally weak for unspecified period of time, unknown time of onset. She states that she has had numbness to both of her legs but developed left sided chest pain with numbness down her left arm. Reports difficulty ambulating. Denies headache or dizziness. Denies chest pain or shortness of breath. Denies rash or fever. Denies bloody urine or stool. Past Medical History - Provider Review Nursing Documentation Reviewed: Yes - Past History Past History: Non-Contributing - Infectious Disease Hx of Infectious Diseases: None - Tetanus Immunization Tetanus Immunization: Unknown - Reproductive Menopause: Yes - Past Medical History Past Medical History: Non-Contributing - Cardiac Hx Congestive Heart Failure: Yes Hx Hypertension: Yes Hx Peripheral Edema: Yes - Pulmonary Hx Chronic Obstructive Pulmonary Disease (COPD): Yes - Neurological Hx Neurological Disorder: No HX Cerebrovascular Accident: No - HEENT Hx HEENT Disorder: No - Renal Hx Renal Disorder: Yes - Endocrine/Metabolic Hx Hypothyroidism: Yes - Hematological/Oncological Hx Anemia: Yes - Integumentary Hx Dermatological Disorder: No - Musculoskeletal/Rheumatological Hx Arthritis: Yes - Gastrointestinal Hx Pancreatitis: Yes - Genitourinary/Gynecological Hx Genitourinary Disorders: No - Psychiatric Hx Anxiety: Yes Hx Depression: Yes Hx Substance Use: No (stopped) - Surgical History Other/Comment: IVC filter - Anesthesia Hx Anesthesia: Yes Hx Anesthesia Reactions: No Hx Malignant Hyperthermia: No - Suicidal Assessment Feels Threatened In Home Enviroment: No Family/Social History - Physician Review Nursing Documentation Reviewed: Yes Family/Social History: Unknown Family HX Smoking Status: Heavy Smoker > 10 Cigarettes Daily Hx Alcohol Use: Yes Hx Substance Use: No (stopped) Substance used: Heroin Hx Substance Use Treatment: No Allergies/Home Meds Allergies/Adverse Reactions: Allergies No Known Allergies Allergy (Verified 06/07/17 16:52) Home Medications: Home Meds Medication Instructions Recorded Confirmed Albuterol/Ipratropium [Combivent 2 inh INH DAILY 05/08/17 06/07/17 Respimat] Atorvastatin [Lipitor] 1 tab PO DAILY 05/08/17 06/07/17 Efavirenz/Emtricitabine/Teno 1 tab PO DAILY 05/08/17 06/07/17 [Atripla 600 MG-200 MG-300 MG] Hydroxyzine HCl 1 tab PO BID 05/08/17 06/07/17 hydrALAZINE [Apresoline] 1 tab PO TID 05/08/17 06/07/17 Review of Systems - Review of Systems Constitutional: Fatigue. absent: Fevers Eyes: Other (no ACUTE visual changes) ENT: absent: Sore Throat Respiratory: absent: SOB Cardiovascular: Chest Pain, [place]. absent: Palpitations, Edema Gastrointestinal: absent: Abdominal Pain, Nausea, Vomiting Genitourinary Female: absent: Dysuria, Frequency Musculoskeletal: absent: Back Pain, Neck Pain Skin: absent: Rash Neurological: Gait Changes, Other (numbness to both legs bilaterally). absent: Headache, Dizziness, Focal Weakness Endocrine: absent: Polyuria Hemo/Lymphatic: absent: Easy Bleeding Psychiatric: absent: Anxiety Physical Exam - Physical Exam Narrative Physical Exam (Text): 06/07/17 Head: Atraumatic. Normocephalic. Eyes: PERRL. EOMI. Conjunctivae are not pale. ENT: Mucous membranes are moist and intact. Oropharynx is clear and symmetric. Neck: Supple. Full ROM. No JVD. No lymphadenopathy. Cardiovascular: Regular rate. Regular rhythm. Systolic murmur. Distal pulses are 2+ and symmetric. Pulmonary/Chest: No evidence of respiratory distress. Clear to auscultation bilaterally. No wheezing, rales or rhonchi. Abdominal: Soft and non-distended. There is no tenderness. No rebound, guarding, or rigidity. No organomegaly. Good bowel sounds. Back: No CVA tenderness. Extremities: No edema. No cyanosis. No clubbing. Full range of motion in all extremities. No calf tenderness. Skin: Skin is warm and dry. No petechiae. No purpura. Rectal: no melena or gross bleeding noted Neurological: Alert, awake, and oriented to person, place, time, and situation. Normal speech. No facial droop. Grasps equal and strong bilaterally. NO pronator drift. No meningeal signs. Psychiatric: Good eye contact. Normal interaction, affect, and behavior. Vital Signs Reviewed: Yes Vital Signs Temp Pulse Resp BP Pulse Ox 06/07/17 20:00 62 18 150/72 96 06/07/17 18:40 78 18 121/71 98 06/07/17 16:54 98.2 F 81 18 125/75 98 Temperature: Afebrile Blood Pressure: Normal Pulse: Regular Respiratory Rate: Normal Appearance: Positive for: Well-Appearing, Non-Toxic, Comfortable Pain Distress: None Mental Status: Positive for: Alert and Oriented X 3 Medical Decision Making ED Course and Treatment: 06/07/17 Impression: Patient presents with complaints of leg weakness and numbness. She has prior history of this, although states acutely developed sensation of left arm numbness and chest pain. On exam, no focal weakness or sensory deficits noted. Patient with no pulse deficits. Differential Diagnosis included but are not limited to: TIA, CAD, neuropathy Plan: -- EKG -- CT Head -- Chest X-ray -- Labs -- Reassess and disposition Progress Notes: Patient with serial exams is neurologically intact. Head CT ordered as persistent left arm numbness reported. 06/07/17 18:[address]: Creator : Jacob Corado FINDINGS: HEMORRHAGE: No intracranial hemorrhage. BRAIN: Lucency in the white matter of the right frontal lobe may reflect chronic microangiopathy and is seen some of the left cerebral hemispheres subcortical white matter as well and is favored as such. No cortical edema is appreciated bilaterally there is no mass-effect or others CT sign of acute separate brain infarction at this time. No suspicious extra-axial fluid collection identified. VENTRICLES: Unremarkable. No hydrocephalus. CALVARIUM: Unremarkable. PARANASAL SINUSES: Unremarkable as visualized. No significant inflammatory changes. MASTOID AIR CELLS: Unremarkable as visualized. No inflammatory changes. OTHER FINDINGS: None. 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 Follow-up MRI may be considered as clinically warranted, or CT, given clinical history. No intra hemorrhage or mass-effect. No cortical edema. Given no weakness noted on re-exam, patient is not a tpa candidate as unknown time of onset of symptoms and symptoms mild at this time. EKG and initial card isos reviewed. Cr elevated from previous visit. Currently K level unremarkable, no arrhythmias noted. Patient will be admitted for serial neuro exams, cardiac monitoring. Case d/w house doctor accepts admission for hospitalist. Anemia noted. Patient with no active bleeding or melena noted. - Lab Interpretations Lab Results: 06/07/17 18:06 06/07/17 18:06 Lab Results 06/07/17 18:06: Sodium 148, Potassium 4.7, Chloride 113 H, Carbon Dioxide 22, Anion Gap 18, BUN 81 H, Creatinine 6.4 H, Est GFR ( Amer) 8, Est GFR (Non -Af Amer) 7, Random Glucose 79, Calcium 8.8, Total Bilirubin 0.4, AST 34, ALT 39 , Alkaline Phosphatase 140 H, Lactate Dehydrogenase 559, Total Creatine Kinase 289 H, CK-MB (CK-2) 2.9, CK-MB (CK-2) % Cancelled, Troponin I 0.07 D, NT-Pro-B Natriuret Pep 05682 H, Total Protein 7.3, Albumin 3.9, Globulin 3.4, Albumin/ Globulin Ratio 1.1 06/07/17 18:06: PT 12.8 H, INR 1.17 H, APTT 30.4 06/07/17 18:06: WBC 5.7, RBC 2.80 L, Hgb 8.1 L, Hct 25.6 L, MCV 91.4, MCH 28.9, MCHC 31.6, RDW 18.0 H, Plt Count 155, MPV 11.2 H, Gran % 74.5 H, Lymph % (Auto) 14.6 L, [place] % (Auto) 9.0 H, Eos % (Auto) 1.2 L, Baso % (Auto) 0.7, Gran # 4.24 , Lymph # 0.8 L, [place] # 0.5, Eos # 0.1, Baso # 0.04 I have reviewed the lab results: Yes - RAD Interpretation Radiology Orders: 06/07/17 17:09 CHEST ONE VIEW [RAD] Stat 06/07/17 17:10 HEAD W/O CONTRAST [CT] Stat Explosive [employer]dnance Specialist: Radiologist - EKG Interpretation EKG Interpretation (Text): EKG normal sinus rhythm rate of 63 wiht possible left atrial enlargement Interpreted by ED Physician: Yes Type: 12 lead EKG - Medication Orders Current Medication Orders: Apixaban (Eliquis) 5 mg PO BID SAVANNA PRN Reason: Protocol Aspirin (Ecotrin) 81 mg PO DAILY SAVANNA Atorvastatin Calcium (Lipitor) 40 mg PO DAILY SAVANNA Clonidine HCl (Catapres-Tts3 0.3 Mg/24 Hr) 1 patch TD DIALW SAVANNA Famotidine (Pepcid) 40 mg PO HS SAVANNA Hydralazine HCl (Apresoline) 25 mg PO TID SAVANNA Sodium Chloride (Sodium Chloride 0.9%) 1,000 mls @ 100 mls/hr IV .Q10H SAVANNA Lorazepam (Ativan) 1 mg IVP Q4H PRN; Protocol PRN Reason: Agitation Magnesium Oxide (Mag-Ox) 400 mg PO DAILY SAVANNA Metoprolol Tartrate (Lopressor) 50 mg PO BID SAVANNA Nicotine (Nicoderm Cq) 1 patch TD DAILY SAVANNA Potassium Chloride (K-Dur 20 Meq Er Tab) 20 meq PO DAILY SAVANNA Thiamine HCl (Vitamin B1 Tab) 100 mg PO DAILY SAVANNA Discontinued Medications Aspirin (Aspirin Chewable) 81 mg PO STAT STA Stop: 06/07/17 20:24 Last Admin: 06/07/17 20:46 Dose: 81 mg NIHSS Scale ([place]) Time Performed: 18:18 - How Severe is the Stoke Baseline Level of Consciousness: 0=Alert LOC to Questions: 0=Both comments correct LOC to commands: 0=Obeys both correctly Best Gaze: 0=Normal Visual: 0=No visual loss Facial: 0=Normal Motor Arm - Left: 0=No drift Motor Arm - Right: 0=No drift Motor Leg - Left: 0=No drift Motor Leg - Right: 0=No drift Limb Ataxia: 0=Absent Sensory: 0=Normal Best Language: 0=No aphasia Dysarthia: 0=Normal articulation Extinction & Inattention (Neglect): 0=Normal, no object Score: 0 Risk Level: No Stroke Risk - Scribe Statement The provider has reviewed the documentation as recorded by the Scribe Corina Alcaraz Provider Scribe Attestation: All medical record entries made by the Scribe were at my direction and personally dictated by me. I have reviewed the chart and agree that the record accurately reflects my personal performance of the history, physical exam, medical decision making, and the department course for this patient. I have also personally directed, reviewed, and agree with the discharge instructions and disposition. Disposition/Present on Arrival - Present on Arrival Any Indicators Present on Arrival: Yes History of DVT/PE: No History of Uncontrolled Diabetes: No Urinary Catheter: No History of Decub. Ulcer: No History Surgical Site Infection Following: CABG - Mediastinitis, None - Disposition Have Diagnosis and Disposition been Completed?: Yes Diagnosis: Renal failure, Left arm numbness, Abnormal head CT, Chest pain, Anemia Disposition: HOSPITALIZED Disposition Time: 19:00 Patient Plan: Admission, Telemetry Condition: FAIR
--- NOTE | 2017-06-07 18:02 | CT ---
PROCEDURE: CT HEAD WITHOUT CONTRAST. HISTORY: left arm numbness COMPARISON: None available. TECHNIQUE: Axial computed tomography images were obtained through the head/brain without intravenous contrast. Radiation dose: Total exam DLP = 843.77 mGy-cm. This CT exam was performed using one or more of the following dose reduction techniques: Automated exposure control, adjustment of the mA and/or kV according to patient size, and/or use of iterative reconstruction technique. FINDINGS: HEMORRHAGE: No intracranial hemorrhage. BRAIN: Lucency in the white matter of the right frontal lobe may reflect chronic microangiopathy and is seen some of the left cerebral hemispheres subcortical white matter as well and is favored as such. No cortical edema is appreciated bilaterally there is no mass-effect or others CT sign of acute separate brain infarction at this time. No suspicious extra-axial fluid collection identified. VENTRICLES: Unremarkable. No hydrocephalus. CALVARIUM: Unremarkable. PARANASAL SINUSES: Unremarkable as visualized. No significant inflammatory changes. MASTOID AIR CELLS: Unremarkable as visualized. No inflammatory changes. OTHER FINDINGS: None. 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 Follow-up MRI may be considered as clinically warranted, or CT, given clinical history. No intra hemorrhage or mass-effect. No cortical edema.
[2017-06-07 18:18] LABS: BASO # 0.04 K/mm3 (0.0-2.0); BASO % 0.7 % (0.0-3.0); EOS # 0.1 (0.0-0.7); EOS % 1.2 % (1.5-5.0); GRAN # 4.24 (1.4-6.5); GRAN % 74.5 % (50.0-68.0); HEMATOCRIT 25.6 % (36.0-48.0); LYMPH # 0.8 (1.2-3.4); LYMPH % 14.6 % (22.0-35.0); MEAN CELL VOLUME 91.4 fl (80.0-105.0); MEAN CORPUSCULAR HEMOGLOBIN 28.9 pg (25.0-35.0); MEAN CORPUSCULAR HGB CONC 31.6 g/dl (31.0-37.0); MEAN PLATELET VOLUME 11.2 fl (7.0-11.0); MONO # 0.5 (0.1-0.6); WHITE BLOOD COUNT 5.7 10^3/ul (4.5-11.0)
[2017-06-07 18:19] LABS: ALB/GLOB RATIO 1.1 (1.1-1.8); BILIRUBIN,TOTAL 0.4 mg/dL (0.2-1.3); CALCIUM 8.8 mg/dL (8.4-10.5); POTASSIUM 4.7 mmol/L (3.6-5.0); TOTAL PROTEIN 7.3 g/dL (5.8-8.3)
[2017-06-07 18:25] LABS: INR 1.17 (0.93-1.08); PARTIAL THROMBOPLASTIN TIME 30.4 Seconds (25.1-36.5)
[2017-06-07 18:31] LABS: TROPONIN I 0.07 ng/mL
[2017-06-07] MEDS ORDERED: Sodium Chloride 0.9% 1,000 ML IV SCH (21:00)
--- NOTE | 2017-06-07 21:06 | CP.PCM.HP ---
<Wally Barker - Last Filed: 06/07/17 21:16> History of Present Illness - History of Present Illness History of Present Illness: Wally Barker D.O. PGY-1, Night Float Admission H and P 57 year old female with a past medical history of HIV(on regimen/questionable compliance), DVT, HTN and hypertension who comes in complaining of numbness of left arm and left sided chest pain that started earlier this afternoon. The patient states the chest pain began before the left arm numbness began. The patient also reports lightheadedness when arising from the sitting or supine position. She denies any alleviating or modifying factors. The patient denies any headaches, changes in vision, nausea, vomiting, abdominal pain, constipation , diarheaa, sick contacts, or any other complaints. Infectious Disease Physician: Dr. Velazquez PMH: as above Medications: reviewed Allergies: NKDA PSH: Stent placed for h/o leg clot SH: Drinks 3 50ml Vodka bottles daily. Smokes 3 ppd daily. Denies any illicit drug use. Present on Admission - Present on Admission Any Indicators Present on Admission: No Review of Systems - Constitutional Constitutional: absent: Chills, Daytime Sleepiness, Malaise, Night Sweats - EENT Eyes: absent: Change in Vision, Loss of Peripheral Vision, Spots in Vision, Tunnel Vision Ears: absent: Ear Pain Nose/Mouth/Throat: absent: Nasal Discharge, Bleeding Gums, Change in Voice, Mouth Lesions, Mouth Pain - Cardiovascular Cardiovascular: Chest Pain at Rest, Chest Pain with Activity, Pain Radiating to Arm/Neck/Jaw. absent: Claudication, Irregular Heart Rhythm, Orthopnea, Palpitations, Pedal Edema, Syncope - Respiratory Respiratory: Pain on Inspiration. absent: Dyspnea, Hemoptysis, Dyspnea on Exertion, Wheezing, Change in Mucous Color - Gastrointestinal Gastrointestinal: absent: Abdominal Pain, Cramping, Diarrhea, Heartburn, Hematochezia, Melena, Nausea, Vomiting - Genitourinary Genitourinary: absent: Difficulty Urinating, Dysuria, Flank Pain - Musculoskeletal Musculoskeletal: absent: Arthralgias, Muscle Cramps, Muscle Weakness, Neck Pain , Numbness - Integumentary Integumentary: absent: Dry Skin, Lesions, Skin Ulcer, Swelling - Neurological Neurological: Weakness. absent: Dizziness, Headaches, Syncope, Tingling, Tremor , Vertigo - Psychiatric Psychiatric: absent: Anxiety, Confusion, Depression, Irritability - Hematologic/Lymphatic Hematologic: absent: Easy Bleeding, Easy Bruising Past Patient History - Infectious Disease Hx of Infectious Diseases: None - Tetanus Immunizations Tetanus Immunization: Unknown - Past Medical History & Family History Past Medical History?: Yes - Past Social History Smoking Status: Heavy Smoker > 10 Cigarettes Daily - CARDIAC Hx Congestive Heart Failure: Yes Hx Hypertension: Yes Hx Peripheral Edema: Yes - PULMONARY Hx Chronic Obstructive Pulmonary Disease (COPD): Yes - NEUROLOGICAL Hx Neurological Disorder: No HX Cerebrovascular Accident: No - HEENT Hx HEENT Problems: No - RENAL Hx Chronic Kidney Disease: Yes - ENDOCRINE/METABOLIC Hx Hypothyroidism: Yes - HEMATOLOGICAL/ONCOLOGICAL Hx Anemia: Yes - INTEGUMENTARY Hx Dermatological Problems: No - MUSCULOSKELETAL/RHEUMATOLOGICAL Hx Arthritis: Yes - GASTROINTESTINAL Hx Pancreatitis: Yes - GENITOURINARY/GYNECOLOGICAL Hx Genitourinary Disorders: No - PSYCHIATRIC Hx Anxiety: Yes Hx Depression: Yes Hx Substance Use: No (stopped) - SURGICAL HISTORY Other/Comment: IVC filter - ANESTHESIA Hx Anesthesia: Yes Hx Anesthesia Reactions: No Hx Malignant Hyperthermia: No Meds Allergies/Adverse Reactions: Allergies Allergy/AdvReac Type Severity Reaction Status Date / Time No Known Allergies Allergy Verified 06/07/17 16:52 Physical Exam - Head Exam Head Exam: ATRAUMATIC, NORMAL INSPECTION, NORMOCEPHALIC - Eye Exam Eye Exam: EOMI, Normal appearance, PERRL Pupil Exam: NORMAL ACCOMODATION, PERRL - ENT Exam ENT Exam: Mucous Membranes Moist, Normal Exam - Neck Exam Neck exam: Positive for: Normal Inspection. Negative for: Tenderness - Respiratory Exam Respiratory Exam: Clear to Auscultation Bilateral, NORMAL BREATHING PATTERN. absent: Decreased Breath Sounds, Rhonchi, Wheezes, Respiratory Distress, Stridor - Cardiovascular Exam Cardiovascular Exam: REGULAR RHYTHM, +S1, +S2. absent: Irregular Rhythm, JVD - GI/Abdominal Exam GI & Abdominal Exam: Firm, Normal Bowel Sounds. absent: Guarding, Hernia, Organomegaly - Extremities Exam Extremities exam: Positive for: pedal edema (+2) Additional comments: 2+ mid pan pitting edema bilaterally - Back Exam Back exam: NORMAL INSPECTION. absent: paraspinal tenderness, tenderness, vertebral tenderness - Neurological Exam Neurological exam: Alert, CN II-XII Intact, Oriented x3 - Psychiatric Exam Psychiatric exam: Normal Affect, Normal Mood - Skin Skin Exam: Dry, Intact, Normal Color, Warm Results - Vital Signs Recent Vital Signs: Last Vital Signs Temp 98.2 F 06/07/17 16:54 Pulse 62 06/07/17 20:00 Resp 18 06/07/17 20:00 BP 150/72 06/07/17 20:00 Pulse Ox 96 06/07/17 20:00 - Labs Result Diagrams: 06/07/17 18:06 06/07/17 18:06 Assessment & Plan - Assessment and Plan (Free Text) Assessment: This is a 57 year old female with a past medical history of hiv and hypertension who comes in with chest pain. Plan: 1.Chest pain r/o acs, hx of CAD and hyperlipidedemia Placed in obs Poss ischemic vs pleuritic Cardio consulted ASA 81 give in ER, will start QD EKG in ER shows NSR, no axis deviation, no VA or QRS widening/elongation CXR reviewed, no interval changes noted, pending radiologist read Trops negative x1, will trend Q6H Repeat EKG in the AM Continue home lipitor Vitals q4h HOB 30 2. RUTH on CKD Seen by nephro in the past, told likely to need dialysis in the near future Nephro consulted Possibly over diuresed although BNP elevated Will slowly re-hydrate and monitor clinically F/U BUN and Cr 3. Intermittent left arm tingling/numbness Non focal on exam Head CT shows only chronic microangiopathic changes, R frontal > other segments Possibly 2/2 tobacco abuse with microangiopathic disease causing neuropathy Will order B12 and folate 4. Anemia Chronic in nature, history of iron deficiency and now worsening CKD with likely need for EPO in the future per when last seen by nephro Nephro consulted No active bleeding Hemodynamically stable F/U CBC tomorrow AM 5. HTN Well controlled at this time Continued home medications 6. HIV with noncompliance Sporadic follow up with no meds for some time per patient due to pharmacy issues HIV viral load and CD4 ordered ID consulted Will not re-continue her old medication at this time 7. Hx of DVT Continued home eliquis 8. Tobacco abuse Counseling provided, patient not amenable to quitting Nicotine patch started 9. Alcohol abuse PRN ativan placed for possibly withdrawal, patient ambiguous about actual use GI/DVT: famotidine/SCDs Patient was seen and examined and case was discussed in detail with senior resident and attending physician. <Archana Pineda - Last Filed: 06/07/17 22:48> Results - Vital Signs Recent Vital Signs: Last Vital Signs Temp 98.2 F 06/07/17 16:54 Pulse 69 06/07/17 21:35 Resp 18 06/07/17 21:35 BP 150/82 06/07/17 21:35 Pulse Ox 99 06/07/17 21:35 - Labs Result Diagrams: 06/07/17 18:06 06/07/17 18:06 Attending/Attestation - Attestation I have personally seen and examined this patient.: Yes I have fully participated in the care of the patient.: Yes I have reviewed all pertinent clinical information: Yes Notes (Text): 06/07/17 22:46 Patient was seen when she was in room # 268-02. Medical record was reviewed. Agree with history , physical examination, assessment and plan. This 57 year old woman was admitted with generalized weakness, numbness of both legs, chest pain, numbness down to left arm, difficulty in ambulating. My impressions woudld be as follows: Weakness. Numbness of legs. Chest pain. Numbness left arm. Hypothyroidism. Anemia. Arthritis. Pancreatitis. Anxiety. Depression. DM II. Alcohol use. Heavy smoker. Heroine user. History renal disease. History DVT. HIstory IVC filter placement.
--- NOTE | 2017-06-07 22:02 | CARD ---
APPROVED REPORT EKG Measurement Heart [id number] <Conclusion> Normal sinus rhythm Possible Left atrial enlargement Borderline ECG
[2017-06-08] MEDS ORDERED: Sodium Chloride 0.9% 1,000 ML IV SCH (00:05)
[2017-06-08 08:00] LABS: BASO # 0.02 K/mm3 (0.0-2.0); BASO % 0.5 % (0.0-3.0); EOS # 0.1 (0.0-0.7); EOS % 1.5 % (1.5-5.0); GRAN # 2.96 (1.4-6.5); GRAN % 71.8 % (50.0-68.0); LYMPH # 0.6 (1.2-3.4); LYMPH % 15.3 % (22.0-35.0); MEAN CELL VOLUME 92.3 fl (80.0-105.0); MEAN CORPUSCULAR HEMOGLOBIN 29.2 pg (25.0-35.0); MEAN CORPUSCULAR HGB CONC 31.7 g/dl (31.0-37.0); MONO # 0.5 (0.1-0.6); MONO % 10.9 % (1.0-6.0); RED CELL DISTRIBUTION WIDTH 18.5 % (11.5-14.5); WHITE BLOOD COUNT 4.1 10^3/ul (4.5-11.0)
[2017-06-08 08:13] LABS: ALB/GLOB RATIO 1.1 (1.1-1.8); BILIRUBIN,TOTAL 0.4 mg/dL (0.2-1.3); CALCIUM 8.9 mg/dL (8.4-10.5); TOTAL PROTEIN 6.7 g/dL (5.8-8.3)
[2017-06-08 08:21] LABS: TROPONIN I 0.06 ng/mL
--- NOTE | 2017-06-08 08:31 | RAD ---
PROCEDURE: CHEST RADIOGRAPH, 1 VIEW HISTORY: left arm numbness COMPARISON: 05/11/2017 FINDINGS: LUNGS: Clear. PLEURA: No pneumothorax or pleural fluid seen. CARDIOVASCULAR: Cardiomegaly. No evidence of acute, significant cardiovascular disease. OSSEOUS STRUCTURES: No significant abnormalities. VISUALIZED UPPER ABDOMEN: Normal. OTHER FINDINGS: None. IMPRESSION: No active disease. No acute/significant interval changes. Concordant results with the preliminary interpretation rendered by the emergency department physician procedure.
[2017-06-08 09:51] LABS: IRON 40 ug/dL (45-180)
[2017-06-08] MEDS ORDERED: Potassium Chloride 20 mEq ER Tab PO SCH (10:00)
--- NOTE | 2017-06-08 10:26 | CP.PCM.PN ---
<Kain Ayala - Last Filed: 06/08/17 10:37> Subjective - Date & Time of Evaluation Date of Evaluation: 06/08/17 Time of Evaluation: 06:00 - Subjective Subjective: Patient was seen and examined bedside. Patient was seated and reading newspaper comfortably. No acute events or issues. Patient stated her chest pain has decreased, as well as the numbness and tingling in the fingers. She denies any shortness of breath, nausea, vomiting, abdominal pain or any other complaints. Objective - Vital Signs/Intake and Output Vital Signs (last 24 hours): Temp Pulse Resp BP Pulse Ox 98.3 F 52 L 19 163/89 H 96 06/08/17 06:00 06/08/17 06:00 06/08/17 06:00 06/08/17 06:00 06/08/17 06:00 Intake and Output: 06/08/17 06/08/17 06:59 18:59 Intake Total 1800 Output Total 0 Balance 1800 - Medications Medications: Current Medications Apixaban (Eliquis) 5 mg PO BID [facility] PRN Reason: Protocol Aspirin (Ecotrin) 81 mg PO DAILY [facility] Atorvastatin Calcium (Lipitor) 40 mg PO DAILY [facility] Clonidine HCl (Catapres-Tts3 0.3 Mg/24 Hr) 1 patch TD DIALW [facility] Famotidine (Pepcid) 40 mg PO HS [facility] Last Admin: 06/07/17 23:06 Dose: 40 mg Hydralazine HCl (Apresoline) 25 mg PO TID [facility] Sodium Chloride (Sodium Chloride 0.9%) 1,000 mls @ 75 mls/hr IV .[id number] [facility] Last Admin: 06/08/17 00:38 Dose: 75 mls/hr Lorazepam (Ativan) 1 mg IVP Q4H PRN; Protocol PRN Reason: Agitation Magnesium Oxide (Mag-Ox) 400 mg PO DAILY [facility] Metoprolol Tartrate (Lopressor) 50 mg PO BID [facility] Nicotine (Nicoderm Cq) 1 patch TD DAILY [facility] Potassium Chloride (K-Dur 20 Meq Er Tab) 20 meq PO DAILY [facility] Thiamine HCl (Vitamin B1 Tab) 100 mg PO DAILY [facility] - Labs Labs: 06/08/17 07:50 06/08/17 07:50 PT 12.8 SECONDS (9.4-12.5) H 06/07/17 18:06 INR 1.17 (0.93-1.08) H 06/07/17 18:06 APTT 30.4 Seconds (25.1-36.5) 06/07/17 18:06 - Constitutional Appears: No Acute Distress, Chronically Ill - Head Exam Head Exam: ATRAUMATIC, NORMAL INSPECTION, NORMOCEPHALIC - Eye Exam Eye Exam: Conjunctival injection, PERRL Pupil Exam: PERRL - ENT Exam ENT Exam: Mucous Membranes Moist - Neck Exam Neck Exam: absent: Tenderness - Respiratory Exam Respiratory Exam: Clear to Ausculation Bilateral, NORMAL BREATHING PATTERN - Cardiovascular Exam Cardiovascular Exam: REGULAR RHYTHM, +S1, +S2 - GI/Abdominal Exam GI & Abdominal Exam: Normal Bowel Sounds. absent: Tenderness - Extremities Exam Extremities Exam: absent: Tenderness - Neurological Exam Neurological Exam: Alert, Awake, Oriented x3 - Psychiatric Exam Psychiatric exam: Normal Affect - Skin Skin Exam: Dry, Normal Color Assessment and Plan - Assessment and Plan (Free Text) Assessment: This is a 57 year old female with a past medical history of hiv and hypertension who comes in with chest pain. Ruling out ACS. Plan: 1.Chest pain r/o acs, hx of CAD and hyperlipidedemia -Placed in obs -Poss ischemic vs pleuritic -Cardio consulted -ASA 81 -EKG in ER shows NSR -LAst echo in 05/21: 40-45% ejection fraction -CXR reviewed, no interval changes noted, pending radiologist read -Trops negative x2, will trend Q6H -Repeat EKG does not show any changes from previous, pending official read -Continue home lipitor -Vitals q4h -HOB 30 -Started on Heart Healthy Diet 2. RUTH on CKD -Seen by nephro in the past, told likely to need dialysis in the near future -Nephro consulted, Mughni -BNP elevated (17,300), patient does not seem clinically volume overloaded -F/U BUN and Cr -UA pending 3. Intermittent left arm tingling/numbness -Non focal on exam today -Head CT shows only chronic microangiopathic changes, R frontal > other segments -B12, iron, folate, ferritin pending 4. Anemia -Chronic in nature, history of iron deficiency and now worsening CKD with likely need for EPO in the future per when last seen by nephro -Nephro consulted -No active bleeding -Hemodynamically stable -Hgb: 7.6 Hematocriit: 24 -B12, iron, folate, ferritin pending 5. HTN -Well controlled at this time -Continued home medications 6. HIV with noncompliance -Sporadic follow up with no meds for some time per patient due to pharmacy issues -HIV viral load and CD4 ordered -ID consulted -Will not re-continue her old medication at this time -UDS ordered 7. Hx of DVT -Continued home eliquis 8. Tobacco abuse -Counseling provided, patient not amenable to quitting -Nicotine patch 9. Alcohol abuse -PRN ativan placed for possibly withdrawal, patient ambiguous about actual use -Alcohol level ordered GI/DVT: famotidine/SCDs <Tigre Bateman - Last Filed: 06/08/17 16:48> Objective - Vital Signs/Intake and Output Vital Signs (last 24 hours): Temp Pulse Resp BP Pulse Ox 98.4 F 58 L 18 153/59 H 96 06/08/17 12:00 06/08/17 14:02 06/08/17 12:00 06/08/17 14:30 06/08/17 06:00 Intake and Output: 06/08/17 06/08/17 06:59 18:59 Intake Total 1800 480 Output Total 0 600 Balance 1800 -120 - Medications Medications: Current Medications Apixaban (Eliquis) 5 mg PO BID [facility] PRN Reason: Protocol Last Admin: 06/08/17 10:37 Dose: 5 mg Aspirin (Ecotrin) 81 mg PO DAILY [facility] Last Admin: 06/08/17 10:38 Dose: 81 mg Atorvastatin Calcium (Lipitor) 40 mg PO DAILY [facility] Last Admin: 06/08/17 10:38 Dose: 40 mg Clonidine HCl (Catapres-Tts3 0.3 Mg/24 Hr) 1 patch TD DIALW [facility] Famotidine (Pepcid) 40 mg PO HS [facility] Last Admin: 06/07/17 23:06 Dose: 40 mg Furosemide (Lasix) 20 mg IVP DAILY [facility] Last Admin: 06/08/17 14:30 Dose: 20 mg Hydralazine HCl (Apresoline) 25 mg PO TID [facility] Last Admin: 06/08/17 14:02 Dose: 25 mg Iron Sucrose 100 mg/ Sodium (Chloride) 105 mls @ 210 mls/hr IVPB DAILY [facility] Stop: 06/17/17 10:29 Last Admin: 06/08/17 12:32 Dose: 210 mls/hr Lorazepam (Ativan) 1 mg IVP Q4H PRN; Protocol PRN Reason: Agitation Magnesium Oxide (Mag-Ox) 400 mg PO DAILY [facility] Last Admin: 06/08/17 10:37 Dose: 400 mg Metoprolol Tartrate (Lopressor) 50 mg PO BID [facility] Last Admin: 06/08/17 10:37 Dose: 50 mg Nicotine (Nicoderm Cq) 1 patch TD DAILY [facility] Last Admin: 06/08/17 10:37 Dose: 1 patch Potassium Chloride (K-Dur 20 Meq Er Tab) 20 meq PO DAILY [facility] Thiamine HCl (Vitamin B1 Tab) 100 mg PO DAILY [facility] Last Admin: 06/08/17 10:38 Dose: 100 mg - Labs Labs: 06/08/17 07:50 06/08/17 07:50 PT 12.8 SECONDS (9.4-12.5) H 06/07/17 18:06 INR 1.17 (0.93-1.08) H 06/07/17 18:06 APTT 30.4 Seconds (25.1-36.5) 06/07/17 18:06 Attending/Attestation - Attestation I have personally seen and examined this patient.: Yes I have fully participated in the care of the patient.: Yes I have reviewed all pertinent clinical information, including history, physical exam and plan: Yes Notes (Text): 06/08/17 16:40 attending note; Patient seen and examined with resident. Patient is a 57 year old female with history of HTN, CHF secondary to systolic dysfunction ( EF 40-45%), COPD, HIV, Hep C (known and untreated), CKD stage IV , hx of DVT with IVC filter placement is admitted with chest pain. Patient has multiple admission for the same.Troponins indeterminate. cardiology evaluation appreciated. C ontinue aspirin, lipitor, clonidine Patch, on metoprolol. Started on IV Lasix. Acute on chronic kidney disease; case discussed with nephrology in detail. Anemia; Iron deficiency anemia.started on IV iron. Monitor hemoglobin closely. Might need transfusion if drops below 7. needs GI workup as outpatient. noncompliance with follow-up. Long-term prognosis is poor. Upon discharge patient will follow up with Dr Zoya Argueta and Dr Mccormack. 06/08/17 16:48 06/08/17 16:48
[2017-06-08] MEDS: Magnesium Oxide 400 mg Tab UD PO SCH (10:37)
--- NOTE | 2017-06-08 11:59 | CP.PCM.CON ---
History of Present Illness - History of Present Illness History of Present Illness: 57 year old female with PMH of HIV (as per patient she takes HIV meds but does not recall which ones, does not remember CD4 count or virus load), HTN, DM, hyperlipidemia, chronic renal failure, congestive heart failure, morbid obesity with BMI 40, history of DVT came in to [facility] because of left sided arm pain and chest pain yesterday. She had mild dyspnea on exertion as well. She denies cough, no SOB at rest, no headache or dizziness, no jaw claudication, no nausea or vomiting, no abdominal pain, no diarrhea, no dysuria. She is currently admitted to R/O ACS. Infectious Diseases consult is requested for HIV. Review of Systems - Review of Systems All systems: reviewed and no additional remarkable complaints except (as per HPI ) Past Patient History - Infectious Disease Hx of Infectious Diseases: None - Tetanus Immunizations Tetanus Immunization: Unknown - Past Medical History & Family History Past Medical History?: Yes - Past Social History Smoking Status: Heavy Smoker > 10 Cigarettes Daily - CARDIAC Hx Congestive Heart Failure: Yes Hx Hypertension: Yes Hx Peripheral Edema: Yes - PULMONARY Hx Chronic Obstructive Pulmonary Disease (COPD): Yes - NEUROLOGICAL Hx Neurological Disorder: No HX Cerebrovascular Accident: No - HEENT Hx HEENT Problems: No - RENAL Hx Chronic Kidney Disease: Yes - ENDOCRINE/METABOLIC Hx Hypothyroidism: Yes - HEMATOLOGICAL/ONCOLOGICAL Hx Anemia: Yes - INTEGUMENTARY Hx Dermatological Problems: No - MUSCULOSKELETAL/RHEUMATOLOGICAL Hx Arthritis: Yes - GASTROINTESTINAL Hx Pancreatitis: Yes - GENITOURINARY/GYNECOLOGICAL Hx Genitourinary Disorders: No - PSYCHIATRIC Hx Anxiety: Yes Hx Depression: Yes Hx Substance Use: No (stopped) - SURGICAL HISTORY Other/Comment: IVC filter - ANESTHESIA Hx Anesthesia: Yes Hx Anesthesia Reactions: No Hx Malignant Hyperthermia: No Meds Allergies/Adverse Reactions: Allergies Allergy/AdvReac Type Severity Reaction Status Date / Time No Known Allergies Allergy Verified 06/07/17 16:52 - Medications Medications: Current Medications Apixaban (Eliquis) 5 mg PO BID [facility] PRN Reason: Protocol Aspirin (Ecotrin) 81 mg PO DAILY [facility] Atorvastatin Calcium (Lipitor) 40 mg PO DAILY [facility] Clonidine HCl (Catapres-Tts3 0.3 Mg/24 Hr) 1 patch TD DIALW [facility] Famotidine (Pepcid) 40 mg PO HS [facility] Hydralazine HCl (Apresoline) 25 mg PO TID [facility] Sodium Chloride (Sodium Chloride 0.9%) 1,000 mls @ 100 mls/hr IV .Q10H [facility] Lorazepam (Ativan) 1 mg IVP Q4H PRN; Protocol PRN Reason: Agitation Magnesium Oxide (Mag-Ox) 400 mg PO DAILY [facility] Metoprolol Tartrate (Lopressor) 50 mg PO BID [facility] Nicotine (Nicoderm Cq) 1 patch TD DAILY [facility] Potassium Chloride (K-Dur 20 Meq Er Tab) 20 meq PO DAILY [facility] Thiamine HCl (Vitamin B1 Tab) 100 mg PO DAILY [facility] Physical Exam - Constitutional Appears: Non-toxic, No Acute Distress - Head Exam Head Exam: NORMAL INSPECTION - ENT Exam Additional comments: no oral thrush - Neck Exam Neck exam: Negative for: Meningismus - Respiratory Exam Respiratory Exam: Decreased Breath Sounds - Cardiovascular Exam Cardiovascular Exam: +S1, +S2 - GI/Abdominal Exam GI & Abdominal Exam: Soft. absent: Tenderness Results - Vital Signs Recent Vital Signs: Last Vital Signs Temp 98.2 F 06/07/17 16:54 Pulse 69 06/07/17 21:35 Resp 18 06/07/17 21:35 BP 150/82 06/07/17 21:35 Pulse Ox 99 06/07/17 21:35 - Labs Result Diagrams: 06/08/17 07:50 06/08/17 07:50 Assessment & Plan - Assessment and Plan (Free Text) Plan: Assessment history of HIV (unrecalled CD4 count or virus load, unrecalled HIV meds as well) chest pain R/O ACS HTN DM hyperlipidemia chronic renal failure congestive heart failure history of DVT morbid obesity with BMI 40 Plan follow up HIV PCR viral load and CD4 counts; patient does not recall HIV physician or meds - will attempt to contact her pharmacy (but does not recall her pharmacy either) follow up ACS work up
[2017-06-08 13:04] LABS: FOLATE 9.8 ng/mL
[2017-06-08 13:28] LABS: PH,URINE 6.5 (4.7-8.0); URINE BILIRUBIN NEGATIVE (NEGATIVE); URINE BLOOD SMALL (NEGATIVE); URINE GLUCOSE (UA) 100 mg/dL (NEGATIVE); URINE KETONE NEGATIVE (NEGATIVE); URINE LEUKOCYTE ESTERASE NEGATIVE Leu/uL (NEGATIVE); URINE PROTEIN >=300 mg/dL (<30 mg/dL); URINE UROBILINOGEN 0.2 E.U./dL (<1 E.U./dL)
[2017-06-08 13:29] LABS: URINE APPEARANCE CLEAR (CLEAR); URINE COLOR YELLOW (YELLOW)
--- NOTE | 2017-06-08 14:03 | CON ---
DATE: 06/08/2017 CARDIOLOGY CONSULTATION (FOR DR. SEXTON) HISTORY OF PRESENT ILLNESS: The patient is a 57-year-old woman who presents with transient chest discomfort after alcoholic intake. The patient has been complaining of progressive weakness, which is now resolved this morning. PAST MEDICAL HISTORY: Notable for history of DVT in the past in which she has taken Eliquis. She suffers from hypertension, hypercholesterolemia, and renal insufficiency. Also includes diabetes mellitus as well as HIV in the past. Currently, the patient is ambulating in the room without symptoms. SOCIAL HISTORY: The patient is a smoker as well as imbibes alcohol. REVIEW OF SYSTEMS: A 14-point review of systems, her cardiac symptomatology all now resolved. PHYSICAL EXAMINATION: GENERAL: The patient is in no acute distress. The patient is an obese woman. VITAL SIGNS: Blood pressure is 158/81, heart rates in the 60s. NECK: Negative JVD. LUNGS: Without rales. HEART: With S1, S2. EXTREMITIES: Without change. LABORATORY DATA: Includes an EKG that shows nonspecific ST-T changes. Laboratories reveal BUN and creatinine of 75 and 6.2. Troponin is 0.06. Hemoglobin is 7.6. IMPRESSION: 1. Progressive renal insufficiency. 2. Marked anemia, which may explain her weakness. 3. No evidence for acute coronary syndrome. 4. History of deep venous thrombosis. 5. Diabetes mellitus. 6. Obesity. 7. Active smoker. 8. Active alcohol user. Given these findings, awaiting renal consultation input. We will review her previous cardiac findings. Jack Dickey MD
--- NOTE | 2017-06-08 14:19 | CON ---
NEPHROLOGY CONSULTATION HISTORY OF PRESENT ILLNESS: A 57-year-old female with past medical history of hypertension; diabetes; CHF with mild systolic dysfunction; diastolic dysfunction; COPD; pulmonary hypertension; HIV, on HAART; hepatitis C and CKD stage IV presented with new-onset chest pain and numbness in his left arm. Nephrology being consulted for acute renal failure. The patient discharged last month after presenting with chest pain and at that time found to have acute kidney injury that was thought to be prerenal etiology and improved with IV fluids. The patient reports being adherent to her medications; while she is homeless, she keeps her medications at a friend's home and is able to access them daily; the patient otherwise denies any shortness of breath or significant leg swelling other than some right lower leg swelling; denies any change in her urination, urinates about 3 times per night. No dysuria. No overt hematuria. The patient denies being on any pain medications. PAST MEDICAL HISTORY: As above. SOCIAL HISTORY: Current smoker and drinker. FAMILY HISTORY: Parents with diabetes. REVIEW OF SYSTEMS: CONSTITUTIONAL: Good appetite. No fevers, no chills. HEENT: Denies any sore throat or nasal discharge. RESPIRATORY: Denies any shortness of breath. Does have cough. CARDIOVASCULAR: As per HPI. GI: As per HPI. Denies any nausea or vomiting. Did have 1 episode of diarrhea earlier this week. : As per HPI. MUSCULOSKELETAL: Denies any arthralgias in the neck or back pain. SKIN: Denies any itching or rashes. PSYCHIATRIC: No difficulty sleeping. NEURO: Denies any tremors or dizziness. PHYSICAL EXAMINATION: VITAL SIGNS: This morning blood pressure 163/89, heart rate 52, respirations 19, temperature 98.3, O2 sat 96% on room air. GENERAL: No distress. Conversing coherently in full sentences. HEENT: Moist mucous membranes. Nonicteric. NECK: Unable to appreciate JVD. CARDIOVASCULAR: Heart sounds S1 and S2 normal. No murmurs, no gallops, no rubs. RESPIRATORY: Lungs clear to auscultation bilaterally. No rales, no rhonchi, no wheezes. No respiratory distress. GI: Abdomen soft, nontender, nondistended. : No bladder distention. EXTREMITIES: 1+ bilateral lower leg edema. SKIN: Warm. No cyanosis. PSYCHIATRIC: Normal mood, normal affect. NEURO: No tremor of outstretched hands. No asterixis. LABORATORY DATA: Lab labs this morning, CBC: WBC 4.1, hemoglobin 7.6, hematocrit 24.0, platelets 147. Chemistry panel: Sodium 145, potassium 5.0, chloride 114, bicarb 22, BUN 75, creatinine 6.2, glucose 8.9, albumin 3.4. Pro-BNP from yesterday 17,300. Iron studies: Iron 40, TIBC 262, saturation 15%. Chest x-ray: Directly visualized, some increased interstitial markings, otherwise no pulmonary or vascular congestion noted. Urine microscopy: Directly observed 10-15 rbc's per high-power field, granular debris present. No classically dysmorphic rbc's, no cellular casts. ASSESSMENT AND PLAN: 1. Acute renal failure, acute kidney injury, chronic kidney disease IV. 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 For now we will try to maintain euvolemia. We will restart diuretics with Lasix 20 mg IV daily. We will obtain serum protein electrophoresis, serum free light chain assay, and 24-hour urine protein electrophoresis. Prognosis is relatively poor, and I explained to the patient that she will likely need dialysis in the near future. No indication for beginning renal replacement therapy at this time as electrolytes and volume status are relatively stable. 2. Chronic kidney disease stage IV. As mentioned above, proteinuric kidney disease. At this point there is likely no benefit from aggressive diagnostic workup, but we will be focusing on managing his chronic kidney disease parameters including anemia and chronic kidney disease-mineral bone disease. 3. Anemia secondary to advanced chronic kidney disease as well as iron deficiency. We will start IV iron load with Venofer 100 mg daily; will give dose of EPO once blood pressures are better controlled. 4. Chronic kidney disease-mineral bone disease. The patient with secondary hyperparathyroidism, was started on calcitriol on previous admission should continue with calcitriol 0.25 mcg every Saturday, Saturday, and Saturday. Will check phosphorus and PTH. 5. Hypertensive chronic kidney disease, blood pressure worsened with IV fluids. Currently, on clonidine patch 0.3 mg, hydralazine 25 mg t.i.d. and metoprolol 50 mg b.i.d. adding Lasix as above. We will continue the same for now. 6. Congestive heart failure with mild systolic dysfunction and diastolic dysfunction. The patient currently on beta blockers, cannot add JULES inhibitor or ARB in the setting of worsening renal function, will attempt to maintain euvolemia with diuretics. Alfonso Mccormack MD
--- NOTE | 2017-06-08 14:28 | US ---
PROCEDURE: Ultrasound of the Kidneys HISTORY: acute renal failure on CKD COMPARISON: 11/23/2016 CT abdomen and pelvis.. TECHNIQUE: Sonogram of the kidneys. FINDINGS: RIGHT KIDNEY: Measures: 3.5 x 11.2 cm. Increased echogenicity compatible with medical No stone, solid mass lesion or hydronephrosis visualized. LEFT KIDNEY: Measures: 5.8 x 9.4 cm. Renal disease increased echogenicity compatible with medical renal disease No stone, solid mass lesion or hydronephrosis visualized. OTHER FINDINGS: None. IMPRESSION: No acute findings related to/accounting for the clinical presentation.
--- NOTE | 2017-06-08 14:48 | CARD ---
APPROVED REPORT EKG Measurement Heart [id number] <Conclusion> Normal sinus rhythm Normal ECG
[2017-06-08] MEDS ORDERED: Efavirenz/Emtricitabine/Teno 1 TAB PO SCH (17:30)
[2017-06-09 07:13] LABS: BASO # 0.04 K/mm3 (0.0-2.0); BASO % 0.8 % (0.0-3.0); EOS # 0.1 (0.0-0.7); EOS % 2.5 % (1.5-5.0); GRAN # 3.59 (1.4-6.5); GRAN % 73.9 % (50.0-68.0); HEMATOCRIT 24.4 % (36.0-48.0); LYMPH # 0.6 (1.2-3.4); LYMPH % 12.1 % (22.0-35.0); MEAN CELL VOLUME 92.4 fl (80.0-105.0); MEAN CORPUSCULAR HEMOGLOBIN 28.8 pg (25.0-35.0); MEAN CORPUSCULAR HGB CONC 31.1 g/dl (31.0-37.0); MEAN PLATELET VOLUME 10.4 fl (7.0-11.0); MONO # 0.5 (0.1-0.6); MONO % 10.7 % (1.0-6.0); RED CELL DISTRIBUTION WIDTH 18.3 % (11.5-14.5); WHITE BLOOD COUNT 4.9 10^3/ul (4.5-11.0)
[2017-06-09 07:24] LABS: BILIRUBIN,TOTAL 0.4 mg/dL (0.2-1.3); POTASSIUM 5.4 mmol/L (3.6-5.0); TOTAL PROTEIN 6.8 g/dL (5.8-8.3)
--- NOTE | 2017-06-09 10:05 | PN ---
Cardiology followup for Dr. Alfaro. DATE OF FOLLOWUP: 06/09/2017 SUBJECTIVE: The patient is in bed. No reported episodes of chest pain. PHYSICAL EXAMINATION: VITAL SIGNS: Blood pressure is 145/70, heart rate is in the 50s. NECK: Negative JVD. LUNGS: Without rales. HEART: S1, S2. EXTREMITIES: Without edema. LABORATORY DATA: Hemoglobin is 7.6. Chemistries, BUN and creatinine 71 and 5.4. IMPRESSION: 1. Resolution of chest pain. 2. End-stage renal disease. 3. Obesity. 4. Anemia. 5. History of deep vein thrombosis. 6. Diabetes mellitus. Given these findings, the patient is likely scheduled for dialysis in the morning. In the morning, we will transfer the care back to Dr. Alfaro. Jack Dickey MD
--- NOTE | 2017-06-09 10:39 | CP.PCM.PN ---
<Kain Ayala - Last Filed: 06/09/17 10:39> Subjective - Date & Time of Evaluation Date of Evaluation: 06/09/17 Time of Evaluation: 06:00 - Subjective Subjective: Patient was seen and examined bedside. Patient was sleeping and did not want to answer questions initially. No acute events or issues. States her chest pain improved even more from yesterday. She denies any shortness of breath, nausea, vomiting, abdominal pain or any other complaints. Objective - Vital Signs/Intake and Output Vital Signs (last 24 hours): Temp Pulse Resp BP Pulse Ox 98.7 F 56 L 20 155/81 H 99 06/09/17 06:00 06/09/17 06:00 06/09/17 06:00 06/09/17 06:00 06/09/17 06:00 Intake and Output: 06/09/17 06/09/17 06:59 18:59 Intake Total Output Total Balance - Medications Medications: Current Medications Apixaban (Eliquis) 2.5 mg PO Q12 [facility] PRN Reason: Protocol Aspirin (Ecotrin) 81 mg PO DAILY [facility] Last Admin: 06/08/17 10:38 Dose: 81 mg Atorvastatin Calcium (Lipitor) 40 mg PO DAILY [facility] Last Admin: 06/08/17 10:38 Dose: 40 mg Clonidine HCl (Catapres-Tts3 0.3 Mg/24 Hr) 1 patch TD DIALW [facility] Famotidine (Pepcid) 40 mg PO HS [facility] Last Admin: 06/08/17 21:24 Dose: 40 mg Furosemide (Lasix) 20 mg IVP DAILY [facility] Last Admin: 06/08/17 14:30 Dose: 20 mg Hydralazine HCl (Apresoline) 25 mg PO TID [facility] Last Admin: 06/08/17 18:48 Dose: 25 mg Iron Sucrose 100 mg/ Sodium (Chloride) 105 mls @ 210 mls/hr IVPB DAILY [facility] Stop: 06/17/17 10:29 Last Admin: 06/08/17 12:32 Dose: 210 mls/hr Lorazepam (Ativan) 1 mg IVP Q4H PRN; Protocol PRN Reason: Agitation Magnesium Oxide (Mag-Ox) 400 mg PO DAILY [facility] Last Admin: 06/08/17 10:37 Dose: 400 mg Metoprolol Tartrate (Lopressor) 50 mg PO BID [facility] Last Admin: 06/08/17 18:49 Dose: 50 mg Nicotine (Nicoderm Cq) 1 patch TD DAILY [facility] Last Admin: 06/08/17 10:37 Dose: 1 patch Potassium Chloride (K-Dur 20 Meq Er Tab) 20 meq PO DAILY [facility] Thiamine HCl (Vitamin B1 Tab) 100 mg PO DAILY [facility] Last Admin: 06/08/17 10:38 Dose: 100 mg - Labs Labs: 06/09/17 07:05 06/09/17 07:05 PT 12.8 SECONDS (9.4-12.5) H 06/07/17 18:06 INR 1.17 (0.93-1.08) H 06/07/17 18:06 APTT 30.4 Seconds (25.1-36.5) 06/07/17 18:06 - Constitutional Appears: No Acute Distress, Unkempt - Head Exam Head Exam: ATRAUMATIC, NORMAL INSPECTION, NORMOCEPHALIC - Eye Exam Eye Exam: EOMI, Normal appearance, PERRL Pupil Exam: NORMAL ACCOMODATION, PERRL - ENT Exam ENT Exam: Normal Exam - Neck Exam Neck Exam: Normal Inspection - Respiratory Exam Respiratory Exam: Clear to Ausculation Bilateral, NORMAL BREATHING PATTERN - Cardiovascular Exam Cardiovascular Exam: REGULAR RHYTHM, +S1, +S2 - GI/Abdominal Exam GI & Abdominal Exam: Normal Bowel Sounds - Extremities Exam Extremities Exam: Normal Inspection - Neurological Exam Neurological Exam: Alert, Awake, Oriented x3 - Psychiatric Exam Psychiatric exam: Flat Affect - Skin Skin Exam: Normal Color, Warm Assessment and Plan - Assessment and Plan (Free Text) Assessment: This is a 57 year old female with a past medical history of hiv and hypertension who comes in with chest pain. Ruling out ACS. Plan: 1.Chest pain r/o acs, hx of CAD and hyperlipidedemia -Placed in obs -Poss ischemic vs pleuritic -Cardio consulted -ASA 81 -EKG in ER shows NSR -LAst echo in 05/21: 40-45% ejection fraction -CXR reviewed, no interval changes noted, pending radiologist read -Trops negative x3 -Repeat EKG does not show any changes from previous, pending official read -Continue home lipitor -Vitals q4h -HOB 30 -Started on Heart Healthy Diet , low sodium diet -A1c: 6.3 2. RUTH on CKD -Seen by nephro in the past, told likely to need dialysis in the near future -Nephro consulted, [place] -BNP elevated (17,300), patient does not seem clinically volume overloaded -F/U BUN and Cr -UA pending -Urine protein ordered -protein electrophoresis urine ordered -serum protein electrophoresis ordered -proteinase 3 antibody ordered -KAIDEN ordered -Free [place] Lambda ordered 3. Intermittent left arm tingling/numbness -Non focal on exam today -Head CT shows only chronic microangiopathic changes, R frontal > other segments -B12: 372 folate: 9.8 Iron: 40 TIBC: 262 4. Anemia -Chronic in nature, history of iron deficiency and now worsening CKD with likely need for EPO in the future per when last seen by nephro -Nephro consulted -No active bleeding -Hemodynamically stable -Hgb: 7.6 Hematocriit: 24.4 -B12: 372 folate: 9.8 Iron: 40 TIBC: 262 -fecal occult negative 5. 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 HTN -155/81, continue to monitor -Continued home medications 7. HIV with noncompliance -Sporadic follow up with no meds for some time per patient due to pharmacy issues -HIV viral load and CD4 ordered -ID consulted -Will not re-continue her old medication at this time -UDS Negative 8. Hx of DVT -Eliquis decreased to 2.5 due to renal issues 9. Tobacco abuse -Counseling provided, patient not amenable to quitting -Nicotine patch 10. Alcohol abuse -PRN ativan placed for possibly withdrawal, patient ambiguous about actual use -Alcohol level <10 GI/DVT: famotidine/SCDs <Tigre Bateman - Last Filed: 06/09/17 13:40> Objective - Vital Signs/Intake and Output Vital Signs (last 24 hours): Temp Pulse Resp BP Pulse Ox 98.5 F 63 18 141/66 99 06/09/17 12:00 06/09/17 12:11 06/09/17 12:00 06/09/17 12:11 06/09/17 06:00 Intake and Output: 06/09/17 06/09/17 06:59 18:59 Intake Total Output Total Balance - Medications Medications: Current Medications Apixaban (Eliquis) 2.5 mg PO Q12 [facility] PRN Reason: Protocol Last Admin: 06/09/17 12:12 Dose: 2.5 mg Aspirin (Ecotrin) 81 mg PO DAILY [facility] Last Admin: 06/09/17 12:12 Dose: 81 mg Atorvastatin Calcium (Lipitor) 40 mg PO DAILY [facility] Last Admin: 06/09/17 12:10 Dose: 40 mg Carvedilol (Coreg) 12.5 mg PO BID [facility] Clonidine HCl (Catapres-Tts3 0.3 Mg/24 Hr) 1 patch TD DIALW [facility] Famotidine (Pepcid) 40 mg PO HS [facility] Last Admin: 06/08/17 21:24 Dose: 40 mg Furosemide (Lasix) 20 mg IVP BID [facility] Hydralazine HCl (Apresoline) 25 mg PO TID [facility] Last Admin: 06/09/17 12:11 Dose: 25 mg Iron Sucrose 100 mg/ Sodium (Chloride) 105 mls @ 210 mls/hr IVPB DAILY [facility] Stop: 06/17/17 10:29 Last Admin: 06/09/17 12:10 Dose: 210 mls/hr Lorazepam (Ativan) 1 mg IVP Q4H PRN; Protocol PRN Reason: Agitation Magnesium Oxide (Mag-Ox) 400 mg PO DAILY [facility] Last Admin: 06/09/17 12:10 Dose: 400 mg Nicotine (Nicoderm Cq) 1 patch TD DAILY [facility] Last Admin: 06/09/17 12:14 Dose: 1 patch Potassium Chloride (K-Dur 20 Meq Er Tab) 20 meq PO DAILY [facility] Thiamine HCl (Vitamin B1 Tab) 100 mg PO DAILY [facility] Last Admin: 06/09/17 12:10 Dose: 100 mg - Labs Labs: 06/09/17 07:05 06/09/17 07:05 PT 12.8 SECONDS (9.4-12.5) H 06/07/17 18:06 INR 1.17 (0.93-1.08) H 06/07/17 18:06 APTT 30.4 Seconds (25.1-36.5) 06/07/17 18:06 Attending/Attestation - Attestation I have personally seen and examined this patient.: Yes I have fully participated in the care of the patient.: Yes I have reviewed all pertinent clinical information, including history, physical exam and plan: Yes Notes (Text): 06/09/17 13:38 attending note; Patient seen and examined with resident. Patient is a 57 year old female with history of HTN, CHF secondary to systolic dysfunction ( EF 40-45%), COPD, HIV, Hep C (known and untreated), CKD stage IV , hx of DVT with IVC filter placement is admitted with chest pain. Patient has multiple admission for the same.Troponins indeterminate. cardiology evaluation appreciated. Continue aspirin, lipitor, clonidine Patch, on metoprolol. on IV Lasix. Echocardiogram requested. Acute on chronic kidney disease; case discussed with nephrology in detail. Noncompliance with follow-up. Monitor creatinine closely. Anemia; Iron deficiency anemia.started on IV iron. HIV; Atripla on hold. Noncompliance with follow-up. Also patient's GFR is less than 10. Upon discharge patient will follow up with Dr Zoya Argueta and Dr Mccormack. 06/09/17 13:40
[2017-06-09] MEDS: Magnesium Oxide 400 mg Tab UD PO SCH (12:10)
--- NOTE | 2017-06-10 05:56 | CP.PCM.PN ---
Subjective - Date & Time of Evaluation Date of Evaluation: 06/09/17 Time of Evaluation: 11:30 - Subjective Subjective: 57 yo F w/ pmh of htn, HIV on HAART, hep C (untreated), CHF, and CKD IV, admitted with chest pain, acute renal failure; Patient denies shortness of breath; tolerating diet; denies increased urination while getting IV diuretics currently; Objective - Vital Signs/Intake and Output Vital Signs (last 24 hours): Temp Pulse Resp BP Pulse Ox 98.1 F 59 L 19 164/78 H 99 06/09/17 18:00 06/09/17 19:07 06/09/17 18:00 06/09/17 19:07 06/09/17 06:00 Intake and Output: 06/09/17 06/10/17 18:59 06:59 Intake Total 600 Balance 600 - Medications Medications: Current Medications Amlodipine Besylate (Norvasc) 10 mg PO DAILY [facility] Apixaban (Eliquis) 2.5 mg PO Q12 [facility] PRN Reason: Protocol Last Admin: 06/09/17 21:34 Dose: 2.5 mg Aspirin (Ecotrin) 81 mg PO DAILY [facility] Last Admin: 06/09/17 12:12 Dose: 81 mg Atorvastatin Calcium (Lipitor) 40 mg PO DAILY [facility] Last Admin: 06/09/17 12:10 Dose: 40 mg Carvedilol (Coreg) 12.5 mg PO BID [facility] Last Admin: 06/09/17 19:06 Dose: 12.5 mg Clonidine HCl (Catapres-Tts3 0.3 Mg/24 Hr) 1 patch TD DIALW [facility] Famotidine (Pepcid) 40 mg PO HS [facility] Last Admin: 06/09/17 21:34 Dose: 40 mg Furosemide (Lasix) 20 mg IVP BID [facility] Last Admin: 06/09/17 19:07 Dose: 20 mg Hydralazine HCl (Apresoline) 25 mg PO TID [facility] Last Admin: 06/09/17 19:07 Dose: 25 mg Iron Sucrose 100 mg/ Sodium (Chloride) 105 mls @ 210 mls/hr IVPB DAILY [facility] Stop: 06/17/17 10:29 Last Admin: 06/09/17 12:10 Dose: 210 mls/hr Lorazepam (Ativan) 1 mg IVP Q4H PRN; Protocol PRN Reason: Agitation Magnesium Oxide (Mag-Ox) 400 mg PO DAILY [facility] Last Admin: 06/09/17 12:10 Dose: 400 mg Nicotine (Nicoderm Cq) 1 patch TD DAILY [facility] Last Admin: 06/09/17 12:14 Dose: 1 patch Potassium Chloride (K-Dur 20 Meq Er Tab) 20 meq PO DAILY [facility] Thiamine HCl (Vitamin B1 Tab) 100 mg PO DAILY [facility] Last Admin: 06/09/17 12:10 Dose: 100 mg - Labs Labs: 06/09/17 07:05 06/09/17 07:05 PT 12.8 SECONDS (9.4-12.5) H 06/07/17 18:06 INR 1.17 (0.93-1.08) H 06/07/17 18:06 APTT 30.4 Seconds (25.1-36.5) 06/07/17 18:06 - Constitutional Appears: Non-toxic, No Acute Distress - Head Exam Head Exam: NORMAL INSPECTION - Eye Exam Eye Exam: Normal appearance. absent: Scleral icterus - ENT Exam ENT Exam: Mucous Membranes Moist - Respiratory Exam Respiratory Exam: Clear to Ausculation Bilateral. absent: Rales, Rhonchi, Wheezes, Respiratory Distress - Cardiovascular Exam Cardiovascular Exam: RRR, +S1, +S2 - GI/Abdominal Exam GI & Abdominal Exam: Soft. absent: Distended, Tenderness - Extremities Exam Additional comments: 1+ bilateral lower leg edema; - Psychiatric Exam Psychiatric exam: absent: Agitated - Skin Skin Exam: Warm. absent: Cyanosis Assessment and Plan (1) Acute renal failure (ARF) Assessment & Plan: RUTH on CKD IV; underlying proteinuric CKD in the setting of HIV, worsening over past year, exact etiology unclear; likely superimposed cardiorenal component as patient has had some improvement recently with diuresis; likely limited utility of renal biopsy with significant chronicity already present and poor likelihood for patient followup; nevertheless, I have recommended that biopsy be pursued ( mainly for diagnostic purposes) and patient is still deciding on the matter; Renal function mildly improved since yesterday; mild hyperkalemia present; stable volume status; no definite indication for starting HD now and patient is very hesitant to start dialysis anyway; -continue diuretics with IV lasix 20 mg bid -avoid drastic drops in BP Status: Acute (2) Hypertensive CKD (chronic kidney disease) Assessment & Plan: BP elevated; patient apparently was not taking clonidine patch as outpatient; would avoid clonidine use to prevent rebound htn in patient with poor compliance ; -changing metoprolol 50 mg bid to coreg 12.5 mg bid -IV lasix 20 mg increased to bid -will start amlodipine 10 mg Status: Acute (3) Anemia in CKD (chronic kidney disease) Status: Acute (4) Congestive heart failure (CHF) Assessment & Plan: With mild systolic dysfunction; has pulm htn on previous echo as well, awaiting repeat echo; relatively asymptomatic, just mild leg edema; -diuretics as above; Status: Acute (5) Chronic kidney disease-mineral and bone disorder Assessment & Plan: PTH elevated, started on calcitriol 0.25 mcg qMWF; checking phos level; Status: Chronic
[2017-06-10 06:33] LABS: TOTAL PROTEIN, SERUM 6.2 g/dL (6.1-8.1)
[2017-06-10 07:08] LABS: BASO # 0.02 K/mm3 (0.0-2.0); BASO % 0.4 % (0.0-3.0); EOS # 0.1 (0.0-0.7); EOS % 2.6 % (1.5-5.0); GRAN # 3.2 (1.4-6.5); GRAN % 69.8 % (50.0-68.0); HEMATOCRIT 26.3 % (36.0-48.0); LYMPH # 0.7 (1.2-3.4); LYMPH % 14.6 % (22.0-35.0); MEAN CELL VOLUME 92.6 fl (80.0-105.0); MEAN CORPUSCULAR HEMOGLOBIN 29.2 pg (25.0-35.0); MEAN CORPUSCULAR HGB CONC 31.6 g/dl (31.0-37.0); MEAN PLATELET VOLUME 11.6 fl (7.0-11.0); MONO # 0.6 (0.1-0.6); MONO % 12.6 % (1.0-6.0); RED CELL DISTRIBUTION WIDTH 18.3 % (11.5-14.5); WHITE BLOOD COUNT 4.6 10^3/ul (4.5-11.0)
[2017-06-10 07:36] LABS: BILIRUBIN,TOTAL 0.4 mg/dL (0.2-1.3); CALCIUM 8.9 mg/dL (8.4-10.5); POTASSIUM 5.3 mmol/L (3.6-5.0); TOTAL PROTEIN 6.7 g/dL (5.8-8.3)
[2017-06-10] MEDS: Magnesium Oxide 400 mg Tab UD PO SCH (09:12)
--- NOTE | 2017-06-10 13:50 | CP.PCM.PN ---
<Liane Fry - Last Filed: 06/10/17 13:49> Subjective - Date & Time of Evaluation Date of Evaluation: 06/10/17 Time of Evaluation: 13:00 - Subjective Subjective: Nephrology Note for Dr. Borja Service Patient was seen and examined at bedside. Patient reports she feels well. When asked if she would consent for renal biopsy, patient reported this is her life . She stated she would get the biopsy and follow up for the results. Denied fever, chills, headache, chest pain, SOB, abdominal pain, n/v/d/c, or urinary symptoms. Objective - Vital Signs/Intake and Output Vital Signs (last 24 hours): Temp Pulse Resp BP Pulse Ox 98.1 F 48 L 18 144/70 98 06/10/17 12:00 06/10/17 13:22 06/10/17 12:00 06/10/17 13:22 06/10/17 06:00 - Medications Medications: Current Medications Amlodipine Besylate (Norvasc) 10 mg PO DAILY [facility] Last Admin: 06/10/17 09:12 Dose: 10 mg Apixaban (Eliquis) 2.5 mg PO Q12 [facility] PRN Reason: Protocol Last Admin: 06/10/17 09:12 Dose: 2.5 mg Aspirin (Ecotrin) 81 mg PO DAILY [facility] Last Admin: 06/10/17 09:12 Dose: 81 mg Atorvastatin Calcium (Lipitor) 40 mg PO DAILY [facility] Last Admin: 06/10/17 09:12 Dose: 40 mg Calcitriol (Rocaltrol) 0.25 mcg PO MWF [facility] Last Admin: 06/10/17 09:12 Dose: 0.25 mcg Carvedilol (Coreg) 12.5 mg PO BID [facility] Last Admin: 06/10/17 09:11 Dose: 12.5 mg Clonidine HCl (Catapres-Tts3 0.3 Mg/24 Hr) 1 patch TD DIALW [facility] Famotidine (Pepcid) 40 mg PO HS [facility] Last Admin: 06/09/17 21:34 Dose: 40 mg Furosemide (Lasix) 20 mg IVP BID [facility] Last Admin: 06/10/17 09:13 Dose: 20 mg Hydralazine HCl (Apresoline) 25 mg PO TID [facility] Last Admin: 06/10/17 13:22 Dose: 25 mg Iron Sucrose 100 mg/ Sodium (Chloride) 105 mls @ 210 mls/hr IVPB DAILY [facility] Stop: 06/17/17 10:29 Last Admin: 06/10/17 09:22 Dose: 210 mls/hr Lorazepam (Ativan) 1 mg PO Q4H PRN; Protocol PRN Reason: Agitation Magnesium Oxide (Mag-Ox) 400 mg PO DAILY [facility] Last Admin: 06/10/17 09:12 Dose: 400 mg Nicotine (Nicoderm Cq) 1 patch TD DAILY [facility] Last Admin: 06/10/17 09:12 Dose: 1 patch Potassium Chloride (K-Dur 20 Meq Er Tab) 20 meq PO DAILY [facility] Thiamine HCl (Vitamin B1 Tab) 100 mg PO DAILY [facility] Last Admin: 06/10/17 09:11 Dose: 100 mg - Labs Labs: PT 12.8 SECONDS (9.4-12.5) H 06/07/17 18:06 INR 1.17 (0.93-1.08) H 06/07/17 18:06 APTT 30.4 Seconds (25.1-36.5) 06/07/17 18:06 - Additional Findings Additional findings: - Constitutional Appears: Non-toxic, No Acute Distress - Head Exam Head Exam: NORMAL INSPECTION - Eye Exam Eye Exam: Normal appearance. absent: Scleral icterus - ENT Exam ENT Exam: Mucous Membranes Moist - Respiratory Exam Respiratory Exam: Clear to Ausculation Bilateral. absent: Rales, Rhonchi, Wheezes, Respiratory Distress - Cardiovascular Exam Cardiovascular Exam: RRR, +S1, +S2 - GI/Abdominal Exam GI & Abdominal Exam: Soft. absent: Distended, Tenderness - Extremities Exam Additional comments: 1+ bilateral lower leg edema; - Psychiatric Exam Psychiatric exam: absent: Agitated - Skin Skin Exam: Warm. absent: Cyanosis Assessment and Plan - Assessment and Plan (Free Text) Plan: (1) Acute renal failure (ARF) RUTH on CKD IV; underlying proteinuric CKD in the setting of HIV, worsening over past year, exact etiology unclear; likely superimposed cardiorenal component as patient has had some improvement recently with diuresis; likely limited utility of renal biopsy with significant chronicity already present and poor likelihood for patient followup; nevertheless, I have recommended that biopsy be pursued ( mainly for diagnostic purposes. Patient is agreeable to biopsy. Norberto riojas will reach out to IR for renal biopsy Renal function mildly improved since yesterday; mild hyperkalemia present; stable volume status; no definite indication for starting HD now and patient is very hesitant to start dialysis anyway; -continue diuretics with IV lasix 20 mg bid -- > can be discharged on Lasix 40mg PO BID -avoid drastic drops in BP Status: Acute (2) Hypertensive CKD (chronic kidney disease) BP elevated; patient apparently was not taking clonidine patch as outpatient; would avoid clonidine use to prevent rebound htn in patient with poor compliance ; -changing metoprolol 50 mg bid to coreg 12.5 mg bid -IV lasix 20 mg increased to bid -will start amlodipine 10 mg - Patient can be discharged with: Norvasc 10mg PO daily, Coreg 12.5mg PO BID, Lasix 40mg PO BID, hydralazine 25mg PO TID. Status: Acute (3) Anemia in CKD (chronic kidney disease) Status: Acute (4) Congestive heart failure (CHF) With mild systolic dysfunction; has pulm htn on previous echo as well, awaiting repeat echo; relatively asymptomatic, just mild leg edema; -diuretics as above; Status: Acute (5) Chronic kidney disease-mineral and bone disorder PTH elevated, started on calcitriol 0.25 mcg qMWF; checking phos level; Status: Chronic DW Abby Cruz DO, PGY-1 <Alfonso Mccormack - Last Filed: 06/11/17 08:40> Objective - Vital Signs/Intake and Output Vital Signs (last 24 hours): Temp Pulse Resp BP Pulse Ox 97.8 F 57 L 20 150/65 100 06/11/17 08:08 06/11/17 08:08 06/11/17 08:08 06/11/17 08:08 06/11/17 08:08 Intake and Output: 06/11/17 06/11/17 06:59 18:59 Intake Total 1240 Balance 1240 - Medications Medications: Current Medications Amlodipine Besylate (Norvasc) 10 mg PO DAILY [facility] Last Admin: 06/10/17 09:12 Dose: 10 mg Apixaban (Eliquis) 2.5 mg PO Q12 [facility] PRN Reason: Protocol Last Admin: 06/10/17 09:12 Dose: 2.5 mg Aspirin (Ecotrin) 81 mg PO DAILY [facility] Last Admin: 06/10/17 09:12 Dose: 81 mg Atorvastatin Calcium (Lipitor) 40 mg PO DAILY [facility] Last Admin: 06/10/17 09:12 Dose: 40 mg Calcitriol (Rocaltrol) 0.25 mcg PO MWF [facility] Last Admin: 06/10/17 09:12 Dose: 0.25 mcg Carvedilol (Coreg) 12.5 mg PO BID [facility] Last Admin: 06/10/17 17:31 Dose: 12.5 mg Famotidine (Pepcid) 40 mg PO HS [facility] Last Admin: 06/10/17 21:38 Dose: 40 mg Furosemide (Lasix) 20 mg IVP BID [facility] Last Admin: 06/10/17 17:31 Dose: 20 mg Hydralazine HCl (Apresoline) 75 mg PO Q8H [facility] Last Admin: 06/10/17 21:42 Dose: 75 mg Iron Sucrose 100 mg/ Sodium (Chloride) 105 mls @ 210 mls/hr IVPB DAILY [facility] Stop: 06/17/17 10:29 Last Admin: 06/10/17 09:22 Dose: 210 mls/hr Lorazepam (Ativan) 1 mg PO Q4H PRN; Protocol PRN Reason: Agitation Magnesium Oxide (Mag-Ox) 400 mg PO DAILY [facility] Last Admin: 06/10/17 09:12 Dose: 400 mg Nicotine (Nicoderm Cq) 1 patch TD DAILY [facility] Last Admin: 06/10/17 09:12 Dose: 1 patch Potassium Chloride (K-Dur 20 Meq Er Tab) 20 meq PO DAILY [facility] Thiamine HCl (Vitamin B1 Tab) 100 mg PO DAILY [facility] Last Admin: 06/10/17 09:11 Dose: 100 mg - Labs Labs: PT 12.8 SECONDS (9.4-12.5) H 06/07/17 18:06 INR 1.17 (0.93-1.08) H 06/07/17 18:06 APTT 30.4 Seconds (25.1-36.5) 06/07/17 18:06 Assessment and Plan (1) Acute renal failure (ARF) Status: Acute (2) Hypertensive CKD (chronic kidney disease) Status: Acute (3) Anemia in CKD (chronic kidney disease) Status: Acute (4) Congestive heart failure (CHF) Status: Acute (5) Chronic kidney disease-mineral and bone disorder Status: Chronic Attending/Attestation - Attestation I have personally seen and examined this patient.: Yes I have fully participated in the care of the patient.: Yes I have reviewed all pertinent clinical information, including history, physical exam and plan: Yes Notes (Text): Patient seen and examined with resident; I agree with the note as above with the following edits: Patient with htn, dm, CHF w/ mild systolic dysfunction, diastolic dysfunction, pulm htn, HIV (reportedly on HAART), hep C (untreated) and CKD IV; admitted with chest pain, RUTH; Worsening renal function over past year; proteinuric kidney disease in the setting of HIV and Hep C; urine micro showing hematuria and so there is concern for a rapidly progressive glomerulonephritis although picture is most likely mixed with some component of cardiorenal syndrome as well; Patient is amenable for renal biopsy which will be done by IR tomorrow; mainly for diagnostic purposes to rule out any vasculitis or other etiology which can result in extra-renal manifestations; otherwise, her renal prognosis is poor and will likely wind up on HD in near future; Will continue to discuss HD with patient (very hesitant about it); we have told her that HD should be initiated smoothly and not as an emergency; will need vein mapping for AVF creation; Hypertensive CKD, BP uncontrolled, hydralazine increased to 75 mg tid; avoiding drastic drops in BP; CHF/pulm htn; will continue diuretics with lasix 20 mg bid; edema appears mildly increased and so may need to increase dose (without over-diuresing patient); Continue calcitriol 0.25 mcg qMWF for high PTH; phos controlled; Anemia of CKD; on IV iron; holding off on aranesp until BP better controlled;
--- NOTE | 2017-06-10 14:06 | CP.PCM.PN ---
<Terri Garzon - Last Filed: 06/10/17 14:02> Subjective - Date & Time of Evaluation Date of Evaluation: 06/10/17 Time of Evaluation: 10:00 - Subjective Subjective: Dr. Gustavo Ley Pt was seen and examined at bedside. Pt has no complaints at this time. Pt is moving bowels and bladder regularly. Pt is eating well. As per nursing staff, no acute or adverse events overnight. Pt denied fever, chills, sob, chest pains , abdominal pains, n/v/d/c or urinary symptoms. Objective - Vital Signs/Intake and Output Vital Signs (last 24 hours): Temp Pulse Resp BP Pulse Ox 98.1 F 48 L 18 144/70 98 06/10/17 12:00 06/10/17 13:22 06/10/17 12:00 06/10/17 13:22 06/10/17 06:00 - Medications Medications: Current Medications Amlodipine Besylate (Norvasc) 10 mg PO DAILY [facility] Last Admin: 06/10/17 09:12 Dose: 10 mg Apixaban (Eliquis) 2.5 mg PO Q12 [facility] PRN Reason: Protocol Last Admin: 06/10/17 09:12 Dose: 2.5 mg Aspirin (Ecotrin) 81 mg PO DAILY [facility] Last Admin: 06/10/17 09:12 Dose: 81 mg Atorvastatin Calcium (Lipitor) 40 mg PO DAILY [facility] Last Admin: 06/10/17 09:12 Dose: 40 mg Calcitriol (Rocaltrol) 0.25 mcg PO MWF [facility] Last Admin: 06/10/17 09:12 Dose: 0.25 mcg Carvedilol (Coreg) 12.5 mg PO BID [facility] Last Admin: 06/10/17 09:11 Dose: 12.5 mg Clonidine HCl (Catapres-Tts3 0.3 Mg/24 Hr) 1 patch TD DIALW [facility] Famotidine (Pepcid) 40 mg PO HS [facility] Last Admin: 06/09/17 21:34 Dose: 40 mg Furosemide (Lasix) 20 mg IVP BID [facility] Last Admin: 06/10/17 09:13 Dose: 20 mg Hydralazine HCl (Apresoline) 25 mg PO TID [facility] Last Admin: 06/10/17 13:22 Dose: 25 mg Iron Sucrose 100 mg/ Sodium (Chloride) 105 mls @ 210 mls/hr IVPB DAILY [facility] Stop: 06/17/17 10:29 Last Admin: 06/10/17 09:22 Dose: 210 mls/hr Lorazepam (Ativan) 1 mg PO Q4H PRN; Protocol PRN Reason: Agitation Magnesium Oxide (Mag-Ox) 400 mg PO DAILY [facility] Last Admin: 06/10/17 09:12 Dose: 400 mg Nicotine (Nicoderm Cq) 1 patch TD DAILY [facility] Last Admin: 06/10/17 09:12 Dose: 1 patch Potassium Chloride (K-Dur 20 Meq Er Tab) 20 meq PO DAILY [facility] Thiamine HCl (Vitamin B1 Tab) 100 mg PO DAILY [facility] Last Admin: 06/10/17 09:11 Dose: 100 mg - Labs Labs: PT 12.8 SECONDS (9.4-12.5) H 06/07/17 18:06 INR 1.17 (0.93-1.08) H 06/07/17 18:06 APTT 30.4 Seconds (25.1-36.5) 06/07/17 18:06 - Constitutional Appears: No Acute Distress - Head Exam Head Exam: ATRAUMATIC, NORMAL INSPECTION, NORMOCEPHALIC - Eye Exam Eye Exam: EOMI, Normal appearance, PERRL Pupil Exam: NORMAL ACCOMODATION, PERRL - ENT Exam ENT Exam: Mucous Membranes Moist, Normal Exam - Neck Exam Neck Exam: Full ROM, Normal Inspection. absent: Lymphadenopathy - Respiratory Exam Respiratory Exam: Clear to Ausculation Bilateral, NORMAL BREATHING PATTERN - Cardiovascular Exam Cardiovascular Exam: REGULAR RHYTHM, +S1, +S2. absent: Murmur - GI/Abdominal Exam GI & Abdominal Exam: Soft, Normal Bowel Sounds. absent: Tenderness - Extremities Exam Extremities Exam: Pedal Edema (minimal) - Neurological Exam Neurological Exam: Alert, Awake, CN II-XII Intact, Oriented x3 - Psychiatric Exam Psychiatric exam: Normal Affect, Normal Mood - Skin Skin Exam: Dry, Intact, Normal Color, Warm Assessment and Plan - Assessment and Plan (Free Text) Assessment: 57 F with a PMHx of HIV questionable compliance with HAART, HTN, CKD 4, known and untx Hep C, DVT, and CHF with last EF of 40% admitted for chest pain evaluation and treatment of RUTH on CKD. 1.Chest pain r/o acs, hx of CAD and hyperlipidedemia - Resolved -Cardio consulted, fu Echo -EKG in ER shows NSR -Last echo in 05/21: 40-45% ejection fraction -CXR reviewed, no interval changes noted, pending radiologist read -Trops negative x3 -Repeat EKG does not show any changes from previous, pending official read -Continue home lipitor -Vitals q4h -HOB 30 -Started on Heart Healthy Diet , low sodium diet, low K -A1c: 6.3 2. RUTH on CKD - Nephrology Dr Mccormack consulted - proteinuric CKD in the setting of HIV, worsening over past year, exact etiology unclear - Pt agreed to renal biopsy. Asa and elaquis held. IR consulted for biopsy - Renal function mildly improved since yesterday; mild hyperkalemia present - No need for [facility]ER at this point -continue diuretics with IV lasix 20 mg bid; can be discharged on Lasix 40mg PO BID as per Nephro -avoid drastic drops in BP 3. Intermittent left arm tingling/numbness -Head CT shows only chronic microangiopathic changes, R frontal > other segments -B12: 372 folate: 9.8 Iron: 40 TIBC: 262 4. Anemia - IV iron administered, FU CBC -No active bleeding -Hemodynamically stable -fecal occult negative 5. Hyperkalemia/ hyperphos - improving, cacitriol 0.25mg MWF -low sodium diet, low K diet -continue to monitor 6. HTN - metoprolol 50 mg BID, Coreg 12.5 mg BID, Amlodipine 10 mg Daily - monitor for leg edema 7. HIV with noncompliance -Sporadic follow up with no meds for some time per patient due to pharmacy issues -HIV viral load and CD4 ordered -ID consulted -Will not re-continue her old medication at this time -UDS Negative 8. Hx of DVT -Eliquis held for renal bx 9. Tobacco abuse -Counseling provided, patient not amenable to quitting -Nicotine patch 10. Alcohol abuse -PRN ativan placed for possibly withdrawal, patient ambiguous about actual use -Alcohol level <10 GI/DVT: famotidine/SCDs Seen reviewed and discussed with attending <Gato Chen - Last Filed: 06/10/17 16:10> Objective - Vital Signs/Intake and Output Vital Signs (last 24 hours): Temp Pulse Resp BP Pulse Ox 98.1 F 48 L 18 144/70 98 06/10/17 12:00 06/10/17 13:22 06/10/17 12:00 06/10/17 13:22 06/10/17 06:00 - Medications Medications: Current Medications Amlodipine Besylate (Norvasc) 10 mg PO DAILY [facility] Last Admin: 06/10/17 09:12 Dose: 10 mg Apixaban (Eliquis) 2.5 mg PO Q12 [facility] PRN Reason: Protocol Last Admin: 06/10/17 09:12 Dose: 2.5 mg Aspirin (Ecotrin) 81 mg PO DAILY [facility] Last Admin: 06/10/17 09:12 Dose: 81 mg Atorvastatin Calcium (Lipitor) 40 mg PO DAILY [facility] Last Admin: 06/10/17 09:12 Dose: 40 mg Calcitriol (Rocaltrol) 0.25 mcg PO MWF [facility] Last Admin: 06/10/17 09:12 Dose: 0.25 mcg Carvedilol (Coreg) 12.5 mg PO BID [facility] Last Admin: 06/10/17 09:11 Dose: 12.5 mg Clonidine HCl (Catapres-Tts3 0.3 Mg/24 Hr) 1 patch TD DIALW [facility] Famotidine (Pepcid) 40 mg PO HS [facility] Last Admin: 06/09/17 21:34 Dose: 40 mg Furosemide (Lasix) 20 mg IVP BID [facility] Last Admin: 06/10/17 09:13 Dose: 20 mg Hydralazine HCl (Apresoline) 25 mg PO TID [facility] Last Admin: 06/10/17 13:22 Dose: 25 mg Iron Sucrose 100 mg/ Sodium (Chloride) 105 mls @ 210 mls/hr IVPB DAILY [facility] Stop: 06/17/17 10:29 Last Admin: 06/10/17 09:22 Dose: 210 mls/hr Lorazepam (Ativan) 1 mg PO Q4H PRN; Protocol PRN Reason: Agitation Magnesium Oxide (Mag-Ox) 400 mg PO DAILY [facility] Last Admin: 06/10/17 09:12 Dose: 400 mg Nicotine (Nicoderm Cq) 1 patch TD DAILY [facility] Last Admin: 06/10/17 09:12 Dose: 1 patch Potassium Chloride (K-Dur 20 Meq Er Tab) 20 meq PO DAILY [facility] Thiamine HCl (Vitamin B1 Tab) 100 mg PO DAILY [facility] Last Admin: 11/06/17 09:11 Dose: 100 mg - Labs Labs: PT 12.8 SECONDS (9.4-12.5) H 06/07/17 18:06 INR 1.17 (0.93-1.08) H 06/07/17 18:06 APTT 30.4 Seconds (25.1-36.5) 06/07/17 18:06 Attending/Attestation - Attestation I have personally seen and examined this patient.: Yes I have fully participated in the care of the patient.: Yes I have reviewed all pertinent clinical information, including history, physical exam and plan: Yes Notes (Text): I have seen and examined the patient with the resident at bedside. Agree with the note above with the following additions/ exceptions: Briefly this is 57 year old female with history of HTN, CHF secondary to systolic dysfunction ( EF 40-45%), COPD, HIV, Hep C (known and untreated), CKD stage IV, hx of DVT with IVC filter placement who is admitted with chest pain. Patient had multiple admission for the similar complaints. Troponins indeterminate. Cardiology evaluation appreciated. Continue aspirin, lipitor, metoprolol and IV Lasix. Echocardiogram pending. Patient denies any chest pain or oliguria. Patient has acute on CKD. There is a plan for renal biopsy. Aspirin and eliquis on hold. IR consult pending. She is on IV iron for iron deficiency anemia. Atripla is on hold for HIV as she has been very non compliant with medications and follow up. Low potassium diet. Upon discharge patient will follow up with Dr Zoya Argueta and Dr Mccormack. Dr Gato Chen
--- NOTE | 2017-06-10 14:30 | PN ---
DATE: 06/10/2017 REASON FOR CONSULTATION: Chest pain. SUBJECTIVE: The patient denies any chest pain, shortness of breath, or any palpitation. OBJECTIVE: Sitting comfortable, not in apparent distress. PHYSICAL EXAMINATION: VITAL SIGNS: Temperature afebrile, heart rate 48, and blood pressure 144/70. HEENT: PERRLA. Extraocular muscles are intact. NECK: Supple. No carotid bruits or thyromegaly. CHEST: Clear to auscultation. HEART: S1 and S2 regular. ABDOMEN: Soft. EXTREMITIES: Clubbing and cyanosis negative. LABORATORY DATA: Blood workup as follows: WBC 4.6, hemoglobin 8.3, hematocrit 26.3, and platelet count 151. Chemistry shows sodium 140, potassium 5.0, chloride 110, carbon dioxide 20, anion gap of 13, BUN 72, and creatinine 5.3. Troponin remains slight 0.06 and 0.07. IMPRESSION: No evidence of acute myocardial infarction, no evidence of coronary syndrome, diabetes, hypertension, hyperlipidemia, end-stage renal disease. RECOMMENDATIONS: Aggressive medical treatment. We will discontinue telemetry. We will follow with you. The patient had an echo on 05/07/2017, limited study, assess pericardial effusion, ejection fraction 45% to 50%, thickened aortic valve, so far no evidence of acute NV, tenderness in the chest with atypical chest pain. The patient had a stress test on 02/10/2017, normal ejection fraction. We will discontinue telemetry and medical treatment. trolley worker for discharge planning. Thank you Dr. Bateman, for providing me the opportunity in taking care of the patient. Juan M Alfaro MD
--- NOTE | 2017-06-10 19:01 | CON ---
HISTORY OF PRESENT ILLNESS: Shortly, the patient is a 57-year-old -[place] female, past history of renal disease, history of DVT, HIV, diabetes. The patient was admitted on the medical side for generalized weakness and numbness in her both legs as well as upper extremity. Psych consult was called for evaluation of possible depressive symptoms. The patient was seen and examined. The patient presented to be some psychomotor retardation. The patient reported that her numbness is better. The patient denied being depressed. The patient denied feeling anxious. The patient reported that her sleep is still so. The patient denied thoughts of harming herself or others. Denied intent or plan. PAST PSYCHIATRIC HISTORY: The patient denied being evaluated by psychiatrist. Denied history of being admitted to the psych [facility], and the patient denied history of suicidal attempt. The patient denied using drugs. Denied using alcohol. The patient is homeless and has no support in the community. PHYSICAL EXAMINATION: VITAL SIGNS: Reviewed. Vital signs seems to be stable, but mildly elevated. Blood pressure 161/97, pulse is 75. MEDICATIONS: Reviewed. Norvasc, aspirin, Lipitor, calcitriol, Coreg, Catapres, Pepcid, Lasix, hydralazine, Ativan, magnesium oxide, Nicoderm, potassium chloride, and thiamine. LABORATORY DATA: Reviewed. Hemoglobin and hematocrit and 26.3. Chemistry reviewed. Potassium 5.3 and AST and ALT within normal limits. Urinalysis; small blood; is negative. Toxicology is negative. Immunology pending. MENTAL STATUS EXAMINATION: The patient presented to be alert, oriented. There is some psychomotor retardation. Poor personal hygiene, intermittent eye contact. Speech was under productive. Mood described I am fine. Affect was flat. Thought process, concrete. Thought content, the patient denied visual, auditory, or tactile hallucinations. Denied paranoid ideation. The patient denied thoughts of harming herself or others. Denied intent or plan. The patient does not present to be psychotic. Insight and judgment fair. Impulses are well controlled. IMPRESSION: Rule out mood disorder due to general medical condition. The patient has multiple medical issues. Please see notes for more detailed information. PLAN: This law writer offered social work evaluation for homelessness. The patient does not want to talk to social services director. The patient found to be not depressed. The patient denied thoughts of killing herself or others. There is no agitation or aggression. The patient denied hearing voices, denied seeing things. The patient posed no imminent danger to self or others. Should you have any questions give me a call back. Meanwhile, this law writer will sign off. Thank you very much. Lisbeth Dickerson MD
[2017-06-10 19:03] LABS: PROTEINASE-3 <1.0 AI (<1.0)
[2017-06-11 05:29] LABS: CREATININE, 24 HOUR URINE 0.85 g/24 h (0.63-2.50)
[2017-06-11 05:29] LABS: CREATININE, RANDOM URINE 76 mg/dL (20-320)
[2017-06-11 07:47] LABS: BETA 1 GLOBULIN 0.3 g/dL (0.4-0.6); BETA 2 GLOBULIN 0.3 g/dL (0.2-0.5); GAMMA GLOBULIN 1.2 g/dL (0.8-1.7)
[2017-06-11 09:17] LABS: BASO # 0.03 K/mm3 (0.0-2.0); BASO % 0.7 % (0.0-3.0); EOS # 0.2 (0.0-0.7); EOS % 3.3 % (1.5-5.0); GRAN # 3.21 (1.4-6.5); GRAN % 69.9 % (50.0-68.0); HEMATOCRIT 24.5 % (36.0-48.0); LYMPH # 0.6 (1.2-3.4); LYMPH % 12.6 % (22.0-35.0); MEAN CELL VOLUME 93.2 fl (80.0-105.0); MEAN CORPUSCULAR HEMOGLOBIN 29.7 pg (25.0-35.0); MEAN CORPUSCULAR HGB CONC 31.8 g/dl (31.0-37.0); MEAN PLATELET VOLUME 12.6 fl (7.0-11.0); MONO # 0.6 (0.1-0.6); MONO % 13.5 % (1.0-6.0); WHITE BLOOD COUNT 4.6 10^3/ul (4.5-11.0)
[2017-06-11 09:26] LABS: BILIRUBIN,TOTAL 0.3 mg/dL (0.2-1.3); CALCIUM 8.9 mg/dL (8.4-10.5); MAGNESIUM 1.7 mg/dL (1.7-2.2); PHOSPHOROUS 4.6 mg/dL (2.5-4.5); POTASSIUM 5.3 mmol/L (3.6-5.0); TOTAL PROTEIN 6.4 g/dL (5.8-8.3)
[2017-06-11] MEDS ORDERED: Midazolam 2 MG/2 ML VIAL ONE (09:39)
[2017-06-11] MEDS ORDERED: Sodium Chloride 0.45% 1,000 ML IV SCH (10:30)
--- NOTE | 2017-06-11 11:33 | CP.PCM.PN ---
<Terri Garzon - Last Filed: 06/11/17 11:27> Subjective - Date & Time of Evaluation Date of Evaluation: 06/11/17 Time of Evaluation: 08:00 - Subjective Subjective: Dr. Gustavo Ley Pt was seen and examined at bedside. No acute complaints at this time. Pt is still amenable to having renal biopsy performed today. No acute or adverse events overnight as per nursing staff. Pt denied fever, chills, sob, chest pains , abdominal pains, n/v/d/c or urinary symptoms. Pt has been eating well, and moving bowels and bladder regularly. Objective - Vital Signs/Intake and Output Vital Signs (last 24 hours): Temp Pulse Resp BP Pulse Ox 98.3 F 58 L 17 168/76 H 100 06/11/17 11:05 06/11/17 11:05 06/11/17 11:05 06/11/17 11:05 06/11/17 11:05 Intake and Output: 06/11/17 06/11/17 06:59 18:59 Intake Total 1240 Balance 1240 - Medications Medications: Current Medications Amlodipine Besylate (Norvasc) 10 mg PO DAILY [facility] Last Admin: 06/10/17 09:12 Dose: 10 mg Apixaban (Eliquis) 2.5 mg PO Q12 [facility] PRN Reason: Protocol Last Admin: 06/10/17 09:12 Dose: 2.5 mg Aspirin (Ecotrin) 81 mg PO DAILY [facility] Last Admin: 06/10/17 09:12 Dose: 81 mg Atorvastatin Calcium (Lipitor) 40 mg PO DAILY [facility] Last Admin: 06/10/17 09:12 Dose: 40 mg Calcitriol (Rocaltrol) 0.25 mcg PO MWF [facility] Last Admin: 06/10/17 09:12 Dose: 0.25 mcg Carvedilol (Coreg) 12.5 mg PO BID [facility] Last Admin: 06/10/17 17:31 Dose: 12.5 mg Famotidine (Pepcid) 40 mg PO HS [facility] Last Admin: 06/10/17 21:38 Dose: 40 mg Furosemide (Lasix) 20 mg IVP BID [facility] Last Admin: 06/10/17 17:31 Dose: 20 mg Hydralazine HCl (Apresoline) 75 mg PO Q8H [facility] Last Admin: 06/10/17 21:42 Dose: 75 mg Iron Sucrose 100 mg/ Sodium (Chloride) 105 mls @ 210 mls/hr IVPB DAILY [facility] Stop: 06/17/17 10:29 Last Admin: 06/10/17 09:22 Dose: 210 mls/hr Sodium Chloride (Sodium Chloride 0.45%) 1,000 mls @ 80 mls/hr IV .[id number] [facility] Stop: 06/11/17 14:30 Lorazepam (Ativan) 1 mg PO Q4H PRN; Protocol PRN Reason: Agitation Magnesium Oxide (Mag-Ox) 400 mg PO DAILY [facility] Last Admin: 06/10/17 09:12 Dose: 400 mg Nicotine (Nicoderm Cq) 1 patch TD DAILY [facility] Last Admin: 06/10/17 09:12 Dose: 1 patch Potassium Chloride (K-Dur 20 Meq Er Tab) 20 meq PO DAILY [facility] Thiamine HCl (Vitamin B1 Tab) 100 mg PO DAILY [facility] Last Admin: 06/10/17 09:11 Dose: 100 mg - Labs Labs: 06/11/17 09:14 06/11/17 09:14 PT 12.8 SECONDS (9.4-12.5) H 06/07/17 18:06 INR 1.17 (0.93-1.08) H 06/07/17 18:06 APTT 30.4 Seconds (25.1-36.5) 06/07/17 18:06 - Constitutional Appears: No Acute Distress - Head Exam Head Exam: ATRAUMATIC, NORMAL INSPECTION, NORMOCEPHALIC - Eye Exam Eye Exam: EOMI, Normal appearance, PERRL Pupil Exam: NORMAL ACCOMODATION, PERRL - ENT Exam ENT Exam: Mucous Membranes Moist, Normal Exam - Neck Exam Neck Exam: Full ROM, Normal Inspection. absent: Lymphadenopathy - Respiratory Exam Respiratory Exam: Clear to Ausculation Bilateral, NORMAL BREATHING PATTERN - Cardiovascular Exam Cardiovascular Exam: REGULAR RHYTHM, +S1, +S2. absent: Murmur - GI/Abdominal Exam GI & Abdominal Exam: Soft, Normal Bowel Sounds. absent: Tenderness - Neurological Exam Neurological Exam: Alert, Awake, CN II-XII Intact, Oriented x3 - Psychiatric Exam Psychiatric exam: Flat Affect - Skin Skin Exam: Dry, Intact, Normal Color, Warm Assessment and Plan - Assessment and Plan (Free Text) Assessment: 57 F with a PMHx of HIV questionable compliance with HAART, HTN, CKD 4, known and untx Hep C, DVT, and CHF with last EF of 40% admitted for chest pain evaluation and treatment of RUTH on CKD. Pt for Renal Bx today. 1. RUTH on CKD - Nephrology Dr Mccormack consulted, recommended renal biopsy, going today and being performed by Dr. 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 will monitor and restart - Renal function stable - No need for SHAPE CARVER at this point -continue diuretics with IV lasix 20 mg bid; can be discharged on Lasix 40mg PO BID as per Nephro -avoid drastic drops in BP 2.Chest pain r/o acs, hx of CAD and hyperlipidedemia - Resolved -Cardio consulted, fu Echo -EKG in ER shows NSR -Last echo in 05/21: 40-45% ejection fraction -Continue home lipitor -Started on Heart Healthy Diet , low sodium diet, low K 3. Intermittent left arm tingling/numbness -Head CT shows only chronic microangiopathic changes, R frontal > other segments -B12: 372 folate: 9.8 Iron: 40 TIBC: 262 4. Anemia - IV iron administered bag , FU CBC -No active bleeding -Hemodynamically stable -fecal occult negative 5. Hyperkalemia/ hyperphos - stable, cacitriol 0.25mg MWF -low sodium diet, low K diet -continue to monitor 6. HTN - metoprolol 50 mg BID, Coreg 12.5 mg BID, Amlodipine 10 mg Daily - To be discharged with: Norvasc 10mg PO daily, Coreg 12.5mg PO BID, Lasix 40mg PO BID, hydralazine 25mg PO TID. 7. HIV with noncompliance -Sporadic follow up with no meds for some time per patient due to pharmacy issues -HIV viral load and CD4 ordered -ID consulted -Will not re-continue her old medication at this time -UDS Negative 8. Hx of DVT -Eliquis held for renal bx 9. Tobacco abuse -Counseling provided, patient not amenable to quitting -Nicotine patch 10. Alcohol abuse -PRN ativan placed for possibly withdrawal, patient ambiguous about actual use -Alcohol level <10 GI/DVT: famotidine/SCDs Seen reviewed and discussed with attending <Gato Chen B - Last Filed: 06/11/17 16:51> Objective - Vital Signs/Intake and Output Vital Signs (last 24 hours): Temp Pulse Resp BP Pulse Ox 98.3 F 58 L 17 179/80 H 100 06/11/17 11:05 06/11/17 11:05 06/11/17 11:05 06/11/17 12:08 06/11/17 11:05 Intake and Output: 06/11/17 06/11/17 06:59 18:59 Intake Total 1240 60 Balance 1240 60 - Medications Medications: Current Medications Amlodipine Besylate (Norvasc) 10 mg PO DAILY [facility] Last Admin: 06/11/17 12:08 Dose: 10 mg Apixaban (Eliquis) 2.5 mg PO Q12 [facility] PRN Reason: Protocol Last Admin: 06/10/17 09:12 Dose: 2.5 mg Aspirin (Ecotrin) 81 mg PO DAILY [facility] Last Admin: 06/10/17 09:12 Dose: 81 mg Atorvastatin Calcium (Lipitor) 40 mg PO DAILY [facility] Last Admin: 06/11/17 12:07 Dose: 40 mg Calcitriol (Rocaltrol) 0.25 mcg PO MWF [facility] Last Admin: 06/10/17 09:12 Dose: 0.25 mcg Carvedilol (Coreg) 12.5 mg PO BID [facility] Last Admin: 06/11/17 12:07 Dose: 12.5 mg Famotidine (Pepcid) 40 mg PO HS [facility] Last Admin: 06/10/17 21:38 Dose: 40 mg Furosemide (Lasix) 40 mg PO BID [facility] Hydralazine HCl (Apresoline) 75 mg PO Q8H [facility] Last Admin: 06/11/17 12:06 Dose: 75 mg Iron Sucrose 100 mg/ Sodium (Chloride) 105 mls @ 210 mls/hr IVPB DAILY [facility] Stop: 06/17/17 10:29 Last Admin: 06/11/17 12:30 Dose: Not Given Lorazepam (Ativan) 1 mg PO Q4H PRN; Protocol PRN Reason: Agitation Magnesium Oxide (Mag-Ox) 400 mg PO DAILY [facility] Last Admin: 06/11/17 12:07 Dose: 400 mg Nicotine (Nicoderm Cq) 1 patch TD DAILY [facility] Last Admin: 06/11/17 12:08 Dose: 1 patch Potassium Chloride (K-Dur 20 Meq Er Tab) 20 meq PO DAILY [facility] Thiamine HCl (Vitamin B1 Tab) 100 mg PO DAILY [facility] Last Admin: 06/11/17 12:16 Dose: 100 mg - Labs Labs: 06/11/17 09:14 06/11/17 09:14 PT 12.8 SECONDS (9.4-12.5) H 06/07/17 18:06 INR 1.17 (0.93-1.08) H 06/07/17 18:06 APTT 30.4 Seconds (25.1-36.5) 06/07/17 18:06 Attending/Attestation - Attestation I have personally seen and examined this patient.: Yes I have fully participated in the care of the patient.: Yes I have reviewed all pertinent clinical information, including history, physical exam and plan: Yes Notes (Text): I have seen and examined the patient with the resident at bedside. Agree with the note above with the following additions/ exceptions: Briefly this is 57 year old female with history of HTN, CHF secondary to systolic dysfunction ( EF 40-45%), COPD, HIV, Hep C (known and untreated), CKD stage IV, hx of DVT with IVC filter placement who is admitted with chest pain. Patient had multiple admission for the similar complaints. Troponins indeterminate. Telemetry discontinued. Continue aspirin, lipitor, metoprolol and Lasix. . Patient denies any chest pain or oliguria. Patient has acute on CKD. Patient underwent renal biopsy today which she tolerated well. Aspirin and eliquis on hold. She is on IV iron for iron deficiency anemia. Atripla is on hold for HIV as she has been very non compliant with medications and follow up. Low potassium diet. Upon discharge patient will follow up with Dr Zoya Argueta and Dr Mccormack. Dr Gato Chen
[2017-06-11] MEDS: Magnesium Oxide 400 mg Tab UD PO SCH (12:07)
[2017-06-11 12:18] LABS: FREE LAMBDA SERUM 131.6 mg/L (5.7-26.3)
--- NOTE | 2017-06-11 12:54 | PN ---
DATE: 06/11/2017 REASON FOR CONSULTATION AND FOLLOWUP: Chest pain, cardiac evaluation. SUBJECTIVE: She denies any chest pain. Denies shortness of breath. Denies any palpitations. PHYSICAL EXAMINATION: GENERAL: Lying on the bed flat, not in apparent distress. VITAL SIGNS: Temperature afebrile, heart rate 57, blood pressure 150/65. HEENT: PERRLA intact. NECK: Supple. No carotid bruits or thyromegaly. CHEST: Clear to auscultation. HEART: S1 and S2 regular. ABDOMEN: Soft. EXTREMITIES: Clubbing and cyanosis negative. LABORATORY DATA: Blood workup as follows WBC 4.6, hemoglobin 7.8, hematocrit 24.5, platelet count 153. Chemistry shows sodium 130, potassium 5.3, chloride 108, carbon dioxide 22, anion gap of 13, BUN 76, and creatinine 5.1. IMPRESSION: A 57-year-old obese female with past medical history of significant for end-stage renal disease on dialysis, hypertension, hyperlipidemia, admitted with chest pain, found no evidence of acute coronary syndrome, no evidence of [id number] elevation myocardial infarction. History of human immunodeficiency virus (HIV), history of hepatitis C, needs to follow up with ID. No further cardiac workup is planned at this time. History of deep vein thrombosis (DVT), was on Eliquis, which is on hold for renal biopsy. Medical management, complete cessation of smoking and compliance with the medication. No further cardiac workup is planned at this time. RECOMMENDATION: Continue aggressive medical treatment. The patient had echo on 06/03/2017. Laboratory study, no pericardial effusion because widened mediastinum noted. Ejection fraction 45% to 50%. The patient also had stress test on 02/10/2017, normal ejection fraction. Recommend continue aggressive medical treatment. tar pot worker for discharge planning. Juan M Alfaro MD
--- NOTE | 2017-06-11 14:06 | CP.PCM.PN ---
Subjective - Date & Time of Evaluation Date of Evaluation: 06/11/17 Time of Evaluation: 11:22 - Subjective Subjective: PGY 2 Nephrology Note- Dr. Mccormack's service Pt seen and examined in no acute distress. Patient s/p left renal biopsy earlier today. Patient eating well. Patient with a flat affect. Patient did not respond much to ROS when asked. Objective - Vital Signs/Intake and Output Vital Signs (last 24 hours): Temp Pulse Resp BP Pulse Ox 98.3 F 58 L 17 179/80 H 100 06/11/17 11:05 06/11/17 11:05 06/11/17 11:05 06/11/17 12:08 06/11/17 11:05 Intake and Output: 06/11/17 06/11/17 06:59 18:59 Intake Total 1240 60 Balance 1240 60 - Medications Medications: Current Medications Amlodipine Besylate (Norvasc) 10 mg PO DAILY [facility] Last Admin: 06/11/17 12:08 Dose: 10 mg Apixaban (Eliquis) 2.5 mg PO Q12 [facility] PRN Reason: Protocol Last Admin: 06/10/17 09:12 Dose: 2.5 mg Aspirin (Ecotrin) 81 mg PO DAILY [facility] Last Admin: 06/10/17 09:12 Dose: 81 mg Atorvastatin Calcium (Lipitor) 40 mg PO DAILY [facility] Last Admin: 06/11/17 12:07 Dose: 40 mg Calcitriol (Rocaltrol) 0.25 mcg PO MWF [facility] Last Admin: 06/10/17 09:12 Dose: 0.25 mcg Carvedilol (Coreg) 12.5 mg PO BID [facility] Last Admin: 06/11/17 12:07 Dose: 12.5 mg Famotidine (Pepcid) 40 mg PO HS [facility] Last Admin: 06/10/17 21:38 Dose: 40 mg Furosemide (Lasix) 20 mg IVP BID [facility] Last Admin: 06/11/17 12:29 Dose: Not Given Hydralazine HCl (Apresoline) 75 mg PO Q8H [facility] Last Admin: 06/11/17 12:06 Dose: 75 mg Iron Sucrose 100 mg/ Sodium (Chloride) 105 mls @ 210 mls/hr IVPB DAILY [facility] Stop: 06/17/17 10:29 Last Admin: 06/11/17 12:30 Dose: Not Given Sodium Chloride (Sodium Chloride 0.45%) 1,000 mls @ 80 mls/hr IV .[id number] [facility] Stop: 06/11/17 14:30 Lorazepam (Ativan) 1 mg PO Q4H PRN; Protocol PRN Reason: Agitation Magnesium Oxide (Mag-Ox) 400 mg PO DAILY [facility] Last Admin: 06/11/17 12:07 Dose: 400 mg Nicotine (Nicoderm Cq) 1 patch TD DAILY [facility] Last Admin: 06/11/17 12:08 Dose: 1 patch Potassium Chloride (K-Dur 20 Meq Er Tab) 20 meq PO DAILY [facility] Thiamine HCl (Vitamin B1 Tab) 100 mg PO DAILY [facility] Last Admin: 06/11/17 12:16 Dose: 100 mg - Labs Labs: 06/11/17 09:14 06/11/17 09:14 PT 12.8 SECONDS (9.4-12.5) H 06/07/17 18:06 INR 1.17 (0.93-1.08) H 06/07/17 18:06 APTT 30.4 Seconds (25.1-36.5) 06/07/17 18:06 - Constitutional Appears: Non-toxic, No Acute Distress, Other (large body habitus) - Head Exam Head Exam: ATRAUMATIC, NORMAL INSPECTION - Eye Exam Eye Exam: EOMI, Normal appearance - ENT Exam ENT Exam: Mucous Membranes Moist - Neck Exam Neck Exam: Full ROM - Respiratory Exam Respiratory Exam: NORMAL BREATHING PATTERN - Cardiovascular Exam Cardiovascular Exam: +S1, +S2, Murmur - GI/Abdominal Exam GI & Abdominal Exam: Soft - Extremities Exam Extremities Exam: Full ROM, Pedal Edema. absent: Tenderness - Back Exam Additional comments: incision site, clean, dry, intact - Neurological Exam Neurological Exam: Alert, Awake - Psychiatric Exam Psychiatric exam: Flat Affect - Skin Skin Exam: Dry, Normal Color, Warm Assessment and Plan - Assessment and Plan (Free Text) Assessment: Acute renal failure (ARF) RUTH on CKD IV; underlying proteinuric CKD in the setting of HIV, worsening over past year, exact etiology unclear; likely superimposed cardiorenal component as patient has had some improvement recently with diuresis; likely limited utility of renal biopsy with significant chronicity already present and poor likelihood for patient followup; nevertheless, biopsy recommended. Biopsy performed today. -Would like to rule out diagnostic etiologies for extra-renal manifestations -Switch to Lasix 40mg PO BID -Avoid drastic drops in BP -Patient counseled on compliance outpatient Status: Acute Hypertensive CKD (chronic kidney disease) BP elevated; patient apparently was not taking clonidine patch as outpatient; would avoid clonidine use to prevent rebound htn in patient with poor compliance ; -changing metoprolol 50 mg bid to coreg 12.5 mg bid -IV lasix 20 mg increased to bid -will start amlodipine 10 mg -Patient can be discharged with: Norvasc 10mg PO daily, Coreg 12.5mg PO BID, Lasix 40mg PO BID, hydralazine 75mg PO TID. Status: Acute Anemia in CKD (chronic kidney disease) Mild decrease. Continue daily Venofer. Continue to monitor. Monitor CBC s/p biopsy Status: Acute Congestive heart failure (CHF) With mild systolic dysfunction; has pulm htn on previous echo as well, awaiting repeat echo; relatively asymptomatic, just mild leg edema; -diuretics as above; Status: Acute Chronic kidney disease-mineral and bone disorder PTH elevated, started on calcitriol 0.25 mcg qMWF; checking phos level; Status: Chronic Prophylactic Measure Pepcid 40 mg PO HS Eliquis to be restarted pending biopsy Discussed with attending, Dr. Easton Fry, PGY 2
[2017-06-11 17:11] VITALS: BP 126/75
[2017-06-11 17:43] VITALS: PULSE 63; RESP 20; TEMP 97.6; O2SAT 98
--- NOTE | 2017-06-11 18:44 | CT ---
PROCEDURE: CT guided left renal cortex biopsy. HISTORY: Proteinuria. Hematuria. Deterioration in renal function. HIV positive. PHYSICIAN(S): Jack Dillard MD. TECHNIQUE: The relative risks and indications of the procedure were explained to the patient and consent obtained. The patient was placed prone on the CT scanner and preliminary images through the kidneys obtained. Conscious sedation and monitoring were provided throughout the procedure by a nurse. Limited non contrast images of the renal parenchyma are unremarkable.. A left posterior approach was selected and the area prepped and draped in the usual sterile fashion. 1% Xylocaine was used to anesthetize the skin and soft tissues. A 17-gauge guiding needle was advanced into the eft renal cortex superiorly and laterally.. Its position was confirmed with CT. Using coaxial technique, multiple core biopsies were obtained. The postprocedure images show no evidence of significant hemorrhage. IMPRESSION: 1. CT-guided left renal cortex biopsy as described above.
--- NOTE | 2017-06-12 07:52 | CP.PCM.DIS ---
<Duran,Vinayphyllis - Last Filed: 06/12/17 07:40> Provider - Provider Date of Admission: 06/10/17 08:37 Attending physician: Gato Chen MD Primary care physician: Kendall Kenny MD Consults: Nephro: Dr. Palomo ID: Dr. Mendoza Cardio:Dr. Jane Psych: Dr. Bob Time Spent in preparation of Discharge (in minutes): 45 Hospital Course - Lab Results Lab Results: Most Recent Lab Values WBC 4.6 10^3/ul (4.5-11.0) 06/11/17 09:14 RBC 2.63 10^6/uL (3.5-6.1) L 06/11/17 09:14 Hgb 7.8 g/dL (12.0-16.0) L 06/11/17 09:14 Hct 24.5 % (36.0-48.0) L 06/11/17 09:14 MCV 93.2 fl (80.0-105.0) 06/11/17 09:14 MCH 29.7 pg (25.0-35.0) 06/11/17 09:14 MCHC 31.8 g/dl (31.0-37.0) 06/11/17 09:14 RDW 18.0 % (11.5-14.5) H 06/11/17 09:14 Plt Count 153 10^3/uL (120.0-450.0) 06/11/17 09:14 MPV 12.6 fl (7.0-11.0) H 06/11/17 09:14 Gran % 69.9 % (50.0-68.0) H 06/11/17 09:14 Lymph % (Auto) 12.6 % (22.0-35.0) L 06/11/17 09:14 [place] % (Auto) 13.5 % (1.0-6.0) H 06/11/17 09:14 Eos % (Auto) 3.3 % (1.5-5.0) 06/11/17 09:14 Baso % (Auto) 0.7 % (0.0-3.0) 06/11/17 09:14 Gran # 3.21 (1.4-6.5) 06/11/17 09:14 Lymph # 0.6 (1.2-3.4) L 06/11/17 09:14 [place] # 0.6 (0.1-0.6) 06/11/17 09:14 Eos # 0.2 (0.0-0.7) 06/11/17 09:14 Baso # 0.03 K/mm3 (0.0-2.0) 06/11/17 09:14 PT 12.8 SECONDS (9.4-12.5) H 06/07/17 18:06 INR 1.17 (0.93-1.08) H 06/07/17 18:06 APTT 30.4 Seconds (25.1-36.5) 06/07/17 18:06 Sodium 138 mmol/L (132-148) 06/11/17 09:14 Potassium 5.3 mmol/L (3.6-5.0) H 06/11/17 09:14 Chloride 108 mmol/L (98-107) H 06/11/17 09:14 Carbon Dioxide 22 mmol/L (21-33) 06/11/17 09:14 Anion Gap 13 (10-20) 06/11/17 09:14 BUN 76 mg/dL (7-21) H 06/11/17 09:14 Creatinine 5.1 mg/dL (0.7-1.2) H 06/11/17 09:14 Est GFR ( Amer) 10 06/11/17 09:14 Est GFR (Non-Af Amer) 9 06/11/17 09:14 Random Glucose 95 mg/dL (70-110) 06/11/17 09:14 Hemoglobin A1c 6.3 % (4.2-6.5) 06/08/17 07:50 Calcium 8.9 mg/dL (8.4-10.5) 06/11/17 09:14 Phosphorus 4.6 mg/dL (2.5-4.5) H 06/11/17 09:14 Magnesium 1.7 mg/dL (1.7-2.2) 06/11/17 09:14 Iron 40 ug/dL (45-180) L 06/08/17 09:38 TIBC 262 ug/dL (265-497) L 06/08/17 09:38 % Saturation 15 % (20-55) L 06/08/17 09:38 Ferritin 117.0 ng/mL 06/08/17 09:38 Total Bilirubin 0.3 mg/dL (0.2-1.3) 06/11/17 09:14 AST 28 U/L (14-36) 06/11/17 09:14 ALT 39 U/L (7-56) 06/11/17 09:14 Alkaline Phosphatase 121 U/L (38-126) 06/11/17 09:14 Lactate Dehydrogenase 559 U/L (333-699) 06/07/17 18:06 Total Creatine Kinase 289 U/L (35-230) H 06/07/17 18:06 CK-MB (CK-2) 2.9 ng/mL (0.0-3.6) 06/07/17 18:06 CK-MB (CK-2) % Cancelled 06/07/17 18:06 Troponin I 0.06 ng/mL 06/08/17 11:45 NT-Pro-B Natriuret Pep 00816 pg/mL (0-450) H 06/07/17 18:06 Total Protein 6.4 g/dL (5.8-8.3) 06/11/17 09:14 Total Protein (PEP) 6.2 g/dL (6.1-8.1) 06/09/17 07:05 Albumin 3.2 g/dL (3.0-4.8) 06/11/17 09:14 Albumin (PEP) 3.2 g/dL (3.8-4.8) L 06/09/17 07:05 Globulin 3.2 gm/dL 06/11/17 09:14 Albumin/Globulin Ratio 1.0 (1.1-1.8) L 06/11/17 09:14 Lxwxm-3-Louagymug 0.3 g/dL (0.2-0.3) 06/09/17 07:05 Dixws-9-Pixiwqsaj 0.7 g/dL (0.5-0.9) 06/09/17 07:05 Eyki-2-Xtgwgcqt 0.3 g/dL (0.4-0.6) L 06/09/17 07:05 Emdk-3-Wmuucclx 0.3 g/dL (0.2-0.5) 06/09/17 07:05 Gamma Globulins 1.2 g/dL (0.8-1.7) 06/09/17 07:05 Abnorm Protein Band 1 TEST NOT PERFORMED 06/09/17 07:05 Abnorm Protein Band 2 TEST NOT PERFORMED 06/09/17 07:05 Abnorm Protein Band 3 TEST NOT PERFORMED 06/09/17 07:05 Triglycerides 76 mg/dL (35-160) 06/08/17 07:50 Cholesterol 124 mg/dL (130-200) L 06/08/17 07:50 LDL Cholesterol Direct 46 mg/dL (0-129) 06/08/17 07:50 HDL Cholesterol 47 mg/dL (29-60) 06/08/17 07:50 Vitamin B12 372 pg/mL (239-931) 06/08/17 07:50 Folate 9.8 ng/mL 06/08/17 07:50 Urine Color Yellow (YELLOW) 06/08/17 13:22 Urine Appearance Clear (CLEAR) 06/08/17 13:22 Urine pH 6.5 (4.7-8.0) 06/08/17 13:22 Ur Specific [place] 1.020 (1.005-1.035) 06/08/17 13:22 Urine Protein >=300 mg/dL (<30 mg/dL) H 06/08/17 13:22 Urine Glucose (UA) 100 mg/dL (NEGATIVE) H 06/08/17 13:22 Urine Ketones Negative mg/dL (NEGATIVE) 06/08/17 13:22 Urine Blood Small (NEGATIVE) H 06/08/17 13:22 Urine Nitrate Negative (NEGATIVE) 06/08/17 13:22 Urine Bilirubin Negative (NEGATIVE) 06/08/17 13:22 Urine Urobilinogen 0.2 E.U./dL (<1 E.U./dL) 06/08/17 13:22 Ur Leukocyte Esterase Negative Kiran/uL (NEGATIVE) 06/08/17 13:22 Urine RBC 10 - 15 /hpf (0-2) 06/08/17 13:22 Urine WBC 1 - 3 /hpf (0-6) 06/08/17 13:22 Ur Epithelial Cells 4 - 5 /hpf (0-5) 06/08/17 13:22 Ur Random Creatinine 57 mg/dL 06/08/17 13:22 U Random Total Protein 3381 mg/g creat (21-161) H 06/09/17 01:30 EST Ur Random Sodium 101 meq/L 06/08/17 13:22 Ur Random Urea Nitrogn 589 mg/dL 06/08/17 13:22 Urine Creatinine 0.58 g/L 06/09/17 18:00 Ur Creatinine 24 Hour 0.85 g/24 h (0.63-2.50) 06/09/17 18:00 Ur Total Protein 24 Hr 2551 mg/24 h (<150) H 06/09/17 18:00 Protein/Creat Ratio 24h 3012 mg/g creat (</=84) H 06/09/17 18:00 Urine Total Protein 1759 mg/L (50-240) H 06/09/17 18:00 Stool Occult Blood Negative (NEGATIVE) 06/09/17 00:00 Urine Opiates Screen Negative (NEGATIVE) 06/08/17 13:22 Urine Methadone Screen Negative (NEGATIVE) 06/08/17 13:22 Ur Barbiturates Screen Negative (NEGATIVE) 06/08/17 13:22 Ur Phencyclidine Scrn Negative (NEGATIVE) 06/08/17 13:22 Ur Amphetamines Screen Negative (NEGATIVE) 06/08/17 13:22 U Benzodiazepines Scrn Negative (NEGATIVE) 06/08/17 13:22 U Oth Cocaine Metabols Negative (NEGATIVE) 06/08/17 13:22 U Cannabinoids Screen Negative (NEGATIVE) 06/08/17 13:22 Alcohol, Quantitative < 10 mg/dL (0-10) 06/08/17 09:38 HITESH & SPEP Interp See note 06/09/17 07:05 KAIDEN Screen Negative (Negative) 06/09/17 07:05 KAIDEN Titer TEST NOT PERFORMED 06/09/17 07:05 KAIDEN Titer 2 TEST NOT PERFORMED 06/09/17 07:05 KAIDEN Pattern TEST NOT PERFORMED 06/09/17 07:05 KAIDEN Pattern 2 TEST NOT PERFORMED 06/09/17 07:05 Proteinase 3 (PR3) <1.0 AI (<1.0) 06/09/17 07:05 Myeloperoxidase Ab <1.0 AI (<1.0) 06/09/17 07:05 Absolute Lymphs (Flow) 654 Cells/mcL (850-3900) L 06/08/17 07:50 % CD4 Cells 39 Percent (30-61) 06/08/17 07:50 Absolute CD4 Count 254 Cells/mcL (490-1740) L 06/08/17 07:50 T-Help/Suppress Ratio 1.19 Ratio (0.86-5.00) 06/08/17 07:50 % CD8 Cells 33 Percent (12-42) 06/08/17 07:50 Absolute CD8 Count 214 Cells/mcL (180-1170) 06/08/17 07:50 T-Lymph Analys Comment See note 06/08/17 07:50 Free [place] Light Chains 183.0 mg/L (3.3-19.4) H 06/09/17 07:05 Free Lambda Light Chain 131.6 mg/L (5.7-26.3) H 06/09/17 07:05 Free [place]/Lambda Ratio 1.39 (0.26-1.65) 06/09/17 07:05 - Hospital Course Hospital Course: 57 year old female with a past medical history of HIV(on HAART/questionable compliance), DVT, HTN, CHF (systolic dysfunction EF 40-45%) known and untreated Hep C and hypertension who comes in complaining of numbness of left arm and left sided chest pain that started in the afternoon of admission. The patient states the chest pain began before the left arm numbness began. The patient also reports lightheadedness when arising from the sitting or supine position. She denies any alleviating or modifying factors pt was admitted to rule out Acute Coronary syndrome. Patient has had multiple admissions for similar complaint. Troponins were drawn and resulted as indeterminate. Cardiology consulted, Dr. Jane, medical management recommended with aspirin, lipitor, clonidine Patch, on metoprolol. Started on IV Lasix. ID consulted for HIV and Hep C hx, Atripla is on hold for HIV as she has been very non compliant with medications and follow up. Low potassium diet. Pt found to have acute on chronic kidney disease. Nephrology Consulted, Dr. Mccormack, CKD likely 2/ longstanding uncontrolled HTN as pt has poor compliance. Renal Bx agreed upon for further evaluation. ASA/Elaquis held for procedure, IR consulted and performed renal bx. No acute or adverse effects from procedure. Pt was anemic upon admission and treated for iron deficiency anemia IV iron. Pt decided to leave AMA on 06/11/17. All risks for doing so were clearly explained by biomedical engineering internship and pt conferred understanding and yet decided to leave AMA. Discharge Plan - Follow Up Plan Condition: FAIR Disposition: AGAINST MEDICAL ADVICE Instructions: Human Immunodeficiency Virus and Acquired Immune Deficiency Syndrome (DC), Human Immunodeficiency Virus and Acquired Immune Deficiency Syndrome (GEN) Referrals: Kendall Kenny MD [Primary Care Provider] - <Gato Chen - Last Filed: 06/12/17 18:25> Provider - Provider Date of Admission: 06/10/17 08:37 Attending physician: Gato Chen MD Primary care physician: Kendall Kenny MD Hospital Course - Lab Results Lab Results: Most Recent Lab Values WBC 4.6 10^3/ul (4.5-11.0) 06/11/17 09:14 RBC 2.63 10^6/uL (3.5-6.1) L 06/11/17 09:14 Hgb 7.8 g/dL (12.0-16.0) L 06/11/17 09:14 Hct 24.5 % (36.0-48.0) L 06/11/17 09:14 MCV 93.2 fl (80.0-105.0) 06/11/17 09:14 MCH 29.7 pg (25.0-35.0) 06/11/17 09:14 MCHC 31.8 g/dl (31.0-37.0) 06/11/17 09:14 RDW 18.0 % (11.5-14.5) H 06/11/17 09:14 Plt Count 153 10^3/uL (120.0-450.0) 06/11/17 09:14 MPV 12.6 fl (7.0-11.0) H 06/11/17 09:14 Gran % 69.9 % (50.0-68.0) H 06/11/17 09:14 Lymph % (Auto) 12.6 % (22.0-35.0) L 06/11/17 09:14 [place] % (Auto) 13.5 % (1.0-6.0) H 06/11/17 09:14 Eos % (Auto) 3.3 % (1.5-5.0) 06/11/17 09:14 Baso % (Auto) 0.7 % (0.0-3.0) 06/11/17 09:14 Gran # 3.21 (1.4-6.5) 06/11/17 09:14 Lymph # 0.6 (1.2-3.4) L 06/11/17 09:14 [place] # 0.6 (0.1-0.6) 06/11/17 09:14 Eos # 0.2 (0.0-0.7) 06/11/17 09:14 Baso # 0.03 K/mm3 (0.0-2.0) 06/11/17 09:14 PT 12.8 SECONDS (9.4-12.5) H 06/07/17 18:06 INR 1.17 (0.93-1.08) H 06/07/17 18:06 APTT 30.4 Seconds (25.1-36.5) 06/07/17 18:06 Sodium 138 mmol/L (132-148) 06/11/17 09:14 Potassium 5.3 mmol/L (3.6-5.0) H 06/11/17 09:14 Chloride 108 mmol/L (98-107) H 06/11/17 09:14 Carbon Dioxide 22 mmol/L (21-33) 06/11/17 09:14 Anion Gap 13 (10-20) 06/11/17 09:14 BUN 76 mg/dL (7-21) H 06/11/17 09:14 Creatinine 5.1 mg/dL (0.7-1.2) H 06/11/17 09:14 Est GFR ( Amer) 10 06/11/17 09:14 Est GFR (Non-Af Amer) 9 06/11/17 09:14 Random Glucose 95 mg/dL (70-110) 06/11/17 09:14 Hemoglobin A1c 6.3 % (4.2-6.5) 06/08/17 07:50 Calcium 8.9 mg/dL (8.4-10.5) 06/11/17 09:14 Phosphorus 4.6 mg/dL (2.5-4.5) H 06/11/17 09:14 Magnesium 1.7 mg/dL (1.7-2.2) 06/11/17 09:14 Iron 40 ug/dL (45-180) L 06/08/17 09:38 TIBC 262 ug/dL (265-497) L 06/08/17 09:38 % Saturation 15 % (20-55) L 06/08/17 09:38 Ferritin 117.0 ng/mL 06/08/17 09:38 Total Bilirubin 0.3 mg/dL (0.2-1.3) 06/11/17 09:14 AST 28 U/L (14-36) 06/11/17 09:14 ALT 39 U/L (7-56) 06/11/17 09:14 Alkaline Phosphatase 121 U/L (38-126) 06/11/17 09:14 Lactate Dehydrogenase 559 U/L (333-699) 06/07/17 18:06 Total Creatine Kinase 289 U/L (35-230) H 06/07/17 18:06 CK-MB (CK-2) 2.9 ng/mL (0.0-3.6) 06/07/17 18:06 CK-MB (CK-2) % Cancelled 06/07/17 18:06 Troponin I 0.06 ng/mL 06/08/17 11:45 NT-Pro-B Natriuret Pep 70957 pg/mL (0-450) H 06/07/17 18:06 Total Protein 6.4 g/dL (5.8-8.3) 06/11/17 09:14 Total Protein (PEP) 6.2 g/dL (6.1-8.1) 06/09/17 07:05 Albumin 3.2 g/dL (3.0-4.8) 06/11/17 09:14 Albumin (PEP) 3.2 g/dL (3.8-4.8) L 06/09/17 07:05 Globulin 3.2 gm/dL 06/11/17 09:14 Albumin/Globulin Ratio 1.0 (1.1-1.8) L 06/11/17 09:14 Zpagr-9-Dlxvpnulo 0.3 g/dL (0.2-0.3) 06/09/17 07:05 Xkieg-0-Ahnrqurpf 0.7 g/dL (0.5-0.9) 06/09/17 07:05 Clqd-3-Thhbihgr 0.3 g/dL (0.4-0.6) L 06/09/17 07:05 Nzkk-3-Gtchantc 0.3 g/dL (0.2-0.5) 06/09/17 07:05 Gamma Globulins 1.2 g/dL (0.8-1.7) 06/09/17 07:05 Abnorm Protein Band 1 TEST NOT PERFORMED 06/09/17 07:05 Abnorm Protein Band 2 TEST NOT PERFORMED 06/09/17 07:05 Abnorm Protein Band 3 TEST NOT PERFORMED 06/09/17 07:05 Triglycerides 76 mg/dL (35-160) 06/08/17 07:50 Cholesterol 124 mg/dL (130-200) L 06/08/17 07:50 LDL Cholesterol Direct 46 mg/dL (0-129) 06/08/17 07:50 HDL Cholesterol 47 mg/dL (29-60) 06/08/17 07:50 Vitamin B12 372 pg/mL (239-931) 06/08/17 07:50 Folate 9.8 ng/mL 06/08/17 07:50 Urine Color Yellow (YELLOW) 06/08/17 13:22 Urine Appearance Clear (CLEAR) 06/08/17 13:22 Urine pH 6.5 (4.7-8.0) 06/08/17 13:22 Ur Specific [place] 1.020 (1.005-1.035) 06/08/17 13:22 Urine Protein >=300 mg/dL (<30 mg/dL) H 06/08/17 13:22 Urine Glucose (UA) 100 mg/dL (NEGATIVE) H 06/08/17 13:22 Urine Ketones Negative mg/dL (NEGATIVE) 06/08/17 13:22 Urine Blood Small (NEGATIVE) H 06/08/17 13:22 Urine Nitrate Negative (NEGATIVE) 06/08/17 13:22 Urine Bilirubin Negative (NEGATIVE) 06/08/17 13:22 Urine Urobilinogen 0.2 E.U./dL (<1 E.U./dL) 06/08/17 13:22 Ur Leukocyte Esterase Negative Kiran/uL (NEGATIVE) 06/08/17 13:22 Urine RBC 10 - 15 /hpf (0-2) 06/08/17 13:22 Urine WBC 1 - 3 /hpf (0-6) 06/08/17 13:22 Ur Epithelial Cells 4 - 5 /hpf (0-5) 06/08/17 13:22 Ur Random Creatinine 57 mg/dL 06/08/17 13:22 U Random Total Protein 3381 mg/g creat (21-161) H 06/09/17 01:30 EST Ur Random Sodium 101 meq/L 06/08/17 13:22 Ur Random Urea Nitrogn 589 mg/dL 06/08/17 13:22 Urine Creatinine 0.58 g/L 06/09/17 18:00 Ur Creatinine 24 Hour 0.85 g/24 h (0.63-2.50) 06/09/17 18:00 Ur Total Protein 24 Hr 2551 mg/24 h (<150) H 06/09/17 18:00 Protein/Creat Ratio 24h 3012 mg/g creat (</=84) H 06/09/17 18:00 Urine Total Protein 1759 mg/L (50-240) H 06/09/17 18:00 Stool Occult Blood Negative (NEGATIVE) 06/09/17 00:00 Urine Opiates Screen Negative (NEGATIVE) 06/08/17 13:22 Urine Methadone Screen Negative (NEGATIVE) 06/08/17 13:22 Ur Barbiturates Screen Negative (NEGATIVE) 06/08/17 13:22 Ur Phencyclidine Scrn Negative (NEGATIVE) 06/08/17 13:22 Ur Amphetamines Screen Negative (NEGATIVE) 06/08/17 13:22 U Benzodiazepines Scrn Negative (NEGATIVE) 06/08/17 13:22 U Oth Cocaine Metabols Negative (NEGATIVE) 06/08/17 13:22 U Cannabinoids Screen Negative (NEGATIVE) 06/08/17 13:22 Alcohol, Quantitative < 10 mg/dL (0-10) 06/08/17 09:38 HITESH & SPEP Interp See note 06/09/17 07:05 KAIDEN Screen Negative (Negative) 06/09/17 07:05 [place] Titer TEST NOT PERFORMED 06/09/17 07:05 [place] Titer 2 TEST NOT PERFORMED 06/09/17 07:05 [place] Pattern TEST NOT PERFORMED 06/09/17 07:05 [place] Pattern 2 TEST NOT PERFORMED 06/09/17 07:05 Proteinase 3 (PR3) <1.0 AI (<1.0) 06/09/17 07:05 Myeloperoxidase Ab <1.0 AI (<1.0) 06/09/17 07:05 Absolute Lymphs (Flow) 654 Cells/mcL (850-3900) L 06/08/17 07:50 % CD4 Cells 39 Percent (30-61) 06/08/17 07:50 Absolute CD4 Count 254 Cells/mcL (490-1740) L 06/08/17 07:50 T-Help/Suppress Ratio 1.19 Ratio (0.86-5.00) 06/08/17 07:50 % CD8 Cells 33 Percent (12-42) 06/08/17 07:50 Absolute CD8 Count 214 Cells/mcL (180-1170) 06/08/17 07:50 T-Lymph Analys Comment See note 06/08/17 07:50 Free [place] Light Chains 183.0 mg/L (3.3-19.4) H 06/09/17 07:05 Free Lambda Light Chain 131.6 mg/L (5.7-26.3) H 06/09/17 07:05 Free [place]/Lambda Ratio 1.39 (0.26-1.65) 06/09/17 07:05 Attending/Attestation - Attestation I have personally seen and examined this patient.: Yes I have fully participated in the care of the patient.: Yes I have reviewed all pertinent clinical information, including history, physical exam and plan: Yes Notes (Text): Patient left AMA.
[2017-06-12 12:59] LABS: GAMMA GLOBULIN 19.4 Relative %
[2017-06-13 10:55] LABS: COLLECTION TIME 24 Hours
== END 2017-06-11 21:50 | disposition left against medical advice (07) | DRG 682 ==
LOC: ED 16:39 → ERH 19:53 → 2RNO 21:45 → OBSVTOIN 06-10 08:37 → 3RNO 06-10 15:06
PROVIDERS: ADMIT Internal Medicine; ATTEND Hospitalist
PROC: 0TB13ZX Excision of Left Kidney, Percutaneous Approach, Diagnostic (ICD-10-PCS; principal; 2017-06-11 09:30)
DX: N17.9 Acute kidney failure, unspecified (principal); B20 Human immunodeficiency virus [HIV] disease; I13.0 Hypertensive heart and chronic kidney disease with heart failure and stage 1 through stage 4 chronic kidney disease, or unspecified chronic kidney disease; I50.40 Unspecified combined systolic (congestive) and diastolic (congestive) heart failure; N18.4 Chronic kidney disease, stage 4 (severe); Z68.41 Body mass index [BMI] 40.0-44.9, adult; E11.22 Type 2 diabetes mellitus with diabetic chronic kidney disease; I27.20 Pulmonary hypertension, unspecified; D63.1 Anemia in chronic kidney disease; D50.9 Iron deficiency anemia, unspecified; R31.9 Hematuria, unspecified; F10.10 Alcohol abuse, uncomplicated; E87.5 Hyperkalemia; E66.01 Morbid (severe) obesity due to excess calories; Y90.0 Blood alcohol level of less than 20 mg/100 ml; B19.20 Unspecified viral hepatitis C without hepatic coma; E78.5 Hyperlipidemia, unspecified; J44.9 Chronic obstructive pulmonary disease, unspecified; F17.210 Nicotine dependence, cigarettes, uncomplicated; E03.9 Hypothyroidism, unspecified; F41.9 Anxiety disorder, unspecified; F32.9 Major depressive disorder, single episode, unspecified; M19.90 Unspecified osteoarthritis, unspecified site; Z91.19 Patient's noncompliance with other medical treatment and regimen; Z86.718 Personal history of other venous thrombosis and embolism; Z79.899 Other long term (current) drug therapy; Z59.0 Homelessness

== ENCOUNTER 2017-06-18 07:19 | Emergency (ER) | payer MEDICARE, OTHER ==
[2017-06-18 07:20] VITALS: PULSE 125
--- NOTE | 2017-06-18 07:48 | ED PDOC ---
Arrival/HPI <Justen Salmon - Last Filed: 06/18/17 12:28> <Jacob To - Last Filed: 06/18/17 18:19> - General Chief Complaint: Flu-like Symptoms Time Seen by Provider: 06/18/17 07:25 - History of Present Illness Narrative History of Present Illness (Text): CC: I don't feel right PMD: NelBarbara Stinson This patient is a 57yo AA F who is well known to [facility] staff w/ a PMhx of HTN, HLD , angina, CAD, HIV on HAART, lower extremity DVT on eliquis who is coming to us after d/c from [place] where she called 911 right in the lobby after she was discharged. She states they did nothing for her there, and it was very cold outside and had no where to stay. She states she just does not feel right, and cannot provide any specific symptoms. She has all of her medicines wit her in a bag, and states that she takes all of them religiously. She denies fevers/chills , MEDEIROS, CP, SOB, abdominal pain, N/V/D, dysuria/freq/urg or lower extremity pain/ swelling. (Justen Salmon) Past Medical History - Provider Review Nursing Documentation Reviewed: Yes - Travel History Have you recently traveled outside [place] w/in the past 3 mons?: No - Past History Past History: Non-Contributing - Infectious Disease Hx of Infectious Diseases: None - Tetanus Immunization Tetanus Immunization: Unknown - Past Medical History Past Medical History: Non-Contributing - Cardiac Hx Congestive Heart Failure: Yes Hx Hypertension: Yes - Pulmonary Hx Chronic Obstructive Pulmonary Disease (COPD): Yes - Neurological HX Cerebrovascular Accident: No - HEENT Hx HEENT Disorder: No - Renal Hx Renal Disorder: Yes - Endocrine/Metabolic Hx Hypothyroidism: Yes - Hematological/Oncological Hx Anemia: Yes - Integumentary Hx Dermatological Disorder: No - Musculoskeletal/Rheumatological Hx Arthritis: Yes - Gastrointestinal Hx Pancreatitis: Yes - Genitourinary/Gynecological Hx Genitourinary Disorders: No - Psychiatric Hx Anxiety: Yes Hx Depression: Yes Hx Substance Use: No (stopped) - Surgical History Other/Comment: IVC filter - Anesthesia Hx Anesthesia: Yes Hx Anesthesia Reactions: No Hx Malignant Hyperthermia: No - Suicidal Assessment Feels Threatened In Home Enviroment: No <Justen Salmon - Last Filed: 06/18/17 12:28> Family/Social History - Physician Review Nursing Documentation Reviewed: Yes Family/Social History: No Known Family HX Smoking Status: Heavy Smoker > 10 Cigarettes Daily Hx Alcohol Use: Yes (2 bottles of vodka daily) Hx Substance Use: No (stopped) Substance used: Heroin Hx Substance Use Treatment: No <Justen Salmon - Last Filed: 06/18/17 12:28> Allergies/Home Meds <Justen Salmon - Last Filed: 06/18/17 12:28> <Jacob To - Last Filed: 06/18/17 18:19> Allergies/Adverse Reactions: Allergies No Known Allergies Allergy (Verified 06/07/17 16:52) Home Medications: Home Meds Medication Instructions Recorded Confirmed Atorvastatin [Lipitor] 1 tab PO DAILY 05/08/17 06/18/17 Hydroxyzine HCl 1 tab PO BID 05/08/17 06/18/17 hydrALAZINE [Apresoline] 1 tab PO TID 05/08/17 06/18/17 Calcitriol 0.25 mcg PO DAILY 06/18/17 06/18/17 Isosorbide Dinitrate 30 mg PO DAILY 06/18/17 06/18/17 Metoprolol Tartrate [Lopressor] 25 mg PO BID 06/18/17 06/18/17 diltiaZEM [Cardizem] 120 mg PO DAILY 06/18/17 06/18/17 Review of Systems - Review of Systems Constitutional: absent: Fatigue, Weight Change Eyes: absent: Vision Changes, Photophobia ENT: absent: Hearing Changes, Tinnitus Respiratory: absent: SOB, Cough Cardiovascular: absent: Chest Pain, Palpitations Gastrointestinal: absent: Abdominal Pain Genitourinary Female: absent: Dysuria, Frequency Musculoskeletal: absent: Arthralgias, Back Pain Skin: absent: Rash, Pruritis Neurological: absent: Headache, Dizziness Endocrine: absent: Diaphoresis Hemo/Lymphatic: absent: Adenopathy Psychiatric: absent: Anxiety, Depression <Justen Salmon - Last Filed: 06/18/17 12:28> Physical Exam Vital Signs Reviewed: Yes Temperature: Afebrile Blood Pressure: Normal Pulse: Regular Respiratory Rate: Normal Appearance: Positive for: Well-Appearing, Non-Toxic, Comfortable Pain Distress: None Mental Status: Positive for: Alert and Oriented X 3 - Systems Exam Head: Present: Atraumatic, Normocephalic Pupils: Present: PERRL Extroacular Muscles: Present: EOMI Conjunctiva: Present: Normal Mouth: Present: Moist Mucous Membranes Neck: Present: Normal Range of Motion Respiratory/Chest: Present: Clear to Auscultation, Good Air Exchange. No: Respiratory Distress, Accessory Muscle Use Cardiovascular: Present: Regular Rate and Rhythm, Normal S1, S2. No: Murmurs Abdomen: Present: Normal Bowel Sounds. No: Tenderness, Distention, Peritoneal Signs Back: Present: Normal Inspection. No: CVA Tenderness Upper Extremity: Present: Normal Inspection. No: Cyanosis, Edema Lower Extremity: Present: Normal Inspection, Edema (+1 pitting on b/l extrem no pain on palpation ) Neurological: Present: GCS=15, CN II-XII Intact Skin: Present: Warm <Justen Salmon - Last Filed: 06/18/17 12:28> Appearance: Positive for: Unkept Pain Distress: None <Jacob To P - Last Filed: 06/18/17 18:19> Vital Signs Temp Pulse Resp BP Pulse Ox 06/18/17 14:06 98 F 78 18 167/85 H 99 06/18/17 12:00 71 16 148/82 97 06/18/17 10:00 97.8 F 76 18 140/89 97 06/18/17 07:54 97.9 F 81 16 157/90 H 100 Medical Decision Making - Lab Interpretations I have reviewed the lab results: Yes <Justen Salmon - Last Filed: 06/18/17 12:28> - Lab Interpretations I have reviewed the lab results: Yes (outside labs) Interpretation: No sign. chg./baseline <Jacob To P - Last Filed: 06/18/17 18:19> ED Course and Treatment: DDx: homelessness vs hunger patient was just discharged from [place], is no no acute distress, EKG shows PVC with no ST/T wave changes or depressions which are consistent with prior EKG patient will get a social work referral, and regular diet upon questioning, when asked if the patient had anywhere to go she said she didn 't and it was cold outside and she has trouble breathing when it is so cold outside d/c and reassess 06/18/17 07:56 EKG shows PVC which are consistent with old EKG Still pending social work eval: 10:42 06/18/17 10:58 patient is eating her breakfast in NAD; resting comfortable social work has been called 5x, message left, no response yet 06/18/17 11:17 Still no response from social work 06/18/17 12:29 patient is refusing social work; refusing placement to [facility]; [facility] patient has no admittable reason to stay in hospital the patient is stable for discharge as per Dr. To she was given breakfast, regular diet; patient is seen sleeping comfortably in bed and interacting normally with staff (Justen Salmon) 06/18/17 08:15 Patient Seen With Resident: In agreement with resident note which contains more details about the patient. Patient was seen and evaluated with resident. Came up with plan and treatment together. A 57 year old homeless female smoker, whose past medical history includes chronic renal failure, diabetes mellitus, anemia, hypertension, HIV, and AIDS, presents to the emergency department via EMS for chest pain. The patient was treated earlier today at [place] for same symptoms. She notes she also has a cough , minor chills, and leg swelling. She denies any nausea, vomiting, diarrhea, shortness of breath, or any other complaints at this time. Given the patient's history for chronic renal failure, I will order labs to check for worsening renal function and hyperkalemia. The patient is disheveled, fully kept whose lungs are clear bilaterally with no wheezing. Her heart beat has occasional irregular beats with murmurs. She displays 1+ edema bilaterally to her lower extremities. The patient also has a chronic eczematous rash. 06/18/17 08:50 Spoke to Doctor from [place] and reviewed the patients labs from last night. The patients labs showed 4.9 Creatinine and 5.1 Potassium levels. Since patient had lab work last night, it is not needed to recheck labs. I will order a chest x- ray to rule out signs of pneumonia. Social work will come to consult the patient given that she stated to the Doctor in [place] that she goes to the hospital because she needs a place to stay. AGgree with above. 06/18/17 18:19 (Jacob To) - RAD Interpretation Radiology Orders: 06/18/17 08:11 CHEST TWO VIEWS (PA/LAT) [RAD] Stat <Justen Salmon - Last Filed: 06/18/17 12:28> - PA / PROPERTY AND SUPPLY OFFICER / Resident Statement MD/DO has examined the patient and agrees with the treatment plan. - Scribe Statement The provider has reviewed the documentation as recorded by the Scribe <Jacob To - Last Filed: 06/18/17 18:19> - Scribe Statement Maira Sarkar Provider Scribe Attestation: All medical record entries made by the Scribe were at my direction and personally dictated by me. I have reviewed the chart and agree that the record accurately reflects my personal performance of the history, physical exam, medical decision making, and the department course for this patient. I have also personally directed, reviewed, and agree with the discharge instructions and disposition. (Jacob To) Disposition/Present on Arrival - Present on Arrival Any Indicators Present on Arrival: No History of DVT/PE: No History of Uncontrolled Diabetes: No Urinary Catheter: No History Surgical Site Infection Following: None - Disposition Have Diagnosis and Disposition been Completed?: Yes Disposition Time: 12:30 Patient Plan: Discharge <Justen Salmon - Last Filed: 06/18/17 12:28> - Disposition Have Diagnosis and Disposition been Completed?: Yes <Jacob To - Last Filed: 06/18/17 18:19> - Disposition Diagnosis: Homelessness, CKD (chronic kidney disease) stage 3, GFR 30-59 ml/min Disposition: HOME/ ROUTINE Condition: FAIR Forms: [employer] ([place])
[2017-06-18 08:00] VITALS: BMI 40.3
--- NOTE | 2017-06-18 09:44 | RAD ---
HISTORY: chest pain COMPARISON: 05/11/2017 TECHNIQUE: Chest PA and lateral FINDINGS: LUNGS: No active pulmonary disease. PLEURA: No significant pleural effusion identified. No pneumothorax apparent. CARDIOVASCULAR: Moderate to severe cardiomegaly OSSEOUS STRUCTURES: No significant abnormalities. VISUALIZED UPPER ABDOMEN: Chronically dilated loops of bowel are seen beneath the left hemidiaphragm. OTHER FINDINGS: None. IMPRESSION: No active disease.
[2017-06-18 14:07] VITALS: BP 167/85; PULSE 78; RESP 18; TEMP 98; O2SAT 99
--- NOTE | 2017-06-18 22:13 | CARD ---
APPROVED REPORT EKG Measurement Heart [id number] <Conclusion> Sinus rhythm with premature atrial complexes Otherwise normal ECG
== END 2017-06-18 14:10 | disposition home or self-care (01) ==
LOC: ED 07:19
DX: Z59.0 Homelessness (principal); I12.9 Hypertensive chronic kidney disease with stage 1 through stage 4 chronic kidney disease, or unspecified chronic kidney disease; N18.3 Chronic kidney disease, stage 3 (moderate); Z21 Asymptomatic human immunodeficiency virus [HIV] infection status; J44.9 Chronic obstructive pulmonary disease, unspecified; I50.9 Heart failure, unspecified; E78.5 Hyperlipidemia, unspecified; F17.210 Nicotine dependence, cigarettes, uncomplicated

== ENCOUNTER 2017-07-09 22:12 | Emergency (ER) | payer MEDICARE, OTHER ==
[2017-07-09 22:13] VITALS: PULSE 125
[2017-07-09 22:34] VITALS: BP 146/79; PULSE 75; TEMP 97.5; BMI 37.1
--- NOTE | 2017-07-09 22:38 | ED PDOC ---
Arrival/HPI - General Time Seen by Provider: 07/09/17 22:29 Historian: Patient - History of Present Illness Narrative History of Present Illness (Text): 07/09/17 22:37 57yo female with PMHx of HIV, Hypercholestremia and chronic leg pain present with complaint of b/l leg pain. Notes pain with ambulation. She did not take any medication for the pain. she was seen here for same pain in the past. She denies chest pain, SOB, diaphoresis, redness, swelling, trauma. Past Medical History - Provider Review Nursing Documentation Reviewed: Yes - Past History Past History: Non-Contributing - Infectious Disease Hx of Infectious Diseases: None - Tetanus Immunization Tetanus Immunization: Unknown - Past Medical History Past Medical History: Non-Contributing - Cardiac Hx Congestive Heart Failure: Yes Hx Hypertension: Yes - Pulmonary Hx Chronic Obstructive Pulmonary Disease (COPD): Yes - Neurological HX Cerebrovascular Accident: No - HEENT Hx HEENT Disorder: No - Renal Hx Renal Disorder: Yes - Endocrine/Metabolic Hx Hypothyroidism: Yes - Hematological/Oncological Hx Anemia: Yes - Integumentary Hx Dermatological Disorder: No - Musculoskeletal/Rheumatological Hx Arthritis: Yes - Gastrointestinal Hx Pancreatitis: Yes - Genitourinary/Gynecological Hx Genitourinary Disorders: No - Psychiatric Hx Anxiety: Yes Hx Depression: Yes Hx Substance Use: No (stopped) - Surgical History Other/Comment: IVC filter - Anesthesia Hx Anesthesia: Yes Hx Anesthesia Reactions: No Hx Malignant Hyperthermia: No - Suicidal Assessment Feels Threatened In Home Enviroment: No Family/Social History - Physician Review Nursing Documentation Reviewed: Yes Family/Social History: Unknown Family HX Smoking Status: Heavy Smoker > 10 Cigarettes Daily Hx Alcohol Use: Yes (2 bottles of vodka daily) Hx Substance Use: No (stopped) Substance used: Heroin Hx Substance Use Treatment: No Allergies/Home Meds Allergies/Adverse Reactions: Allergies No Known Allergies Allergy (Verified 07/09/17 22:22) Home Medications: Home Meds Medication Instructions Recorded Confirmed Atorvastatin [Lipitor] 1 tab PO DAILY 05/08/17 07/09/17 Hydroxyzine HCl 1 tab PO BID 05/08/17 07/09/17 hydrALAZINE [Apresoline] 1 tab PO TID 05/08/17 07/09/17 Calcitriol 0.25 mcg PO DAILY 06/18/17 07/09/17 Isosorbide Dinitrate 30 mg PO DAILY 06/18/17 07/09/17 Metoprolol Tartrate [Lopressor] 25 mg PO BID 06/18/17 07/09/17 diltiaZEM [Cardizem] 120 mg PO DAILY 06/18/17 07/09/17 Review of Systems - Physician Review All systems were reviewed & negative as marked: Yes - Review of Systems Constitutional: Normal Eyes: Normal ENT: Normal Respiratory: Normal Cardiovascular: Normal Gastrointestinal: Normal Genitourinary Female: Normal Musculoskeletal: Arthralgias Skin: Normal Neurological: Normal Endocrine: Normal Hemo/Lymphatic: Normal Psychiatric: Normal Physical Exam Vital Signs Reviewed: Yes Vital Signs Temp Pulse Resp BP Pulse Ox 07/09/17 22:40 97.5 F L 75 19 146/79 99 07/09/17 22:30 97.5 F L 75 16 146/79 97 Temperature: Afebrile Blood Pressure: Normal Pulse: Regular Respiratory Rate: Normal Appearance: Positive for: Well-Appearing, Non-Toxic, Comfortable Pain Distress: None Mental Status: Positive for: Alert and Oriented X 3 - Systems Exam Head: Present: Atraumatic, Normocephalic Pupils: Present: PERRL Extroacular Muscles: Present: EOMI Conjunctiva: Present: Normal Mouth: Present: Moist Mucous Membranes Neck: Present: Normal Range of Motion Respiratory/Chest: Present: Clear to Auscultation, Good Air Exchange. No: Respiratory Distress, Accessory Muscle Use Cardiovascular: Present: Regular Rate and Rhythm, Normal S1, S2. No: Murmurs Abdomen: Present: Normal Bowel Sounds. No: Tenderness, Distention, Peritoneal Signs Back: Present: Normal Inspection Upper Extremity: Present: Normal Inspection. No: Cyanosis, Edema Lower Extremity: Present: CALF TENDERNESS (B/L), NORMAL PULSES, Normal ROM, Neurovascularly Intact. No: Edema, Venkat's Sign, Swelling, Erythema, Temperature Abnormalties Neurological: Present: GCS=15, CN II-XII Intact, Speech Normal Skin: Present: Warm, Dry, Normal Color. No: Rashes Psychiatric: Present: Alert, Oriented x 3, Normal Insight, Normal Concentration Medical Decision Making ED Course and Treatment: 07/09/17 23:51 PT in ED for stated history. she have chronic leg pain. PT had calf pain and US was ordered to r/o DVT PEr US tech, Doppler was negative for DVT. PT was ambulatory in ED. She will be DC home with a rx of tramadol. Referred to her PMD. - RAD Interpretation Radiology Orders: 07/09/17 22:29 DUPLEX LOWER EXTRM VEIN BILAT [US] Stat - Medication Orders Current Medication Orders: Discontinued Medications Tramadol HCl (Ultram) 50 mg PO STAT STA Stop: 07/09/17 22:31 Last Admin: 07/09/17 22:53 Dose: 50 mg MAR Pain Assessment Document 07/09/17 22:53 [email or web address] (Rec: 07/09/17 22:54 [email or web address] [id number]) Pain Reassessment Is this a pain reassessment? No Sleep Is patient sleeping during reassessment? No Presence of Pain Presence of Pain Yes Pain Scale Used Pain Scale Used Numeric Location Left, Right or Bilateral Bilateral Pain Location Body Site Leg Description Description Constant Intensity of Pain at present 7 Pain Behavior Moaning Facial Grimacing Aggravating Factors Changing Position Alleviating Factors/Management Medication Techniques Alleviating Factors Medication Disposition/Present on Arrival - Present on Arrival Any Indicators Present on Arrival: No History of DVT/PE: No History of Uncontrolled Diabetes: No Urinary Catheter: No History Surgical Site Infection Following: None - Disposition Have Diagnosis and Disposition been Completed?: Yes Diagnosis: Foot pain, bilateral Disposition: HOME/ ROUTINE Disposition Time: 00:05 Patient Plan: Discharge Patient Problems: Current Active Problems Problem Status Onset Bilateral foot pain Acute Condition: STABLE Discharge Instructions (ExitCare): Leg Pain (ED) Additional Instructions: Follow up with your doctor Return to ED for any new symptoms Prescriptions: traMADol [Ultram] 50 mg PO TID #10 tab Referrals: Pk Rosario [Primary Care Provider] - Follow up with primary [facility] [place] - Follow up with primary
[2017-07-09 22:45] VITALS: O2SAT 99
[2017-07-10 00:23] VITALS: RESP 17
--- NOTE | 2017-07-10 09:13 | US ---
HISTORY: Leg pain and swelling. Evaluate for DVT PHYSICIAN(S): Jack Dillard MD. TECHNIQUE: Duplex sonography and color-flow Doppler with graded compression were used to evaluate the deep venous systems of both lower extremities. The exam is somewhat limited by edema FINDINGS: The visualized deep venous systems of both lower extremities are sonographically normal and compressible. Normal wave forms and augmentation are seen. There is no sonographic evidence for deep venous thrombosis in the visualized segments of both lower extremities. IMPRESSION: No sonographic evidence for deep venous thrombosis in the visualized segments of both lower extremities.
== END 2017-07-10 00:23 | disposition home or self-care (01) ==
LOC: ED 22:12
DX: M79.605 Pain in left leg (principal); M79.604 Pain in right leg; I10 Essential (primary) hypertension; F17.210 Nicotine dependence, cigarettes, uncomplicated

== ENCOUNTER 2017-09-18 18:16 | Emergency (ER) | payer MEDICARE, OTHER ==
[2017-09-18 18:17] VITALS: PULSE 125
[2017-09-18 18:32] VITALS: BMI 44.2
[2017-09-18 18:33] VITALS: PULSE 78; RESP 18; TEMP 97.5
--- NOTE | 2017-09-18 19:51 | ED PDOC ---
Arrival/HPI - General Chief Complaint: Lower Extremity Problem/Injury Time Seen by Provider: 09/18/17 19:06 Historian: Patient EM Caveat: Acuity of Condition - History of Present Illness Narrative History of Present Illness (Text): 09/18/17 19:48 The patient is a 57 year old female, whose past medical history includes homelessness, alcohol abuse, and foot pain, who presents to the emergency department complaining of left lateral foot pain foot pain for the past 2 nights. Rates the pain as moderate-severe Patient has been evaluated numerous times for similar complaints. Patient denies any trauma or any other complaints. Time/Duration: Prior to Arrival Symptom Onset: Sudden, Gradual Symptom Course: Unchanged Quality: Aching, Pressure Severity Level: Moderate Activities at Onset: Rest, Light Context: Standing, Walking Past Medical History - Provider Review Nursing Documentation Reviewed: Yes - Travel History Have you recently traveled outside [place] w/in the past 3 mons?: No - Past History Past History: Non-Contributing - Infectious Disease Hx of Infectious Diseases: None - Tetanus Immunization Tetanus Immunization: Unknown - Reproductive Menopause: Yes - Past Medical History Past Medical History: Non-Contributing - Cardiac Hx Congestive Heart Failure: Yes Hx Hypertension: Yes Hx Peripheral Edema: Yes - Pulmonary Hx Chronic Obstructive Pulmonary Disease (COPD): Yes - Neurological Hx Neurological Disorder: No HX Cerebrovascular Accident: No - HEENT Hx HEENT Disorder: No - Renal Hx Renal Disorder: Yes - Endocrine/Metabolic Hx Hypothyroidism: Yes - Hematological/Oncological Hx Anemia: Yes - Integumentary Hx Dermatological Disorder: No - Musculoskeletal/Rheumatological Hx Arthritis: Yes - Gastrointestinal Hx Pancreatitis: Yes - Genitourinary/Gynecological Hx Genitourinary Disorders: No - Psychiatric Hx Anxiety: Yes Hx Depression: Yes Hx Substance Use: No (stopped) - Surgical History Other/Comment: IVC filter - Anesthesia Hx Anesthesia: Yes Hx Anesthesia Reactions: No Hx Malignant Hyperthermia: No - Suicidal Assessment Feels Threatened In Home Enviroment: No Family/Social History - Physician Review Nursing Documentation Reviewed: Yes Family/Social History: Unknown Family HX Smoking Status: Heavy Smoker > 10 Cigarettes Daily Hx Alcohol Use: Yes (2 bottles of vodka daily) Hx Substance Use: No (stopped) Substance used: Heroin Hx Substance Use Treatment: No Allergies/Home Meds Allergies/Adverse Reactions: Allergies No Known Allergies Allergy (Verified 09/18/17 18:34) Review of Systems - Review of Systems Constitutional: Normal Eyes: Normal ENT: Normal Respiratory: Normal Cardiovascular: Normal Gastrointestinal: Normal Genitourinary Female: Normal Musculoskeletal: Arthralgias (left foot and knee pain) Skin: Normal Neurological: Normal Endocrine: Normal Hemo/Lymphatic: Normal Psychiatric: Normal Physical Exam Vital Signs Temp Pulse Resp BP Pulse Ox 09/18/17 21:31 78 18 138/78 98 09/18/17 18:33 97.5 F L 78 18 148/75 95 Temperature: Afebrile Blood Pressure: Normal Pulse: Regular Respiratory Rate: Normal Appearance: Positive for: Comfortable, Unkept Pain Distress: Mild Mental Status: Positive for: Alert and Oriented X 3 - Systems Exam Head: Present: Atraumatic, Normocephalic Pupils: Present: PERRL Extroacular Muscles: Present: EOMI Conjunctiva: Present: Normal Mouth: Present: Moist Mucous Membranes Neck: Present: Normal Range of Motion Respiratory/Chest: Present: Clear to Auscultation, Good Air Exchange. No: Respiratory Distress, Accessory Muscle Use Cardiovascular: Present: Regular Rate and Rhythm, Normal S1, S2. No: Murmurs Abdomen: Present: Normal Bowel Sounds. No: Tenderness, Distention, Peritoneal Signs Back: Present: Normal Inspection Upper Extremity: Present: Normal Inspection. No: Cyanosis, Edema Lower Extremity: Present: Normal Inspection, NORMAL PULSES, Normal ROM, Tenderness (left lateral aspect of the foot), Swelling (mild over the left lateral foot). No: Edema Neurological: Present: GCS=15, CN II-XII Intact, Speech Normal Skin: Present: Warm, Dry, Normal Color. No: Rashes Psychiatric: Present: Alert, Oriented x 3, Normal Insight, Normal Concentration Medical Decision Making ED Course and Treatment: 09/18/17 19:50 Impression The patient is a 57 year old female, whose past medical history includes homelessness, alcohol abuse, and foot pain, who presents to the emergency department complaining of left lateral foot pain foot pain for the past 2 nights. On PE, there is left lateral foot pain to palpation, no erythema or significant swelling Plan tylenol for pain Assess and dispo VSS and advised tpo follow up with PMD 09/19/17 01:32 - Medication Orders Current Medication Orders: Discontinued Medications Acetaminophen (Tylenol 325mg Tab) 650 mg PO Q4 STA Stop: 02/14/18 20:00 Last Admin: 09/18/17 20:07 Dose: 650 mg Disposition/Present on Arrival - Present on Arrival Any Indicators Present on Arrival: No History of DVT/PE: Yes History of Uncontrolled Diabetes: No Urinary Catheter: Yes History of Decub. Ulcer: No History Surgical Site Infection Following: None - Disposition Have Diagnosis and Disposition been Completed?: Yes Diagnosis: Arthritic-like pain Disposition: HOME/ ROUTINE Disposition Time: 20:34 Patient Plan: Discharge Condition: STABLE Discharge Instructions (ExitCare): Acetaminophen (By mouth), Arthritis (ED) Additional Instructions: Deasandie Darnell Please see your Primary medical doctor for follow up If your symptoms worsen and you are unable to put weight on the foot, return to the ER. Prescriptions: Acetaminophen [Acetaminophen Extra Strength] 500 mg PO Q6 5 Days #20 tablet Referrals: Margaret Nogueira MD [Primary Care Provider] - Follow up with primary Forms: [employer] [facility] ([place])
[2017-09-18 21:32] VITALS: BP 138/78; O2SAT 98
== END 2017-09-18 21:32 | disposition home or self-care (01) ==
LOC: ED 18:16
DX: M13.88 Other specified arthritis, other site (principal)

== ENCOUNTER 2017-10-29 05:51 | Emergency (ER) | payer MEDICARE, OTHER ==
[2017-10-29 05:52] VITALS: PULSE 125; BMI 40.0
[2017-10-29 06:28] VITALS: RESP 18
[2017-10-29 07:30] VITALS: TEMP 97.8
--- NOTE | 2017-10-29 07:43 | ED PDOC ---
Arrival/HPI - General Chief Complaint: Medical Clearance Time Seen by Provider: 10/29/17 07:04 Historian: Patient - History of Present Illness Narrative History of Present Illness (Text): you were treated in the ED today for hx of ultrasound of both the legs 10/25/17 and no deep or superficial deep vein clot of the right lower leg but chronic partial deep popliteal vein clot of the left and superficial phlebitis of the great saphenous at the level of the knee and now here with intermittent recurrent left lower leg pain with mild swelling but otherwise without trauma/ fall/bony pain/any nausea/vomiting/headache/dizziness/difficulty breathing/ chest pain/abdomen pain/numbness/tingling/loss of limb function/pain with urination. 10/29/17 07:37 Time/Duration: 24 hours Symptom Onset: Gradual Symptom Course: Intermittent Quality: Aching Severity Level: 1 Activities at Onset: Rest Context: Sitting Past Medical History - Provider Review Nursing Documentation Reviewed: Yes - Travel History Have you recently traveled outside [place] w/in the past 3 mons?: No - Past History Past History: Non-Contributing - Infectious Disease Hx of Infectious Diseases: None - Tetanus Immunization Tetanus Immunization: Unknown - Reproductive Menopause: Yes - Past Medical History Past Medical History: Non-Contributing - Cardiac Hx Congestive Heart Failure: Yes Hx Hypertension: Yes Hx Peripheral Edema: Yes - Pulmonary Hx Chronic Obstructive Pulmonary Disease (COPD): Yes - Neurological Hx Neurological Disorder: No HX Cerebrovascular Accident: No - HEENT Hx HEENT Disorder: No - Renal Hx Renal Disorder: No - Endocrine/Metabolic Hx Hypothyroidism: Yes - Hematological/Oncological Hx Anemia: Yes - Integumentary Hx Dermatological Disorder: No - Musculoskeletal/Rheumatological Hx Arthritis: Yes - Gastrointestinal Hx Pancreatitis: Yes - Genitourinary/Gynecological Hx Genitourinary Disorders: No - Psychiatric Hx Anxiety: Yes Hx Depression: Yes Hx Substance Use: No (stopped) - Surgical History Other/Comment: IVC filter - Anesthesia Hx Anesthesia: Yes Hx Anesthesia Reactions: No Hx Malignant Hyperthermia: No - Suicidal Assessment Feels Threatened In Home Enviroment: No Family/Social History - Physician Review Nursing Documentation Reviewed: Yes Family/Social History: No Known Family HX Smoking Status: Heavy Smoker > 10 Cigarettes Daily Hx Alcohol Use: No (jenin denies at this time) Hx Substance Use: No (stopped) Substance used: Heroin Hx Substance Use Treatment: No Allergies/Home Meds Allergies/Adverse Reactions: Allergies No Known Allergies Allergy (Verified 10/29/17 05:54) Review of Systems - Review of Systems Constitutional: Normal Eyes: Normal ENT: Normal Respiratory: Normal Cardiovascular: Normal Gastrointestinal: Normal Genitourinary Female: Normal Musculoskeletal: Other (left lower leg pain) Skin: Normal Neurological: Normal Endocrine: Normal Hemo/Lymphatic: Normal Psychiatric: Normal Physical Exam Vital Signs Reviewed: Yes Vital Signs Temp Pulse Resp BP Pulse Ox 10/29/17 07:29 97.8 F 73 18 131/89 99 10/29/17 05:53 98.1 F 62 18 146/87 99 Temperature: Afebrile Blood Pressure: Hypertensive Pulse: Regular Respiratory Rate: Normal Appearance: Positive for: Well-Appearing, Non-Toxic, Comfortable Pain Distress: None Mental Status: Positive for: Alert and Oriented X 3 - Systems Exam Head: Present: Atraumatic, Normocephalic Pupils: Present: PERRL Extroacular Muscles: Present: EOMI Conjunctiva: Present: Normal Ears: Present: Normal Mouth: Present: Moist Mucous Membranes Pharnyx: Present: Normal Nose (External): Present: Atraumatic Nose (Internal): Present: Normal Inspection Neck: Present: Normal Range of Motion Respiratory/Chest: Present: Clear to Auscultation, Good Air Exchange Cardiovascular: Present: Regular Rate and Rhythm Abdomen: No: Tenderness, Distention, Normal Bowel Sounds, Peritoneal Signs, Rebound, Guarding, McBurney's Point Tender, Rovsing's Sign Present, Hernias, Feeding Tubes, Ostomy Tubes, Mass/Organomegaly, Scars, Other Back: Present: Normal Inspection Upper Extremity: Present: Normal Inspection Lower Extremity: Present: Other (right lower extremity warm/sensation/cap refill /posterior pedial pulse+ wo bony tenderness, left lower extremity mild swelling without bony tenderness, positive from/warm/sensation/cap refill/pt pulses.) Neurological: Present: GCS=15, CN II-XII Intact, Speech Normal, Motor Func Grossly Intact Skin: Present: Warm, Normal Color Psychiatric: Present: Alert, Oriented x 3, Normal Insight, Normal Concentration Medical Decision Making ED Course and Treatment: you were treated in the ED today for hx of ultrasound of both the legs 10/25/17 and no deep or superficial deep vein clot of the right lower leg but chronic partial deep popliteal vein clot of the left and superficial phlebitis of the great saphenous at the level of the knee and now here with intermittent recurrent left lower leg pain with mild swelling but otherwise without trauma/ fall/bony pain/any nausea/vomiting/headache/dizziness/difficulty breathing/ chest pain/abdomen pain/numbness/tingling/loss of limb function/pain with urination. You were otherwise breathing easily, smiling and talking easily, good strength/sensation, walking easily, clear lungs, no abdomen tenderness, right lower leg warm/sensation/good posterior pulses and left lower extremity mild swelling with warm/sensation/pink/good posterior pulses without bony tenderness, no fever temp 97.8, stable heart rate 73, stable breathing rate 18, excellent oxygen level 99% room air, elevated blood pressure 131/89 which we recommend repeat in 2-3 days primary care office to determine further treatment , food given in the ED upon request, tylenol, observation done in the ED with improvement, counselled to continue your eliquis as previously prescribed for blood clot control/treatment and thus discharged home. 1. Recommend continue your home medications. 2. Recommend follow-up primary care 1-2 days to review symptoms, referral to vascular surgery clinic to review your symptoms. 3. If any worsening pain, fever, chills, nausea, vomiting, difficulty breathing, numbness, loss of limb function, pain with urination or any medical condition then return to the ED. 10/29/17 07:43 Reassessment Condition: Re-examined, Improved Disposition/Present on Arrival - Present on Arrival Any Indicators Present on Arrival: No History of DVT/PE: Yes History of Uncontrolled Diabetes: No Urinary Catheter: No History of Decub. Ulcer: No History Surgical Site Infection Following: None - Disposition Have Diagnosis and Disposition been Completed?: Yes Diagnosis: Leg pain Disposition: HOME/ ROUTINE Disposition Time: 07:44 Patient Plan: Discharge Condition: IMPROVED Additional Instructions: you were treated in the ED today for hx of ultrasound of both the legs 10/25/17 and no deep or superficial deep vein clot of the right lower leg but chronic partial deep popliteal vein clot of the left and superficial phlebitis of the great saphenous at the level of the knee and now here with intermittent recurrent left lower leg pain with mild swelling but otherwise without trauma/ fall/bony pain/any nausea/vomiting/headache/dizziness/difficulty breathing/ chest pain/abdomen pain/numbness/tingling/loss of limb function/pain with urination. You were otherwise breathing easily, smiling and talking easily, good strength/sensation, walking easily, clear lungs, no abdomen tenderness, right lower leg warm/sensation/good posterior pulses and left lower extremity mild swelling with warm/sensation/pink/good posterior pulses without bony tenderness, no fever temp 97.8, stable heart rate 73, stable breathing rate 18, excellent oxygen level 99% room air, elevated blood pressure 131/89 which we recommend repeat in 2-3 days primary care office to determine further treatment , food given in the ED upon request, tylenol, observation done in the ED with improvement, counselled to continue your eliquis as previously prescribed for blood clot control/treatment and thus discharged home. 1. Recommend continue your home medications. 2. Recommend follow-up primary care 1-2 days to review symptoms, referral to vascular surgery clinic to review your symptoms. 3. If any worsening pain, fever, chills, nausea, vomiting, difficulty breathing, numbness, loss of limb function, pain with urination or any medical condition then return to the ED. Referrals: Pk Rosario, [Primary Care Provider] - Follow up with primary
[2017-10-29 09:53] VITALS: BP 147/76; PULSE 72; O2SAT 96
== END 2017-10-29 09:53 | disposition home or self-care (01) ==
LOC: ED 05:51
DX: M79.605 Pain in left leg (principal)

== ENCOUNTER 2017-10-29 19:23 | Emergency (ER) | payer MEDICARE, OTHER ==
[2017-10-29 19:23] VITALS: PULSE 125; BMI 40.0
[2017-10-29 19:33] VITALS: PULSE 76; RESP 18; TEMP 98.2; O2SAT 99
== END 2017-10-31 09:46 | disposition left against medical advice (07) ==
LOC: ED 19:23
DX: Z02.89 Encounter for other administrative examinations (principal); M79.673 Pain in unspecified foot

== ENCOUNTER 2017-11-09 06:25 | Emergency (ER) | payer MEDICARE, OTHER ==
[2017-11-09 06:26] VITALS: PULSE 125; BMI 40.0
[2017-11-09 06:36] VITALS: RESP 18
--- NOTE | 2017-11-09 07:51 | ED PDOC ---
Arrival/HPI - General Chief Complaint: Pain, Chronic Time Seen by Provider: 11/09/17 07:16 Historian: Patient - History of Present Illness Narrative History of Present Illness (Text): 11/09/17 07:48 Patient is a 57 yo female, past medical hx of dvt left lower extremity, on , hx of ESRD with dialysis on , , Saturday, presents to the Emergency Department complaining of left foot pain and swelling for "months". Denies worsening of pain or swelling. States she has been taking her medication including her "blood thinner". Denies chest pain or shortness of breath. Denies fevers. Denies abdominal pain, nausea or vomiting. Past Medical History - Past History Past History: Non-Contributing - Infectious Disease Hx of Infectious Diseases: None - Tetanus Immunization Tetanus Immunization: Unknown - Reproductive Menopause: No - Past Medical History Past Medical History: Non-Contributing - Cardiac Hx Congestive Heart Failure: Yes Hx Hypertension: Yes Hx Peripheral Edema: Yes - Pulmonary Hx Chronic Obstructive Pulmonary Disease (COPD): Yes - Neurological Hx Neurological Disorder: No HX Cerebrovascular Accident: No - HEENT Hx HEENT Disorder: No - Renal Hx Renal Disorder: No - Endocrine/Metabolic Hx Hypothyroidism: Yes - Hematological/Oncological Hx Anemia: Yes - Integumentary Hx Dermatological Disorder: No - Musculoskeletal/Rheumatological Hx Arthritis: Yes - Gastrointestinal Hx Pancreatitis: Yes - Genitourinary/Gynecological Hx Genitourinary Disorders: No - Psychiatric Hx Anxiety: Yes Hx Depression: Yes Hx Substance Use: No (stopped) - Surgical History Other/Comment: IVC filter - Anesthesia Hx Anesthesia: Yes Hx Anesthesia Reactions: No Hx Malignant Hyperthermia: No - Suicidal Assessment Feels Threatened In Home Enviroment: No Family/Social History Family/Social History: Unknown Family HX Smoking Status: Heavy Smoker > 10 Cigarettes Daily Hx Alcohol Use: No (patient denies at this time) Hx Substance Use: No (stopped) Substance used: Heroin Hx Substance Use Treatment: No Allergies/Home Meds Allergies/Adverse Reactions: Allergies No Known Allergies Allergy (Verified 11/09/17 06:33) Review of Systems - Review of Systems Constitutional: absent: Fatigue Respiratory: absent: SOB, Wheezing Cardiovascular: Calf Pain. absent: Chest Pain, [place] Gastrointestinal: absent: Abdominal Pain, Nausea Musculoskeletal: absent: Back Pain Skin: absent: Rash Neurological: absent: Headache, Dizziness Endocrine: absent: Polyuria Hemo/Lymphatic: absent: Easy Bleeding Physical Exam Vital Signs Reviewed: Yes Vital Signs Temp Pulse Resp BP Pulse Ox 11/09/17 10:02 78 18 148/83 97 11/09/17 08:26 97.9 F 71 18 147/81 98 11/09/17 06:35 98.6 F 66 18 139/80 100 Temperature: Afebrile Appearance: Positive for: Non-Toxic Pain Distress: Mild Mental Status: Positive for: Alert and Oriented X 3 - Systems Exam Head: Present: Atraumatic Mouth: Present: Moist Mucous Membranes Neck: Present: Normal Range of Motion. No: Meningeal Signs Respiratory/Chest: Present: Clear to Auscultation. No: Respiratory Distress, Tender to Palpation Cardiovascular: Present: Regular Rate and Rhythm, Murmurs Abdomen: No: Tenderness Upper Extremity: No: Cyanosis Lower Extremity: Present: Edema, NORMAL PULSES, Tenderness, Swelling, Neurovascularly Intact, Capillary Refill < 2 s, Other (stocking to left lower extremity). No: Erythema, Deformity Neurological: Present: Motor Func Grossly Intact, Normal Sensory Function Skin: Present: Warm Psychiatric: Present: Alert Medical Decision Making ED Course and Treatment: 11/09/17 08:53 Patient is a 57 yo female with past medical hx of ESRD, denies chest pain or shortness of breath. Reports left leg pain that is NO acutely worse in nature. On exam, there is stocking noted. Distal pulses palpated. No erythema or cellulitis. I reviewed past hospital visits with charts and patient. She states she IS taking her blood thinner. States that she is currently homeless. Most recent ultrasound reviewed revealed "chronic DVT". She has IVC filter reportedly. She denies chest pain or shortness of breath. She currently states she does not have any pain medication. Does of Tramadol ordered in ED as she has taken this previously with benefit. Patient is able to bear weight and ambulate. She states she is currently homeless. Denies any chest apin or shortness of breath. NV intact. She is scheduled for dialysis this AM, but denies any cough or shortness of breath. We assisted in arranging transport for patient so that she can go to her scheduled dialysis. Patient discharged with Tramadol as well as transport. Risks of noncompliance with follow-up with renal and her PMD reviewed with patient. She stresses that she is compliant with her anticoagulant therapy and denies any new pain or change in character or location of pain. - Medication Orders Current Medication Orders: Discontinued Medications Tramadol HCl (Ultram) 25 mg PO STAT STA Stop: 11/09/17 08:45 Last Admin: 11/09/17 09:20 Dose: 50 mg MAR Pain Assessment Document 11/09/17 09:20 SRE (Rec: 11/09/17 09:21 SRE [id number]) Pain Reassessment Is this a pain reassessment? Yes Sleep Is patient sleeping during reassessment? No Presence of Pain Presence of Pain Yes Pain Scale Used Pain Scale Used Numeric Location Left, Right or Bilateral Bilateral Pain Location Body Site Leg Description Description Constant Disposition/Present on Arrival - Present on Arrival Any Indicators Present on Arrival: Yes History of DVT/PE: Yes History of Uncontrolled Diabetes: No Urinary Catheter: No History of Decub. Ulcer: No History Surgical Site Infection Following: None - Disposition Have Diagnosis and Disposition been Completed?: Yes Diagnosis: Leg pain Disposition: HOME/ ROUTINE Disposition Time: 10:00 Patient Plan: Discharge Condition: GOOD Discharge Instructions (ExitCare): Muscle and Bone Pain (DC) Additional Instructions: Make sure your are taking your blood thinners as prescribed and directed. For ANY chest pain or shortness of breath, any fevers, any abdominal pain or nausea, any NEW or PERSISTENT or WORSENING of symptoms, get rechecked. Proceed to your dialysis today as scheduled. Take your pain medication only as directed. Prescriptions: traMADol [Ultram] 25 mg PO STAT PRN #8 tab PRN Reason: Pain, Moderate (4-7) Referrals: Salvatore De Jesus MD [Family Provider] - Follow up with primary Forms: [employer] (Uzbek)
[2017-11-09 09:23] VITALS: TEMP 97.9
[2017-11-09 10:03] VITALS: BP 148/83; PULSE 78; O2SAT 97
== END 2017-11-09 10:03 | disposition home or self-care (01) ==
LOC: ED 06:25
DX: M79.605 Pain in left leg (principal)

== ENCOUNTER 2017-11-27 02:10 | Emergency (ER) | payer MEDICARE, OTHER ==
[2017-11-27 02:11] VITALS: PULSE 125; BMI 40.3
[2017-11-27 03:08] VITALS: RESP 18; TEMP 97.7
--- NOTE | 2017-11-27 03:09 | ED PDOC ---
Arrival/HPI - General Chief Complaint: Lower Extremity Problem/Injury Time Seen by Provider: 11/27/17 03:01 Historian: Patient - History of Present Illness Narrative History of Present Illness (Text): 11/27/17 03:08 Carie Duncan is a 57 year old female, well known to ER staff, whose past medical history includes hepatitis C, HIV, diabetes, anemia, and substance abuse, presents to the emergency department complaining of bilateral chronic leg pain for a few hours. Patient was seen at [facility] for the same symptoms 2 days prior. Patient denies any fever, chills, chest pain, shortness of breath, nausea, vomiting, diarrhea, urinary symptoms, back pain, neck pain, headache, dizziness, or any other complaints. Symptom Onset: Gradual Symptom Course: Unchanged Activities at Onset: Light Context: Home Past Medical History - Provider Review Nursing Documentation Reviewed: Yes - Past History Past History: Non-Contributing - Infectious Disease Hx of Infectious Diseases: None - Tetanus Immunization Tetanus Immunization: Unknown - Reproductive Menopause: Yes - Past Medical History Past Medical History: Non-Contributing - Cardiac Hx Atrial Fibrillation: Yes Hx Congestive Heart Failure: Yes Hx Hypertension: Yes Hx Pacemaker: Yes Hx Peripheral Edema: Yes - Pulmonary Hx Respiratory Disorders: Yes Hx Chronic Obstructive Pulmonary Disease (COPD): Yes - Neurological Hx Neurological Disorder: No HX Cerebrovascular Accident: No - HEENT Hx HEENT Disorder: No - Renal Hx Renal Disorder: Yes Other/Comment: renal insufficiency - Endocrine/Metabolic Hx Endocrine Disorders: Yes Hx Diabetes Mellitus Type 2: Yes Hx Hypothyroidism: Yes - Hematological/Oncological Hx Anemia: Yes Hx Hepatitis C: Yes - Integumentary Hx Dermatological Disorder: No - Musculoskeletal/Rheumatological Hx Arthritis: Yes - Gastrointestinal Hx Gastritis: Yes Hx Pancreatitis: Yes - Genitourinary/Gynecological Hx Genitourinary Disorders: No - Psychiatric Hx Psychophysiologic Disorder: Yes Hx Anxiety: Yes Hx Depression: Yes Hx Substance Use: No Other/Comment: homeless - Surgical History Other/Comment: dialysis catheter insertion - Anesthesia Hx Anesthesia: Yes Hx Anesthesia Reactions: No - Suicidal Assessment Feels Threatened In Home Enviroment: No Family/Social History - Physician Review Nursing Documentation Reviewed: Yes Family/Social History: Unknown Family HX Smoking Status: Light Smoker < 10 Cigarettes Daily Hx Alcohol Use: Yes Hx Substance Use: No Substance used: Heroin Hx Substance Use Treatment: No Allergies/Home Meds Allergies/Adverse Reactions: Allergies No Known Allergies Allergy (Verified 11/27/17 02:55) Review of Systems - Physician Review All systems were reviewed & negative as marked: Yes - Review of Systems Constitutional: Normal. absent: Fevers Eyes: Normal ENT: Normal Respiratory: Normal. absent: SOB, Cough Cardiovascular: Normal. absent: Chest Pain Gastrointestinal: Normal. absent: Abdominal Pain, Diarrhea, Nausea, Vomiting Genitourinary Female: Normal. absent: Dysuria, Frequency, Hematuria, Urine Output Changes Musculoskeletal: Arthralgias (+chronic bilateral knee pain). absent: Back Pain , Neck Pain Skin: Normal. absent: Rash Neurological: Normal. absent: Headache, Dizziness Endocrine: Normal Hemo/Lymphatic: Normal Psychiatric: Normal Physical Exam Vital Signs Reviewed: Yes Vital Signs Temp Pulse Resp BP Pulse Ox 11/27/17 06:05 88 18 132/76 100 11/27/17 03:02 97.7 F 72 18 129/71 96 Temperature: Afebrile Blood Pressure: Normal Pulse: Regular Respiratory Rate: Normal Appearance: Positive for: Well-Appearing, Non-Toxic, Comfortable Pain Distress: None Mental Status: Positive for: Alert and Oriented X 3 - Systems Exam Head: Present: Atraumatic, Normocephalic Pupils: Present: PERRL Extroacular Muscles: Present: EOMI Conjunctiva: Present: Normal Mouth: Present: Moist Mucous Membranes Neck: Present: Normal Range of Motion Respiratory/Chest: Present: Clear to Auscultation, Good Air Exchange. No: Respiratory Distress, Accessory Muscle Use Cardiovascular: Present: Regular Rate and Rhythm, Normal S1, S2. No: Murmurs Abdomen: No: Tenderness, Distention, Peritoneal Signs Back: Present: Normal Inspection Upper Extremity: Present: Normal Inspection. No: Cyanosis, Edema Lower Extremity: Present: Normal Inspection. No: Edema Neurological: Present: GCS=15, CN II-XII Intact, Speech Normal Skin: Present: Warm, Dry, Normal Color. No: Rashes Psychiatric: Present: Alert, Oriented x 3, Normal Insight, Normal Concentration Medical Decision Making ED Course and Treatment: 11/27/17 03:08 Impression: 57 year old female complaining of chronic bilateral lower extremity pain. Plan: -- Tylenol -- Reassess and disposition Prior Visits: Notes and results from previous visits were reviewed. Progress Notes: - Medication Orders Current Medication Orders: Discontinued Medications Acetaminophen (Tylenol 325mg Tab) 650 mg PO STAT STA Stop: 11/27/17 03:10 Last Admin: 11/27/17 04:05 Dose: 650 mg - Scribe Statement The provider has reviewed the documentation as recorded by the Bradley Valenzuela Provider Scribe Attestation: All medical record entries made by the Scribe were at my direction and personally dictated by me. I have reviewed the chart and agree that the record accurately reflects my personal performance of the history, physical exam, medical decision making, and the department course for this patient. I have also personally directed, reviewed, and agree with the discharge instructions and disposition. Disposition/Present on Arrival - Present on Arrival Any Indicators Present on Arrival: No History of DVT/PE: Yes History of Uncontrolled Diabetes: No Urinary Catheter: No History of Decub. Ulcer: No History Surgical Site Infection Following: None - Disposition Have Diagnosis and Disposition been Completed?: Yes Diagnosis: Knee pain Disposition: HOME/ ROUTINE Disposition Time: 06:45 Condition: GOOD Discharge Instructions (ExitCare): Chronic Knee Pain Prescriptions: Acetaminophen 650 mg PO QID #24 capsule Forms: [employer] (Nepali)
[2017-11-27 06:05] VITALS: BP 132/76; PULSE 88; O2SAT 100
== END 2017-11-27 07:27 | disposition home or self-care (01) ==
LOC: ED 02:10
DX: M25.562 Pain in left knee (principal); M25.561 Pain in right knee

== ENCOUNTER 2017-11-28 15:44 | Emergency (ER) | payer MEDICARE, OTHER ==
[2017-11-28 15:44] VITALS: PULSE 125; BMI 40.3
[2017-11-28 15:59] VITALS: RESP 18; TEMP 97.6; O2SAT 98
--- NOTE | 2017-11-28 16:06 | ED PDOC ---
Arrival/HPI - General Chief Complaint: Alcohol Ingestion Time Seen by Provider: 11/28/17 16:02 Historian: Patient - History of Present Illness Narrative History of Present Illness (Text): 11/28/17 16:08 A 57 year old female, whose past medical history includes chronic leg pain, presents to the emergency department asking for a place to sleep and is hungry. Patient reports no new complaints. Patient denies any EtOH use. No PMD Past Medical History - Provider Review Nursing Documentation Reviewed: Yes - Past History Past History: Non-Contributing - Infectious Disease Hx of Infectious Diseases: None - Tetanus Immunization Tetanus Immunization: Unknown - Past Medical History Past Medical History: Non-Contributing - Cardiac Hx Atrial Fibrillation: Yes Hx Congestive Heart Failure: Yes Hx Hypertension: Yes Hx Pacemaker: Yes Hx Peripheral Edema: Yes - Pulmonary Hx Respiratory Disorders: Yes Hx Chronic Obstructive Pulmonary Disease (COPD): Yes - Neurological Hx Neurological Disorder: No HX Cerebrovascular Accident: No - HEENT Hx HEENT Disorder: No - Renal Hx Renal Disorder: Yes Other/Comment: renal insufficiency - Endocrine/Metabolic Hx Endocrine Disorders: Yes Hx Diabetes Mellitus Type 2: Yes Hx Hypothyroidism: Yes - Hematological/Oncological Hx Anemia: Yes Hx Hepatitis C: Yes - Integumentary Hx Dermatological Disorder: No - Musculoskeletal/Rheumatological Hx Arthritis: Yes - Gastrointestinal Hx Gastritis: Yes Hx Pancreatitis: Yes - Genitourinary/Gynecological Hx Genitourinary Disorders: No - Psychiatric Hx Psychophysiologic Disorder: Yes Hx Anxiety: Yes Hx Depression: Yes Hx Substance Use: No Other/Comment: homeless - Surgical History Other/Comment: dialysis catheter insertion - Anesthesia Hx Anesthesia: Yes Hx Anesthesia Reactions: No Hx Malignant Hyperthermia: No - Suicidal Assessment Feels Threatened In Home Enviroment: No Family/Social History - Physician Review Nursing Documentation Reviewed: Yes Family/Social History: No Known Family HX Smoking Status: Light Smoker < 10 Cigarettes Daily Hx Alcohol Use: Yes Hx Substance Use: No Substance used: Heroin Hx Substance Use Treatment: No Allergies/Home Meds Allergies/Adverse Reactions: Allergies No Known Allergies Allergy (Verified 11/27/17 02:55) Review of Systems - Review of Systems Constitutional: absent: Fevers, Night Sweats Respiratory: absent: SOB, Cough Cardiovascular: absent: Chest Pain Gastrointestinal: absent: Abdominal Pain, Diarrhea, Nausea, Vomiting Genitourinary Female: absent: Urine Output Changes Musculoskeletal: Other (chronic leg pain) Skin: absent: Rash Neurological: absent: Headache Endocrine: absent: Diaphoresis Psychiatric: absent: Anxiety Physical Exam Vital Signs Reviewed: Yes Vital Signs Temp Pulse Resp BP Pulse Ox 11/28/17 18:28 72 18 139/74 98 11/28/17 15:57 97.6 F 84 18 130/74 98 Temperature: Afebrile Blood Pressure: Normal Pulse: Regular Respiratory Rate: Normal Appearance: Positive for: Other (disheveled) Pain Distress: None Mental Status: Positive for: Alert and Oriented X 3 - Systems Exam Head: Present: Atraumatic, Normocephalic Pupils: Present: PERRL Extroacular Muscles: Present: EOMI Conjunctiva: Present: Normal Mouth: Present: Moist Mucous Membranes Neck: Present: Normal Range of Motion Respiratory/Chest: Present: Clear to Auscultation, Good Air Exchange. No: Respiratory Distress, Accessory Muscle Use Cardiovascular: Present: Regular Rate and Rhythm, Normal S1, S2. No: Murmurs Abdomen: No: Tenderness, Distention, Peritoneal Signs Back: Present: Normal Inspection Upper Extremity: Present: Normal Inspection. No: Cyanosis, Edema Lower Extremity: Present: Normal Inspection. No: Edema Neurological: Present: GCS=15, CN II-XII Intact, Speech Normal Skin: Present: Warm, Dry, Normal Color. No: Rashes Psychiatric: Present: Alert, Oriented x 3, Normal Insight, Normal Concentration Medical Decision Making ED Course and Treatment: 11/28/17 16:11 Impression: 57 year old female whom is homeless, arrives to ER stating feeling hungry and requesting a place to sleep. Patient was given food. Patient is awake, alert, and oriented x 3, and ambulating around ED. . Plan: -- Reassess and disposition Progress Notes: 11/28/2017 16:15 Patient offered group home listings, but has declined offer. 11/28/17 19:35 - Lab Interpretations Lab Results: Lab Results 11/28/17 16:27: POC Glucose (mg/dL) 62 L - Scribe Statement The provider has reviewed the documentation as recorded by the Donnaibreyes Sandoval Provider Scribe Attestation: All medical record entries made by the Scribe were at my direction and personally dictated by me. I have reviewed the chart and agree that the record accurately reflects my personal performance of the history, physical exam, medical decision making, and the department course for this patient. I have also personally directed, reviewed, and agree with the discharge instructions and disposition. Disposition/Present on Arrival - Present on Arrival Any Indicators Present on Arrival: No History of DVT/PE: Yes History of Uncontrolled Diabetes: No Urinary Catheter: No History of Decub. Ulcer: No History Surgical Site Infection Following: None - Disposition Have Diagnosis and Disposition been Completed?: Yes Diagnosis: Homeless Disposition: HOME/ ROUTINE Disposition Time: 16:06 Patient Plan: Discharge Condition: GOOD Additional Instructions: Follow-up with PMD within 2 days. Return to ED if condition worsens. Forms: [employer] (Portuguese)
[2017-11-28 18:30] VITALS: BP 139/74; PULSE 72
== END 2017-11-28 18:28 | disposition home or self-care (01) ==
LOC: ED 15:44
DX: Z59.0 Homelessness (principal); F17.210 Nicotine dependence, cigarettes, uncomplicated; I48.91 Unspecified atrial fibrillation; I10 Essential (primary) hypertension; I50.9 Heart failure, unspecified

== ENCOUNTER 2017-12-04 14:07 | Emergency (ER) | payer MEDICARE, OTHER ==
[2017-12-04 14:07] VITALS: PULSE 125
[2017-12-04 14:22] VITALS: BP 124/79; PULSE 79; RESP 18; TEMP 99.5; O2SAT 99
[2017-12-04 15:27] VITALS: BMI 34.4
--- NOTE | 2017-12-04 16:04 | ED PDOC ---
Arrival/HPI - General Chief Complaint: Lower Extremity Problem/Injury Time Seen by Provider: 12/04/17 15:46 Historian: Patient - History of Present Illness Narrative History of Present Illness (Text): 12/04/17 17:58 Pt is a 57 year old female, whose past medical history includes chronic leg pain , and homelessness who presents to the emergency department asking for a place to sleep and is hungry. Patient reports knee pain due to arthritis but denies any other complaints. Patient denies fever, chest pain, sob, hip pain, back pain , or any other complaints. Time/Duration: > month Symptom Onset: Gradual Symptom Course: Unchanged Quality: Aching Severity Level: 1 Activities at Onset: Rest Context: Sitting, Standing, Walking, Street Past Medical History - Provider Review Nursing Documentation Reviewed: Yes - Travel History Have you recently traveled outside [place] w/in the past 3 mons?: No - Past History Past History: Non-Contributing - Infectious Disease Hx of Infectious Diseases: None - Tetanus Immunization Tetanus Immunization: Unknown - Past Medical History Past Medical History: Non-Contributing - Cardiac Hx Cardiac Disorders: Yes Hx Atrial Fibrillation: Yes Hx Congestive Heart Failure: Yes Hx Hypertension: Yes Hx Pacemaker: Yes Hx Peripheral Edema: Yes - Pulmonary Hx Respiratory Disorders: Yes Hx Chronic Obstructive Pulmonary Disease (COPD): Yes - Neurological Hx Neurological Disorder: No - HEENT Hx HEENT Disorder: No - Renal Hx Renal Disorder: Yes Other/Comment: renal insufficiency - Endocrine/Metabolic Hx Endocrine Disorders: Yes Hx Diabetes Mellitus Type 2: Yes Hx Hypothyroidism: Yes - Hematological/Oncological Hx Blood Disorders: Yes Hx Anemia: Yes Hx Hepatitis C: Yes - Integumentary Hx Dermatological Disorder: No - Musculoskeletal/Rheumatological Hx Musculoskeletal Disorders: Yes Hx Arthritis: Yes - Gastrointestinal Hx Gastrointestinal Disorders: Yes Hx Gastritis: Yes Hx Pancreatitis: Yes - Genitourinary/Gynecological Hx Genitourinary Disorders: No - Psychiatric Hx Psychophysiologic Disorder: Yes Hx Anxiety: Yes Hx Depression: Yes Hx Substance Use: No Other/Comment: homeless - Surgical History Other/Comment: dialysis catheter insertion - Anesthesia Hx Anesthesia: Yes Hx Anesthesia Reactions: No Hx Malignant Hyperthermia: No - Suicidal Assessment Feels Threatened In Home Enviroment: No Family/Social History - Physician Review Nursing Documentation Reviewed: Yes Family/Social History: Unknown Family HX Smoking Status: Light Smoker < 10 Cigarettes Daily Hx Alcohol Use: Yes Hx Substance Use: No Substance used: Heroin Hx Substance Use Treatment: No Allergies/Home Meds Allergies/Adverse Reactions: Allergies No Known Allergies Allergy (Verified 11/27/17 02:55) Review of Systems - Review of Systems Constitutional: Normal Eyes: Normal ENT: Normal Respiratory: Normal Cardiovascular: Normal Gastrointestinal: Normal Genitourinary Female: Normal Musculoskeletal: Normal, Arthralgias, Back Pain, Neck Pain, Joint Swelling Skin: Normal Neurological: Normal Endocrine: Normal Hemo/Lymphatic: Normal Psychiatric: Normal Physical Exam Vital Signs Reviewed: Yes Vital Signs Temp Pulse Resp BP Pulse Ox 12/04/17 14:21 99.5 F 79 18 124/79 99 Temperature: Afebrile Blood Pressure: Normal Pulse: Regular Respiratory Rate: Normal Appearance: Positive for: Well-Appearing, Non-Toxic, Comfortable Pain Distress: None Mental Status: Positive for: Alert and Oriented X 3 - Systems Exam Head: Present: Atraumatic, Normocephalic Pupils: Present: PERRL Extroacular Muscles: Present: EOMI Conjunctiva: Present: Normal Mouth: Present: Moist Mucous Membranes Neck: Present: Normal Range of Motion Respiratory/Chest: Present: Clear to Auscultation, Good Air Exchange. No: Respiratory Distress, Accessory Muscle Use Cardiovascular: Present: Regular Rate and Rhythm, Normal S1, S2. No: Murmurs Abdomen: No: Tenderness, Distention, Peritoneal Signs Back: Present: Normal Inspection Upper Extremity: Present: Normal Inspection. No: Cyanosis, Edema Lower Extremity: Present: Normal Inspection, NORMAL PULSES, Tenderness (b/l knees), Swelling (bilateral LE). No: Edema, CALF TENDERNESS, Normal ROM ( bilateral knee flexion limited), Venkat's Sign, Erythema, Deformity, Temperature Abnormalties, Neurovascularly Intact Neurological: Present: GCS=15, CN II-XII Intact, Speech Normal, Motor Func Grossly Intact, Normal Sensory Function, Normal Cerebellar Funct Skin: Present: Warm, Dry, Normal Color. No: Rashes Psychiatric: Present: Alert, Oriented x 3, Normal Insight, Normal Concentration Medical Decision Making ED Course and Treatment: 12/04/17 18:00 Impression Pt is a 57 year old female, whose past medical history includes chronic leg pain , and homelessness who presents to the emergency department asking for a place to sleep overnight. Plan labs and assess medications VS Progress note: Pt announced that she wanted to leave because it's too nice outside and would prefer to be at the park. Advised pt to stay so that status ascertained and administer medications if necessary Pt declined and said she would be back later. Pt signed AMA document VSS and ambulated with AD out of the ED Disposition/Present on Arrival - Present on Arrival Any Indicators Present on Arrival: No History of DVT/PE: Yes History of Uncontrolled Diabetes: No Urinary Catheter: No History of Decub. Ulcer: No History Surgical Site Infection Following: None - Disposition Have Diagnosis and Disposition been Completed?: No Diagnosis: Arthritis Disposition: AGAINST MEDICAL ADVICE Disposition Time: 16:00 Patient Plan: Discharge Condition: STABLE Discharge Instructions (ExitCare): Osteoarthritis Referrals: Pk Rosario, [Primary Care Provider] - Follow up with primary Forms: [employer] (Polish)
== END 2017-12-04 16:06 | disposition left against medical advice (07) ==
LOC: ED 14:07
DX: M19.90 Unspecified osteoarthritis, unspecified site (principal); I10 Essential (primary) hypertension; I48.91 Unspecified atrial fibrillation; I50.9 Heart failure, unspecified; Z95.0 Presence of cardiac pacemaker; Z59.0 Homelessness; J44.9 Chronic obstructive pulmonary disease, unspecified; E11.9 Type 2 diabetes mellitus without complications; E03.9 Hypothyroidism, unspecified; F17.210 Nicotine dependence, cigarettes, uncomplicated

== ENCOUNTER 2017-12-05 18:22 | Emergency (ER) | payer MEDICARE, OTHER ==
[2017-12-05 18:23] VITALS: PULSE 125
[2017-12-05 18:38] VITALS: BMI 34.9
[2017-12-05 18:56] VITALS: RESP 18; TEMP 98.9
--- NOTE | 2017-12-05 19:21 | ED PDOC ---
Arrival/HPI - General Chief Complaint: Lower Extremity Problem/Injury Time Seen by Provider: 12/05/17 18:36 Historian: Patient - History of Present Illness Narrative History of Present Illness (Text): 12/05/17 19:18 57yo female with PMHx of HIV, DVT, hypertension, chronic leg pain who present with complaint of similar leg pain. States her friend have her pain medication and she is unable to get to her place. she denies trauma, calf pain, SOB, diaphoresis, redness, chest pain, any other complaint. Past Medical History - Provider Review Nursing Documentation Reviewed: Yes - Past History Past History: Non-Contributing - Infectious Disease Hx of Infectious Diseases: None - Tetanus Immunization Tetanus Immunization: Unknown - Past Medical History Past Medical History: Non-Contributing - Cardiac Hx Cardiac Disorders: Yes Hx Atrial Fibrillation: Yes Hx Congestive Heart Failure: Yes Hx Hypertension: Yes Hx Pacemaker: Yes Hx Peripheral Edema: Yes - Pulmonary Hx Respiratory Disorders: Yes Hx Chronic Obstructive Pulmonary Disease (COPD): Yes - Neurological Hx Neurological Disorder: No - HEENT Hx HEENT Disorder: No - Renal Hx Renal Disorder: Yes Other/Comment: renal insufficiency - Endocrine/Metabolic Hx Endocrine Disorders: Yes Hx Diabetes Mellitus Type 2: Yes Hx Hypothyroidism: Yes - Hematological/Oncological Hx Blood Disorders: Yes Hx Anemia: Yes Hx Hepatitis C: Yes - Integumentary Hx Dermatological Disorder: No - Musculoskeletal/Rheumatological Hx Musculoskeletal Disorders: Yes Hx Arthritis: Yes - Gastrointestinal Hx Gastrointestinal Disorders: Yes Hx Gastritis: Yes Hx Pancreatitis: Yes - Genitourinary/Gynecological Hx Genitourinary Disorders: No - Psychiatric Hx Psychophysiologic Disorder: Yes Hx Anxiety: Yes Hx Depression: Yes Hx Substance Use: No Other/Comment: homeless - Surgical History Other/Comment: dialysis catheter insertion - Anesthesia Hx Anesthesia: Yes Hx Anesthesia Reactions: No Hx Malignant Hyperthermia: No - Suicidal Assessment Feels Threatened In Home Enviroment: No Family/Social History - Physician Review Nursing Documentation Reviewed: Yes Family/Social History: Unknown Family HX Smoking Status: Light Smoker < 10 Cigarettes Daily Hx Alcohol Use: Yes Hx Substance Use: No Substance used: Heroin Hx Substance Use Treatment: No Allergies/Home Meds Allergies/Adverse Reactions: Allergies No Known Allergies Allergy (Verified 11/27/17 02:55) Review of Systems - Physician Review All systems were reviewed & negative as marked: Yes - Review of Systems Constitutional: Normal Eyes: Normal ENT: Normal Respiratory: Normal Cardiovascular: Normal Gastrointestinal: Normal Genitourinary Female: Normal Musculoskeletal: Arthralgias (B/L leg pain) Skin: Normal Neurological: Normal Endocrine: Normal Hemo/Lymphatic: Normal Psychiatric: Normal Physical Exam Vital Signs Reviewed: Yes Vital Signs Temp Pulse Resp BP Pulse Ox 12/05/17 19:45 85 18 120/82 100 12/05/17 18:52 98.9 F 89 18 119/70 98 Temperature: Afebrile Blood Pressure: Normal Pulse: Regular Respiratory Rate: Normal Appearance: Positive for: Well-Appearing, Non-Toxic, Comfortable Pain Distress: None Mental Status: Positive for: Alert and Oriented X 3 - Systems Exam Head: Present: Atraumatic, Normocephalic Pupils: Present: PERRL Extroacular Muscles: Present: EOMI Conjunctiva: Present: Normal Mouth: Present: Moist Mucous Membranes Neck: Present: Normal Range of Motion Respiratory/Chest: Present: Clear to Auscultation, Good Air Exchange. No: Respiratory Distress, Accessory Muscle Use Cardiovascular: Present: Regular Rate and Rhythm, Normal S1, S2. No: Murmurs Abdomen: No: Tenderness, Distention, Peritoneal Signs Back: Present: Normal Inspection Upper Extremity: Present: Normal Inspection. No: Cyanosis, Edema Lower Extremity: Present: NORMAL PULSES, Normal ROM, Tenderness (BL foot), Neurovascularly Intact. No: Edema, CALF TENDERNESS, Cyanosis, Venkat's Sign, Swelling, Temperature Abnormalties Neurological: Present: GCS=15, CN II-XII Intact, Speech Normal Skin: Present: Warm, Dry, Normal Color. No: Rashes Psychiatric: Present: Alert, Oriented x 3, Normal Insight, Normal Concentration Medical Decision Making ED Course and Treatment: 12/05/17 23:46 While in ED pt requested for food. states she don't like Shelters, so she comes to ED for skilled nursing. she was ambulatory with her baseline gait. She was fed, pain medication given and DC. - Medication Orders Current Medication Orders: Discontinued Medications Tramadol HCl (Ultram) 50 mg PO STAT STA Stop: 12/05/17 18:39 Last Admin: 12/05/17 18:46 Dose: 50 mg MAR Pain Assessment Document 12/05/17 18:46 [email or web address] (Rec: 12/05/17 18:47 [id number]) Pain Reassessment Is this a pain reassessment? No Sleep Is patient sleeping during reassessment? No Presence of Pain Presence of Pain Yes Pain Scale Used Pain Scale Used Numeric Location Left, Right or Bilateral Bilateral Pain Location Body Site Leg Description Description Constant Intensity of Pain at present 8 Pain Behavior Facial Grimacing Aggravating Factors Changing Position Alleviating Factors/Management Medication Techniques Alleviating Factors Medication Disposition/Present on Arrival - Present on Arrival Any Indicators Present on Arrival: No History of DVT/PE: Yes History of Uncontrolled Diabetes: No Urinary Catheter: No History of Decub. Ulcer: No History Surgical Site Infection Following: None - Disposition Have Diagnosis and Disposition been Completed?: Yes Diagnosis: Chronic leg pain Disposition: HOME/ ROUTINE Disposition Time: 19:40 Patient Plan: Discharge Condition: STABLE Discharge Instructions (ExitCare): Chronic Pain (DC) Additional Instructions: Follow up with your doctor and take your medication Return to ED for any new symptoms Referrals: PCP,NO [Primary Care Provider] - [place] up [place] [facility] [place] [facility] [place] - Follow up with primary Forms: [employer] (Georgian)
[2017-12-05 19:50] VITALS: BP 120/82; PULSE 85; O2SAT 100
== END 2017-12-05 19:45 | disposition home or self-care (01) ==
LOC: ED 18:22
DX: M79.605 Pain in left leg (principal); M79.604 Pain in right leg; G89.29 Other chronic pain

== ENCOUNTER 2017-12-19 14:00 | Emergency (ER) | payer MEDICARE, OTHER ==
[2017-12-19 14:00] VITALS: PULSE 125
--- NOTE | 2017-12-19 14:44 | ED PDOC ---
Arrival/HPI - General Time Seen by Provider: 12/19/17 14:04 Historian: Patient - History of Present Illness Narrative History of Present Illness (Text): 12/19/17 14:41 57yo female well known to the ED for homelessness and malingering [facility] for alcohol intoxication . Patient however denies drinking alcohol today. Patient states she had a bowel movement on herself and want's a place to clean up. She denies any somatic complaint. Denies any other complaint. Past Medical History - Provider Review Nursing Documentation Reviewed: Yes - Past History Past History: Non-Contributing - Infectious Disease Hx of Infectious Diseases: None - Tetanus Immunization Tetanus Immunization: Unknown - Past Medical History Past Medical History: Non-Contributing - Cardiac Hx Atrial Fibrillation: Yes Hx Coronary Artery Disease: Yes Hx Congestive Heart Failure: Yes Hx Hypertension: Yes Hx Pacemaker: Yes Hx Peripheral Edema: Yes - Pulmonary Hx Chronic Obstructive Pulmonary Disease (COPD): Yes - Neurological Hx Neurological Disorder: No - HEENT Hx HEENT Disorder: No - Renal Hx Renal Disorder: Yes - Endocrine/Metabolic Hx Hypothyroidism: Yes - Hematological/Oncological Hx Anemia: Yes - Integumentary Hx Dermatological Disorder: No - Musculoskeletal/Rheumatological Hx Arthritis: Yes - Gastrointestinal Hx Gastritis: Yes Hx Pancreatitis: Yes - Genitourinary/Gynecological Hx Genitourinary Disorders: No - Psychiatric Hx Anxiety: Yes Hx Depression: Yes Hx Substance Use: Yes - Surgical History Other/Comment: dialysis catheter insertion - Anesthesia Hx Anesthesia: Yes Hx Anesthesia Reactions: No Hx Malignant Hyperthermia: No - Suicidal Assessment Feels Threatened In Home Enviroment: No Family/Social History - Physician Review Nursing Documentation Reviewed: Yes Family/Social History: Unknown Family HX Smoking Status: Light Smoker < 10 Cigarettes Daily Hx Alcohol Use: Yes Hx Substance Use: Yes Substance used: Heroin Hx Substance Use Treatment: No Allergies/Home Meds Allergies/Adverse Reactions: Allergies No Known Allergies Allergy (Verified 12/12/17 23:09) Review of Systems - Physician Review All systems were reviewed & negative as marked: Yes - Review of Systems Constitutional: Normal Eyes: Normal ENT: Normal Respiratory: Normal Cardiovascular: Normal Gastrointestinal: Normal Genitourinary Female: Normal Musculoskeletal: Normal Skin: Normal Neurological: Normal Endocrine: Normal Hemo/Lymphatic: Normal Psychiatric: Normal Physical Exam Vital Signs Reviewed: Yes Vital Signs Temp Pulse Resp BP Pulse Ox 12/19/17 16:48 97.9 F 70 19 98 12/19/17 16:26 97.2 F L 69 18 135/84 98 Temperature: Afebrile Blood Pressure: Normal Pulse: Regular Respiratory Rate: Normal Appearance: Positive for: Well-Appearing, Non-Toxic, Comfortable, Unkept (dry feces noted on body) Pain Distress: None Mental Status: Positive for: Alert and Oriented X 3 - Systems Exam Head: Present: Atraumatic, Normocephalic Pupils: Present: PERRL Extroacular Muscles: Present: EOMI Conjunctiva: Present: Normal Mouth: Present: Moist Mucous Membranes Neck: Present: Normal Range of Motion Respiratory/Chest: Present: Clear to Auscultation, Good Air Exchange. No: Respiratory Distress, Accessory Muscle Use Cardiovascular: Present: Regular Rate and Rhythm, Normal S1, S2. No: Murmurs Abdomen: No: Tenderness, Distention, Peritoneal Signs Back: Present: Normal Inspection Upper Extremity: Present: Normal Inspection. No: Cyanosis, Edema Lower Extremity: Present: Normal Inspection. No: Edema Neurological: Present: GCS=15, CN II-XII Intact, Speech Normal Skin: Present: Warm, Dry, Normal Color. No: Rashes Psychiatric: Present: Alert, Oriented x 3, Normal Insight, Normal Concentration Medical Decision Making ED Course and Treatment: 12/19/17 14:45 PT was AAO x3 in ED. She have a stable gait without help. She took a shower in ED. Advised to stop drinking and to go to a [facility] Disposition/Present on Arrival - Present on Arrival Any Indicators Present on Arrival: No History of DVT/PE: Yes History of Uncontrolled Diabetes: No Urinary Catheter: No History Surgical Site Infection Following: None - Disposition Have Diagnosis and Disposition been Completed?: Yes Diagnosis: Alcohol abuse, Homelessness Disposition: HOME/ ROUTINE Disposition Time: 17:00 Patient Plan: Discharge Condition: STABLE Discharge Instructions (ExitCare): Alcohol Abuse and Alcoholism (DC), Effects of Alcohol on Your Health Additional Instructions: Stop drinking and join AA Follow up with your Doctor Referrals: Alcoholics Anonymous [Outside] - Follow up with primary Forms: [employer] (Indonesian)
[2017-12-19 14:59] VITALS: BMI 36.6
[2017-12-19 16:26] VITALS: BP 135/84; O2SAT 98
[2017-12-19 16:50] VITALS: PULSE 70; RESP 19; TEMP 97.9
== END 2017-12-19 16:51 | disposition home or self-care (01) ==
LOC: ED 14:00
DX: F10.10 Alcohol abuse, uncomplicated (principal); Z59.0 Homelessness

== ENCOUNTER 2017-12-19 22:52 | Emergency (ER) | payer MEDICARE, OTHER ==
[2017-12-19 22:52] VITALS: PULSE 125; BMI 36.6
[2017-12-20 02:55] VITALS: RESP 18; TEMP 98; O2SAT 100
--- NOTE | 2017-12-20 03:03 | ED PDOC ---
Arrival/HPI - General Chief Complaint: Medical Clearance Time Seen by Provider: 12/20/17 02:25 Historian: Patient - History of Present Illness Narrative History of Present Illness (Text): 12/20/17 02:30 57 year old homeless female, whose past medical history includes HIV, DVT, hypertension, and chronic leg pain, presents to the emergency department stating she has no where to go and would like to rest here in the ER for the night. Patient denies any symptoms at this time. Patient denies any fever, chills, chest pain, shortness of breath, nausea, vomiting, diarrhea, urinary symptoms, back pain, neck pain, headache, dizziness, or any other complaints. Symptom Onset: Gradual Symptom Course: Unchanged Activities at Onset: Light Context: Street Past Medical History - Provider Review Nursing Documentation Reviewed: Yes - Past History Past History: Non-Contributing - Infectious Disease Hx of Infectious Diseases: None - Tetanus Immunization Tetanus Immunization: Unknown - Reproductive Menopause: Yes - Past Medical History Past Medical History: Non-Contributing - Cardiac Hx Atrial Fibrillation: Yes Hx Congestive Heart Failure: Yes Hx Hypertension: Yes Hx Pacemaker: Yes Hx Peripheral Edema: Yes - Pulmonary Hx Chronic Obstructive Pulmonary Disease (COPD): Yes - Neurological Hx Neurological Disorder: No - HEENT Hx HEENT Disorder: No - Renal Hx Renal Disorder: No - Endocrine/Metabolic Hx Hypothyroidism: Yes - Hematological/Oncological Hx Anemia: Yes - Integumentary Hx Dermatological Disorder: No - Musculoskeletal/Rheumatological Hx Arthritis: Yes - Gastrointestinal Hx Gastritis: Yes Hx Pancreatitis: Yes - Genitourinary/Gynecological Hx Genitourinary Disorders: No - Psychiatric Hx Anxiety: Yes Hx Depression: Yes Hx Substance Use: Yes - Surgical History Other/Comment: dialysis catheter insertion - Anesthesia Hx Anesthesia: Yes Hx Anesthesia Reactions: No Hx Malignant Hyperthermia: No - Suicidal Assessment Feels Threatened In Home Enviroment: No Family/Social History - Physician Review Nursing Documentation Reviewed: Yes Family/Social History: No Known Family HX Smoking Status: Light Smoker < 10 Cigarettes Daily Hx Alcohol Use: Yes Frequency of alcohol use: Daily Hx Substance Use: Yes Substance used: Heroin Hx Substance Use Treatment: No Allergies/Home Meds Allergies/Adverse Reactions: Allergies No Known Allergies Allergy (Verified 12/12/17 23:09) Review of Systems - Physician Review All systems were reviewed & negative as marked: Yes - Review of Systems Constitutional: absent: Fevers, Other (Chills) Respiratory: absent: SOB Cardiovascular: absent: Chest Pain Gastrointestinal: absent: Diarrhea, Nausea, Vomiting Genitourinary Female: absent: Dysuria, Frequency, Hematuria Musculoskeletal: absent: Back Pain, Neck Pain Neurological: absent: Headache, Dizziness Physical Exam Vital Signs Reviewed: Yes Vital Signs Temp Pulse Resp BP Pulse Ox 12/20/17 02:53 98.0 F 58 L 18 205/83 H 100 Temperature: Afebrile Blood Pressure: Hypertensive Pulse: Regular Respiratory Rate: Normal Appearance: Positive for: Well-Appearing, Non-Toxic, Comfortable Pain Distress: None Mental Status: Positive for: Alert and Oriented X 3 - Systems Exam Head: Present: Atraumatic, Normocephalic Pupils: Present: PERRL Extroacular Muscles: Present: EOMI Conjunctiva: Present: Normal Mouth: Present: Moist Mucous Membranes Neck: Present: Normal Range of Motion Respiratory/Chest: Present: Clear to Auscultation, Good Air Exchange. No: Respiratory Distress, Accessory Muscle Use Cardiovascular: Present: Regular Rate and Rhythm, Normal S1, S2. No: Murmurs Abdomen: No: Tenderness, Distention, Peritoneal Signs Back: Present: Normal Inspection Upper Extremity: Present: Normal Inspection. No: Cyanosis, Edema Lower Extremity: Present: Normal Inspection. No: Edema Neurological: Present: GCS=15, CN II-XII Intact, Speech Normal Skin: Present: Warm, Dry, Normal Color. No: Rashes Psychiatric: Present: Alert, Oriented x 3, Normal Insight, Normal Concentration Medical Decision Making ED Course and Treatment: 12/20/17 02:30 Impression: 57 year old female presents stating she is homeless and would like a place to sleep. Denies any symptoms at this time. Plan: -- Reassess and disposition Prior Visits: Notes and results from previous visits were reviewed. Patient was last seen in the emergency department on 12/04/17 presents asking for a place to sleep. Patient was discharged. Progress Notes: - Scribe Statement The provider has reviewed the documentation as recorded by the Bradley Gant Provider Scribe Attestation: All medical record entries made by the Donnaibreyes were at my direction and personally dictated by me. I have reviewed the chart and agree that the record accurately reflects my personal performance of the history, physical exam, medical decision making, and the department course for this patient. I have also personally directed, reviewed, and agree with the discharge instructions and disposition. Disposition/Present on Arrival - Present on Arrival Any Indicators Present on Arrival: No History of DVT/PE: Yes History of Uncontrolled Diabetes: No Urinary Catheter: No History of Decub. Ulcer: No History Surgical Site Infection Following: None - Disposition Have Diagnosis and Disposition been Completed?: Yes Diagnosis: Homelessness Disposition: HOME/ ROUTINE Disposition Time: 06:29 Patient Plan: Discharge Condition: STABLE Forms: [employer] (Romansh)
[2017-12-20 07:56] VITALS: BP 145/82; PULSE 88
== END 2017-12-20 07:00 | disposition home or self-care (01) ==
LOC: ED 22:52
DX: Z59.0 Homelessness (principal)

== ENCOUNTER 2018-05-14 03:36 | Emergency (ER) | payer MEDICARE, OTHER ==
[2018-05-14 03:37] VITALS: PULSE 125; BMI 40.3
[2018-05-14 03:43] VITALS: RESP 18; TEMP 97.8; O2SAT 100
--- NOTE | 2018-05-14 04:14 | ED PDOC ---
Arrival/HPI - General Chief Complaint: Medical Clearance Time Seen by Provider: 05/14/18 03:38 Historian: Patient - History of Present Illness Narrative History of Present Illness (Text): 05/14/18 04:10 58 year old female, whose past medical history includes hypertension, CAD, COPD, HIV, and ESRD (last hemodialysis yesterday), presents to the emergency department with leg and chest pain. Patient states she began feeling leg pain earlier in the evening. Patient states she then began feeling chest pain and short of breath. Patient denies any fevers, chills, headache, dizziness, abdominal pain, nausea, vomiting, diarrhea, back pain, neck pain, urinary/bowel changes, or any other complaint. Time/Duration: Prior to Arrival Past Medical History - Provider Review Nursing Documentation Reviewed: Yes - Past History Past History: Non-Contributing - Infectious Disease Hx of Infectious Diseases: None - Tetanus Immunization Tetanus Immunization: Unknown - Past Medical History Past Medical History: Non-Contributing - Cardiac Hx Atrial Fibrillation: Yes Hx Congestive Heart Failure: Yes Hx Hypertension: Yes Hx Peripheral Edema: Yes - Pulmonary Hx Chronic Obstructive Pulmonary Disease (COPD): Yes - HEENT Hx HEENT Disorder: No - Renal Hx Renal Disorder: Yes - Endocrine/Metabolic Hx Hypothyroidism: Yes - Hematological/Oncological Hx Anemia: Yes - Integumentary Hx Dermatological Disorder: No - Musculoskeletal/Rheumatological Hx Arthritis: Yes - Gastrointestinal Hx Gastritis: Yes Hx Pancreatitis: Yes - Psychiatric Hx Anxiety: Yes Hx Depression: Yes Hx Substance Use: Yes - Surgical History Hx Vascular Access Device: Yes (PERMACATH to R chest) Other/Comment: left stent - Anesthesia Hx Anesthesia: Yes Hx Anesthesia Reactions: No Hx Malignant Hyperthermia: No - Suicidal Assessment Feels Threatened In Home Enviroment: No Family/Social History - Physician Review Nursing Documentation Reviewed: Yes Family/Social History: No Known Family HX Smoking Status: Light Smoker < 10 Cigarettes Daily Hx Alcohol Use: Yes Hx Substance Use: Yes Substance used: Heroin Hx Substance Use Treatment: No Allergies/Home Meds Allergies/Adverse Reactions: Allergies No Known Allergies Allergy (Verified 05/16/18 21:24) Home Medications: Home Meds Medication Instructions Recorded Confirmed Calcium Acetate [Phoslo] 1 tab PO TID 01/28/18 05/16/18 Rosuvastatin Calcium [Crestor] 5 mg PO HS 01/28/18 05/16/18 Diltiazem HCl [Diltiazem 24Hr ER] 120 mg PO DAILY 04/22/18 05/16/18 Gabapentin [Neurontin] 100 mg PO TID 04/22/18 05/16/18 QUEtiapine [SEROquel] 50 mg PO BID 04/22/18 05/16/18 Review of Systems - Physician Review All systems were reviewed & negative as marked: Yes - Review of Systems Constitutional: absent: Fevers, Night Sweats Respiratory: SOB Cardiovascular: Chest Pain Gastrointestinal: absent: Abdominal Pain, Diarrhea, Nausea, Vomiting Genitourinary Female: absent: Urine Output Changes Musculoskeletal: absent: Back Pain, Neck Pain Neurological: absent: Headache, Dizziness Physical Exam Vital Signs Reviewed: Yes Vital Signs Temp Pulse Resp BP Pulse Ox 05/14/18 03:42 97.8 F 79 18 146/81 100 Temperature: Afebrile Blood Pressure: Normal Pulse: Regular Respiratory Rate: Normal Appearance: Positive for: Well-Appearing, Non-Toxic, Comfortable Pain Distress: None Mental Status: Positive for: Alert and Oriented X 3 - Systems Exam Head: Present: Atraumatic, Normocephalic Pupils: Present: PERRL Extroacular Muscles: Present: EOMI Conjunctiva: Present: Normal Mouth: Present: Moist Mucous Membranes Neck: Present: Normal Range of Motion Respiratory/Chest: Present: Clear to Auscultation, Good Air Exchange. No: Respiratory Distress, Accessory Muscle Use Cardiovascular: Present: Regular Rate and Rhythm, Normal S1, S2. No: Murmurs Abdomen: No: Tenderness, Distention, Peritoneal Signs Back: Present: Normal Inspection Upper Extremity: Present: Normal Inspection. No: Cyanosis, Edema Lower Extremity: Present: Normal Inspection. No: Edema Neurological: Present: GCS=15, CN II-XII Intact, Speech Normal Skin: Present: Warm, Dry, Normal Color. No: Rashes Psychiatric: Present: Alert, Oriented x 3, Normal Insight, Normal Concentration Medical Decision Making ED Course and Treatment: 05/14/18 04:16 Impression: 58 year old female presents with leg and chest pain Plan: -- EKG -- Chest X-ray -- Labs -- Reassess and disposition Prior Visits: Notes and results from previous visits were reviewed. Progress Notes: - RAD Interpretation Radiology Orders: 05/14/18 03:44 CHEST PORTABLE [RAD] Stat - EKG Interpretation EKG Interpretation (Text): 05/14/18 04:25 sinus with pac rate 79 nssts changes - Scribe Statement The provider has reviewed the documentation as recorded by the Scribreyes Gomez Provider Scribe Attestation: All medical record entries made by the Scribe were at my direction and personally dictated by me. I have reviewed the chart and agree that the record accurately reflects my personal performance of the history, physical exam, medical decision making, and the department course for this patient. I have also personally directed, reviewed, and agree with the discharge instructions and disposition. Disposition/Present on Arrival - Present on Arrival Any Indicators Present on Arrival: No History of DVT/PE: Yes History of Uncontrolled Diabetes: No Urinary Catheter: No History of Decub. Ulcer: No History Surgical Site Infection Following: None - Disposition Have Diagnosis and Disposition been Completed?: Yes Diagnosis: ESRD on hemodialysis Disposition: HOME/ ROUTINE Disposition Time: 06:49 Condition: GOOD Discharge Instructions (ExitCare): End Stage Kidney Disease (DC) Forms: [employer] (Occitan)
[2018-05-14 04:22] LABS: BASO # 0.04 K/mm3 (0.0-2.0); BASO % 0.6 % (0.0-3.0); EOS # 0.2 (0.0-0.7); EOS % 3.1 % (1.5-5.0); GRAN # 4.56 (1.4-6.5); HEMOGLOBIN 8.6 g/dL (12.0-16.0); LYMPH # 1.1 (1.2-3.4); LYMPH % 17.7 % (22.0-35.0); MEAN CELL VOLUME 95.7 fl (80.0-105.0); MEAN CORPUSCULAR HEMOGLOBIN 30.9 pg (25.0-35.0); MEAN CORPUSCULAR HGB CONC 32.3 g/dl (31.0-37.0); MEAN PLATELET VOLUME 9.2 fl (7.0-11.0); MONO # 0.5 (0.1-0.6); MONO % 7.6 % (1.0-6.0); RBC 2.78 10^6/uL (3.5-6.1); WHITE BLOOD COUNT 6.4 10^3/ul (4.5-11.0)
[2018-05-14 04:40] LABS: ALBUMIN 3.6 g/dL (3.0-4.8); CALCIUM 8.9 mg/dL (8.4-10.5)
[2018-05-14 04:50] LABS: TROPONIN I 0.05 ng/mL
[2018-05-14 07:08] VITALS: BP 134/85; PULSE 65
--- NOTE | 2018-05-14 09:20 | CARD ---
APPROVED REPORT Date of service: 05/14/2018 EKG Measurement Heart [id number] OK [id number] <Conclusion> Sinus rhythm with premature supraventricular complexe and Junctional Premature Complex Otherwise normal ECG
--- NOTE | 2018-05-14 09:26 | RAD ---
Date of service: 05/14/2018 HISTORY: sob COMPARISON: 06/18/2017 FINDINGS: LUNGS: No active pulmonary disease. PLEURA: No significant pleural effusion identified, no pneumothorax apparent. CARDIOVASCULAR: Moderate cardiomegaly OSSEOUS STRUCTURES: No significant abnormalities. VISUALIZED UPPER ABDOMEN: Normal. OTHER FINDINGS: There is a right internal jugular dialysis catheter terminating at the caval atrial junction IMPRESSION: No active disease.
== END 2018-05-14 07:50 | disposition home or self-care (01) ==
LOC: ED 03:36
DX: I12.0 Hypertensive chronic kidney disease with stage 5 chronic kidney disease or end stage renal disease (principal); N18.6 End stage renal disease; F17.210 Nicotine dependence, cigarettes, uncomplicated; Z99.2 Dependence on renal dialysis

== ENCOUNTER 2018-05-14 20:41 | Emergency (ER) | payer MEDICARE, OTHER ==
[2018-05-14 20:41] VITALS: PULSE 125; BMI 40.3
--- NOTE | 2018-05-14 21:59 | ED PDOC ---
Arrival/HPI - General Chief Complaint: Lower Extremity Problem/Injury Time Seen by Provider: 05/14/18 20:47 Historian: Patient - History of Present Illness Narrative History of Present Illness (Text): 05/14/18 21:53 Carie Duncan is a 57 year old female, well known to ER staff, whose past medical history includes hepatitis C, HIV, DVT s/p IVC filter, diabetes, anemia, and substance abuse, presents to the emergency department complaining of chronic leg pain. Patient seen yesterday for similar complaint and discharged home. Patient denies any fever, chills, chest pain, shortness of breath, nausea, vomiting, diarrhea, urinary symptoms, back pain, neck pain, headache, dizziness, or any other complaints. Symptom Onset: Gradual Symptom Course: Unchanged Activities at Onset: Light Context: Home Past Medical History - Provider Review Nursing Documentation Reviewed: Yes - Past History Past History: Non-Contributing - Infectious Disease Hx of Infectious Diseases: None - Tetanus Immunization Tetanus Immunization: Unknown - Past Medical History Past Medical History: Non-Contributing - Cardiac Hx Atrial Fibrillation: Yes Hx Congestive Heart Failure: Yes Hx Hypertension: Yes Hx Peripheral Edema: Yes - Pulmonary Hx Chronic Obstructive Pulmonary Disease (COPD): Yes - HEENT Hx HEENT Disorder: No - Renal Hx Renal Disorder: Yes - Endocrine/Metabolic Hx Hypothyroidism: Yes - Hematological/Oncological Hx Anemia: Yes - Integumentary Hx Dermatological Disorder: No - Musculoskeletal/Rheumatological Hx Arthritis: Yes - Gastrointestinal Hx Gastritis: Yes Hx Pancreatitis: Yes - Psychiatric Hx Anxiety: Yes Hx Depression: Yes Hx Substance Use: Yes - Surgical History Hx Vascular Access Device: Yes (PERMACATH to R chest) Other/Comment: left stent - Anesthesia Hx Anesthesia: Yes Hx Anesthesia Reactions: No Hx Malignant Hyperthermia: No - Suicidal Assessment Feels Threatened In Home Enviroment: No Family/Social History - Physician Review Nursing Documentation Reviewed: Yes Family/Social History: Unknown Family HX Smoking Status: Light Smoker < 10 Cigarettes Daily Hx Alcohol Use: Yes Hx Substance Use: Yes Substance used: Heroin Hx Substance Use Treatment: No Allergies/Home Meds Allergies/Adverse Reactions: Allergies No Known Allergies Allergy (Verified 04/12/18 10:59) Home Medications: Home Meds Medication Instructions Recorded Confirmed Calcium Acetate [Phoslo] 1 tab PO TID 01/28/18 04/22/18 Rosuvastatin Calcium [Crestor] 5 mg PO HS 01/28/18 04/22/18 Diltiazem HCl [Diltiazem 24Hr ER] 120 mg PO DAILY 04/22/18 04/22/18 Gabapentin [Neurontin] 100 mg PO TID 04/22/18 04/22/18 QUEtiapine [SEROquel] 50 mg PO BID 04/22/18 04/22/18 Review of Systems - Physician Review All systems were reviewed & negative as marked: Yes - Review of Systems Constitutional: Normal. absent: Fevers Eyes: Normal ENT: Normal Respiratory: Normal. absent: SOB, Cough Cardiovascular: Normal. absent: Chest Pain Gastrointestinal: Normal. absent: Abdominal Pain, Diarrhea, Nausea, Vomiting Genitourinary Female: Normal. absent: Dysuria, Frequency, Hematuria, Urine Output Changes Musculoskeletal: Other (+chronic leg pain). absent: Back Pain, Neck Pain Skin: Normal. absent: Rash Neurological: Normal. absent: Headache Endocrine: Normal Hemo/Lymphatic: Normal Psychiatric: Normal Physical Exam Vital Signs Reviewed: Yes Temperature: Afebrile Blood Pressure: Normal Pulse: Regular Respiratory Rate: Normal Appearance: Positive for: Well-Appearing, Non-Toxic, Comfortable Pain Distress: None Mental Status: Positive for: Alert and Oriented X 3 - Systems Exam Head: Present: Atraumatic, Normocephalic Pupils: Present: PERRL Extroacular Muscles: Present: EOMI Conjunctiva: Present: Normal Mouth: Present: Moist Mucous Membranes Neck: Present: Normal Range of Motion Respiratory/Chest: Present: Clear to Auscultation, Good Air Exchange. No: Respiratory Distress, Accessory Muscle Use Cardiovascular: Present: Regular Rate and Rhythm, Normal S1, S2. No: Murmurs Abdomen: No: Tenderness, Distention, Peritoneal Signs Back: Present: Normal Inspection Upper Extremity: Present: Normal Inspection. No: Cyanosis, Edema Lower Extremity: Present: Normal Inspection. No: Edema Neurological: Present: GCS=15, CN II-XII Intact, Speech Normal Skin: Present: Warm, Dry, Normal Color. No: Rashes Psychiatric: Present: Alert, Oriented x 3, Normal Insight, Normal Concentration Medical Decision Making ED Course and Treatment: 05/14/18 21:54 Impression: 58 year old female complaining of chronic leg pain. Plan: -- Reassess and disposition Prior Visits: Notes and results from previous visits were reviewed. Progress Notes: - Scribe Statement The provider has reviewed the documentation as recorded by the Bradley Valenzuela Provider Scribe Attestation: All medical record entries made by the Scribe were at my direction and personally dictated by me. I have reviewed the chart and agree that the record accurately reflects my personal performance of the history, physical exam, medical decision making, and the department course for this patient. I have also personally directed, reviewed, and agree with the discharge instructions and disposition. Disposition/Present on Arrival - Present on Arrival Any Indicators Present on Arrival: No History of DVT/PE: Yes History of Uncontrolled Diabetes: No Urinary Catheter: No History of Decub. Ulcer: No History Surgical Site Infection Following: None - Disposition Have Diagnosis and Disposition been Completed?: Yes Diagnosis: Leg swelling Disposition: HOME/ ROUTINE Disposition Time: 04:35 Patient Problems: Current Active Problems Problem Status Onset Leg swelling Chronic Condition: GOOD Discharge Instructions (ExitCare): Swelling Forms: [employer] (Beninese)
[2018-05-15] MEDS ORDERED: Oxycodone/Acetaminophen 5/325 mg Tab PO STA (03:08)
[2018-05-15 05:00] VITALS: BP 154/72; PULSE 77; RESP 18; TEMP 98.6; O2SAT 97
== END 2018-05-15 05:25 | disposition home or self-care (01) ==
LOC: ED 20:41
DX: M79.89 Other specified soft tissue disorders (principal)

== ENCOUNTER 2018-09-20 02:43 | Emergency (ER) | payer OTHER, MEDICARE ==
[2018-09-20 02:43] VITALS: PULSE 125; BMI 40.3
[2018-09-20 03:05] VITALS: O2SAT 97
--- NOTE | 2018-09-20 03:20 | ED PDOC ---
Arrival/HPI - General Chief Complaint: Lower Extremity Problem/Injury Time Seen by Provider: 09/20/18 02:43 Historian: Patient - History of Present Illness Narrative History of Present Illness (Text): 09/20/18 03:16 58 year old homeless female, whose past medical history includes chronic lower extremity pain, Anxiety, Arthritis, Atrial Fibrillation, CAD, CHF, COPD, Depression, ESRD on HD, numerous visits for bed seeking behavior for evaluation of chronic leg pain. Patient has been seen numerous times for similar complaints. She states she had this pain for awhile. Patient's last dialysis treatment was yesterday. Patient denies any fever, chills, chest pain, shortness of breath, nausea, vomiting, diarrhea, urinary symptoms, back pain, neck pain, headache, dizziness, or any other complaints. Symptom Onset: Gradual Symptom Course: Unchanged Activities at Onset: Light Context: Home Past Medical History - Provider Review Nursing Documentation Reviewed: Yes - Past History Past History: Non-Contributing - Infectious Disease Hx of Infectious Diseases: None - Tetanus Immunization Tetanus Immunization: Unknown - Past Medical History Past Medical History: Non-Contributing - Cardiac Hx Atrial Fibrillation: Yes Hx Congestive Heart Failure: Yes Hx Hypertension: Yes Hx Peripheral Edema: Yes - Pulmonary Hx Chronic Obstructive Pulmonary Disease (COPD): Yes - HEENT Hx HEENT Disorder: No - Renal Hx Renal Disorder: Yes - Endocrine/Metabolic Hx Hypothyroidism: Yes - Hematological/Oncological Hx Anemia: Yes - Integumentary Hx Dermatological Disorder: No - Musculoskeletal/Rheumatological Hx Arthritis: Yes - Gastrointestinal Hx Gastritis: Yes Hx Pancreatitis: Yes - Psychiatric Hx Anxiety: Yes Hx Depression: Yes Hx Substance Use: No - Surgical History Hx Vascular Access Device: Yes (PERMACATH to R chest) Other/Comment: left stent - Anesthesia Hx Anesthesia: No Hx Anesthesia Reactions: No Hx Malignant Hyperthermia: No - Suicidal Assessment Feels Threatened In Home Enviroment: No Family/Social History - Physician Review Nursing Documentation Reviewed: Yes Family/Social History: No Known Family HX Smoking Status: Heavy Smoker > 10 Cigarettes Daily Hx Alcohol Use: No Hx Substance Use: No Substance used: Heroin Hx Substance Use Treatment: No Allergies/Home Meds Allergies/Adverse Reactions: Allergies No Known Allergies Allergy (Verified 09/20/18 02:49) Home Medications: Home Meds Medication Instructions Recorded Confirmed RX: Calcium Acetate 667 mg PO TID 09/08/18 09/20/18 RX: Emtricitabine [Emtriva] 200 mg PO BID 09/08/18 09/20/18 RX: hydrALAZINE [Apresoline] 50 mg PO TID 09/08/18 09/20/18 Review of Systems - Physician Review All systems were reviewed & negative as marked: Yes - Review of Systems Constitutional: absent: Fevers, Other (chills) Gastrointestinal: absent: Diarrhea, Nausea, Vomiting Genitourinary Female: absent: Dysuria, Frequency, Hematuria Musculoskeletal: Other (chronic leg pain). absent: Back Pain, Neck Pain Neurological: absent: Headache, Dizziness Physical Exam Vital Signs Reviewed: Yes Vital Signs Temp Pulse Resp BP Pulse Ox 09/20/18 02:50 97.8 F 93 H 19 135/49 L 97 Temperature: Afebrile Blood Pressure: Hypotensive Pulse: Regular Respiratory Rate: Normal Appearance: Positive for: Well-Appearing, Non-Toxic, Comfortable Pain Distress: None Mental Status: Positive for: Alert and Oriented X 3 - Systems Exam Head: Present: Atraumatic, Normocephalic Pupils: Present: PERRL Extroacular Muscles: Present: EOMI Conjunctiva: Present: Normal Mouth: Present: Moist Mucous Membranes Neck: Present: Normal Range of Motion Respiratory/Chest: Present: Clear to Auscultation, Good Air Exchange. No: Respiratory Distress, Accessory Muscle Use Cardiovascular: Present: Regular Rate and Rhythm, Normal S1, S2. No: Murmurs Abdomen: No: Tenderness, Distention, Peritoneal Signs Back: Present: Normal Inspection Upper Extremity: Present: Normal Inspection. No: Cyanosis, Edema Lower Extremity: Present: Normal Inspection. No: Edema Neurological: Present: GCS=15, CN II-XII Intact, Speech Normal Skin: Present: Warm, Dry, Normal Color. No: Rashes Psychiatric: Present: Alert, Oriented x 3, Normal Insight, Normal Concentration Medical Decision Making ED Course and Treatment: 09/20/18 03:19 Impression: 58 year old homeless female presents complaining of chronic leg pain. Seen numerous times for in the past. Plan: -- Reassess and disposition Prior Visits: Notes and results from previous visits were reviewed. Progress Notes: - Scribe Statement The provider has reviewed the documentation as recorded by the Bradley Gant Provider Scribe Attestation: All medical record entries made by the Scribe were at my direction and personally dictated by me. I have reviewed the chart and agree that the record accurately reflects my personal performance of the history, physical exam, medical decision making, and the department course for this patient. I have also personally directed, reviewed, and agree with the discharge instructions and disposition. Disposition/Present on Arrival - Present on Arrival Any Indicators Present on Arrival: No History of DVT/PE: No History of Uncontrolled Diabetes: No Urinary Catheter: No History of Decub. Ulcer: No History Surgical Site Infection Following: None - Disposition Have Diagnosis and Disposition been Completed?: Yes Diagnosis: Chronic leg pain Disposition: HOME/ ROUTINE Disposition Time: 06:00 Condition: STABLE Additional Instructions: return to any er with worsening. Referrals: [facility] [Outside] - Follow up with primary [facility] [Outside] - Follow up with primary Forms: [employer] (Romanian)
[2018-09-20 04:06] VITALS: RESP 18
[2018-09-20 05:50] VITALS: BP 117/48; PULSE 68
[2018-09-20 06:44] VITALS: TEMP 98
== END 2018-09-20 06:43 | disposition home or self-care (01) ==
LOC: ED 02:43
DX: G89.29 Other chronic pain (principal); M79.606 Pain in leg, unspecified